=== PATIENT | female | born 1965 | race African-American/Black ===

== ENCOUNTER 2018-10-27 08:49 | Inpatient (IN) | payer OTHER ==
[2018-10-27 09:25] VITALS: BMI 32.5
--- NOTE | 2018-10-27 10:30 | HP ---
COWS - Scale Resting Pulse: 1= [place] 81-100 Sweatin= Chills/Flushing Restless Observation: 3= Extraneous Movement Pupil Size: 1= Pupils >than Normal Bone or Joint Aches: 2= Severe Diffuse Aches Runny Nose/ Eye Tearin= Runny Nose/Eyes GI Upset > 30mins: 2= Nausea/Diarrhea Tremor Observation: 2= Slight Tremor Visible Yawning Observation: 2= >3x During Session Anxiety or Irritability: 2=Irritable/Anxious Goose Flesh Skin: 0=Smooth Skin COWS Score: 18 CIWA Score Nausea/Vomitin Muscle Tremors: 2 Anxiety: 2 Agitation: 2 Paroxysmal Sweats: 1-Minimal Palms Moist Orientation: 0-Oriented Tacttile Disturbances: 1-Very Mild Itch/Numbness Auditory Disturbances: 1-Very Mild Visual Disturbances: 0-None Headache: 2-Mild CIWA-Ar Total Score: 13 - Admission Criteria OASAS Guidelines: Admission for Medically Managed Detox: Requires at least one of the followin. CIWA greater than 12 2. Seizures within the past 24 hours 3. Delirium tremens within the past 24 hours 4. Hallucinations within the past 24 hours 5. Acute intervention needed for co occurring medical disorder 6. Acute intervention needed for co occurring psychiatric disorder 7. Severe withdrawal that cannot be handled at a lower level of care (continued vomiting, continued diarrhea, abnormal vital signs) requiring intravenous medication and/or fluids 8. Admission ROS [facility] - [facility] Chief Complaint: i am here to stop using heroin,alcohol ,cocaine Allergies/Adverse Reactions: Allergies Allergy/AdvReac Type Severity Reaction Status Date / Time sulfamethoxazole AdvReac Severe Swelling Verified 10/27/18 09:03 [From Bactrim] trimethoprim [From Bactrim] AdvReac Severe Swelling Verified 10/27/18 09:03 History of Present Illness: this 53 years old female with heroin,alcohol and cocaine dependence,seeking detox,withdrawal symptom, last detox [facility] 09/28 multiple admissions in the past history of hypertension,type 2 dm, no smoking anxiety,depression,insomnia plan to go rehab longest period of sobriety for 20 yearsl Exam Limitations: No Limitations - Ebola screening Have you traveled outside of the country in the last 21 days: No Have you had contact with anyone from an Ebola affected area: No Do you have a fever: No - Review of Systems Constitutional: Chills, Loss of Appetite, Malaise, Night Sweats, Changes in sleep, Weakness EENT: reports: Tearing, Nose Congestion Respiratory: reports: Other (asthma coughing yellowish sputum for 1 week) Cardiac: reports: No Symptoms Reported GI: reports: Nausea, Vomiting, Abdominal cramping : reports: No Symptoms Reported Musculoskeletal: reports: Back Pain, Muscle Pain Integumentary: reports: Dryness Neuro: reports: Headache, Tremors Endocrine: reports: No Symptoms Reported Hematology: reports: No Symptoms Reported Psychiatric: reports: No Sypmtoms Reported, Judgement Intact, Mood/Affect Appropiate, Orientated x3, Anxious, Depressed, other (insomnia) Other Systems: Reviewed and Negative Patient History - Patient Medical History Hx Anemia: No Hx Asthma: Yes (on albuterol inhaler) Hx Chronic Obstructive Pulmonary Disease (COPD): No Hx Cancer: No Hx Cardiac Disorders: No Hx Congestive Heart Failure: No Hx Hypertension: Yes (no medication) Hx Hypercholesterolemia: No Hx Pacemaker: No HX Cerebrovascular Accident: No Hx Seizures: No Hx Dementia: No Hx Diabetes: Yes (type 2 dm on metformin) Hx Gastrointestinal Disorders: No Hx Liver Disease: No Hx Genitourinary Disorders: No Hx Sexually Transmitted Disorders: No Hx Renal Disease (ESRD): No Hx Thyroid Disease: No Hx Human Immunodeficiency Virus (HIV): No (last negative) Hx Hepatitis C: No Hx Depression: Yes (anxiety) Hx Suicide Attempt: Yes (overdose at age 16) Hx Bipolar Disorder: No Hx Schizophrenia: No Other Medical History: no sucidal,no homicidal - Patient Surgical History Past Surgical History: Yes Hx Cholecystectomy: Yes (lap cholecystectomy in 2002 at [place]) Hx Orthopedic Surgery: Yes (fx of left ankle in 2003) - PPD History Previous Implant?: Yes Documented Results: Negative w/o proof Implanted On Prior [facility] Admission?: No PPD to be Administered?: Yes - Reproductive History Patient is a Female of Child Bearing Age (11 -55 yrs old): Yes Last Menstrual Period: 10/27/17 Patient : Yes - Smoking Cessation Smoking history: Never smoked - Substance & Tx. History Hx Alcohol Use: Yes Hx Substance Use: Yes Substance Use Type: Alcohol, Cocaine, Heroin Hx Substance Use Treatment: Yes ([facility] 09/28) - Substances abused Alcohol Substance route: Oral Frequency: Daily Amount used: wine 2-3 large bottles, chris 1pint, Age of first use: 16 Date of last use: 10/26/18 Cocaine Substance route: Inhalation Frequency: 3-6 times per week Amount used: $200.00 Age of first use: 18 Date of last use: 10/25/18 Heroin Substance route: Inhalation Frequency: Daily Amount used: 200.00 Age of first use: 52 Date of last use: 10/27/18 Family Disease History - Family Disease History Family Disease History: Other: Father (alcohol,dsa ), Mother (alcohl, dsa ) Admission Physical Exam [facility] - Vital Signs Vital Signs: Vital Signs - 24 hr 10/27/18 09:16 Temperature 97.1 F L Pulse Rate 84 Respiratory 18 Rate Blood Pressure 141/81 - Physical General Appearance: Yes: Moderate Distress, Tremorous, Irritable, Sweating, Anxious HEENTM: Yes: Normal ENT Inspection, Pharynx Normal Respiratory: Yes: Wheezing Neck: Yes: Within Normal Limits, Supple, Trachea in good position Breast: Yes: Breast Exam Deferred Cardiology: Yes: Within Normal Limits, Regular Rhythm, Regular Rate, S1, S2 Abdominal: Yes: Within Normal Limits, Normal Bowel Sounds, Non Tender, Flat, Soft Genitourinary: Yes: Within Normal Limits Back: Yes: Normal Inspection, Muscle Spasm Musculoskeletal: Yes: full range of Motion, Back pain, Muscle Pain Extremities: Yes: Normal Range of Motion, Tremors 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 Current toxicology is negative. (3) Alcohol dependence with uncomplicated withdrawal Current Visit: Yes Status: Acute (4) Asthma Current Visit: Yes Status: Acute (5) Bronchitis Current Visit: Yes Status: Acute (6) Insomnia secondary to depression with anxiety Current Visit: Yes Status: Acute (7) History of laparoscopic cholecystectomy Current Visit: Yes Status: Acute (8) DM type 2 (diabetes mellitus, type 2) Current Visit: Yes Status: Acute Cleared for Admission [facility] - Detox or Rehab [facility] Level of Care: Medically Managed Detox Regimen/Protocol: Methadone/Librium Breathalyzer - Breathalyzer Breathalyzer: 0 POC Urine test - Test device test lot number: [id number] Expiration date: 03/12/20 - Control test control: Yes - Result Urine Test Results: Negative - NO line present Urine Drug Screen - Test Device Lot number: [id number] Expiration date: 06/11/20 - Control Is test valid?: Yes - Results Drug screen NEGATIVE: No Urine drug screen results: FEN-Fentanyl, MOP-Opiates, MTD-Methadone Inpatient Rehab Admission - Rehab Decision to Admit Inpatient rehab admission?: No
[2018-10-27] MEDS ORDERED: hydrOXYzine PAMOATE 25 MG CAPSULE (FP) PO PRN (10:51)
[2018-10-27] MEDS ORDERED: cloNIDine HCL 0.1 MG TABLET PO PRN (10:51)
[2018-10-27] MEDS ORDERED: BISMUTH SUBSALICYLATE 262 MG/15 ML BTL PO PRN (10:51)
[2018-10-27] MEDS ORDERED: IBUPROFEN 400 MG TABLET (FP) PO PRN (10:51)
[2018-10-27] MEDS ORDERED: MAGNESIUM HYDROX 2400MG/30ML ORAL SUSPENSION 30 ML CUP PO PRN (10:51)
[2018-10-27] MEDS ORDERED: METHOCARBAMOL 500 MG TABLET PO PRN (10:51)
[2018-10-27] MEDS ORDERED: ACETAMINOPHEN 325 MG TABLET (FP) PO PRN ×2 (10:51)
[2018-10-27] MEDS ORDERED: MAGNESIUM CITRATE 300 ML BOTTLE PO PRN (10:51)
[2018-10-27] MEDS ORDERED: MAG HYDROX/AL HYDROX/SIMETH 30 ML UNIT-DOSE CUP PO PRN (10:51)
[2018-10-27] MEDS ORDERED: MENTHOL/PHENOL 1 EACH UD MM PRN (10:51)
[2018-10-27] MEDS ORDERED: DOCUSATE SODIUM 100 MG CAPSULE (FP) PO PRN (10:56)
--- NOTE | 2018-10-27 11:00 | HP ---
COWS - Scale Resting Pulse: 1= [place] 81-100 Sweatin= Chills/Flushing Restless Observation: 3= Extraneous Movement Pupil Size: 1= Pupils >than Normal Bone or Joint Aches: 2= Severe Diffuse Aches Runny Nose/ Eye Tearin= Runny Nose/Eyes GI Upset > 30mins: 2= Nausea/Diarrhea Tremor Observation: 2= Slight Tremor Visible Yawning Observation: 2= >3x During Session Anxiety or Irritability: 2=Irritable/Anxious Goose Flesh Skin: 0=Smooth Skin COWS Score: 18 CIWA Score Nausea/Vomitin Muscle Tremors: 2 Anxiety: 2 Agitation: 2 Paroxysmal Sweats: 1-Minimal Palms Moist Orientation: 0-Oriented Tacttile Disturbances: 1-Very Mild Itch/Numbness Auditory Disturbances: 1-Very Mild Visual Disturbances: 0-None Headache: 2-Mild CIWA-Ar Total Score: 13 - Admission Criteria OASAS Guidelines: Admission for Medically Managed Detox: Requires at least one of the followin. CIWA greater than 12 2. Seizures within the past 24 hours 3. Delirium tremens within the past 24 hours 4. Hallucinations within the past 24 hours 5. Acute intervention needed for co occurring medical disorder 6. Acute intervention needed for co occurring psychiatric disorder 7. Severe withdrawal that cannot be handled at a lower level of care (continued vomiting, continued diarrhea, abnormal vital signs) requiring intravenous medication and/or fluids 8. Admission [facility] Allergies/Adverse Reactions: Allergies Allergy/AdvReac Type Severity Reaction Status Date / Time sulfamethoxazole AdvReac Severe Swelling Verified 10/27/18 09:03 [From Bactrim] trimethoprim [From Bactrim] AdvReac Severe Swelling Verified 10/27/18 09:03 - Ebola screening Have you traveled outside of the country in the last 21 days: No Have you had contact with anyone from an Ebola affected area: No Do you have a fever: No Patient History - Patient Medical History Hx Anemia: No Hx Asthma: Yes (on albuterol inhaler) Hx Chronic Obstructive Pulmonary Disease (COPD): No Hx Cancer: No Hx Cardiac Disorders: No Hx Congestive Heart Failure: No Hx Hypertension: Yes (no medication) Hx Hypercholesterolemia: No Hx Pacemaker: No HX Cerebrovascular Accident: No Hx Seizures: No Hx Dementia: No Hx Diabetes: Yes (type 2 dm on metformin) Hx Gastrointestinal Disorders: No Hx Liver Disease: No Hx Genitourinary Disorders: No Hx Sexually Transmitted Disorders: No Hx Renal Disease (ESRD): No Hx Thyroid Disease: No Hx Human Immunodeficiency Virus (HIV): No (last negative) Hx Hepatitis C: No Hx Depression: Yes (anxiety) Hx Suicide Attempt: Yes (overdose at age 16) Hx Bipolar Disorder: No Hx Schizophrenia: No Other Medical History: no sucidal,no homicidal - Patient Surgical History Past Surgical History: Yes Hx Cholecystectomy: Yes (lap cholecystectomy in 2002 at [place]) Hx Orthopedic Surgery: Yes (fx of left ankle in 2003) - PPD History Previous Implant?: Yes Documented Results: Negative w/o proof Implanted On Prior [facility] Admission?: No - Reproductive History Last Menstrual Period: 10/27/17 Patient : Yes - Smoking Cessation Smoking history: Never smoked - Substances abused Alcohol Substance route: Oral Frequency: Daily Amount used: wine 2-3 large bottles, chris 1pint, Age of first use: 16 Date of last use: 10/26/18 Cocaine Substance route: Inhalation Frequency: 3-6 times per week Amount used: $200.00 Age of first use: 18 Date of last use: 10/25/18 Heroin Substance route: Inhalation Frequency: Daily Amount used: 200.00 Age of first use: 52 Date of last use: 10/27/18 Family Disease History - Family Disease History Family Disease History: Other: Father (alcohol,dsa ), Mother (alcohl, dsa ) Admission Physical Exam [facility] - Vital Signs Vital Signs: Vital Signs - 24 hr 10/27/18 09:16 Temperature 97.1 F L Pulse Rate 84 Respiratory 18 Rate Blood Pressure 141/81 - Physical General Appearance: Yes: Moderate Distress, Tremorous, Irritable, Sweating, Anxious HEENTM: Yes: Normal ENT Inspection, JAYME, Pharynx Normal, Other (old deformity of nose) Respiratory: Yes: Wheezing Neck: Yes: Within Normal Limits, Supple, Trachea in good position Breast: Yes: Breast Exam Deferred Cardiology: Yes: Within Normal Limits, Regular Rhythm, Regular Rate, S1, S2 Abdominal: Yes: Within Normal Limits, Normal Bowel Sounds, Non Tender, Flat, Soft Genitourinary: Yes: Within Normal Limits Back: Yes: Muscle Spasm Musculoskeletal: Yes: Back pain, Joint Stiffness, Muscle Pain Extremities: Yes: Within Normal Limits, Normal Range of Motion, Tremors, Other ( old scar left ankle) 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 intact, Alert, Motor Strength 5/5, Normal Mood /Affect Integumentary: Yes: Dry Lymphatic: Yes: Within Normal Limits - Diagnostic (1) Opioid dependence with withdrawal Current Visit: Yes Status: Acute (2) Cocaine dependence Current Visit: Yes Status: Acute (3) Alcohol dependence with uncomplicated withdrawal Current Visit: Yes Status: Acute (4) Asthma Current Visit: Yes Status: Acute (5) Bronchitis Current Visit: Yes Status: Acute (6) Insomnia secondary to depression with anxiety Current Visit: Yes Status: Acute (7) History of laparoscopic cholecystectomy Current Visit: Yes Status: Acute (8) DM type 2 (diabetes mellitus, type 2) Current Visit: Yes Status: Acute Breathalyzer - Breathalyzer Breathalyzer: 0 POC Urine test - Test device test lot number: [id number] Expiration date: 03/12/20 - Control test control: Yes - Result Urine Test Results: Negative - NO line present Urine Drug Screen - Test Device Lot number: [id number] Expiration date: 06/11/20 - Control Is test valid?: Yes - Results Drug screen NEGATIVE: No Urine drug screen results: FEN-Fentanyl, MOP-Opiates, MTD-Methadone
--- NOTE | 2018-10-27 12:25 | EKG ---
Test Reason : Blood Pressure : / mmHG Vent. Rate : 077 BPM Atrial Rate : 077 BPM P-R Int : 146 ms QRS Dur : 072 ms QT Int : 400 ms P-R-T Axes : 059 056 011 degrees QTc Int : 452 ms NORMAL SINUS RHYTHM NORMAL ECG NO PREVIOUS ECGS AVAILABLE Confirmed by CONNIE PITTS, ISAIAH ([id number]) on 10/27/2018 12:25:09 PM Referred By: Confirmed By:ISAIAH ROSALES MD
[2018-10-27] MEDS: chlordiazePOXIDE HCL 25 MG CAPSULE PO PRN (12:35)
[2018-10-27] MEDS ORDERED: METHADONE HCL 10 MG TABLET (FOR DETOX USE ONLY) PO ONE ×2 (12:53→23:00)
[2018-10-27] MEDS ORDERED: ALBUTEROL SO4 2.5/IPRATROPIUM 0.5 INH SOL 3 ML VIAL.NEB. NEB PRN (12:54)
[2018-10-27] MEDS: FLUTICASONE PROP 0.05% 16 GM NASAL SPRAY NS SCH ×2 (12:58→22:22)
[2018-10-27 14:49] LABS: HEMATOCRIT 37.4 % (32.4-45.2); HEMOGLOBIN 11.6 GM/dL (10.7-15.3); MCH 25.9 pg (25.7-33.7); MEAN CELL VOLUME 83.4 fl (80-96); MEAN PLT VOLUME 9.9 fl (7.5-11.1); PLATELET COUNT 267 K/MM3 (134-434); RBC 4.49 M/mm3 (3.60-5.2); RDW 16.1 % (11.6-15.6); WHITE BLOOD COUNT 13.3 K/mm3 (4.0-10.0)
[2018-10-27 14:58] LABS: URINE APPEARANCE CLEAR; URINE BILIRUBIN NEGATIVE (NEGATIVE); URINE COLOR YELLOW; URINE GLUCOSE (UA) NEGATIVE (NEGATIVE); URINE KETONE TRACE (NEGATIVE); URINE LEUK ESTERASE NEGATIVE (NEGATIVE); URINE NITRITE NEGATIVE (NEGATIVE); URINE PROTEIN NEGATIVE (NEGATIVE); URINE UROBILINOGEN 0.2 mg/dL (0.2-1.0)
[2018-10-27 15:03] LABS: ALBUMIN 3.8 g/dl (3.4-5.0); ALK PHOS 117 U/L (45-117); ANION GAP 6 MMOL/L (8-16); BILIRUBIN,TOTAL 0.5 mg/dL (0.2-1); BLOOD UREA NITROGEN 17 mg/dL (7-18); CALCIUM 9.2 mg/dL (8.5-10.1); CHLORIDE 103 mmol/L (98-107); CO2 29 mmol/L (21-32); CREATININE 0.6 mg/dL (0.55-1.3); GLUCOSE,RANDOM 113 mg/dL (74-106); SGOT/AST 29 U/L (15-37); SGPT/ALT 40 U/L (13-61); SODIUM 137 mmol/L (136-145); TOT PROT 7.7 g/dl (6.4-8.2)
[2018-10-27 15:28] LABS: SICKLE CELL SCREEN NEGATIVE (NEGATIVE)
[2018-10-27] MEDS: guaiFENesin 600 MG TABLET.ER (FP) PO SCH ×2 (16:13→22:22)
[2018-10-27] MEDS: metFORMIN HCL 500 MG TABLET (FP) PO SCH (16:49)
[2018-10-27] MEDS: AMOX TR/POT CLAV 875MG/125MG TABLETS (FP) PO SCH (17:50)
[2018-10-27] MEDS: chlordiazePOXIDE HCL 25 MG CAPSULE PO SCH ×2 (17:50→22:23)
--- NOTE | 2018-10-27 17:52 | CONSULT ---
[facility] Psychiatric Consult - Data Date of interview: 10/27/18 Admission source: [facility] Identifying data: [facility] admision to [facility] for this 53 y/o AA female self- referred for detoxification (heroin, cocaine, alcohol). Examined at [address] [place] [address]. Patient is single, a mother of five, domiciled, now retired and supported on Social Security benefits. Substance Abuse History: Discussed in this interview. Details : Smoking history : Never smoked. Substances abused. Alcohol. Substance route: Oral. Frequency : Daily. Amount used: wine 2-3 large bottles, chris 1pint,. Age of first use: 16. Date of last use: 10/26/18. Cocaine. Substance route: Inhalation. Frequency: 3-6 times per week. Amount used: $200.00. Age of first use: 18. Date of last use: 10/25/18. Heroin. Substance route: Inhalation. Frequency: Daily. Amount used: 200.00. Age of first use: 52. Date of last use: 10/27/18 Medical History: Remarkable for GERD, bronchial asthma, hypertension, diabetes mellitus, antecedent of fracture of left ankle and history of cholecystectomy ( 2002). Psychiatric History: No reported history of psychiatric hospitalizations. Patient states that she has been diagnosed with MMD and Anxiety Disorder. [facility] a [facility], for medication [facility], [facility]. Prescribed sertraline + zolpidem (confirmed by pharmacy claims of 10/06/18 at [facility]). Ms Sweet reports a remote history of suicide attempt (age 16) via overdose with medications (names not recalled). Physical/Sexual Abuse/Trauma History: Patient denies. Additional Comment: Urine drug screen results: FEN-Fentanyl, MOP-Opiates, MTD- Methadone. Noted. Mental Status Exam - Mental Status Exam Alert and Oriented to: Time, Place, Person Cognitive Function: Good Patient Appearance: Well Groomed Mood: Apprehensive, Hopeful Affect: Appropriate, Normal Range Patient Behavior: Fatigued, Cooperative Speech Pattern: Clear, Appropriate Voice Loudness: Normal Thought Process: Intact, Goal Oriented Thought Disorder: Not Present Hallucinations: Denies Suicidal Ideation: Denies Homicidal Ideation: Denies Insight/Judgement: Poor Sleep: Well Appetite: Good Gait/Station: Normal Psychiatric Findings - Problem List ([place] 1, 2,3) (1) Alcohol dependence with uncomplicated withdrawal Current Visit: Yes Status: Acute (2) Opioid dependence with withdrawal Current Visit: Yes Status: Acute (3) Cocaine dependence Current Visit: Yes Status: Chronic Comment: Self-report. Current toxicology is negative. (4) Substance induced mood disorder Current Visit: Yes Status: Chronic (5) History of depression Current Visit: Yes Status: Chronic (6) Insomnia Current Visit: Yes Status: Chronic - Initial Treatment Plan Initial Treatment Plan: Psychoeducation. Sleep hygiene. Support. Detoxification. Relapse prevention (MAT) : discussed with the patient. Ms Sweet expresses interest in transitioning to rehabilitation once detoxification completed. Resume zoloft 50 mg po daily. Insomnia is addressed with melatonin at bedtime. Side effects/benefts reviewed. Patient is in agreement with this plan of care. Observation.
--- NOTE | 2018-10-27 21:16 | PN ---
Tony Progress Note Note: Patient complained of cough Vital Signs Temperature 97.4 F L 10/27/18 17:47 Pulse Rate 82 10/27/18 17:47 Respiratory Rate 18 10/27/18 17:47 Blood Pressure 116/72 10/27/18 17:47 O2 Sat by Pulse Oximetry (%) Action: Guaifenesin 10 ml Q6H ordered
[2018-10-27] MEDS: THIAMINE HCL 100 MG TABLET (FP) PO SCH (22:23)
[2018-10-27] MEDS: MELATONIN 5 MG TABLETS PO PRN (22:23)
[2018-10-27] MEDS: guaiFENesin/D-METHORPHAN HB 10 ML UNIT-DOSE CUPS PO PRN (22:24)
[2018-10-28] MEDS: guaiFENesin/D-METHORPHAN HB 10 ML UNIT-DOSE CUPS PO PRN (05:20)
[2018-10-28] MEDS: chlordiazePOXIDE HCL 25 MG CAPSULE PO SCH ×4 (05:20→22:23)
[2018-10-28] MEDS: metFORMIN HCL 500 MG TABLET (FP) PO SCH ×2 (06:18→16:51)
[2018-10-28] MEDS: AMOX TR/POT CLAV 875MG/125MG TABLETS (FP) PO SCH ×2 (07:46→16:51)
[2018-10-28] MEDS ORDERED: METHADONE HCL 10 MG TABLET (FOR DETOX USE ONLY) PO ONE (10:00)
[2018-10-28] MEDS: guaiFENesin 600 MG TABLET.ER (FP) PO SCH ×2 (10:29→22:23)
[2018-10-28] MEDS: SERTRALINE HCL 50 MG TABLET (FP) PO SCH (10:29)
[2018-10-28] MEDS: PRENATAL VITAMINS W/ FOLIC ACID TABLET (FP) PO SCH (10:29)
[2018-10-28] MEDS: FLUTICASONE PROP 0.05% 16 GM NASAL SPRAY NS SCH ×2 (10:29→22:26)
--- NOTE | 2018-10-28 13:17 | PN ---
[facility] CIWA - CIWA Score Nausea/Vomitin-Mild Nausea/No Vomiting Muscle Tremors: 4-Moderate,w/Arms Extend Anxiety: 3 Agitation: 4-Moderately Restless Paroxysmal Sweats: 1-Minimal Palms Moist Orientation: 0-Oriented Tacttile Disturbances: 0-None Auditory Disturbances: 0-None Visual Disturbances: 0-None Headache: 0-None Present CIWA-Ar Total Score: 13 S COWS - Scale Resting Pulse: 1= [place] 81-100 Sweatin= Chills/Flushing Restless Observation: 0= Sits Still Pupil Size: 0= Normal to Room Light Bone or Joint Aches: 2= Severe Diffuse Aches Runny Nose/ Eye Tearin= Nasal Congestion GI Upset > 30mins: 2= Nausea/Diarrhea Tremor Observation of Outstretched Hands: 2= Slight Tremor Visible Yawning Observation: 2= >3x During Session Anxiety or Irritability: 2=Irritable/Anxious Goose Flesh Skin: 0=Smooth Skin COWS Score: 13 [facility] Progress Note (SOAP) Subjective: body aches tremor willing to up and join with peers in day room Objective: 10/28/18 13:21 Vital Signs Temperature 97.4 F L 10/28/18 09:44 Pulse Rate 97 H 10/28/18 09:44 Respiratory Rate 18 10/28/18 09:44 Blood Pressure 127/81 10/28/18 09:44 O2 Sat by Pulse Oximetry (%) Laboratory Last Values WBC 13.3 K/mm3 (4.0-10.0) H 10/27/18 10:45 RBC 4.49 M/mm3 (3.60-5.2) 10/27/18 10:45 Hgb 11.6 GM/dL (10.7-15.3) 10/27/18 10:45 Hct 37.4 % (32.4-45.2) 10/27/18 10:45 MCV 83.4 fl (80-96) 10/27/18 10:45 MCH 25.9 pg (25.7-33.7) 10/27/18 10:45 MCHC 31.0 g/dl (32.0-36.0) L 10/27/18 10:45 RDW 16.1 % (11.6-15.6) H 10/27/18 10:45 Plt Count 267 K/MM3 (134-434) 10/27/18 10:45 MPV 9.9 fl (7.5-11.1) 10/27/18 10:45 Sickle Cell Screen Negative (NEGATIVE) 10/27/18 10:45 Sodium 137 mmol/L (136-145) 10/27/18 10:45 Potassium 4.0 mmol/L (3.5-5.1) 10/27/18 10:45 Chloride 103 mmol/L (98-107) 10/27/18 10:45 Carbon Dioxide 29 mmol/L (21-32) 10/27/18 10:45 Anion Gap 6 MMOL/L (8-16) L 10/27/18 10:45 BUN 17 mg/dL (7-18) 10/27/18 10:45 Creatinine 0.6 mg/dL (0.55-1.3) 10/27/18 10:45 Creat Clearance w eGFR 104.57 (>60) 10/27/18 10:45 POC Glucometer 128 UNITS (80-120) 10/28/18 05:21 Random Glucose 113 mg/dL (74-106) H 10/27/18 10:45 Calcium 9.2 mg/dL (8.5-10.1) 10/27/18 10:45 Total Bilirubin 0.5 mg/dL (0.2-1) 10/27/18 10:45 AST 29 U/L (15-37) 10/27/18 10:45 ALT 40 U/L (13-61) 10/27/18 10:45 Alkaline Phosphatase 117 U/L (45-117) 10/27/18 10:45 Total Protein 7.7 g/dl (6.4-8.2) 10/27/18 10:45 Albumin 3.8 g/dl (3.4-5.0) 10/27/18 10:45 Urine Color Yellow 10/27/18 12:30 Urine Appearance Clear 10/27/18 12:30 Urine pH 5.0 (5.0-8.0) 10/27/18 12:30 Ur Specific [place] 1.032 (1.010-1.035) 10/27/18 12:30 Urine Protein Negative (NEGATIVE) 10/27/18 12:30 Urine Glucose (UA) Negative (NEGATIVE) 10/27/18 12:30 Urine Ketones Trace (NEGATIVE) H 10/27/18 12:30 Urine Blood Negative (NEGATIVE) 10/27/18 12:30 Urine Nitrite Negative (NEGATIVE) 10/27/18 12:30 Urine Bilirubin Negative (NEGATIVE) 10/27/18 12:30 Urine Urobilinogen 0.2 mg/dL (0.2-1.0) 10/27/18 12:30 Ur Leukocyte Esterase Negative (NEGATIVE) 10/27/18 12:30 RPR Titer Nonreactive (NONREACTIVE) 10/27/18 10:45 HIV 1&2 Antibody Screen Negative 10/27/18 10:45 HIV P24 Antigen Negative 10/27/18 10:45 lab noted Assessment: 10/28/18 13:22 withdrawal sx Plan: continue detox
[2018-10-28] MEDS: chlordiazePOXIDE HCL 25 MG CAPSULE PO PRN (16:51)
[2018-10-28] MEDS: THIAMINE HCL 100 MG TABLET (FP) PO SCH (22:23)
[2018-10-29] MEDS: guaiFENesin/D-METHORPHAN HB 10 ML UNIT-DOSE CUPS PO PRN (04:25)
[2018-10-29] MEDS: chlordiazePOXIDE HCL 25 MG CAPSULE PO SCH ×2 (05:48→10:41)
[2018-10-29] MEDS: metFORMIN HCL 500 MG TABLET (FP) PO SCH ×2 (07:06→17:30)
[2018-10-29] MEDS: AMOX TR/POT CLAV 875MG/125MG TABLETS (FP) PO SCH ×2 (07:06→17:30)
[2018-10-29] MEDS ORDERED: METHADONE HCL 10 MG TABLET (FOR DETOX USE ONLY) PO ONE (10:00)
[2018-10-29] MEDS: guaiFENesin 600 MG TABLET.ER (FP) PO SCH ×2 (10:41→22:04)
[2018-10-29] MEDS: SERTRALINE HCL 50 MG TABLET (FP) PO SCH (10:41)
[2018-10-29] MEDS: FLUTICASONE PROP 0.05% 16 GM NASAL SPRAY NS SCH ×2 (10:41→22:04)
[2018-10-29] MEDS: PRENATAL VITAMINS W/ FOLIC ACID TABLET (FP) PO SCH (10:41)
--- NOTE | 2018-10-29 13:27 | PN ---
[facility] CIWA - CIWA Score Nausea/Vomitin-No Nausea/No Vomiting Muscle Tremors: 1-None Visible, but [place] Anxiety: 1-Mildly Anxious Agitation: 0-Normal Activity Paroxysmal Sweats: 1-Minimal Palms Moist Orientation: 0-Oriented Tacttile Disturbances: 0-None Auditory Disturbances: 0-None Visual Disturbances: 0-None Headache: 0-None Present CIWA-Ar Total Score: 3 S COWS - Scale Resting Pulse: 1= [place] 81-100 Sweatin= Chills/Flushing Restless Observation: 1= Difficult to Sit Still Pupil Size: 0= Normal to Room Light Bone or Joint Aches: 1= Mild Discomfort Runny Nose/ Eye Tearin= None GI Upset > 30mins: 0= None Tremor Observation of Outstretched Hands: 0= None Yawning Observation: 0= None Anxiety or Irritability: 1=Feels Anxious/Irritable Goose Flesh Skin: 0=Smooth Skin COWS Score: 5 [facility] Progress Note (SOAP) Subjective: pt states doing well with detox protocols, says she has a sore throat- getting antibiotics O: Vital Signs - 24 hr 10/28/18 10/28/18 10/28/18 13:45 17:45 21:36 Temperature 99.0 F 98.1 F 97.3 F L Pulse Rate 100 H 95 H 76 Respiratory 20 18 18 Rate Blood Pressure 130/68 142/77 101/64 10/29/18 10/29/18 10/29/18 00:30 03:30 06:11 Temperature 98.1 F Pulse Rate 82 Respiratory 18 18 18 Rate Blood Pressure 103/62 10/29/18 09:29 Temperature 98.1 F Pulse Rate 92 H Respiratory 18 Rate Blood Pressure 122/78 Laboratory Tests 10/27/18 10/27/18 10/27/18 10:45 10:45 10:45 WBC 13.3 H RBC 4.49 Hgb 11.6 Hct 37.4 MCV 83.4 MCH 25.9 MCHC 31.0 L RDW 16.1 H Plt Count 267 MPV 9.9 Sickle Cell Screen Negative Sodium 137 Potassium 4.0 Chloride 103 Carbon Dioxide 29 Anion Gap 6 L BUN 17 Creatinine 0.6 Creat Clearance w eGFR 104.57 POC Glucometer Random Glucose 113 H Calcium 9.2 Total Bilirubin 0.5 AST 29 ALT 40 Alkaline Phosphatase 117 Total Protein 7.7 Albumin 3.8 Urine Color Urine Appearance Urine pH Ur Specific [place] Urine Protein Urine Glucose (UA) Urine Ketones Urine Blood Urine Nitrite Urine Bilirubin Urine Urobilinogen Ur Leukocyte Esterase RPR Titer Nonreactive HIV 1&2 Antibody Screen HIV P24 Antigen 10/27/18 10/27/18 10/27/18 10:45 11:41 12:30 WBC RBC Hgb Hct MCV MCH MCHC RDW Plt Count MPV Sickle Cell Screen Sodium Potassium Chloride Carbon Dioxide Anion Gap BUN Creatinine Creat Clearance w eGFR POC Glucometer 115 Random Glucose Calcium Total Bilirubin AST ALT Alkaline Phosphatase Total Protein Albumin Urine Color Yellow Urine Appearance Clear Urine pH 5.0 Ur Specific [place] 1.032 Urine Protein Negative Urine Glucose (UA) Negative Urine Ketones Trace H Urine Blood Negative Urine Nitrite Negative Urine Bilirubin Negative Urine Urobilinogen 0.2 Ur Leukocyte Esterase Negative RPR Titer HIV 1&2 Antibody Screen Negative HIV P24 Antigen Negative 10/27/18 10/28/18 10/28/18 16:24 05:21 16:24 WBC RBC Hgb Hct MCV MCH MCHC RDW Plt Count MPV Sickle Cell Screen Sodium Potassium Chloride Carbon Dioxide Anion Gap BUN Creatinine Creat Clearance w eGFR POC Glucometer 100 128 96 Random Glucose Calcium Total Bilirubin AST ALT Alkaline Phosphatase Total Protein Albumin Urine Color Urine Appearance Urine pH Ur Specific [place] Urine Protein Urine Glucose (UA) Urine Ketones Urine Blood Urine Nitrite Urine Bilirubin Urine Urobilinogen Ur Leukocyte Esterase RPR Titer HIV 1&2 Antibody Screen HIV P24 Antigen 10/29/18 05:50 WBC RBC Hgb Hct MCV MCH MCHC RDW Plt Count MPV Sickle Cell Screen Sodium Potassium Chloride Carbon Dioxide Anion Gap BUN Creatinine Creat Clearance w eGFR POC Glucometer 101 Random Glucose Calcium Total Bilirubin AST ALT Alkaline Phosphatase Total Protein Albumin Urine Color Urine Appearance Urine pH Ur Specific [place] Urine Protein Urine Glucose (UA) Urine Ketones Urine Blood Urine Nitrite Urine Bilirubin Urine Urobilinogen Ur Leukocyte Esterase RPR Titer HIV 1&2 Antibody Screen HIV P24 Antigen labs and VS WNL a/p: pt doing well wiht detox protocols- continue, Abx for sore throat
[2018-10-29] MEDS ORDERED: chlordiazePOXIDE HCL 10 MG CAPSULE PO PRN (17:00)
[2018-10-29] MEDS: chlordiazePOXIDE HCL 10 MG CAPSULE PO SCH ×2 (17:30→22:04)
[2018-10-29] MEDS: THIAMINE HCL 100 MG TABLET (FP) PO SCH (22:04)
[2018-10-29] MEDS: MELATONIN 5 MG TABLETS PO PRN (22:05)
[2018-10-30] MEDS: chlordiazePOXIDE HCL 10 MG CAPSULE PO SCH ×3 (05:13→17:50)
[2018-10-30] MEDS: AMOX TR/POT CLAV 875MG/125MG TABLETS (FP) PO SCH ×2 (07:40→17:50)
[2018-10-30] MEDS: metFORMIN HCL 500 MG TABLET (FP) PO SCH ×2 (07:40→17:50)
[2018-10-30] MEDS: guaiFENesin/D-METHORPHAN HB 10 ML UNIT-DOSE CUPS PO PRN (07:41)
[2018-10-30] MEDS ORDERED: METHADONE HCL 10 MG TABLET (FOR DETOX USE ONLY) PO ONE (10:00)
[2018-10-30] MEDS: FLUTICASONE PROP 0.05% 16 GM NASAL SPRAY NS SCH ×2 (10:06→22:19)
[2018-10-30] MEDS: PRENATAL VITAMINS W/ FOLIC ACID TABLET (FP) PO SCH (10:07)
[2018-10-30] MEDS: guaiFENesin 600 MG TABLET.ER (FP) PO SCH ×2 (10:07→22:19)
[2018-10-30] MEDS: SERTRALINE HCL 50 MG TABLET (FP) PO SCH (10:07)
--- NOTE | 2018-10-30 15:51 | PN ---
S CIWA - CIWA Score Nausea/Vomitin Muscle Tremors: 3 Anxiety: 4-Mod. Anxious/Guarded Agitation: 0-Normal Activity Paroxysmal Sweats: 2 Orientation: 0-Oriented Tacttile Disturbances: 1-Very Mild Itch/Numbness Auditory Disturbances: 0-None Visual Disturbances: 1-Very Mild Sensitivity Headache: 2-Mild CIWA-Ar Total Score: 15 [facility] COWS - Scale Resting Pulse: 1= [place] 81-100 Sweatin= Chills/Flushing Restless Observation: 0= Sits Still Pupil Size: 0= Normal to Room Light Bone or Joint Aches: 0= None Runny Nose/ Eye Tearin= Runny Nose/Eyes GI Upset > 30mins: 2= Nausea/Diarrhea Tremor Observation of Outstretched Hands: 2= Slight Tremor Visible Yawning Observation: 1= 1-2x During Session Anxiety or Irritability: 2=Irritable/Anxious Goose Flesh Skin: 0=Smooth Skin COWS Score: 11 [facility] Progress Note (SOAP) Subjective: Sweating, Tremors, H/A, Interrupted Sleep, Constipation, Nausea, Stomach Cramping. Objective: PATIENT A & O X 3, OBSERVED AMBULATING ON UNIT UNASSISTED. IN NO ACUTE DISTRESS. 10/30/18 15:51 Vital Signs Temperature 97.1 F L 10/30/18 13:18 Pulse Rate 84 10/30/18 13:18 Respiratory Rate 20 10/30/18 13:18 Blood Pressure 112/74 10/30/18 13:18 O2 Sat by Pulse Oximetry (%) Laboratory Tests 10/27/18 10/27/18 10/27/18 10:45 10:45 10:45 WBC 13.3 H RBC 4.49 Hgb 11.6 Hct 37.4 MCV 83.4 MCH 25.9 MCHC 31.0 L RDW 16.1 H Plt Count 267 MPV 9.9 Sickle Cell Screen Negative Sodium 137 Potassium 4.0 Chloride 103 Carbon Dioxide 29 Anion Gap 6 L BUN 17 Creatinine 0.6 Creat Clearance w eGFR 104.57 POC Glucometer Random Glucose 113 H Calcium 9.2 Total Bilirubin 0.5 AST 29 ALT 40 Alkaline Phosphatase 117 Total Protein 7.7 Albumin 3.8 Urine Color Urine Appearance Urine pH Ur Specific [place] Urine Protein Urine Glucose (UA) Urine Ketones Urine Blood Urine Nitrite Urine Bilirubin Urine Urobilinogen Ur Leukocyte Esterase RPR Titer Nonreactive HIV 1&2 Antibody Screen HIV P24 Antigen 10/27/18 10/27/18 10/27/18 10:45 11:41 12:30 WBC RBC Hgb Hct MCV MCH MCHC RDW Plt Count MPV Sickle Cell Screen Sodium Potassium Chloride Carbon Dioxide Anion Gap BUN Creatinine Creat Clearance w eGFR POC Glucometer 115 Random Glucose Calcium Total Bilirubin AST ALT Alkaline Phosphatase Total Protein Albumin Urine Color Yellow Urine Appearance Clear Urine pH 5.0 Ur Specific [place] 1.032 Urine Protein Negative Urine Glucose (UA) Negative Urine Ketones Trace H Urine Blood Negative Urine Nitrite Negative Urine Bilirubin Negative Urine Urobilinogen 0.2 Ur Leukocyte Esterase Negative RPR Titer HIV 1&2 Antibody Screen Negative HIV P24 Antigen Negative 10/27/18 10/28/18 10/28/18 16:24 05:21 16:24 WBC RBC Hgb Hct MCV MCH MCHC RDW Plt Count MPV Sickle Cell Screen Sodium Potassium Chloride Carbon Dioxide Anion Gap BUN Creatinine Creat Clearance w eGFR POC Glucometer 100 128 96 Random Glucose Calcium Total Bilirubin AST ALT Alkaline Phosphatase Total Protein Albumin Urine Color Urine Appearance Urine pH Ur Specific [place] Urine Protein Urine Glucose (UA) Urine Ketones Urine Blood Urine Nitrite Urine Bilirubin Urine Urobilinogen Ur Leukocyte Esterase RPR Titer HIV 1&2 Antibody Screen HIV P24 Antigen 10/29/18 10/29/18 10/30/18 05:50 17:22 06:21 WBC RBC Hgb Hct MCV MCH MCHC RDW Plt Count MPV Sickle Cell Screen Sodium Potassium Chloride Carbon Dioxide Anion Gap BUN Creatinine Creat Clearance w eGFR POC Glucometer 101 139 107 Random Glucose Calcium Total Bilirubin AST ALT Alkaline Phosphatase Total Protein Albumin Urine Color Urine Appearance Urine pH Ur Specific [place] Urine Protein Urine Glucose (UA) Urine Ketones Urine Blood Urine Nitrite Urine Bilirubin Urine Urobilinogen Ur Leukocyte Esterase RPR Titer HIV 1&2 Antibody Screen HIV P24 Antigen LABS NOTED. Assessment: 10/30/18 15:54 WITHDRAWAL SYMPTOMS. LEUKOCYTOSIS - PATIENT IS CURRENTLY BEING TREATED WITH ANTIBIOTIC FOR BRONCHITIS. Plan: CONTINUE DETOX. INCREASE DAILY PO FLUID INTAKE. PATIENT REPORTS THAT COUGHING IS PERSISTING. DUONEB PRN, ROBITUSSIN PRN RECOMMENDED TO PATIENT. PRN MOM PO RECOMMENDED FOR CONSTIPATION. DISCHARGE PRESCRIPTION FOR AUGMENTIN (PRESCRIBED FOR PATIENT AT TIME OF ADMISSION TO DETOX) SENT TO PATIENT'S PHARMACY ([facility], [place], [place]), VIA TELEPHONE (UNABLE TO SEND ELECTRONICALLY), FOR FOLLOW-UP AFTERCARE. PATIENT ADVISED TO FOLLOW-UP WITH ELECTRICAL DEVELOPMENT ENGINEER DR. MITCHELL ([place], [place]) FOR GENERAL MEDICAL ASSESSMENT AND FOR HISTORY OF ASTHMA AND FOR BRONCHITIS DIAGNOSED WHILE ADMITTED FOR DETOX. PATIENT VERBALIZED UNDERSTANDING OF RECOMMENDATION. PATIENT POSSIBLY TO BE DISCHARGED TOMORROW AM PENDING MEDICAL ASSESSMENT BY COVERING MEDICAL PROVIDER AT THAT TIME.
[2018-10-30] MEDS: MELATONIN 5 MG TABLETS PO PRN (22:19)
[2018-10-30] MEDS: THIAMINE HCL 100 MG TABLET (FP) PO SCH (22:19)
[2018-10-31] MEDS: chlordiazePOXIDE HCL 10 MG CAPSULE PO SCH (05:27)
[2018-10-31] MEDS ORDERED: METHADONE HCL 5 MG TABLET (FOR DETOX USE ONLY) PO ONE (06:00)
[2018-10-31 06:25] VITALS: BP 99/68; PULSE 74; TEMP 97.2
[2018-10-31] MEDS: metFORMIN HCL 500 MG TABLET (FP) PO SCH (07:18)
[2018-10-31] MEDS: AMOX TR/POT CLAV 875MG/125MG TABLETS (FP) PO SCH (07:18)
--- NOTE | 2018-10-31 08:59 | DS ---
[facility] Detox Discharge Summary Admission Date: 10/27/18 Discharge Date: 10/31/18 - History Present History: Alcohol Dependence, Opioid Dependence Additional Comments: 53 years old female admitted on 10/27/18 for alcohol and opiate withdrawal stabilization completed detox regimen aftercare primary care provider next appointment Pertinent Past History: bring in medication list and lab report to aftercare appointment patient has medications at home and will contact with primary care provider for supply - Physical Exam Results Vital Signs: Vital Signs Temperature 97.2 F L 10/31/18 06:25 Pulse Rate 74 10/31/18 06:25 Respiratory Rate 18 10/31/18 06:25 Blood Pressure 99/68 10/31/18 06:25 O2 Sat by Pulse Oximetry (%) Pertinent Admission Physical Exam Findings: alcohol and opiate withdrawal sx Laboratory Last Values WBC 13.3 K/mm3 (4.0-10.0) H 10/27/18 10:45 RBC 4.49 M/mm3 (3.60-5.2) 10/27/18 10:45 Hgb 11.6 GM/dL (10.7-15.3) 10/27/18 10:45 Hct 37.4 % (32.4-45.2) 10/27/18 10:45 MCV 83.4 fl (80-96) 10/27/18 10:45 MCH 25.9 pg (25.7-33.7) 10/27/18 10:45 MCHC 31.0 g/dl (32.0-36.0) L 10/27/18 10:45 RDW 16.1 % (11.6-15.6) H 10/27/18 10:45 Plt Count 267 K/MM3 (134-434) 10/27/18 10:45 MPV 9.9 fl (7.5-11.1) 10/27/18 10:45 Sickle Cell Screen Negative (NEGATIVE) 10/27/18 10:45 Sodium 137 mmol/L (136-145) 10/27/18 10:45 Potassium 4.0 mmol/L (3.5-5.1) 10/27/18 10:45 Chloride 103 mmol/L (98-107) 10/27/18 10:45 Carbon Dioxide 29 mmol/L (21-32) 10/27/18 10:45 Anion Gap 6 MMOL/L (8-16) L 10/27/18 10:45 BUN 17 mg/dL (7-18) 10/27/18 10:45 Creatinine 0.6 mg/dL (0.55-1.3) 10/27/18 10:45 Creat Clearance w eGFR 104.57 (>60) 10/27/18 10:45 POC Glucometer 88 UNITS (80-120) 10/31/18 05:30 Random Glucose 113 mg/dL (74-106) H 10/27/18 10:45 Calcium 9.2 mg/dL (8.5-10.1) 10/27/18 10:45 Total Bilirubin 0.5 mg/dL (0.2-1) 10/27/18 10:45 AST 29 U/L (15-37) 10/27/18 10:45 ALT 40 U/L (13-61) 10/27/18 10:45 Alkaline Phosphatase 117 U/L (45-117) 10/27/18 10:45 Total Protein 7.7 g/dl (6.4-8.2) 10/27/18 10:45 Albumin 3.8 g/dl (3.4-5.0) 10/27/18 10:45 Urine Color Yellow 10/27/18 12:30 Urine Appearance Clear 10/27/18 12:30 Urine pH 5.0 (5.0-8.0) 10/27/18 12:30 Ur Specific [place] 1.032 (1.010-1.035) 10/27/18 12:30 Urine Protein Negative (NEGATIVE) 10/27/18 12:30 Urine Glucose (UA) Negative (NEGATIVE) 10/27/18 12:30 Urine Ketones Trace (NEGATIVE) H 10/27/18 12:30 Urine Blood Negative (NEGATIVE) 10/27/18 12:30 Urine Nitrite Negative (NEGATIVE) 10/27/18 12:30 Urine Bilirubin Negative (NEGATIVE) 10/27/18 12:30 Urine Urobilinogen 0.2 mg/dL (0.2-1.0) 10/27/18 12:30 Ur Leukocyte Esterase Negative (NEGATIVE) 10/27/18 12:30 RPR Titer Nonreactive (NONREACTIVE) 10/27/18 10:45 HIV 1&2 Antibody Screen Negative 10/27/18 10:45 HIV P24 Antigen Negative 10/27/18 10:45 lab noted patient is taking antibiotic for laryngitis - Treatment Hospital Course: Detox Protocol Followed, Detoxed Safely, Responded well, Discharged Condition Good, Rehab Referral Accepted Patient has Accepted a Rehab Referral to: primary care provider - Medication Discharge Medications: Ambulatory Orders Docusate Sodium 100 mg PO TID PRN 10/27/18 Metformin HCl [Glucophage] 500 mg PO AC 10/27/18 [id number]-[id number] Tablet 1 cap PO DAILY 10/27/18 Omeprazole 40 mg PO AC 10/27/18 traMADol HCL [Ultram -] 50 mg PO Q6H PRN 10/27/18 Amoxicillin/Potassium Clav [Augmentin 875-125 Tablet] 1 each PO BID 7 Days #14 tablet 10/30/18 Amox-Tr/K Cl [Augmentin 875-125mg Tablet -] 1 tab PO BID@0800,1730 #10 tablet - Diagnosis (1) Alcohol dependence with uncomplicated withdrawal Current Visit: Yes Status: Acute (2) Asthma Current Visit: Yes Status: Chronic Qualifiers: Asthma severity: mild Asthma persistence: intermittent Asthma complication type: with status asthmaticus Qualified Code(s): J45.22 - Mild intermittent asthma with status asthmaticus (3) DM type 2 (diabetes mellitus, type 2) Current Visit: Yes Status: Chronic Qualifiers: Diabetes mellitus fpc insulin use: without fpc use Diabetes mellitus complication status: without complication Qualified Code(s): E11.9 - Type 2 diabetes mellitus without complications (4) Opioid dependence with withdrawal Current Visit: Yes Status: Acute (5) Substance induced mood disorder Current Visit: Yes Status: Suspected - AMA Did Patient Leave Against Medical Advice: No
== END 2018-10-31 09:01 | disposition home or self-care (01) | DRG 773 ==
LOC: YASAS 08:49 → Y3N 10:57
PROVIDERS: ADMIT Surgery; ATTEND Surgery
PROC: HZ2ZZZZ Detoxification Services for Substance Abuse Treatment (ICD-10-PCS; principal; 2018-10-27)
DX: F11.23 Opioid dependence with withdrawal (principal); F10.230 Alcohol dependence with withdrawal, uncomplicated; F14.20 Cocaine dependence, uncomplicated; F19.24 Other psychoactive substance dependence with psychoactive substance-induced mood disorder; F51.05 Insomnia due to other mental disorder; I10 Essential (primary) hypertension; J45.22 Mild intermittent asthma with status asthmaticus; E11.9 Type 2 diabetes mellitus without complications; D72.829 Elevated white blood cell count, unspecified; K21.9 Gastro-esophageal reflux disease without esophagitis; J20.9 Acute bronchitis, unspecified; Z79.84 Long term (current) use of oral hypoglycemic drugs; Z88.1 Allergy status to other antibiotic agents; Z88.2 Allergy status to sulfonamides; Z91.5 Personal history of self-harm
CPT/HCPCS: 36415; 80053; 81003; 82962; 85027; 85660; 86593; 87389; 93005; 93010; 94640

== ENCOUNTER 2018-11-29 08:09 | Inpatient (IN) | payer OTHER | END 2018-12-04 10:18 | disposition home or self-care (01) | LOC: YASAS 08:09 → Y6N 10:07 ==

== ENCOUNTER 2019-01-06 08:39 | Inpatient (IN) | payer OTHER ==
[2019-01-06 09:47] VITALS: BMI 32.2
--- NOTE | 2019-01-06 10:24 | HP ---
"COWS - Scale Resting Pulse: 0= [place] 80 or Below Sweatin= Chills/Flushing Restless Observation: 0= Sits Still Pupil Size: 0= Normal to Room Light Bone or Joint Aches: 2= Severe Diffuse Aches Runny Nose/ Eye Tearin= Runny Nose/Eyes GI Upset > 30mins: 1= Stomach Cramp Tremor Observation: 0= None Yawning Observation: 0= None Anxiety or Irritability: 0= None Goose Flesh Skin: 0=Smooth Skin COWS Score: 6 CIWA Score Nausea/Vomitin-Mild Nausea/No Vomiting Muscle Tremors: None Anxiety: 0-No Anxiety, at Ease Agitation: 0-Normal Activity Paroxysmal Sweats: 2 Orientation: 0-Oriented Tacttile Disturbances: 2-Mild Itch/Numbness/Burn Auditory Disturbances: 2-Mild Harshness/Frighten Visual Disturbances: 2-Mild Sensitivity Headache: 3-Moderate CIWA-Ar Total Score: 12 - Admission Criteria [facility] Guidelines: Admission for Medically Managed Detox: Requires at least one of the followin. CIWA greater than 12 2. Seizures within the past 24 hours 3. Delirium tremens within the past 24 hours 4. Hallucinations within the past 24 hours 5. Acute intervention needed for co occurring medical disorder 6. Acute intervention needed for co occurring psychiatric disorder 7. Severe withdrawal that cannot be handled at a lower level of care (continued vomiting, continued diarrhea, abnormal vital signs) requiring intravenous medication and/or fluids 8. Admission ROS [facility] Allergies/Adverse Reactions: Allergies Allergy/AdvReac Type Severity Reaction Status Date / Time sulfamethoxazole AdvReac Severe Swelling Verified 01/06/19 09:33 [From Bactrim] trimethoprim [From Bactrim] AdvReac Severe Swelling Verified 01/06/19 09:33 History of Present Illness: This report was requested by: Aruna King | Reference #: [id number] Others' Prescriptions Patient Name: Leticia Sweet Date: 1965 Address: [address] [place] [address] Sex: Female Rx Written Rx Dispensed Drug Quantity Days Supply Prescriber Name 12/21/2018 01/04/2019 zolpidem tartrate 10 mg tablet 30 30 Temo Reynoso 10/08/2018 12/08/2018 tramadol hcl 50 mg tablet 120 30 Jalen Zhang MD 11/26/2018 12/08/2018 zolpidem tartrate 10 mg tablet 30 30 Dedousis, Temo 11/10/2018 11/10/2018 zolpidem tartrate 10 mg tablet 30 30 Dedousis, Temo 10/08/2018 11/09/2018 tramadol hcl 50 mg tablet 120 30 Jalen Zhang MD 10/08/2018 10/08/2018 tramadol hcl 50 mg tablet 120 30 Jalen Zhang MD 10/06/2018 10/06/2018 zolpidem tartrate 10 mg tablet 30 30 Dedousis, Temo 09/06/2018 09/07/2018 zolpidem tartrate 10 mg tablet 30 30 Dedousis, Temo 06/14/2018 09/06/2018 tramadol hcl 50 mg tablet 120 30 Jalen Zhang MD 08/13/2018 08/13/2018 zolpidem tartrate 10 mg tablet 7 7 Dedousis , Temo 06/14/2018 08/10/2018 tramadol hcl 50 mg tablet 120 30 Jalen Zhang MD 06/14/2018 07/10/2018 tramadol hcl 50 mg tablet 120 30 Jalen Zhang MD 03/29/2018 06/12/2018 tramadol hcl 50 mg tablet 120 30 Jalen Zhang MD 03/29/2018 05/13/2018 tramadol hcl 50 mg tablet 120 30 Jalen Zhang MD 03/29/2018 04/12/2018 tramadol hcl 50 mg tablet 120 30 Jalen Zhang MD 11/20/2017 03/18/2018 tramadol hcl 50 mg tablet 100 25 Jalen Zhang MD 12/21/2017 02/18/2018 tramadol hcl 50 mg tablet 120 30 Jalen Zhang MD 12/21/2017 01/22/2018 tramadol hcl 50 mg tablet 120 30 Jalen Zhang MD pt here requesting detox from heroin use , claims 4-5 bags/ day via inhalation relapsed 3 weeks after d/c from this facility 12/04/18 , latest use 6 am today , current symptoms as above . etoh use : 2 bottles/wine and 1/5 kiran /day daily , starts drinking upon awakening , reports sweating if not drinking , denies seizures, occasional tremors , latest use 11 pm yesterday , current symptoms as above tobacco : denies pmhx : dm 2, asthma , htn pshx : clint, left ankle orif , expl lap lmp now , irregular shx : lives w/ adult children Exam Limitations: No Limitations - Ebola screening Have you traveled outside of the country in the last 21 days: No Have you had contact with anyone from an Ebola affected area: No - Review of Systems Constitutional: Loss of Appetite EENT: reports: No Symptoms Reported Respiratory: reports: No Symptoms reported Cardiac: reports: No Symptoms Reported GI: reports: Diarrhea : reports: No Symptoms Reported Musculoskeletal: reports: See HPI Integumentary: reports: No Symptoms Reported Neuro: reports: See HPI, Headache Endocrine: reports: See HPI Psychiatric: reports: Orientated x3 Patient History - Patient Medical History Hx Anemia: No Hx Asthma: Yes (on albuterol inhaler) Hx Chronic Obstructive Pulmonary Disease (COPD): No Hx Cancer: No Hx Cardiac Disorders: No Hx Congestive Heart Failure: No Hx Hypertension: Yes (no medication) Hx Hypercholesterolemia: No Hx Pacemaker: No HX Cerebrovascular Accident: No Hx Seizures: No Hx Dementia: No Hx Diabetes: Yes (type 2 dm on metformin) Hx Gastrointestinal Disorders: No Hx Liver Disease: No Hx Genitourinary Disorders: No Hx Sexually Transmitted Disorders: No Hx Renal Disease (ESRD): No Hx Thyroid Disease: No Hx Human Immunodeficiency Virus (HIV): No (last 10/29 negative) Hx Hepatitis C: No Hx Depression: Yes (anxiety) Hx Suicide Attempt: Yes (overdose at age 16) Hx Bipolar Disorder: No Hx Schizophrenia: No - Patient Surgical History Past Surgical History: Yes Hx Neurologic Surgery: No Hx Cataract Extraction: No Hx Cardiac Surgery: No Hx Lung Surgery: No Hx Breast Surgery: No Hx Breast Biopsy: No Hx Abdominal Surgery: No Hx Appendectomy: No Hx Cholecystectomy: Yes (lap cholecystectomy in 2002 at [place]) Hx Genitourinary Surgery: No Hx Section: No Hx Orthopedic Surgery: Yes (fx of left ankle in 2003) Anesthesia Reaction: No - PPD History Date: 10/29/18 Results: 0 mm - Reproductive History Last Menstrual Period: 10/27/17 - Smoking Cessation Smoking history: Never smoked Have you smoked in the past 12 months: No Hx Chewing Tobacco Use: No - Substances abused Alcohol Substance route: Oral Frequency: Daily Amount used: wine 2-3 large bottles, chris 1pint, Age of first use: 16 Date of last use: 01/05/19 Cocaine Substance route: Inhalation Frequency: 3-6 times per week Amount used: $200.00 Age of first use: 18 Date of last use: 10/25/18 Heroin Substance route: Inhalation Frequency: Daily Amount used: 100$/day Age of first use: 52 Date of last use: 01/06/19 Family Disease History - Family Disease History Family Disease History: Other: Father (alcohol,dsa ), Mother (alcohl, dsa ) Admission Physical Exam S - Vital Signs Vital Signs: Vital Signs - 24 hr 01/06/19 09:28 Pulse Rate 64 Respiratory 20 Rate Blood Pressure 136/80 - Physical General Appearance: Yes: Mild Distress, Anxious HEENTM: Yes: EOMI, Hearing grossly Normal, Normocephalic, Normal Voice Respiratory: Yes: Lungs Clear, Normal Breath Sounds, No Respiratory Distress, No Accessory Muscle Use Neck: Yes: No masses,lesions,Nodules, Trachea in good position Cardiology: Yes: Regular Rhythm, Regular Rate, S1, S2 Abdominal: Yes: Non Tender, Soft Extremities: Yes: Normal Range of Motion, Non-Tender Neurological: Yes: Fully Oriented, Alert, Motor Strength 5/5 Integumentary: Yes: Warm - Diagnostic (1) Alcohol dependence with uncomplicated withdrawal Current Visit: Yes Status: Acute (2) Opioid dependence with withdrawal Current Visit: Yes Status: Acute Breathalyzer - Breathalyzer Breathalyzer: 0 POC Urine test - Test device test lot number: [id number] Expiration date: 03/12/20 - Control test control: Yes Urine Drug Screen - Test Device Lot number: [id number] Expiration date: 09/09/20 - Control Is test valid?: Yes - Results Drug screen NEGATIVE: No Urine drug screen results: MOP-Opiates, MTD-Methadone, BZO-Benzodiazepines Inpatient Rehab Admission - Rehab Decision to Admit Inpatient rehab admission?: No"
[2019-01-06] MEDS ORDERED: ALBUTEROL SO4 8 GM HFA INHALER IH PRN (10:35)
[2019-01-06] MEDS ORDERED: COLLOIDAL OATMEAL 1 BAR EACH TP PRN (10:36)
[2019-01-06] MEDS ORDERED: ACETAMINOPHEN 325 MG TABLET (FP) PO PRN ×2 (10:37)
[2019-01-06] MEDS ORDERED: MENTHOL/PHENOL 1 EACH UD MM PRN (10:37)
[2019-01-06] MEDS ORDERED: IBUPROFEN 400 MG TABLET (FP) PO PRN (10:37)
[2019-01-06] MEDS ORDERED: MAG HYDROX/AL HYDROX/SIMETH 30 ML UNIT-DOSE CUP PO PRN (10:37)
[2019-01-06] MEDS ORDERED: MAGNESIUM HYDROX 2400MG/30ML ORAL SUSPENSION 30 ML CUP PO PRN (10:37)
[2019-01-06] MEDS ORDERED: MAGNESIUM CITRATE 300 ML BOTTLE PO PRN (10:37)
[2019-01-06] MEDS ORDERED: MELATONIN 5 MG TABLETS PO PRN (10:37)
[2019-01-06] MEDS ORDERED: BISMUTH SUBSALICYLATE 524 MG/30 ML UD PO PRN (10:37)
[2019-01-06] MEDS ORDERED: AMMONIUM LACTATE 12% LOTION 225 GM BOTTLE TP PRN (10:40)
[2019-01-06] MEDS: diazePAM 5 MG TABLET PO SCH ×2 (14:09→22:17)
[2019-01-06] MEDS: cloNIDine HCL 0.1 MG TABLET PO PRN (16:10)
[2019-01-06] MEDS ORDERED: METHADONE HCL 10 MG TABLET (FOR DETOX USE ONLY) PO ONE ×2 (16:15→23:00)
[2019-01-06] MEDS: metFORMIN HCL 500 MG TABLET (FP) PO SCH (17:06)
[2019-01-06] MEDS: THIAMINE HCL 100 MG TABLET (FP) PO SCH (22:17)
[2019-01-06] MEDS: BUDESONIDE/FORMETEROL FUMARATE 160/4.5 mcg INHALER IH SCH (22:18)
[2019-01-07] MEDS: diazePAM 5 MG TABLET PO SCH ×3 (07:23→22:39)
[2019-01-07] MEDS: metFORMIN HCL 500 MG TABLET (FP) PO SCH ×2 (07:24→17:51)
[2019-01-07] MEDS: PRENATAL VITAMINS W/ FOLIC ACID TABLET (FP) PO SCH (09:07)
[2019-01-07] MEDS: PANTOPRAZOLE 40 MG TABLET (FP) PO SCH (09:07)
[2019-01-07] MEDS: hydrOXYzine PAMOATE 25 MG CAPSULE (FP) PO PRN ×2 (09:07→17:24)
[2019-01-07] MEDS: cloNIDine HCL 0.1 MG TABLET PO PRN (09:07)
[2019-01-07] MEDS: BUDESONIDE/FORMETEROL FUMARATE 160/4.5 mcg INHALER IH SCH ×2 (09:08→22:38)
[2019-01-07] MEDS ORDERED: METHADONE HCL 5 MG TABLET (FOR DETOX USE ONLY) PO ONE (10:00)
--- NOTE | 2019-01-07 10:09 | PN ---
S CIWA - CIWA Score Nausea/Vomitin Muscle Tremors: 2 Anxiety: 3 Agitation: 0-Normal Activity Paroxysmal Sweats: 1-Minimal Palms Moist Orientation: 0-Oriented Tacttile Disturbances: 0-None Auditory Disturbances: 0-None Visual Disturbances: 0-None Headache: 0-None Present CIWA-Ar Total Score: 9 BHS COWS - Scale Resting Pulse: 0= [place] 80 or Below Sweatin= Chills/Flushing Restless Observation: 1= Difficult to Sit Still Pupil Size: 0= Normal to Room Light Bone or Joint Aches: 1= Mild Discomfort Runny Nose/ Eye Tearin= Nasal Congestion GI Upset > 30mins: 2= Nausea/Diarrhea Tremor Observation of Outstretched Hands: 1= Tremor Hodges, Not Seen Yawning Observation: 0= None Anxiety or Irritability: 2=Irritable/Anxious Goose Flesh Skin: 0=Smooth Skin COWS Score: 9 S Progress Note (SOAP) Subjective: c/o of nausea, diarrhea, decrease appetite, dizziness Objective: 01/07/19 10:09 Vital Signs Temperature 96.6 F L 01/07/19 09:22 Pulse Rate 80 01/07/19 09:22 Respiratory Rate 16 01/07/19 09:22 Blood Pressure 125/78 01/07/19 09:22 O2 Sat by Pulse Oximetry (%) Laboratory Last Values POC Glucometer 103 UNITS (80-120) 01/07/19 05:50 POC Urine HCG, Qual Negative 01/06/19 10:02 Assessment: 01/07/19 12:38 Aox3, no distress, full ROM ambulating in the unit withdrawal sx Plan: gabapentin PRN for body aches meclazine PRN vertigo increase PO fluids continue detox continue to monitor
[2019-01-07 11:50] LABS: HEMATOCRIT 37.9 % (32.4-45.2); HEMOGLOBIN 11.9 GM/dL (10.7-15.3); MCH 26.6 pg (25.7-33.7); MCHC 31.3 g/dl (32.0-36.0); MEAN CELL VOLUME 84.9 fl (80-96); MEAN PLT VOLUME 11.3 fl (7.5-11.1); PLATELET COUNT 255 K/MM3 (134-434); RBC 4.47 M/mm3 (3.60-5.2); RDW 14.8 % (11.6-15.6); WHITE BLOOD COUNT 10.7 K/mm3 (4.0-10.0)
[2019-01-07 12:05] LABS: ALBUMIN 3.8 g/dl (3.4-5.0); BILIRUBIN,TOTAL 0.5 mg/dL (0.2-1); BLOOD UREA NITROGEN 14.4 mg/dL (7-18); CALCIUM 9.2 mg/dL (8.5-10.1); CREATININE 0.7 mg/dL (0.55-1.3); POTASSIUM 4.1 mmol/L (3.5-5.1); TOT PROT 7.6 g/dl (6.4-8.2)
[2019-01-07] MEDS ORDERED: ONDANSETRON *ODT* 4 MG TABLET SL PRN (12:36)
[2019-01-07] MEDS ORDERED: MECLIZINE HCL 12.5 MG TABLET PO PRN (12:36)
[2019-01-07] MEDS: GABAPENTIN 100 MG CAPSULE (FP) PO SCH ×2 (14:39→22:39)
[2019-01-07] MEDS ORDERED: diazePAM 5 MG TABLET PO PRN (17:59)
[2019-01-07] MEDS: THIAMINE HCL 100 MG TABLET (FP) PO SCH (22:39)
[2019-01-08] MEDS: GABAPENTIN 100 MG CAPSULE (FP) PO SCH ×2 (05:44→13:49)
[2019-01-08] MEDS ORDERED: diazePAM 5 MG TABLET PO ONE (06:00)
[2019-01-08] MEDS: metFORMIN HCL 500 MG TABLET (FP) PO SCH ×2 (08:54→17:57)
[2019-01-08] MEDS ORDERED: METHADONE HCL 10 MG TABLET (FOR DETOX USE ONLY) PO ONE (10:00)
[2019-01-08] MEDS: BUDESONIDE/FORMETEROL FUMARATE 160/4.5 mcg INHALER IH SCH (10:17)
[2019-01-08] MEDS: hydrOXYzine PAMOATE 25 MG CAPSULE (FP) PO PRN (10:18)
[2019-01-08] MEDS: PANTOPRAZOLE 40 MG TABLET (FP) PO SCH (10:18)
[2019-01-08] MEDS: PRENATAL VITAMINS W/ FOLIC ACID TABLET (FP) PO SCH (10:18)
[2019-01-08] MEDS: cloNIDine HCL 0.1 MG TABLET PO PRN ×2 (10:18→17:55)
--- NOTE | 2019-01-08 16:55 | PN ---
[facility] CIWA - CIWA Score Nausea/Vomitin-No Nausea/No Vomiting Muscle Tremors: None Anxiety: 5 Agitation: 3 Paroxysmal Sweats: 2 Orientation: 0-Oriented Tacttile Disturbances: 2-Mild Itch/Numbness/Burn Auditory Disturbances: 0-None Visual Disturbances: 0-None Headache: 0-None Present CIWA-Ar Total Score: 12 S COWS - Scale Resting Pulse: 0= [place] 80 or Below Sweatin= Chills/Flushing Restless Observation: 1= Difficult to Sit Still Pupil Size: 0= Normal to Room Light Bone or Joint Aches: 2= Severe Diffuse Aches Runny Nose/ Eye Tearin= Nasal Congestion GI Upset > 30mins: 0= None Tremor Observation of Outstretched Hands: 0= None Yawning Observation: 1= 1-2x During Session Anxiety or Irritability: 4=Extreme Anxiety Goose Flesh Skin: 0=Smooth Skin COWS Score: 10 S Progress Note (SOAP) Subjective: Anxious, Body Aches, Tremors, Nasal Congestion. Objective: PATIENT A & O X 3, OBSERVED AMBULATING ON UNIT UNASSISTED. IN NO ACUTE DISTRESS. 01/08/19 16:52 Vital Signs Temperature 98.2 F 01/08/19 13:24 Pulse Rate 71 01/08/19 13:24 Respiratory Rate 18 01/08/19 13:24 Blood Pressure 123/79 01/08/19 13:24 O2 Sat by Pulse Oximetry (%) Laboratory Tests 01/06/19 01/06/19 01/06/19 10:02 11:26 16:40 WBC RBC Hgb Hct MCV MCH MCHC RDW Plt Count MPV Sodium Potassium Chloride Carbon Dioxide Anion Gap BUN Creatinine Est GFR (CKD-EPI)AfAm Est GFR (CKD-EPI)NonAf POC Glucometer 133 118 Random Glucose Calcium Total Bilirubin AST ALT Alkaline Phosphatase Total Protein Albumin POC Urine HCG, Qual Negative RPR Titer 01/07/19 01/07/19 01/07/19 05:50 06:00 06:00 WBC 10.7 H RBC 4.47 Hgb 11.9 Hct 37.9 MCV 84.9 MCH 26.6 MCHC 31.3 L RDW 14.8 Plt Count 255 MPV 11.3 H D Sodium 140 Potassium 4.1 Chloride 106 Carbon Dioxide 29 Anion Gap 5 L BUN 14.4 Creatinine 0.7 Est GFR (CKD-EPI)AfAm 114.65 Est GFR (CKD-EPI)NonAf 98.92 POC Glucometer 103 Random Glucose 101 Calcium 9.2 Total Bilirubin 0.5 AST 27 ALT 75 H Alkaline Phosphatase 130 H Total Protein 7.6 Albumin 3.8 POC Urine HCG, Qual RPR Titer 01/07/19 01/07/19 06:00 16:37 WBC RBC Hgb Hct MCV MCH MCHC RDW Plt Count MPV Sodium Potassium Chloride Carbon Dioxide Anion Gap BUN Creatinine Est GFR (CKD-EPI)AfAm Est GFR (CKD-EPI)NonAf POC Glucometer 148 Random Glucose Calcium Total Bilirubin AST ALT Alkaline Phosphatase Total Protein Albumin POC Urine HCG, Qual RPR Titer Nonreactive LABS NOTED. Assessment: 01/08/19 16:53 WITHDRAWAL SYMPTOMS. Plan: CONTINUE DETOX. FLONASE IH FOR NASAL CONGESTION. PATIENT TENTATIVELY SCHEDULED FOR DISCHARGE FROM DETOX UNIT TOMORROW. HOWEVER, DUE TO CURRENT SEVERITY LEVEL OF WITHDRAWAL / DETOX SYMPTOMS, PATIENT TO BE DISCHARGED TOMORROW PENDFING AM MEDICAL EVALUATION BY COVERING MEDICAL PROVIDER AT THAT TIME.
[2019-01-08 18:33] VITALS: BP 112/71; PULSE 73; TEMP 97.4
--- NOTE | 2019-01-08 19:25 | DS ---
[facility] Detox Discharge Summary Admission Date: 01/06/19 Discharge Date: 01/08/19 - History Present History: Alcohol Dependence, Opioid Dependence Pertinent Past History: DM, HTN, Asthma, GERD - Physical Exam Results Vital Signs: Vital Signs Temperature 97.4 F L 01/08/19 18:33 Pulse Rate 73 01/08/19 18:33 Respiratory Rate 16 01/08/19 18:33 Blood Pressure 112/71 01/08/19 18:33 O2 Sat by Pulse Oximetry (%) - Medication Discharge Medications: Ambulatory Orders Docusate Sodium 100 mg PO TID PRN 10/27/18 Metformin HCl [Glucophage] 500 mg PO TID 10/27/18 Omeprazole 40 mg PO DAILY 10/27/18 Albuterol Sulfate Inhaler - [Ventolin Hfa Inhaler -] 2 inh PO Q6H PRN 11/29/18 Budesonide/Formeterol Fumarate [SYMBICORT 160/4.5mcg -] 1 inh PO BID 11/29/18 Multivitamin [Multiple Vitamins] 1 each PO DAILY 11/29/18 - Diagnosis (1) Alcohol dependence with uncomplicated withdrawal Current Visit: Yes Status: Acute (2) Opioid dependence with withdrawal Current Visit: Yes Status: Acute (3) Asthma Current Visit: No Status: Chronic Qualifiers: Asthma severity: mild Asthma persistence: intermittent Asthma complication type: with status asthmaticus Qualified Code(s): J45.22 - Mild intermittent asthma with status asthmaticus (4) DM type 2 (diabetes mellitus, type 2) Current Visit: No Status: Chronic Qualifiers: Diabetes mellitus custodial insulin use: without regional 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
[2019-01-08] MEDS ORDERED: FLUTICASONE PROP 0.05% 16 GM NASAL SPRAY NS SCH (22:00)
[2019-01-09] MEDS ORDERED: METHADONE HCL 5 MG TABLET (FOR DETOX USE ONLY) PO ONE (06:00)
== END 2019-01-08 18:48 | disposition home or self-care (01) | DRG 773 ==
LOC: YASAS 08:39 → Y6N 11:16 → Y3N 20:43
PROVIDERS: ADMIT Surgery; ATTEND Surgery
PROC: HZ2ZZZZ Detoxification Services for Substance Abuse Treatment (ICD-10-PCS; principal; 2019-01-06)
DX: F11.23 Opioid dependence with withdrawal (principal); F10.230 Alcohol dependence with withdrawal, uncomplicated; J45.22 Mild intermittent asthma with status asthmaticus; I10 Essential (primary) hypertension; E11.9 Type 2 diabetes mellitus without complications; Z79.84 Long term (current) use of oral hypoglycemic drugs; Z88.2 Allergy status to sulfonamides; Z91.5 Personal history of self-harm
CPT/HCPCS: 36415; 80053; 81025; 82962; 85027; 86593; J0735

== ENCOUNTER 2019-02-10 08:27 | Inpatient (IN) | payer OTHER ==
[2019-02-10 09:04] VITALS: BMI 34.0
--- NOTE | 2019-02-10 09:41 | HP ---
COWS - Scale Resting Pulse: 0= [place] 80 or Below Sweatin= Chills/Flushing Restless Observation: 1= Difficult to Sit Still Pupil Size: 1= Pupils >than Normal Bone or Joint Aches: 2= Severe Diffuse Aches Runny Nose/ Eye Tearin= Runny Nose/Eyes GI Upset > 30mins: 2= Nausea/Diarrhea Tremor Observation: 2= Slight Tremor Visible Yawning Observation: 2= >3x During Session Anxiety or Irritability: 2=Irritable/Anxious Goose Flesh Skin: 0=Smooth Skin COWS Score: 15 CIWA Score Nausea/Vomitin Muscle Tremors: 2 Anxiety: 3 Agitation: 2 Paroxysmal Sweats: 1-Minimal Palms Moist Orientation: 0-Oriented Tacttile Disturbances: 1-Very Mild Itch/Numbness Auditory Disturbances: 0-None Visual Disturbances: 1-Very Mild Sensitivity Headache: 2-Mild CIWA-Ar Total Score: 14 - Admission Criteria [facility] Guidelines: Admission for Medically Managed Detox: Requires at least one of the followin. CIWA greater than 12 2. Seizures within the past 24 hours 3. Delirium tremens within the past 24 hours 4. Hallucinations within the past 24 hours 5. Acute intervention needed for co occurring medical disorder 6. Acute intervention needed for co occurring psychiatric disorder 7. Severe withdrawal that cannot be handled at a lower level of care (continued vomiting, continued diarrhea, abnormal vital signs) requiring intravenous medication and/or fluids 8. [facility] Chief Complaint: i need help to stop using heroin,alcohol Allergies/Adverse Reactions: Allergies Allergy/AdvReac Type Severity Reaction Status Date / Time sulfamethoxazole AdvReac Severe Swelling Verified 02/10/19 08:56 [From Bactrim] trimethoprim [From Bactrim] AdvReac Severe Swelling Verified 02/10/19 08:56 History of Present Illness: this 53 years old female with heroin,alcohol dependence,seeking detox, withdrawal symptom, last detox 01/06/19 to 12/29/18 [facility] not completed multiple admissions in this facility,but keep relapsing history of hypertension,type s dm arthritis both knees no seizure syncope asthma anxiety,depression,insomnia longest sobriety 27 years plan for out patient program after detox had lap cholecystectomy in 2002 surgery of left ankle in 2003 also has gerd Exam Limitations: No Limitations - Ebola screening Have you traveled outside of the country in the last 21 days: No Have you had contact with anyone from an Ebola affected area: No Do you have a fever: No - Review of Systems Constitutional: Chills, Loss of Appetite, Malaise, Night Sweats, Changes in sleep, Weakness EENT: reports: Tearing, Nose Congestion Respiratory: reports: No Symptoms reported, Other (asthma) Cardiac: reports: No Symptoms Reported GI: reports: Nausea, Poor Appetite, Indigestion, Abdominal cramping : reports: No Symptoms Reported Musculoskeletal: reports: Back Pain, Joint Pain, Muscle Pain, Joint Stiffness Integumentary: reports: Dryness Neuro: reports: Headache, Tremors Endocrine: reports: No Symptoms Reported Hematology: reports: No Symptoms Reported Psychiatric: reports: No Sypmtoms Reported, Judgement Intact, Mood/Affect Appropiate, Orientated x3, Anxious, Depressed, other (insomnia) Other Systems: Reviewed and Negative Patient History - Patient Medical History Hx Anemia: No Hx Asthma: Yes (on albuterol inhaler) Hx Chronic Obstructive Pulmonary Disease (COPD): No Hx Cancer: No Hx Cardiac Disorders: No Hx Congestive Heart Failure: No Hx Hypertension: Yes (no medication) Hx Hypercholesterolemia: No Hx Pacemaker: No HX Cerebrovascular Accident: No Hx Seizures: No Hx Dementia: No Hx Diabetes: Yes (type 2 dm on metformin) Hx Gastrointestinal Disorders: No Hx Liver Disease: No Hx Genitourinary Disorders: No Hx Sexually Transmitted Disorders: No Hx Renal Disease (ESRD): No Hx Thyroid Disease: No Hx Human Immunodeficiency Virus (HIV): No (last 10/29 negative) Hx Hepatitis C: No Hx Depression: Yes (anxiety) Hx Suicide Attempt: Yes (overdose at age 16) Hx Bipolar Disorder: No Hx Schizophrenia: No Other Medical History: no suicidal,no homicidal - Patient Surgical History Past Surgical History: Yes Hx Neurologic Surgery: No Hx Cataract Extraction: No Hx Cardiac Surgery: No Hx Lung Surgery: No Hx Breast Surgery: No Hx Breast Biopsy: No Hx Abdominal Surgery: No Hx Appendectomy: No Hx Cholecystectomy: Yes (lap cholecystectomy in 2002 at [place]) Hx Genitourinary Surgery: No Hx Section: No Hx Orthopedic Surgery: Yes (fx of left ankle in 2003) Anesthesia Reaction: No - PPD History Previous Implant?: Yes Documented Results: Negative w/proof Implanted On Prior R Admission?: Yes Date: 10/29/18 Results: 0 mm PPD to be Administered?: No - Reproductive History Patient is a Female of Child Bearing Age (11 -55 yrs old): Yes Last Menstrual Period: 11/22/18 Patient : No - Smoking Cessation Smoking history: Never smoked Have you smoked in the past 12 months: No Hx Chewing Tobacco Use: No - Substance & Tx. History Hx Alcohol Use: Yes Hx Substance Use: Yes Substance Use Type: Alcohol, Heroin Hx Substance Use Treatment: Yes (01/06/19 to 01/08/19 not completed) - Substances abused Alcohol Substance route: Oral Frequency: Daily Amount used: wine 2-3 large bottles, chris 5th Age of first use: 16 Date of last use: 02/10/19 Cocaine Substance route: Inhalation Frequency: 3-6 times per week Amount used: $200.00 Age of first use: 18 Date of last use: 10/25/18 Heroin Substance route: Inhalation Frequency: Daily Amount used: 8-9 bags Age of first use: 52 Date of last use: 02/10/19 Family Disease History - Family Disease History Family Disease History: Other: Father (alcohol,dsa ), Mother (alcohl, dsa ) Admission Physical Exam S - Vital Signs Vital Signs: Vital Signs - 24 hr 02/10/19 02/10/19 08:58 09:19 Temperature 97.3 F L 97.3 F L Pulse Rate 77 77 Respiratory 18 18 Rate Blood Pressure 145/95 145/95 - Physical General Appearance: Yes: Moderate Distress, Tremorous, Irritable, Sweating, Anxious HEENTM: Yes: Normal ENT Inspection, JAYME, Pharynx Normal Respiratory: Yes: Within Normal Limits, Lungs Clear, Normal Breath Sounds Neck: Yes: Within Normal Limits, Supple, Trachea in good position Breast: Yes: Breast Exam Deferred Cardiology: Yes: Within Normal Limits Abdominal: Yes: Within Normal Limits, Normal Bowel Sounds, Non Tender, Flat, Soft, Surgical Scar Genitourinary: Yes: Within Normal Limits Musculoskeletal: Yes: full range of Motion, Back pain, Muscle Pain Extremities: Yes: Tremors Neurological: Yes: social insurance analyst II-XII NML intact, Fully Oriented, Alert, Motor Strength 5/5 Integumentary: Yes: Dry Lymphatic: Yes: Within Normal Limits - Diagnostic (1) Opioid dependence with withdrawal Current Visit: No Status: Acute (2) Alcohol dependence with uncomplicated withdrawal Current Visit: No Status: Acute (3) Arthritis Current Visit: No Status: Acute (4) History of laparoscopic cholecystectomy Current Visit: No Status: Acute (5) Insomnia secondary to depression with anxiety Current Visit: No Status: Acute (6) Asthma Current Visit: No Status: Chronic Qualifiers: Asthma severity: mild Asthma persistence: intermittent Asthma complication type: with status asthmaticus Qualified Code(s): J45.22 - Mild intermittent asthma with status asthmaticus (7) Cocaine dependence Current Visit: No Status: Chronic Comment: Self-report. Current toxicology is negative. (8) DM type 2 (diabetes mellitus, type 2) Current Visit: No Status: Chronic Qualifiers: Diabetes mellitus assistant terminal manager insulin use: without assistant terminal manager use Diabetes mellitus complication status: without complication Qualified Code(s): E11.9 - Type 2 diabetes mellitus without complications (9) Essential hypertension Current Visit: No Status: Chronic (10) Insomnia Current Visit: No Status: Chronic (11) GERD (gastroesophageal reflux disease) Current Visit: Yes Status: Acute Cleared for Admission S - Detox or Rehab [facility] Level of Care: Medically Managed Detox Regimen/Protocol: Methadone/Librium Breathalyzer - Breathalyzer Breathalyzer: 0 POC Urine test - Test device test lot number: [id number] Expiration date: 03/12/20 - Control test control: Yes Urine Drug Screen - Test Device Lot number: [id number] Expiration date: 11/09/20 - Control Is test valid?: Yes - Results Drug screen NEGATIVE: No Urine drug screen results: FEN-Fentanyl, MOP-Opiates, OXY-Oxycodone, MTD- Methadone, BZO-Benzodiazepines Inpatient Rehab Admission - Rehab Decision to Admit Inpatient rehab admission?: No
[2019-02-10] MEDS ORDERED: cloNIDine HCL 0.1 MG TABLET PO PRN (09:52)
[2019-02-10] MEDS ORDERED: MAG HYDROX/AL HYDROX/SIMETH 30 ML UNIT-DOSE CUP PO PRN (09:52)
[2019-02-10] MEDS ORDERED: MAGNESIUM CITRATE 300 ML BOTTLE PO PRN (09:52)
[2019-02-10] MEDS ORDERED: MAGNESIUM HYDROX 2400MG/30ML ORAL SUSPENSION 30 ML CUP PO PRN (09:52)
[2019-02-10] MEDS ORDERED: ACETAMINOPHEN 325 MG TABLET (FP) PO PRN ×2 (09:52)
[2019-02-10] MEDS ORDERED: IBUPROFEN 400 MG TABLET (FP) PO PRN (09:52)
[2019-02-10] MEDS ORDERED: MENTHOL/PHENOL 1 EACH UD MM PRN (09:52)
[2019-02-10] MEDS ORDERED: BISMUTH SUBSALICYLATE 262 MG/15 ML BTL PO PRN (09:52)
[2019-02-10] MEDS ORDERED: chlordiazePOXIDE HCL 25 MG CAPSULE PO PRN (09:55)
[2019-02-10] MEDS ORDERED: DOCUSATE SODIUM 100 MG CAPSULE (FP) PO PRN (09:57)
[2019-02-10] MEDS ORDERED: ALBUTEROL SO4 8 GM HFA INHALER IH PRN (09:57)
[2019-02-10] MEDS ORDERED: METHADONE HCL 10 MG TABLET (FOR DETOX USE ONLY) PO ONE (12:00)
[2019-02-10] MEDS: PANTOPRAZOLE 40 MG TABLET (FP) PO SCH (12:16)
[2019-02-10] MEDS: BUDESONIDE/FORMETEROL FUMARATE 160/4.5 mcg INHALER IH SCH ×2 (12:16→22:42)
[2019-02-10] MEDS: PRENATAL VITAMINS W/ FOLIC ACID TABLET (FP) PO SCH (12:16)
[2019-02-10] MEDS: chlordiazePOXIDE HCL 25 MG CAPSULE PO SCH ×3 (12:40→22:38)
[2019-02-10 14:19] LABS: HEMATOCRIT 36.6 % (32.4-45.2); HEMOGLOBIN 11.6 GM/dL (10.7-15.3); MCH 26.2 pg (25.7-33.7); MCHC 31.7 g/dl (32.0-36.0); MEAN CELL VOLUME 82.7 fl (80-96); MEAN PLT VOLUME 9.5 fl (7.5-11.1); PLATELET COUNT 231 K/MM3 (134-434); RBC 4.42 M/mm3 (3.60-5.2); WHITE BLOOD COUNT 8.5 K/mm3 (4.0-10.0)
[2019-02-10 14:42] LABS: ALBUMIN 3.5 g/dl (3.4-5.0); BILIRUBIN,TOTAL 0.3 mg/dL (0.2-1); BLOOD UREA NITROGEN 17.9 mg/dL (7-18); CALCIUM 8.7 mg/dL (8.5-10.1); CREATININE 0.6 mg/dL (0.55-1.3); POTASSIUM 4.4 mmol/L (3.5-5.1); TOT PROT 7.3 g/dl (6.4-8.2)
[2019-02-10] MEDS: diazePAM 5 MG TABLET PO PRN (15:54)
[2019-02-10] MEDS: METHOCARBAMOL 500 MG TABLET PO PRN (15:54)
[2019-02-10] MEDS: THIAMINE HCL 100 MG TABLET (FP) PO SCH (22:40)
[2019-02-10] MEDS: MELATONIN 5 MG TABLETS PO PRN (22:41)
[2019-02-11] MEDS: chlordiazePOXIDE HCL 25 MG CAPSULE PO SCH ×4 (05:41→22:23)
[2019-02-11] MEDS: metFORMIN HCL 500 MG TABLET (FP) PO SCH (07:03)
[2019-02-11] MEDS ORDERED: METHADONE HCL 10 MG TABLET (FOR DETOX USE ONLY) ONE (09:26)
[2019-02-11] MEDS ORDERED: METHADONE HCL 5 MG TABLET (FOR DETOX USE ONLY) ONE (09:26)
[2019-02-11] MEDS ORDERED: METHADONE (DETOX) 20 MG, METHADONE (DETOX) 5 MG PO ONE (10:00)
[2019-02-11] MEDS: PRENATAL VITAMINS W/ FOLIC ACID TABLET (FP) PO SCH (10:34)
[2019-02-11] MEDS: PANTOPRAZOLE 40 MG TABLET (FP) PO SCH (10:35)
[2019-02-11] MEDS: BUDESONIDE/FORMETEROL FUMARATE 160/4.5 mcg INHALER IH SCH ×2 (10:37→22:24)
--- NOTE | 2019-02-11 14:06 | PN ---
[facility] CIWA - CIWA Score Nausea/Vomitin-No Nausea/No Vomiting Muscle Tremors: 3 Anxiety: 3 Agitation: 4-Moderately Restless Paroxysmal Sweats: 3 Orientation: 0-Oriented Tacttile Disturbances: 0-None Auditory Disturbances: 0-None Visual Disturbances: 0-None Headache: 0-None Present CIWA-Ar Total Score: 13 BHS COWS - Scale Resting Pulse: 0= [place] 80 or Below Sweatin= Chills/Flushing Restless Observation: 1= Difficult to Sit Still Pupil Size: 0= Normal to Room Light Bone or Joint Aches: 2= Severe Diffuse Aches Runny Nose/ Eye Tearin= Nasal Congestion GI Upset > 30mins: 1= Stomach Cramp Tremor Observation of Outstretched Hands: 1= Tremor [place], Not Seen Yawning Observation: 2= >3x During Session Anxiety or Irritability: 2=Irritable/Anxious Goose Flesh Skin: 0=Smooth Skin COWS Score: 11 S Progress Note (SOAP) Subjective: leg cramping sweats shakes interrupted sleep body aches irritable Objective: 02/11/19 14:05 Vital Signs Temperature 98.3 F 02/11/19 13:53 Pulse Rate 75 02/11/19 13:53 Respiratory Rate 18 02/11/19 13:53 Blood Pressure 143/88 02/11/19 13:53 O2 Sat by Pulse Oximetry (%) Laboratory Tests 02/10/19 02/10/19 02/10/19 09:21 09:26 10:12 WBC 8.5 RBC 4.42 Hgb 11.6 Hct 36.6 MCV 82.7 MCH 26.2 MCHC 31.7 L RDW 14.0 Plt Count 231 MPV 9.5 D Sodium Potassium Chloride Carbon Dioxide Anion Gap BUN Creatinine Est GFR (CKD-EPI)AfAm Est GFR (CKD-EPI)NonAf POC Glucometer 97 Random Glucose Calcium Total Bilirubin AST ALT Alkaline Phosphatase Total Protein Albumin POC Urine HCG, Qual Negative RPR Titer 02/10/19 02/10/19 02/10/19 10:12 10:12 16:29 WBC RBC Hgb Hct MCV MCH MCHC RDW Plt Count MPV Sodium 140 Potassium 4.4 Chloride 104 Carbon Dioxide 29 Anion Gap 7 L BUN 17.9 Creatinine 0.6 Est GFR (CKD-EPI)AfAm 120.61 Est GFR (CKD-EPI)NonAf 104.06 POC Glucometer 89 Random Glucose 96 Calcium 8.7 Total Bilirubin 0.3 AST 26 ALT 56 Alkaline Phosphatase 127 H Total Protein 7.3 Albumin 3.5 POC Urine HCG, Qual RPR Titer Nonreactive 02/11/19 05:39 WBC RBC Hgb Hct MCV MCH MCHC RDW Plt Count MPV Sodium Potassium Chloride Carbon Dioxide Anion Gap BUN Creatinine Est GFR (CKD-EPI)AfAm Est GFR (CKD-EPI)NonAf POC Glucometer 93 Random Glucose Calcium Total Bilirubin AST ALT Alkaline Phosphatase Total Protein Albumin POC Urine HCG, Qual RPR Titer labs noted aaox3 ambulating no acute distress Assessment: 02/11/19 14:06 withdrawal sx Plan: continue detox increase fluids muscle relaxant prn motrin prn tylenol prn
[2019-02-11] MEDS: hydrOXYzine HCL 25 MG TABLET (FP) PO PRN (15:36)
[2019-02-11] MEDS: METHOCARBAMOL 500 MG TABLET PO PRN (15:38)
[2019-02-11] MEDS: THIAMINE HCL 100 MG TABLET (FP) PO SCH (22:23)
[2019-02-11] MEDS: MELATONIN 5 MG TABLETS PO PRN (22:23)
[2019-02-12] MEDS: diazePAM 5 MG TABLET PO PRN (02:21)
[2019-02-12] MEDS: chlordiazePOXIDE HCL 25 MG CAPSULE PO SCH ×4 (05:36→22:11)
[2019-02-12] MEDS: metFORMIN HCL 500 MG TABLET (FP) PO SCH (07:56)
[2019-02-12] MEDS ORDERED: METHADONE HCL 10 MG TABLET (FOR DETOX USE ONLY) PO ONE (10:00)
[2019-02-12] MEDS: PRENATAL VITAMINS W/ FOLIC ACID TABLET (FP) PO SCH (10:48)
[2019-02-12] MEDS: PANTOPRAZOLE 40 MG TABLET (FP) PO SCH (10:48)
[2019-02-12] MEDS: BUDESONIDE/FORMETEROL FUMARATE 160/4.5 mcg INHALER IH SCH ×2 (10:49→22:10)
--- NOTE | 2019-02-12 11:55 | PN ---
S CIWA - CIWA Score Nausea/Vomitin-No Nausea/No Vomiting Muscle Tremors: 2 Anxiety: 3 Agitation: 0-Normal Activity Paroxysmal Sweats: 3 Orientation: 0-Oriented Tacttile Disturbances: 0-None Auditory Disturbances: 0-None Visual Disturbances: 0-None Headache: 2-Mild CIWA-Ar Total Score: 10 BHS COWS - Scale Resting Pulse: 0= [place] 80 or Below Sweatin= Chills/Flushing Restless Observation: 1= Difficult to Sit Still Pupil Size: 0= Normal to Room Light Bone or Joint Aches: 2= Severe Diffuse Aches Runny Nose/ Eye Tearin= None GI Upset > 30mins: 0= None Tremor Observation of Outstretched Hands: 2= Slight Tremor Visible Yawning Observation: 1= 1-2x During Session Anxiety or Irritability: 2=Irritable/Anxious Goose Flesh Skin: 0=Smooth Skin COWS Score: 9 BHS Progress Note (SOAP) Subjective: c/o sweats, anxiety, irritability, and headache. Objective: 02/12/19 11:54 Vital Signs 02/12/19 02/12/19 07:09 09:54 Temperature 97.7 F 98.1 F Pulse Rate 75 79 Respiratory 18 18 Rate Blood Pressure 103/65 124/72 Lab Results WBC 8.5 K/mm3 (4.0-10.0) 02/10/19 10:12 RBC 4.42 M/mm3 (3.60-5.2) 02/10/19 10:12 Hgb 11.6 GM/dL (10.7-15.3) 02/10/19 10:12 Hct 36.6 % (32.4-45.2) 02/10/19 10:12 MCV 82.7 fl (80-96) 02/10/19 10:12 MCHC 31.7 g/dl (32.0-36.0) L 02/10/19 10:12 RDW 14.0 % (11.6-15.6) 02/10/19 10:12 Plt Count 231 K/MM3 (134-434) 02/10/19 10:12 Sodium 140 mmol/L (136-145) 02/10/19 10:12 Potassium 4.4 mmol/L (3.5-5.1) 02/10/19 10:12 Chloride 104 mmol/L (98-107) 02/10/19 10:12 Carbon Dioxide 29 mmol/L (21-32) 02/10/19 10:12 Anion Gap 7 MMOL/L (8-16) L 02/10/19 10:12 BUN 17.9 mg/dL (7-18) 02/10/19 10:12 Creatinine 0.6 mg/dL (0.55-1.3) 02/10/19 10:12 Random Glucose 96 mg/dL (74-106) 02/10/19 10:12 Calcium 8.7 mg/dL (8.5-10.1) 02/10/19 10:12 Labs noted. Assessment: 02/12/19 11:54 AOX3, in no acute distress. Full ROM, ambulating in the unit. Withdrawal symptoms. Plan: continue detox.
[2019-02-12] MEDS: THIAMINE HCL 100 MG TABLET (FP) PO SCH (22:10)
[2019-02-12] MEDS: MELATONIN 5 MG TABLETS PO PRN (22:11)
[2019-02-13] MEDS ORDERED: chlordiazePOXIDE HCL 10 MG CAPSULE PO PRN
[2019-02-13] MEDS: chlordiazePOXIDE HCL 10 MG CAPSULE PO SCH ×4 (05:16→23:03)
[2019-02-13] MEDS: metFORMIN HCL 500 MG TABLET (FP) PO SCH (06:25)
[2019-02-13] MEDS ORDERED: METHADONE HCL 10 MG TABLET (FOR DETOX USE ONLY) ONE (09:52)
[2019-02-13] MEDS ORDERED: METHADONE HCL 5 MG TABLET (FOR DETOX USE ONLY) ONE (09:52)
[2019-02-13] MEDS ORDERED: METHADONE (DETOX) 10 MG, METHADONE (DETOX) 5 MG PO ONE (10:00)
[2019-02-13] MEDS: PRENATAL VITAMINS W/ FOLIC ACID TABLET (FP) PO SCH (11:00)
[2019-02-13] MEDS: PANTOPRAZOLE 40 MG TABLET (FP) PO SCH (11:00)
[2019-02-13] MEDS: BUDESONIDE/FORMETEROL FUMARATE 160/4.5 mcg INHALER IH SCH ×2 (11:00→23:02)
[2019-02-13] MEDS ORDERED: COLLOIDAL OATMEAL 1 BAR EACH TP PRN (11:13)
[2019-02-13] MEDS: METHOCARBAMOL 500 MG TABLET PO PRN (16:55)
[2019-02-13] MEDS: LIDOCAINE 5% TOPICAL PATCH TP SCH (18:05)
[2019-02-13] MEDS: VITAMINS A AND D TOPICAL OINTMENT 60 GM TUBE TP SCH ×3 (18:05→23:02)
[2019-02-13] MEDS: METHYL SALICYLATE/MENTHOL OINT 30 GM TUBE TP SCH ×2 (18:05→23:02)
--- NOTE | 2019-02-13 18:25 | PN ---
S CIWA - CIWA Score Nausea/Vomitin-Mild Nausea/No Vomiting Muscle Tremors: 4-Moderate,w/Arms Extend Anxiety: 3 Agitation: 3 Paroxysmal Sweats: 3 Orientation: 0-Oriented Tacttile Disturbances: 0-None Auditory Disturbances: 0-None Visual Disturbances: 0-None Headache: 0-None Present CIWA-Ar Total Score: 14 BHS COWS - Scale Resting Pulse: 1= [place] 81-100 Sweatin= Chills/Flushing Restless Observation: 3= Extraneous Movement Pupil Size: 0= Normal to Room Light Bone or Joint Aches: 2= Severe Diffuse Aches Runny Nose/ Eye Tearin= Runny Nose/Eyes GI Upset > 30mins: 2= Nausea/Diarrhea Tremor Observation of Outstretched Hands: 2= Slight Tremor Visible Yawning Observation: 0= None Anxiety or Irritability: 2=Irritable/Anxious Goose Flesh Skin: 0=Smooth Skin COWS Score: 15 BHS Progress Note (SOAP) Subjective: Chronic arthritis in legs and knees, back pain, interrupted sleep, sweating. Patient requesting aveeno bar soap, lidocaine patch and analgesic balm Objective: 02/13/19 18:23 Last Vital Signs Temp Pulse Resp BP Pulse Ox 98.1 F 89 18 123/78 02/13/19 14:03 02/13/19 14:03 02/13/19 14:03 02/13/19 14:03 Laboratory Tests 02/10/19 02/10/19 02/10/19 09:21 09:26 10:12 WBC 8.5 RBC 4.42 Hgb 11.6 Hct 36.6 MCV 82.7 MCH 26.2 MCHC 31.7 L RDW 14.0 Plt Count 231 MPV 9.5 D Sodium Potassium Chloride Carbon Dioxide Anion Gap BUN Creatinine Est GFR (CKD-EPI)AfAm Est GFR (CKD-EPI)NonAf POC Glucometer 97 Random Glucose Calcium Total Bilirubin AST ALT Alkaline Phosphatase Total Protein Albumin POC Urine HCG, Qual Negative RPR Titer 02/10/19 02/10/19 02/10/19 10:12 10:12 16:29 WBC RBC Hgb Hct MCV MCH MCHC RDW Plt Count MPV Sodium 140 Potassium 4.4 Chloride 104 Carbon Dioxide 29 Anion Gap 7 L BUN 17.9 Creatinine 0.6 Est GFR (CKD-EPI)AfAm 120.61 Est GFR (CKD-EPI)NonAf 104.06 POC Glucometer 89 Random Glucose 96 Calcium 8.7 Total Bilirubin 0.3 AST 26 ALT 56 Alkaline Phosphatase 127 H Total Protein 7.3 Albumin 3.5 POC Urine HCG, Qual RPR Titer Nonreactive 02/11/19 02/11/19 02/12/19 05:39 16:24 05:34 WBC RBC Hgb Hct MCV MCH MCHC RDW Plt Count MPV Sodium Potassium Chloride Carbon Dioxide Anion Gap BUN Creatinine Est GFR (CKD-EPI)AfAm Est GFR (CKD-EPI)NonAf POC Glucometer 93 102 157 Random Glucose Calcium Total Bilirubin AST ALT Alkaline Phosphatase Total Protein Albumin POC Urine HCG, Qual RPR Titer 02/12/19 02/12/19 02/13/19 10:52 16:25 05:15 WBC RBC Hgb Hct MCV MCH MCHC RDW Plt Count MPV Sodium Potassium Chloride Carbon Dioxide Anion Gap BUN Creatinine Est GFR (CKD-EPI)AfAm Est GFR (CKD-EPI)NonAf POC Glucometer 175 149 148 Random Glucose Calcium Total Bilirubin AST ALT Alkaline Phosphatase Total Protein Albumin POC Urine HCG, Qual RPR Titer 02/13/19 16:54 WBC RBC Hgb Hct MCV MCH MCHC RDW Plt Count MPV Sodium Potassium Chloride Carbon Dioxide Anion Gap BUN Creatinine Est GFR (CKD-EPI)AfAm Est GFR (CKD-EPI)NonAf POC Glucometer 157 Random Glucose Calcium Total Bilirubin AST ALT Alkaline Phosphatase Total Protein Albumin POC Urine HCG, Qual RPR Titer Labs reviewed: hyperglycemia noted Assessment: 02/13/19 18:24 Withdrawal sxs Hyperglycemia noted Plan: Continue detox Encouraged PO water intake Lidocaine patch ordered for back pain Analgesic balm for pain in knees Aveeno soap as per patient's request stating she's allergic to hospital soap Hyperglycemia secondary to DM: continue diabetic regimen
[2019-02-13] MEDS: THIAMINE HCL 100 MG TABLET (FP) PO SCH (23:03)
[2019-02-13] MEDS: LIDOCAINE PATCH REMOVAL MC SCH (23:04)
[2019-02-14] MEDS ORDERED: chlordiazePOXIDE 5 MG CAPSULE ONE ×2 (04:28→17:26)
[2019-02-14] MEDS: chlordiazePOXIDE HCL 10 MG CAPSULE PO SCH ×2 (06:06→17:27)
[2019-02-14] MEDS: VITAMINS A AND D TOPICAL OINTMENT 60 GM TUBE TP SCH ×3 (07:57→17:59)
[2019-02-14] MEDS: metFORMIN HCL 500 MG TABLET (FP) PO SCH (07:57)
--- NOTE | 2019-02-14 09:21 | PN ---
[facility] CIWA - CIWA Score Nausea/Vomitin-No Nausea/No Vomiting Muscle Tremors: 3 Anxiety: 1-Mildly Anxious Agitation: 1-Slight > Activity Paroxysmal Sweats: No Perspiration Orientation: 0-Oriented Tacttile Disturbances: 0-None Auditory Disturbances: 0-None Visual Disturbances: 0-None Headache: 0-None Present CIWA-Ar Total Score: 5 BHS COWS - Scale Resting Pulse: 0= [place] 80 or Below Sweatin= Chills/Flushing Restless Observation: 0= Sits Still Pupil Size: 0= Normal to Room Light Bone or Joint Aches: 1= Mild Discomfort Runny Nose/ Eye Tearin= None GI Upset > 30mins: 0= None Tremor Observation of Outstretched Hands: 1= Tremor [place], Not Seen Yawning Observation: 1= 1-2x During Session Anxiety or Irritability: 1=Feels Anxious/Irritable Goose Flesh Skin: 0=Smooth Skin COWS Score: 5 [facility] Progress Note (SOAP) Subjective: sweats i want glucerna with my meals Objective: 02/14/19 09:20 Vital Signs Temperature 96.8 F L 02/14/19 08:11 Pulse Rate 76 02/14/19 08:11 Respiratory Rate 18 02/14/19 08:11 Blood Pressure 108/71 02/14/19 08:11 O2 Sat by Pulse Oximetry (%) aaox3 ambulating no acute distress Assessment: 02/14/19 09:20 mild withdrawal sx Plan: continue detox increase fluids glucerna with meals ordered d/c in am
[2019-02-14] MEDS ORDERED: METHADONE HCL 10 MG TABLET (FOR DETOX USE ONLY) PO ONE (10:00)
[2019-02-14] MEDS ORDERED: COLLOIDAL OATMEAL 1 BAR EACH TP ONE (10:00)
[2019-02-14] MEDS: LIDOCAINE 5% TOPICAL PATCH TP SCH (10:26)
[2019-02-14] MEDS: BUDESONIDE/FORMETEROL FUMARATE 160/4.5 mcg INHALER IH SCH ×2 (10:26→22:35)
[2019-02-14] MEDS: METHYL SALICYLATE/MENTHOL OINT 30 GM TUBE TP SCH ×2 (10:27→22:35)
[2019-02-14] MEDS: PANTOPRAZOLE 40 MG TABLET (FP) PO SCH (10:27)
[2019-02-14] MEDS: PRENATAL VITAMINS W/ FOLIC ACID TABLET (FP) PO SCH (10:27)
[2019-02-14] MEDS: METHOCARBAMOL 500 MG TABLET PO PRN ×2 (17:27→22:34)
[2019-02-14] MEDS: MELATONIN 5 MG TABLETS PO PRN (22:31)
[2019-02-14] MEDS: THIAMINE HCL 100 MG TABLET (FP) PO SCH (22:31)
[2019-02-14] MEDS: hydrOXYzine HCL 25 MG TABLET (FP) PO PRN (22:34)
[2019-02-14] MEDS: LIDOCAINE PATCH REMOVAL MC SCH (22:36)
[2019-02-15] MEDS ORDERED: chlordiazePOXIDE 5 MG CAPSULE ONE (04:14)
[2019-02-15] MEDS ORDERED: chlordiazePOXIDE HCL 10 MG CAPSULE PO ONE (05:00)
[2019-02-15] MEDS ORDERED: METHADONE HCL 5 MG TABLET (FOR DETOX USE ONLY) PO ONE (06:00)
[2019-02-15] MEDS: VITAMINS A AND D TOPICAL OINTMENT 60 GM TUBE TP SCH (06:25)
[2019-02-15 07:19] VITALS: BP 126/68; PULSE 76; TEMP 97.3
[2019-02-15] MEDS: metFORMIN HCL 500 MG TABLET (FP) PO SCH (07:31)
--- NOTE | 2019-02-15 09:32 | DS ---
[facility] Detox Discharge Summary Admission Date: 02/10/19 Discharge Date: 02/15/19 - History Present History: Alcohol Dependence, Cocaine Dependence, Opioid Dependence - Physical Exam Results Vital Signs: Vital Signs Temperature 97.3 F L 02/15/19 07:18 Pulse Rate 76 02/15/19 07:18 Respiratory Rate 20 02/15/19 07:18 Blood Pressure 126/68 02/15/19 07:18 O2 Sat by Pulse Oximetry (%) Pertinent Admission Physical Exam Findings: pt arrived in withdrawals Laboratory Tests 02/10/19 02/10/19 02/10/19 09:21 09:26 10:12 WBC 8.5 RBC 4.42 Hgb 11.6 Hct 36.6 MCV 82.7 MCH 26.2 MCHC 31.7 L RDW 14.0 Plt Count 231 MPV 9.5 D Sodium Potassium Chloride Carbon Dioxide Anion Gap BUN Creatinine Est GFR (CKD-EPI)AfAm Est GFR (CKD-EPI)NonAf POC Glucometer 97 Random Glucose Calcium Total Bilirubin AST ALT Alkaline Phosphatase Total Protein Albumin POC Urine HCG, Qual Negative RPR Titer 02/10/19 02/10/19 02/10/19 10:12 10:12 16:29 WBC RBC Hgb Hct MCV MCH MCHC RDW Plt Count MPV Sodium 140 Potassium 4.4 Chloride 104 Carbon Dioxide 29 Anion Gap 7 L BUN 17.9 Creatinine 0.6 Est GFR (CKD-EPI)AfAm 120.61 Est GFR (CKD-EPI)NonAf 104.06 POC Glucometer 89 Random Glucose 96 Calcium 8.7 Total Bilirubin 0.3 AST 26 ALT 56 Alkaline Phosphatase 127 H Total Protein 7.3 Albumin 3.5 POC Urine HCG, Qual RPR Titer Nonreactive 02/11/19 02/11/19 02/12/19 05:39 16:24 05:34 WBC RBC Hgb Hct MCV MCH MCHC RDW Plt Count MPV Sodium Potassium Chloride Carbon Dioxide Anion Gap BUN Creatinine Est GFR (CKD-EPI)AfAm Est GFR (CKD-EPI)NonAf POC Glucometer 93 102 157 Random Glucose Calcium Total Bilirubin AST ALT Alkaline Phosphatase Total Protein Albumin POC Urine HCG, Qual RPR Titer 02/12/19 02/12/19 02/13/19 10:52 16:25 05:15 WBC RBC Hgb Hct MCV MCH MCHC RDW Plt Count MPV Sodium Potassium Chloride Carbon Dioxide Anion Gap BUN Creatinine Est GFR (CKD-EPI)AfAm Est GFR (CKD-EPI)NonAf POC Glucometer 175 149 148 Random Glucose Calcium Total Bilirubin AST ALT Alkaline Phosphatase Total Protein Albumin POC Urine HCG, Qual RPR Titer 02/13/19 02/14/19 02/14/19 16:54 06:12 16:47 WBC RBC Hgb Hct MCV MCH MCHC RDW Plt Count MPV Sodium Potassium Chloride Carbon Dioxide Anion Gap BUN Creatinine Est GFR (CKD-EPI)AfAm Est GFR (CKD-EPI)NonAf POC Glucometer 157 140 150 Random Glucose Calcium Total Bilirubin AST ALT Alkaline Phosphatase Total Protein Albumin POC Urine HCG, Qual RPR Titer 02/15/19 05:49 WBC RBC Hgb Hct MCV MCH MCHC RDW Plt Count MPV Sodium Potassium Chloride Carbon Dioxide Anion Gap BUN Creatinine Est GFR (CKD-EPI)AfAm Est GFR (CKD-EPI)NonAf POC Glucometer 111 Random Glucose Calcium Total Bilirubin AST ALT Alkaline Phosphatase Total Protein Albumin POC Urine HCG, Qual RPR Titer today pt is aaox3 ambulating no acute distress no s/s of withdrawals - Treatment Hospital Course: Detox Protocol Followed, Detoxed Safely, Responded well, Discharged Condition Good, Rehab Referral Accepted Patient has Accepted a Rehab Referral to: pt declined rehab; referral provided - Medication Discharge Medications: Ambulatory Orders Docusate Sodium 100 mg PO TID PRN 10/27/18 Metformin HCl [Glucophage] 500 mg PO DAILY 10/27/18 Omeprazole 40 mg PO DAILY 10/27/18 Albuterol Sulfate Inhaler - [Ventolin Hfa Inhaler -] 2 inh PO Q6H PRN 11/29/18 Budesonide/Formeterol Fumarate [SYMBICORT 160/4.5mcg -] 1 inh PO BID 11/29/18 Multivitamin [Multiple Vitamins] 1 each PO DAILY 11/29/18 - Diagnosis (1) Alcohol dependence with uncomplicated withdrawal Status: Chronic (2) Arthritis Status: Chronic (3) GERD (gastroesophageal reflux disease) Status: Chronic Qualifiers: Esophagitis presence: without esophagitis Qualified Code(s): K21.9 - Gastro -esophageal reflux disease without esophagitis (4) History of laparoscopic cholecystectomy Status: Acute (5) Insomnia secondary to depression with anxiety Status: Acute (6) Opioid dependence with withdrawal Status: Acute (7) Anxiety disorder Status: Chronic (8) Asthma Status: Chronic Qualifiers: Asthma severity: mild Asthma persistence: intermittent Asthma complication type: with status asthmaticus Qualified Code(s): J45.22 - Mild intermittent asthma with status asthmaticus (9) Bronchitis Status: Chronic (10) Cocaine dependence Status: Chronic Qualifiers: Substance use status: uncomplicated Qualified Code(s): F14.20 - Cocaine dependence, uncomplicated (11) DM type 2 (diabetes mellitus, type 2) Status: Chronic Qualifiers: Diabetes mellitus truck terminal manager insulin use: without correction use Diabetes mellitus complication status: without complication Qualified Code(s): E11.9 - Type 2 diabetes mellitus without complications (12) Essential hypertension Status: Chronic (13) History of depression Status: Chronic (14) Insomnia Status: Chronic (15) Substance induced mood disorder Status: Chronic - AMA Did Patient Leave Against Medical Advice: No
== END 2019-02-15 08:58 | disposition home or self-care (01) | DRG 773 ==
LOC: YASAS 08:27 → Y6N 11:39
PROVIDERS: ADMIT Surgery; ATTEND Surgery
PROC: HZ2ZZZZ Detoxification Services for Substance Abuse Treatment (ICD-10-PCS; principal; 2019-02-10)
DX: F11.23 Opioid dependence with withdrawal (principal); F10.230 Alcohol dependence with withdrawal, uncomplicated; F14.20 Cocaine dependence, uncomplicated; F19.24 Other psychoactive substance dependence with psychoactive substance-induced mood disorder; F51.05 Insomnia due to other mental disorder; F41.9 Anxiety disorder, unspecified; I10 Essential (primary) hypertension; J40 Bronchitis, not specified as acute or chronic; J45.22 Mild intermittent asthma with status asthmaticus; K21.9 Gastro-esophageal reflux disease without esophagitis; E11.9 Type 2 diabetes mellitus without complications; Z79.84 Long term (current) use of oral hypoglycemic drugs; M12.9 Arthropathy, unspecified; Z90.49 Acquired absence of other specified parts of digestive tract
CPT/HCPCS: 36415; 80053; 81025; 82962; 85027; 86593

== ENCOUNTER 2019-03-09 08:18 | Inpatient (IN) | payer OTHER ==
[2019-03-09 09:21] VITALS: BMI 34.0
--- NOTE | 2019-03-09 09:45 | HP ---
COWS - Scale Resting Pulse: 0= NM 80 or Below Sweatin=Flushed/Facial Moisture Restless Observation: 1= Difficult to Sit Still Pupil Size: 1= Pupils >than Normal Bone or Joint Aches: 2= Severe Diffuse Aches Runny Nose/ Eye Tearin= Constantly Teary/Runny GI Upset > 30mins: 2= Nausea/Diarrhea Tremor Observation: 2= Slight Tremor Visible Yawning Observation: 1= 1-2x During Session Anxiety or Irritability: 2=Irritable/Anxious Goose Flesh Skin: 0=Smooth Skin COWS Score: 17 CIWA Score Nausea/Vomitin-Mild Nausea/No Vomiting Muscle Tremors: 3 Anxiety: 3 Agitation: 3 Paroxysmal Sweats: 2 Orientation: 0-Oriented Tacttile Disturbances: 0-None Auditory Disturbances: 0-None Visual Disturbances: 0-None Headache: 1-Very Mild CIWA-Ar Total Score: 13 - Admission Criteria OASAS Guidelines: Admission for Medically Managed Detox: Requires at least one of the followin. CIWA greater than 12 2. Seizures within the past 24 hours 3. Delirium tremens within the past 24 hours 4. Hallucinations within the past 24 hours 5. Acute intervention needed for co occurring medical disorder 6. Acute intervention needed for co occurring psychiatric disorder 7. Severe withdrawal that cannot be handled at a lower level of care (continued vomiting, continued diarrhea, abnormal vital signs) requiring intravenous medication and/or fluids 8. Admission [facility] Chief Complaint: " I here because I want to get off heroin and stop drinking." Allergies/Adverse Reactions: Allergies Allergy/AdvReac Type Severity Reaction Status Date / Time sulfamethoxazole AdvReac Severe Swelling Verified 03/09/19 09:01 [From Bactrim] trimethoprim [From Bactrim] AdvReac Severe Swelling Verified 03/09/19 09:01 History of Present Illness: Patient is 53 year old black female who has a history of opiate dependence and alcohol dependence. She was last here in the beginning of this month. She was only abstinent for a few weeks. :This time she will complete detox and then go to rehab. She has had blackouts in the past, last one 2 months ago. She has not had seizures on withdrawal from alcohol. She is drinking wine a lot and when it runs out she gets 1/5 of Sujey, but she continues until she passes out. She started drinking at the age of [age] years old. She started drinking heavily at the age of 29. She used to use cocaine but not now. She is using 8-9 bags of heroin per day, last used 3 AM this morning. She started using at 52 years of age. She was taking tramadol and became addicted to it and switched to heroin because her friend told her that it would help with her chronic pain. She still has chronic arthritic pain. She never smoked ciggarettes. She has no legal pending issues. She is domiciled. She has support systems in congregational and therapist. PMH: Arthritis, Asthma, DM, HTN Psych Hx: Depression on seroquel but didn't bring her meds with her. Psurg Hx: Left Broken leg with screws, Chlecystectomy 2002 - Ebola screening Have you traveled outside of the country in the last 21 days: No Have you had contact with anyone from an Ebola affected area: No Patient History - Patient Medical History Hx Anemia: No Hx Asthma: Yes (on albuterol inhaler) Hx Chronic Obstructive Pulmonary Disease (COPD): No Hx Cancer: No Hx Cardiac Disorders: No Hx Congestive Heart Failure: No Hx Hypertension: Yes (no medication) Hx Hypercholesterolemia: No Hx Pacemaker: No HX Cerebrovascular Accident: No Hx Seizures: No Hx Dementia: No Hx Diabetes: Yes (type 2 dm on metformin) Hx Gastrointestinal Disorders: No Hx Liver Disease: No Hx Genitourinary Disorders: No Hx Sexually Transmitted Disorders: No Hx Renal Disease (ESRD): No Hx Thyroid Disease: No Hx Human Immunodeficiency Virus (HIV): No (last 10/29 negative) Hx Hepatitis C: No Hx Depression: Yes (anxiety) Hx Suicide Attempt: Yes (overdose at age 16) Hx Bipolar Disorder: No Hx Schizophrenia: No - Patient Surgical History Past Surgical History: Yes Hx Neurologic Surgery: No Hx Cataract Extraction: No Hx Cardiac Surgery: No Hx Lung Surgery: No Hx Breast Surgery: No Hx Breast Biopsy: No Hx Abdominal Surgery: No Hx Appendectomy: No Hx Cholecystectomy: Yes (lap cholecystectomy in 2002 at [facility]) Hx Genitourinary Surgery: No Hx Section: No Hx Orthopedic Surgery: Yes (fx of left ankle in 2003) Anesthesia Reaction: No - PPD History Date: 10/29/18 Results: 0 mm - Reproductive History Last Menstrual Period: 11/22/18 - Smoking Cessation Smoking history: Never smoked Have you smoked in the past 12 months: No Hx Chewing Tobacco Use: No - Substances abused Alcohol Substance route: Oral Frequency: Daily Amount used: wine 2-3 large bottles, chris 5th Age of first use: 16 Date of last use: 03/08/19 Cocaine Substance route: Inhalation Frequency: 3-6 times per week Amount used: $200.00 Age of first use: 18 Date of last use: 10/25/18 Heroin Substance route: Inhalation Frequency: Daily Amount used: 8-9 bags Age of first use: 52 Date of last use: 03/09/19 Family Disease History - Family Disease History Family Disease History: Other: Father (alcohol,dsa ), Mother (alcohl, dsa ) Admission Physical Exam S - Vital Signs Vital Signs: Vital Signs - 24 hr 03/09/19 09:16 Temperature 97.9 F Pulse Rate 77 Respiratory 18 Rate Blood Pressure 148/96 - Physical General Appearance: Yes: Moderate Distress HEENTM: Yes: EOMI, Hearing grossly Normal, Normal ENT Inspection, Normocephalic , Pharynx Normal Respiratory: Yes: Rhonchi Neck: Yes: No masses,lesions,Nodules, Supple, Trachea in good position Breast: Yes: Breast Exam Deferred Cardiology: Yes: Regular Rhythm, Regular Rate, S1, S2 Abdominal: Yes: Increased Bowel Sounds, Protuberent, Surgical Scar (from cholecystectomy laparascopically) Genitourinary: Yes: Within Normal Limits Back: Yes: Normal Inspection Musculoskeletal: Yes: full range of Motion, Gait Steady, Pelvis Stable, Joint Stiffness (knees and ankles) Extremities: Yes: Normal Capillary Refill, Normal Inspection, Normal Range of Motion, Non-Tender Neurological: Yes: telegraph inspector II-XII NML intact, Fully Oriented, Alert, Motor Strength 5/5, Normal Mood/Affect Integumentary: Yes: Normal Color, Warm Lymphatic: Yes: Within Normal Limits - Diagnostic (1) History of laparoscopic cholecystectomy Current Visit: Yes Status: Acute (2) Opioid dependence with withdrawal Current Visit: Yes Status: Acute (3) Alcohol dependence with uncomplicated withdrawal Current Visit: Yes Status: Chronic (4) Arthritis Current Visit: Yes Status: Chronic (5) Asthma Current Visit: Yes Status: Chronic Qualifiers: Asthma severity: mild Asthma persistence: intermittent Asthma complication type: with status asthmaticus Qualified Code(s): J45.22 - Mild intermittent asthma with status asthmaticus (6) Bronchitis Current Visit: Yes Status: Chronic (7) Cocaine dependence Current Visit: Yes Status: Chronic Qualifiers: Substance use status: uncomplicated Qualified Code(s): F14.20 - Cocaine dependence, uncomplicated Comment: Self-report. Current toxicology is negative. (8) DM type 2 (diabetes mellitus, type 2) Current Visit: Yes Status: Chronic Qualifiers: Diabetes mellitus terminal manager insulin use: without terminal manager use Diabetes mellitus complication status: without complication Qualified Code(s): E11.9 - Type 2 diabetes mellitus without complications (9) Essential hypertension Current Visit: No Status: Chronic (10) GERD (gastroesophageal reflux disease) Current Visit: No Status: Chronic Qualifiers: Esophagitis presence: without esophagitis Qualified Code(s): K21.9 - Gastro -esophageal reflux disease without esophagitis (11) History of depression Current Visit: No Status: Chronic Cleared for Admission [facility] - Detox or Rehab S Level of Care: Medically Managed Detox Regimen/Protocol: Methadone/Librium Screened but not Admitted - Documentation of Visit Screened but not Admitted: No Breathalyzer - Breathalyzer Breathalyzer: 0 (more than 8 hours ago wine) Vital Signs - Vital Signs Vital signs refused: No Temperature: 97.9 F Temperature source: Oral Pulse Rate: 77 Respiratory Rate: 18 Blood Pressure: 148/96 BP Location: Left Arm Blood Pressure position: Sitting - Height Height: 5 ft 4 in - Weight Weight: 198 lb Weight measurement method: Standing scale - BMI Body Mass Index (BMI): 34.0 - Bowel Function Bowel Movement: No POC Urine test - Test device test lot number: [id number] Expiration date: 03/12/20 - Control test control: Yes Urine Drug Screen - Test Device Lot number: [id number] Expiration date: 11/09/20 - Control Is test valid?: Yes - Results Drug screen NEGATIVE: No Urine drug screen results: FEN-Fentanyl, MOP-Opiates, OXY-Oxycodone, MTD- Methadone, BZO-Benzodiazepines Inpatient Rehab Admission - Rehab Decision to Admit Inpatient rehab admission?: No
[2019-03-09] MEDS ORDERED: ACETAMINOPHEN 325 MG TABLET (FP) PO PRN ×2 (09:54)
[2019-03-09] MEDS ORDERED: MAG HYDROX/AL HYDROX/SIMETH 30 ML UNIT-DOSE CUP PO PRN (09:54)
[2019-03-09] MEDS ORDERED: METHOCARBAMOL 500 MG TABLET PO PRN (09:54)
[2019-03-09] MEDS ORDERED: BISMUTH SUBSALICYLATE 262 MG/15 ML BTL PO PRN (09:54)
[2019-03-09] MEDS ORDERED: hydrOXYzine PAMOATE 25 MG CAPSULE (FP) PO PRN (09:54)
[2019-03-09] MEDS ORDERED: MAGNESIUM CITRATE 300 ML BOTTLE PO PRN (09:54)
[2019-03-09] MEDS ORDERED: cloNIDine HCL 0.1 MG TABLET PO PRN (09:54)
[2019-03-09] MEDS ORDERED: IBUPROFEN 400 MG TABLET (FP) PO PRN (09:54)
[2019-03-09] MEDS ORDERED: MENTHOL/PHENOL 1 EACH UD MM PRN (09:54)
[2019-03-09] MEDS ORDERED: MAGNESIUM HYDROX 2400MG/30ML ORAL SUSPENSION 30 ML CUP PO PRN (09:54)
[2019-03-09] MEDS ORDERED: METHADONE HCL 10 MG TABLET (FOR DETOX USE ONLY) PO ONE (10:30)
--- NOTE | 2019-03-09 10:57 | EKG ---
Test Reason : Blood Pressure : / mmHG Vent. Rate : 071 BPM Atrial Rate : 071 BPM P-R Int : 140 ms QRS Dur : 080 ms QT Int : 406 ms P-R-T Axes : 057 027 001 degrees QTc Int : 441 ms NORMAL SINUS RHYTHM NORMAL ECG WHEN COMPARED WITH ECG OF 27-OCT-2018 10:16, NO SIGNIFICANT CHANGE WAS FOUND Confirmed by ISAIAH ROSALES MD ([id number]) on 03/09/2019 10:56:57 AM Referred By: Confirmed By:ISAIAH ROSALES MD
[2019-03-09] MEDS: PRENATAL VITAMINS W/ FOLIC ACID TABLET (FP) PO SCH (11:29)
[2019-03-09] MEDS: chlordiazePOXIDE HCL 25 MG CAPSULE PO PRN ×2 (11:30→18:56)
[2019-03-09] MEDS ORDERED: DOCUSATE SODIUM 100 MG CAPSULE (FP) PO PRN (11:43)
[2019-03-09] MEDS: PANTOPRAZOLE 40 MG TABLET (FP) PO SCH (12:29)
[2019-03-09] MEDS: metFORMIN HCL 500 MG TABLET (FP) PO SCH (12:29)
[2019-03-09 12:30] LABS: HEMATOCRIT 38.7 % (32.4-45.2); HEMOGLOBIN 12.1 GM/dL (10.7-15.3); MCH 25.7 pg (25.7-33.7); MCHC 31.3 g/dl (32.0-36.0); MEAN CELL VOLUME 82.3 fl (80-96); MEAN PLT VOLUME 9.2 fl (7.5-11.1); PLATELET COUNT 250 K/MM3 (134-434); RBC 4.71 M/mm3 (3.60-5.2); RDW 14.4 % (11.6-15.6); WHITE BLOOD COUNT 9.3 K/mm3 (4.0-10.0)
[2019-03-09] MEDS: BUDESONIDE/FORMETEROL FUMARATE 160/4.5 mcg INHALER IH SCH ×2 (12:30→21:54)
[2019-03-09 12:37] LABS: ALBUMIN 3.6 g/dl (3.4-5.0); BILIRUBIN,TOTAL 0.4 mg/dL (0.2-1); BLOOD UREA NITROGEN 12.8 mg/dL (7-18); CALCIUM 9.2 mg/dL (8.5-10.1); CREATININE 0.7 mg/dL (0.55-1.3); POTASSIUM 3.9 mmol/L (3.5-5.1); TOT PROT 7.3 g/dl (6.4-8.2)
--- NOTE | 2019-03-09 12:55 | CONSULT ---
[facility] Psychiatric Consult - Data Date of interview: 03/09/19 Admission source: [facility] Identifying data: This is another admission to [facility] for this 53 y/o AA female self-referred for detoxification (heroin, cocaine, alcohol). Interviewed at [address] [place] [address]. Patient is single, a mother of five, domiciled, unemployed and supported on Social Security benefits. Substance Abuse History: Confirmed by patient in this interview. Details in current [facility] report as follows : Smoking history: Never smoked. Have you smoked in the past 12 months: No. Hx Chewing Tobacco Use: No. Substances abused. Alcohol. Substance route: Oral. Frequency: Daily. Amount used: wine 2-3 large bottles, chris 5th. Age of first use: 16. Date of last use: . Cocaine. Substance route: Inhalation. Frequency: 3-6 times per week. Amount used: $200.00. Age of first use: 18. Date of last use: 10/25/18. Heroin. Substance route: Inhalation. Frequency: Daily. Amount used: 8-9 bags. Age of first use: 52. Date of last use: 03/09/19 Medical History: Medical profile is remarkable for scarlet fever (at the age of three months), antecedent of meningitis, GERD, bronchial asthma, hypertension, diabetes mellitus, antecedent of fracture of left ankle and history of cholecystectomy (2002). Psychiatric History: Patient admits to a distant history of one psychiatric hospitalization (was committed involuntarily at the [facility] in [facility], age 16, for suicide attempt via overdose with aspirin) . Diagnosed with MDD and Anxiety Disorder. Ms Sweet is still under the care of Dr Edouard, psychiatrist, at the [facility] in [facility]. She is managed with sertraline 50 mg/day + zolpidem 10 mg/hs. Remote history of suicide attempt (age 16) via overdose with medication (ASA). Physical/Sexual Abuse/Trauma History: No history. Additional Comment: Urine drug screen results: FEN-Fentanyl, MOP-Opiates, OXY- Oxycodone, MTD-Methadone, BZO-Benzodiazepines. Noted. Mental Status Exam - Mental Status Exam Alert and Oriented to: Time, Place, Person Cognitive Function: Good Patient Appearance: Well Groomed (overweight) Mood: Hopeful Affect: Appropriate, Normal Range Patient Behavior: Appropriate, Cooperative Speech Pattern: Clear, Appropriate Voice Loudness: Normal Thought Process: Intact, Goal Oriented Thought Disorder: Not Present Hallucinations: Denies Suicidal Ideation: Denies Homicidal Ideation: Denies Insight/Judgement: Fair Sleep: Well Appetite: Good Gait/Station: Normal Psychiatric Findings - Problem List ([place] 1, 2,3) (1) Opioid dependence with withdrawal Current Visit: Yes Status: Acute (2) Alcohol dependence with uncomplicated withdrawal Current Visit: Yes Status: Acute (3) Substance induced mood disorder Current Visit: Yes Status: Chronic (4) History of depression Current Visit: Yes Status: Chronic (5) Insomnia Current Visit: Yes Status: Chronic - Initial Treatment Plan Initial Treatment Plan: Psychoeducation. Sleep hygiene. Detoxification. Support. AA/NA meetings. Relapse prevention teachings. Motivational counseling. Zoloft 50 mg po daily. Side effecst/benefits discussed with the patient. Ms Sweet gave verbal consent to Observation.
[2019-03-09] MEDS ORDERED: COLLOIDAL OATMEAL 1 BAR EACH TP PRN (13:24)
[2019-03-09] MEDS: THIAMINE HCL 100 MG TABLET (FP) PO SCH (21:55)
[2019-03-09] MEDS: chlordiazePOXIDE HCL 25 MG CAPSULE PO SCH (22:18)
[2019-03-10] MEDS: chlordiazePOXIDE HCL 25 MG CAPSULE PO SCH ×4 (05:48→22:18)
[2019-03-10] MEDS: metFORMIN HCL 500 MG TABLET (FP) PO SCH (06:04)
[2019-03-10] MEDS: ALBUTEROL SO4 8 GM HFA INHALER IH PRN ×2 (07:30→22:18)
[2019-03-10] MEDS ORDERED: METHADONE HCL 10 MG TABLET (FOR DETOX USE ONLY) ONE (09:11)
[2019-03-10] MEDS ORDERED: METHADONE HCL 5 MG TABLET (FOR DETOX USE ONLY) ONE (09:11)
[2019-03-10] MEDS: SERTRALINE HCL 50 MG TABLET (FP) PO SCH (09:21)
[2019-03-10] MEDS: PRENATAL VITAMINS W/ FOLIC ACID TABLET (FP) PO SCH (09:21)
[2019-03-10] MEDS: BUDESONIDE/FORMETEROL FUMARATE 160/4.5 mcg INHALER IH SCH ×2 (09:21→22:19)
[2019-03-10] MEDS: PANTOPRAZOLE 40 MG TABLET (FP) PO SCH (09:21)
[2019-03-10] MEDS ORDERED: METHADONE (DETOX) 20 MG, METHADONE (DETOX) 5 MG PO ONE (10:00)
--- NOTE | 2019-03-10 13:37 | PN ---
S CIWA - CIWA Score Nausea/Vomitin Muscle Tremors: 2 Anxiety: 3 Agitation: 2 Paroxysmal Sweats: 1-Minimal Palms Moist Orientation: 0-Oriented Tacttile Disturbances: 1-Very Mild Itch/Numbness Auditory Disturbances: 0-None Visual Disturbances: 0-None Headache: 2-Mild CIWA-Ar Total Score: 13 BHS COWS - Scale Resting Pulse: 1= NE 81-100 Sweatin= Chills/Flushing Restless Observation: 1= Difficult to Sit Still Pupil Size: 1= Pupils >than Normal Bone or Joint Aches: 2= Severe Diffuse Aches Runny Nose/ Eye Tearin= Runny Nose/Eyes GI Upset > 30mins: 1= Stomach Cramp Tremor Observation of Outstretched Hands: 2= Slight Tremor Visible Yawning Observation: 1= 1-2x During Session Anxiety or Irritability: 2=Irritable/Anxious Goose Flesh Skin: 0=Smooth Skin COWS Score: 14 S Progress Note (SOAP) Subjective: alert,irritable,anxious,interrupted sleep,pain in the body,back,both knees Objective: 03/10/19 13:34 Vital Signs Temperature 97.9 F 03/10/19 13:13 Pulse Rate 90 03/10/19 13:13 Respiratory Rate 18 03/10/19 13:13 Blood Pressure 127/82 03/10/19 13:13 O2 Sat by Pulse Oximetry (%) Laboratory Last Values WBC 9.3 K/mm3 (4.0-10.0) 03/09/19 10:00 RBC 4.71 M/mm3 (3.60-5.2) 03/09/19 10:00 Hgb 12.1 GM/dL (10.7-15.3) 03/09/19 10:00 Hct 38.7 % (32.4-45.2) 03/09/19 10:00 MCV 82.3 fl (80-96) 03/09/19 10:00 MCH 25.7 pg (25.7-33.7) 03/09/19 10:00 MCHC 31.3 g/dl (32.0-36.0) L 03/09/19 10:00 RDW 14.4 % (11.6-15.6) 03/09/19 10:00 Plt Count 250 K/MM3 (134-434) 03/09/19 10:00 MPV 9.2 fl (7.5-11.1) 03/09/19 10:00 Sodium 140 mmol/L (136-145) 03/09/19 10:00 Potassium 3.9 mmol/L (3.5-5.1) 03/09/19 10:00 Chloride 104 mmol/L (98-107) 03/09/19 10:00 Carbon Dioxide 29 mmol/L (21-32) 03/09/19 10:00 Anion Gap 7 MMOL/L (8-16) L 03/09/19 10:00 BUN 12.8 mg/dL (7-18) 03/09/19 10:00 Creatinine 0.7 mg/dL (0.55-1.3) 03/09/19 10:00 Est GFR (CKD-EPI)AfAm 114.65 03/09/19 10:00 Est GFR (CKD-EPI)NonAf 98.92 03/09/19 10:00 POC Glucometer 104 UNITS (80-120) 03/10/19 05:47 Random Glucose 168 mg/dL (74-106) H 03/09/19 10:00 Calcium 9.2 mg/dL (8.5-10.1) 03/09/19 10:00 Total Bilirubin 0.4 mg/dL (0.2-1) 03/09/19 10:00 AST 57 U/L (15-37) H 03/09/19 10:00 ALT 140 U/L (13-61) H 03/09/19 10:00 Alkaline Phosphatase 146 U/L (45-117) H 03/09/19 10:00 Total Protein 7.3 g/dl (6.4-8.2) 03/09/19 10:00 Albumin 3.6 g/dl (3.4-5.0) 03/09/19 10:00 POC Urine HCG, Qual Negative 03/09/19 09:37 RPR Titer Nonreactive (NONREACTIVE) 03/09/19 10:00 HIV 1&2 Ag/Ab, 4th Gen Non reactive (Non Reactive) 03/08/19 06:00 HIV 1&2 Antibody Screen Cancelled 03/09/19 10:00 HIV P24 Antigen Cancelled 03/09/19 10:00 Assessment: 03/10/19 13:35 withdrawal symptom chest x ray report noted Plan: continue detox methadone and librium regimen,bgm monitoring
[2019-03-10] MEDS: MELATONIN 5 MG TABLETS PO PRN (22:19)
[2019-03-10] MEDS: THIAMINE HCL 100 MG TABLET (FP) PO SCH (22:19)
[2019-03-11] MEDS: chlordiazePOXIDE HCL 25 MG CAPSULE PO SCH ×4 (05:55→22:19)
[2019-03-11] MEDS: metFORMIN HCL 500 MG TABLET (FP) PO SCH (06:32)
[2019-03-11] MEDS: BUDESONIDE/FORMETEROL FUMARATE 160/4.5 mcg INHALER IH SCH ×2 (09:06→22:19)
[2019-03-11] MEDS: PANTOPRAZOLE 40 MG TABLET (FP) PO SCH (09:07)
[2019-03-11] MEDS: SERTRALINE HCL 50 MG TABLET (FP) PO SCH (09:07)
[2019-03-11] MEDS: PRENATAL VITAMINS W/ FOLIC ACID TABLET (FP) PO SCH (09:07)
[2019-03-11] MEDS ORDERED: METHADONE HCL 10 MG TABLET (FOR DETOX USE ONLY) PO ONE (10:00)
--- NOTE | 2019-03-11 11:45 | PN ---
S CIWA - CIWA Score Nausea/Vomitin-Mild Nausea/No Vomiting Muscle Tremors: 2 Anxiety: 2 Agitation: 2 Paroxysmal Sweats: No Perspiration Orientation: 0-Oriented Tacttile Disturbances: 0-None Auditory Disturbances: 0-None Visual Disturbances: 0-None Headache: 2-Mild CIWA-Ar Total Score: 9 BHS COWS - Scale Resting Pulse: 0= NE 80 or Below Sweatin= Chills/Flushing Restless Observation: 1= Difficult to Sit Still Pupil Size: 1= Pupils >than Normal Bone or Joint Aches: 2= Severe Diffuse Aches Runny Nose/ Eye Tearin= Nasal Congestion GI Upset > 30mins: 1= Stomach Cramp Tremor Observation of Outstretched Hands: 2= Slight Tremor Visible Yawning Observation: 1= 1-2x During Session Anxiety or Irritability: 2=Irritable/Anxious Goose Flesh Skin: 0=Smooth Skin COWS Score: 12 S Progress Note (SOAP) Subjective: alert,irritable,anxious,interrupted sleep,pain in the body and back,knees Objective: 03/11/19 11:53 Vital Signs Temperature 97.6 F 03/11/19 09:36 Pulse Rate 67 03/11/19 09:36 Respiratory Rate 19 03/11/19 09:36 Blood Pressure 100/58 L 03/11/19 09:36 O2 Sat by Pulse Oximetry (%) 03/11/19 11:53 Laboratory Last Values WBC 9.3 K/mm3 (4.0-10.0) 03/09/19 10:00 RBC 4.71 M/mm3 (3.60-5.2) 03/09/19 10:00 Hgb 12.1 GM/dL (10.7-15.3) 03/09/19 10:00 Hct 38.7 % (32.4-45.2) 03/09/19 10:00 MCV 82.3 fl (80-96) 03/09/19 10:00 MCH 25.7 pg (25.7-33.7) 03/09/19 10:00 MCHC 31.3 g/dl (32.0-36.0) L 03/09/19 10:00 RDW 14.4 % (11.6-15.6) 03/09/19 10:00 Plt Count 250 K/MM3 (134-434) 03/09/19 10:00 MPV 9.2 fl (7.5-11.1) 03/09/19 10:00 Sodium 140 mmol/L (136-145) 03/09/19 10:00 Potassium 3.9 mmol/L (3.5-5.1) 03/09/19 10:00 Chloride 104 mmol/L (98-107) 03/09/19 10:00 Carbon Dioxide 29 mmol/L (21-32) 03/09/19 10:00 Anion Gap 7 MMOL/L (8-16) L 03/09/19 10:00 BUN 12.8 mg/dL (7-18) 03/09/19 10:00 Creatinine 0.7 mg/dL (0.55-1.3) 03/09/19 10:00 Est GFR (CKD-EPI)AfAm 114.65 03/09/19 10:00 Est GFR (CKD-EPI)NonAf 98.92 03/09/19 10:00 POC Glucometer 129 UNITS (80-120) 03/11/19 05:54 Random Glucose 168 mg/dL (74-106) H 03/09/19 10:00 Calcium 9.2 mg/dL (8.5-10.1) 03/09/19 10:00 Total Bilirubin 0.4 mg/dL (0.2-1) 03/09/19 10:00 AST 57 U/L (15-37) H 03/09/19 10:00 ALT 140 U/L (13-61) H 03/09/19 10:00 Alkaline Phosphatase 146 U/L (45-117) H 03/09/19 10:00 Total Protein 7.3 g/dl (6.4-8.2) 03/09/19 10:00 Albumin 3.6 g/dl (3.4-5.0) 03/09/19 10:00 POC Urine HCG, Qual Negative 03/09/19 09:37 RPR Titer Nonreactive (NONREACTIVE) 03/09/19 10:00 HIV 1&2 Ag/Ab, 4th Gen Non reactive (Non Reactive) 03/08/19 06:00 HIV 1&2 Antibody Screen Cancelled 03/09/19 10:00 HIV P24 Antigen Cancelled 03/09/19 10:00 Assessment: 03/11/19 11:53 withdrawal symptom Plan: continue detox methadone and librium regimen
[2019-03-11] MEDS: MELATONIN 5 MG TABLETS PO PRN (22:19)
[2019-03-11] MEDS: THIAMINE HCL 100 MG TABLET (FP) PO SCH (22:19)
[2019-03-12] MEDS ORDERED: chlordiazePOXIDE HCL 10 MG CAPSULE PO PRN
[2019-03-12] MEDS: chlordiazePOXIDE HCL 10 MG CAPSULE PO SCH ×4 (05:49→22:25)
[2019-03-12] MEDS: metFORMIN HCL 500 MG TABLET (FP) PO SCH (07:36)
[2019-03-12] MEDS ORDERED: METHADONE HCL 5 MG TABLET (FOR DETOX USE ONLY) ONE (08:48)
[2019-03-12] MEDS ORDERED: METHADONE HCL 10 MG TABLET (FOR DETOX USE ONLY) ONE (08:48)
[2019-03-12] MEDS ORDERED: METHADONE (DETOX) 10 MG, METHADONE (DETOX) 5 MG PO ONE (10:00)
[2019-03-12] MEDS: PRENATAL VITAMINS W/ FOLIC ACID TABLET (FP) PO SCH (10:09)
[2019-03-12] MEDS: PANTOPRAZOLE 40 MG TABLET (FP) PO SCH (10:09)
[2019-03-12] MEDS: BUDESONIDE/FORMETEROL FUMARATE 160/4.5 mcg INHALER IH SCH ×2 (10:10→22:25)
[2019-03-12] MEDS: SERTRALINE HCL 50 MG TABLET (FP) PO SCH (10:10)
--- NOTE | 2019-03-12 13:40 | PN ---
[facility] CIWA - CIWA Score Nausea/Vomitin-No Nausea/No Vomiting Muscle Tremors: 4-Moderate,w/Arms Extend Anxiety: 4-Mod. Anxious/Guarded Agitation: 4-Moderately Restless Paroxysmal Sweats: 1-Minimal Palms Moist Orientation: 0-Oriented Tacttile Disturbances: 0-None Auditory Disturbances: 0-None Visual Disturbances: 0-None Headache: 0-None Present CIWA-Ar Total Score: 13 BHS COWS - Scale Resting Pulse: 0= [place] 80 or Below Sweatin= Chills/Flushing Restless Observation: 0= Sits Still Pupil Size: 0= Normal to Room Light Bone or Joint Aches: 4=Acute Joint/Muscle Pain Runny Nose/ Eye Tearin= Runny Nose/Eyes GI Upset > 30mins: 0= None Tremor Observation of Outstretched Hands: 1= Tremor [place], Not Seen Yawning Observation: 0= None Anxiety or Irritability: 2=Irritable/Anxious Goose Flesh Skin: 0=Smooth Skin COWS Score: 10 S Progress Note (SOAP) Subjective: C/o anxiety, chills, runny nose and chest congestion with dry cough, Body aches. Denies sob. Objective: 03/12/19 13:39 Vital Signs - 24 hr 03/11/19 03/11/19 03/11/19 13:50 17:45 21:43 Temperature 97.6 F 98.1 F 98.2 F Pulse Rate 78 77 72 Respiratory 16 18 16 Rate Blood Pressure 106/53 L 102/62 121/81 03/12/19 03/12/19 03/12/19 00:30 01:54 05:57 Temperature 97.7 F Pulse Rate 67 Respiratory 18 18 18 Rate Blood Pressure 98/61 03/12/19 03/12/19 09:23 13:36 Temperature 98.8 F 97.5 F L Pulse Rate 72 75 Respiratory 18 18 Rate Blood Pressure 129/84 138/90 CXR result:No acute pathology Alert o x 3 Cardiac:s1 s2 rrr Lungs:Few scattered Rhonchi especially in upper lung don. Slight occasional tightness on expiration Assessment: 03/12/19 13:43 withdrawal sx Plan: Increase po fluids robitussin cough syr prn Duoneb neb as directed continue std asthma care motrin prn for pain
[2019-03-12] MEDS: ALBUTEROL SO4 2.5/IPRATROPIUM 0.5 INH SOL 3 ML VIAL.NEB. NEB SCH ×2 (14:19→22:25)
[2019-03-12] MEDS: ALBUTEROL SO4 8 GM HFA INHALER IH PRN (16:52)
[2019-03-12] MEDS ORDERED: P-EPHED 60MG/TRIPROLIDI 2.5MG TABLET PO PRN (19:48)
[2019-03-12] MEDS: MELATONIN 5 MG TABLETS PO PRN (22:25)
[2019-03-12] MEDS: THIAMINE HCL 100 MG TABLET (FP) PO SCH (22:25)
[2019-03-13] MEDS: ALBUTEROL SO4 2.5/IPRATROPIUM 0.5 INH SOL 3 ML VIAL.NEB. NEB SCH ×4 (02:30→22:41)
[2019-03-13] MEDS: chlordiazePOXIDE HCL 10 MG CAPSULE PO SCH ×2 (05:55→17:17)
[2019-03-13] MEDS: metFORMIN HCL 500 MG TABLET (FP) PO SCH (06:20)
[2019-03-13] MEDS ORDERED: METHADONE HCL 10 MG TABLET (FOR DETOX USE ONLY) PO ONE (10:00)
[2019-03-13] MEDS: BUDESONIDE/FORMETEROL FUMARATE 160/4.5 mcg INHALER IH SCH ×2 (10:22→23:09)
[2019-03-13] MEDS: ALBUTEROL SO4 8 GM HFA INHALER IH PRN ×2 (10:23→17:18)
[2019-03-13] MEDS: PRENATAL VITAMINS W/ FOLIC ACID TABLET (FP) PO SCH (10:23)
[2019-03-13] MEDS: SERTRALINE HCL 50 MG TABLET (FP) PO SCH (10:23)
[2019-03-13] MEDS: PANTOPRAZOLE 40 MG TABLET (FP) PO SCH (10:23)
--- NOTE | 2019-03-13 13:55 | PN ---
S CIWA - CIWA Score Nausea/Vomitin-No Nausea/No Vomiting Muscle Tremors: 2 Anxiety: 3 Agitation: 2 Paroxysmal Sweats: 1-Minimal Palms Moist Orientation: 0-Oriented Tacttile Disturbances: 0-None Auditory Disturbances: 0-None Visual Disturbances: 0-None Headache: 1-Very Mild CIWA-Ar Total Score: 9 BHS COWS - Scale Resting Pulse: 0= [place] 80 or Below Sweatin= Chills/Flushing Restless Observation: 0= Sits Still Pupil Size: 0= Normal to Room Light Bone or Joint Aches: 1= Mild Discomfort Runny Nose/ Eye Tearin= Nasal Congestion GI Upset > 30mins: 1= Stomach Cramp Tremor Observation of Outstretched Hands: 1= Tremor [place], Not Seen Yawning Observation: 2= >3x During Session Anxiety or Irritability: 1=Feels Anxious/Irritable Goose Flesh Skin: 0=Smooth Skin COWS Score: 8 S Progress Note (SOAP) Subjective: 53 years old female fifth patient [facility] admission since 2019 was admitted on 03/09/19 for alcohol and opiate withdrawal sx management doing well with librium and methadone detox regimen seen by psychiatrist madelyn davenport discuss aftercare with staff encourage the patient seeking medication assisted treatment program Objective: 03/13/19 13:59 Vital Signs Temperature 98.8 F 03/13/19 13:46 Pulse Rate 72 03/13/19 13:46 Respiratory Rate 18 03/13/19 13:46 Blood Pressure 145/86 03/13/19 13:46 O2 Sat by Pulse Oximetry (%) 98 03/12/19 22:55 Laboratory Last Values WBC 9.3 K/mm3 (4.0-10.0) 03/09/19 10:00 RBC 4.71 M/mm3 (3.60-5.2) 03/09/19 10:00 Hgb 12.1 GM/dL (10.7-15.3) 03/09/19 10:00 Hct 38.7 % (32.4-45.2) 03/09/19 10:00 MCV 82.3 fl (80-96) 03/09/19 10:00 MCH 25.7 pg (25.7-33.7) 03/09/19 10:00 MCHC 31.3 g/dl (32.0-36.0) L 03/09/19 10:00 RDW 14.4 % (11.6-15.6) 03/09/19 10:00 Plt Count 250 K/MM3 (134-434) 03/09/19 10:00 MPV 9.2 fl (7.5-11.1) 03/09/19 10:00 Sodium 140 mmol/L (136-145) 03/09/19 10:00 Potassium 3.9 mmol/L (3.5-5.1) 03/09/19 10:00 Chloride 104 mmol/L (98-107) 03/09/19 10:00 Carbon Dioxide 29 mmol/L (21-32) 03/09/19 10:00 Anion Gap 7 MMOL/L (8-16) L 03/09/19 10:00 BUN 12.8 mg/dL (7-18) 03/09/19 10:00 Creatinine 0.7 mg/dL (0.55-1.3) 03/09/19 10:00 Est GFR (CKD-EPI)AfAm 114.65 03/09/19 10:00 Est GFR (CKD-EPI)NonAf 98.92 03/09/19 10:00 POC Glucometer 102 UNITS (80-120) 03/13/19 05:54 Random Glucose 168 mg/dL (74-106) H 03/09/19 10:00 Calcium 9.2 mg/dL (8.5-10.1) 03/09/19 10:00 Total Bilirubin 0.4 mg/dL (0.2-1) 03/09/19 10:00 AST 57 U/L (15-37) H 03/09/19 10:00 ALT 140 U/L (13-61) H 03/09/19 10:00 Alkaline Phosphatase 146 U/L (45-117) H 03/09/19 10:00 Total Protein 7.3 g/dl (6.4-8.2) 03/09/19 10:00 Albumin 3.6 g/dl (3.4-5.0) 03/09/19 10:00 POC Urine HCG, Qual Negative 03/09/19 09:37 RPR Titer Nonreactive (NONREACTIVE) 03/09/19 10:00 HIV 1&2 Ag/Ab, 4th Gen Non reactive (Non Reactive) 03/08/19 06:00 HIV 1&2 Antibody Screen Cancelled 03/09/19 10:00 HIV P24 Antigen Cancelled 03/09/19 10:00 lab noted Assessment: 03/13/19 14:01 alcohol and opiate withdrawal sx alert oriented x 3 ambulating steady gait no shortness of breath Plan: continue libirum and methadone detox regimen
[2019-03-13] MEDS: THIAMINE HCL 100 MG TABLET (FP) PO SCH (22:39)
[2019-03-13] MEDS: MELATONIN 5 MG TABLETS PO PRN (22:39)
[2019-03-14] MEDS ORDERED: chlordiazePOXIDE HCL 10 MG CAPSULE PO ONE (05:00)
[2019-03-14] MEDS ORDERED: METHADONE HCL 5 MG TABLET (FOR DETOX USE ONLY) PO ONE (06:00)
[2019-03-14 07:11] VITALS: BP 99/60; PULSE 74; TEMP 97.5
[2019-03-14] MEDS: metFORMIN HCL 500 MG TABLET (FP) PO SCH (07:50)
--- NOTE | 2019-03-14 12:51 | DS ---
[facility] Detox Discharge Summary Admission Date: 03/09/19 Discharge Date: 03/14/19 - History Present History: Alcohol Dependence, Opioid Dependence Additional Comments: 51 years old female admitted on 03/09/19 for alcohol and opiate withdrawal sx management doing well with libirum and methadone detox regimen no complication through out the detox stay patient agrees to seek medication assisted treatment program Pertinent Past History: hypertension asthma diabetes II gerd - Physical Exam Results Vital Signs: Vital Signs Temperature 97.5 F L 03/14/19 07:10 Pulse Rate 74 03/14/19 07:10 Respiratory Rate 18 03/14/19 07:10 Blood Pressure 99/60 03/14/19 07:10 O2 Sat by Pulse Oximetry (%) 99 03/13/19 13:36 Pertinent Admission Physical Exam Findings: alcohol and opiate withdrawal sx Laboratory Last Values WBC 9.3 K/mm3 (4.0-10.0) 03/09/19 10:00 RBC 4.71 M/mm3 (3.60-5.2) 03/09/19 10:00 Hgb 12.1 GM/dL (10.7-15.3) 03/09/19 10:00 Hct 38.7 % (32.4-45.2) 03/09/19 10:00 MCV 82.3 fl (80-96) 03/09/19 10:00 MCH 25.7 pg (25.7-33.7) 03/09/19 10:00 MCHC 31.3 g/dl (32.0-36.0) L 03/09/19 10:00 RDW 14.4 % (11.6-15.6) 03/09/19 10:00 Plt Count 250 K/MM3 (134-434) 03/09/19 10:00 MPV 9.2 fl (7.5-11.1) 03/09/19 10:00 Sodium 140 mmol/L (136-145) 03/09/19 10:00 Potassium 3.9 mmol/L (3.5-5.1) 03/09/19 10:00 Chloride 104 mmol/L (98-107) 03/09/19 10:00 Carbon Dioxide 29 mmol/L (21-32) 03/09/19 10:00 Anion Gap 7 MMOL/L (8-16) L 03/09/19 10:00 BUN 12.8 mg/dL (7-18) 03/09/19 10:00 Creatinine 0.7 mg/dL (0.55-1.3) 03/09/19 10:00 Est GFR (CKD-EPI)AfAm 114.65 03/09/19 10:00 Est GFR (CKD-EPI)NonAf 98.92 03/09/19 10:00 POC Glucometer 146 UNITS (80-120) 03/14/19 05:51 Random Glucose 168 mg/dL (74-106) H 03/09/19 10:00 Calcium 9.2 mg/dL (8.5-10.1) 03/09/19 10:00 Total Bilirubin 0.4 mg/dL (0.2-1) 03/09/19 10:00 AST 57 U/L (15-37) H 03/09/19 10:00 ALT 140 U/L (13-61) H 03/09/19 10:00 Alkaline Phosphatase 146 U/L (45-117) H 03/09/19 10:00 Total Protein 7.3 g/dl (6.4-8.2) 03/09/19 10:00 Albumin 3.6 g/dl (3.4-5.0) 03/09/19 10:00 POC Urine HCG, Qual Negative 03/09/19 09:37 RPR Titer Nonreactive (NONREACTIVE) 03/09/19 10:00 HIV 1&2 Ag/Ab, 4th Gen Non reactive (Non Reactive) 03/08/19 06:00 HIV 1&2 Antibody Screen Cancelled 03/09/19 10:00 HIV P24 Antigen Cancelled 03/09/19 10:00 lab noted alert oriented x 3 cardiac S1S2 regular rate rhythm respirtory clear lung bilaterally on auscultation Abdominal soft no rebound tenderness - Treatment Hospital Course: Detox Protocol Followed, Detoxed Safely, Responded well, Discharged Condition Good, Rehab Referral Accepted Patient has Accepted a Rehab Referral to: community support approach - Medication Discharge Medications: Ambulatory Orders Docusate Sodium 100 mg PO TID PRN 10/27/18 Metformin HCl [Glucophage] 500 mg PO DAILY 10/27/18 Omeprazole 40 mg PO DAILY 10/27/18 Albuterol Sulfate Inhaler - [Ventolin HFA Inhaler -] 2 inh PO Q6H PRN 11/29/18 Budesonide/Formeterol Fumarate [SYMBICORT 160/4.5mcg -] 1 inh PO BID 11/29/18 Multivitamin [Multiple Vitamins] 1 each PO DAILY 11/29/18 - Diagnosis (1) Alcohol dependence with uncomplicated withdrawal Status: Acute (2) Opioid dependence with withdrawal Status: Acute (3) Asthma Status: Chronic Qualifiers: Asthma severity: mild Asthma persistence: intermittent Asthma complication type: with status asthmaticus Qualified Code(s): J45.22 - Mild intermittent asthma with status asthmaticus (4) DM type 2 (diabetes mellitus, type 2) Status: Chronic Qualifiers: Diabetes mellitus salvage determiner insulin use: without fci use Diabetes mellitus complication status: without complication Qualified Code(s): E11.9 - Type 2 diabetes mellitus without complications (5) Essential hypertension Status: Chronic (6) GERD (gastroesophageal reflux disease) Status: Chronic Qualifiers: Esophagitis presence: without esophagitis Qualified Code(s): K21.9 - Gastro -esophageal reflux disease without esophagitis (7) Substance induced mood disorder Status: Chronic - AMA Did Patient Leave Against Medical Advice: No CIWA Score - CIWA Score Nausea/Vomitin-No Nausea/No Vomiting Muscle Tremors: 1-None Visible, but [place] Anxiety: 2 Agitation: 1-Slight > Activity Paroxysmal Sweats: No Perspiration Orientation: 0-Oriented Tacttile Disturbances: 0-None Auditory Disturbances: 0-None Visual Disturbances: 0-None Headache: 1-Very Mild CIWA-Ar Total Score: 5 COWS (PN) - Opiate Withdrawal Resting Pulse: 0= [place] 80 or Below Sweatin= Chills/Flushing Restless Observation: 0= Sits Still Pupil Size: 0= Normal to Room Light Bone or Joint Aches: 1= Mild Discomfort Runny Nose/ Eye Tearin= None GI Upset > 30mins: 0= None Tremor Observation of Outstretched Hands: 1= Tremor [place], Not Seen Yawning Observation: 0= None Anxiety or Irritability: 1=Feels Anxious/Irritable Goose Flesh Skin: 0=Smooth Skin COWS Score: 4
== END 2019-03-14 09:19 | disposition home or self-care (01) | DRG 773 ==
LOC: YASAS 08:18 → Y3N 10:25
PROVIDERS: ADMIT Surgery; ATTEND Surgery
PROC: HZ2ZZZZ Detoxification Services for Substance Abuse Treatment (ICD-10-PCS; principal; 2019-03-09)
DX: F11.23 Opioid dependence with withdrawal (principal); F10.230 Alcohol dependence with withdrawal, uncomplicated; F14.20 Cocaine dependence, uncomplicated; F19.24 Other psychoactive substance dependence with psychoactive substance-induced mood disorder; I10 Essential (primary) hypertension; E11.9 Type 2 diabetes mellitus without complications; J45.22 Mild intermittent asthma with status asthmaticus; K21.9 Gastro-esophageal reflux disease without esophagitis; G47.00 Insomnia, unspecified; M19.90 Unspecified osteoarthritis, unspecified site; Z79.84 Long term (current) use of oral hypoglycemic drugs; Z88.1 Allergy status to other antibiotic agents; Z88.2 Allergy status to sulfonamides; Z86.19 Personal history of other infectious and parasitic diseases; Z91.5 Personal history of self-harm
CPT/HCPCS: 36415; 71046-TC-FY; 80053; 81025; 82962; 85027; 86593; 87389; 93005; 93010; 94640; J0735

== ENCOUNTER 2019-04-20 09:14 | Inpatient (IN) | payer OTHER ==
[2019-04-20 10:01] VITALS: BMI 34.3
--- NOTE | 2019-04-20 10:54 | HP ---
COWS - Scale Resting Pulse: 0= [place] 80 or Below Sweatin= Chills/Flushing Restless Observation: 1= Difficult to Sit Still Pupil Size: 1= Pupils >than Normal Bone or Joint Aches: 1= Mild Discomfort Runny Nose/ Eye Tearin= Runny Nose/Eyes GI Upset > 30mins: 2= Nausea/Diarrhea (appropriate for admission for heroin detox) Tremor Observation: 1= Tremor [place], Not Seen Yawning Observation: 1= 1-2x During Session Anxiety or Irritability: 2=Irritable/Anxious Goose Flesh Skin: 0=Smooth Skin COWS Score: 12 CIWA Score - Admission Criteria [facility]ASAS Guidelines: Admission for Medically Managed Detox: Requires at least one of the followin. CIWA greater than 12 2. Seizures within the past 24 hours 3. Delirium tremens within the past 24 hours 4. Hallucinations within the past 24 hours 5. Acute intervention needed for co occurring medical disorder 6. Acute intervention needed for co occurring psychiatric disorder 7. Severe withdrawal that cannot be handled at a lower level of care (continued vomiting, continued diarrhea, abnormal vital signs) requiring intravenous medication and/or fluids 8. Admitting History and Physical - Admission Chief Complaint: "I want to get clean and stop using heroin." History of Present Illness: 53 year black female with opioid dependence with withdrawals. She is using in trnasally 8-10 bags of heroin daily, last used this morning. She denies OD in the past. She carries a narcan. She does not smoke ciggarettes, never smoked. She denies use of other substances. She is complaining of some vaginal discharge and has frequent vaginosis PMH: HTN was taking some med for it. Psurg: Left ankle surgery, cholecystectomy. Has poor support systems. History of Depression on Zoloft. - Past Medical History ...LMP: 11/22/18 - Smoking History Smoking history: Never smoked Have you smoked in the past 12 months: No Aproximately how many cigarettes per day: 0 - Alcohol/Substance Use Hx Alcohol Use: Yes Admission ROS S - HPI Chief Complaint: "I want to get clean and stop using heroin." Allergies/Adverse Reactions: Allergies Allergy/AdvReac Type Severity Reaction Status Date / Time sulfamethoxazole AdvReac Severe Swelling Verified 04/20/19 09:52 [From Bactrim] trimethoprim [From Bactrim] AdvReac Severe Swelling Verified 04/20/19 09:52 History of Present Illness: 53 year black female with opioid dependence with withdrawals. She is using in trnasally 8-10 bags of heroin daily, last used this morning. She denies OD in the past. She carries a narcan. She does not smoke ciggarettes, never smoked. She denies use of other substances. She is complaining of some vaginal discharge and has frequent vaginosis PMH: HTN was taking some med for it. Psurg: Left ankle surgery, cholecystectomy. Has poor support systems. Psych: History of Depression on Zoloft. - Ebola screening Have you traveled outside of the country in the last 21 days: No Have you had contact with anyone from an Ebola affected area: No Have you been sick,other than usual withdrawal symptoms: No Do you have a fever: No - Review of Systems Constitutional: Chills, Diaphoresis EENT: reports: No Symptoms Reported Respiratory: reports: No Symptoms reported Cardiac: reports: No Symptoms Reported GI: reports: No Symptoms Reported : reports: Discharge (vaginal discharge), Other Musculoskeletal: reports: No Symptoms Reported Integumentary: reports: No Symptoms Reported Neuro: reports: No Symptoms reported Endocrine: reports: No Symptoms Reported Hematology: reports: No Symptoms Reported Psychiatric: reports: No Sypmtoms Reported, Orientated x3, Anxious, Depressed Other Systems: Reviewed and Negative Patient History - Patient Medical History Hx Anemia: No Hx Asthma: Yes Hx Chronic Obstructive Pulmonary Disease (COPD): No Hx Cancer: No Hx Cardiac Disorders: No Hx Congestive Heart Failure: No Hx Hypertension: Yes Hx Hypercholesterolemia: No Hx Pacemaker: No HX Cerebrovascular Accident: No Hx Seizures: No Hx Dementia: No Hx Diabetes: Yes Hx Gastrointestinal Disorders: No Hx Liver Disease: No Hx Genitourinary Disorders: No Hx Sexually Transmitted Disorders: No Hx Renal Disease (ESRD): No Hx Thyroid Disease: No Hx Human Immunodeficiency Virus (HIV): No (last 10/29 negative) Hx Hepatitis C: No Hx Depression: Yes Hx Suicide Attempt: Yes (took pills at 16 years) Hx Bipolar Disorder: No Hx Schizophrenia: No - Patient Surgical History Past Surgical History: Yes Hx Neurologic Surgery: No Hx Cataract Extraction: No Hx Cardiac Surgery: No Hx Lung Surgery: No Hx Breast Surgery: No Hx Breast Biopsy: No Hx Abdominal Surgery: No Hx Appendectomy: No Hx Cholecystectomy: Yes (lap cholecystectomy in 2002 at [facility]) Hx Genitourinary Surgery: No Hx Section: No Hx Orthopedic Surgery: Yes (fx of left ankle in 2003) Anesthesia Reaction: No - PPD History Previous Implant?: Yes Documented Results: Negative w/proof Implanted On Prior [facility] Admission?: Yes Date: 10/29/18 Results: 0 mm PPD to be Administered?: No - Reproductive History Last Menstrual Period: 11/22/18 - Smoking Cessation Smoking history: Never smoked Have you smoked in the past 12 months: No Aproximately how many cigarettes per day: 0 Cigars Per Day: 0 Hx Chewing Tobacco Use: No Initiated information on smoking cessation: No - Substance & Tx. History Hx Alcohol Use: No Hx Substance Use: Yes Substance Use Type: Heroin, Opiates, Tranquilizers Hx Substance Use Treatment: Yes (last detox in 2018) - Substances abused Other Substance route: Oral Frequency: Daily Amount used: 3 wine bottles &5th chris Age of first use: 16 Date of last use: 04/19/19 Cocaine Substance route: Inhalation Frequency: 3-6 times per week Amount used: $200.00 Age of first use: 18 Date of last use: 10/25/18 Heroin Substance route: Inhalation Frequency: Daily Amount used: 8-10 bags Age of first use: 52 Date of last use: 04/20/19 Admission Physical Exam BHS - Vital Signs Vital Signs: Vital Signs - 24 hr 04/20/19 09:54 Temperature 97.2 F L Pulse Rate 73 Respiratory 18 Rate Blood Pressure 157/100 - Physical General Appearance: Yes: Nourished, Moderate Distress HEENTM: Yes: EOMI, Hearing grossly Normal, Normocephalic, Normal Voice, JAYME, Tm 's normal Respiratory: Yes: Chest Non-Tender, Lungs Clear, Normal Breath Sounds Neck: Yes: No masses,lesions,Nodules, Supple, Trachea in good position Breast: Yes: Breast Exam Deferred, Axillae without masses Cardiology: Yes: Regular Rhythm, Regular Rate, S1, S2 Abdominal: Yes: Normal Bowel Sounds, Non Tender, Soft, Protuberent Genitourinary: Yes: Within Normal Limits Back: Yes: Normal Inspection Musculoskeletal: Yes: full range of Motion, Gait Steady Extremities: Yes: Normal Capillary Refill, Normal Inspection, Non-Tender Neurological: Yes: stereo operator II-XII NML intact, Fully Oriented, Alert, Motor Strength 5/5, Normal Mood/Affect Integumentary: Yes: Normal Color, Warm Lymphatic: Yes: Within Normal Limits - Diagnostic (1) Alcohol dependence with uncomplicated withdrawal Current Visit: Yes Status: Acute (2) History of laparoscopic cholecystectomy Current Visit: Yes Status: Acute (3) Insomnia secondary to depression with anxiety Current Visit: Yes Status: Acute (4) Opioid dependence with withdrawal Current Visit: Yes Status: Acute (5) Asthma Current Visit: Yes Status: Chronic Qualifiers: Asthma severity: mild Asthma persistence: intermittent Asthma complication type: with status asthmaticus Qualified Code(s): J45.22 - Mild intermittent asthma with status asthmaticus Cleared for Admission S - Detox or Rehab [facility] Level of Care: Medically Managed Screened but not Admitted - Documentation of Visit Screened but not Admitted: No Breathalyzer - Breathalyzer Breathalyzer: 0 POC Urine test - Test device test lot number: [id number] Expiration date: 03/12/20 - Control test control: Yes Urine Drug Screen - Test Device Lot number: [id number] Expiration date: 11/09/20 - Control Is test valid?: Yes - Results Drug screen NEGATIVE: No Urine drug screen results: FEN-Fentanyl, MOP-Opiates, OXY-Oxycodone, MTD- Methadone, BZO-Benzodiazepines Inpatient Rehab Admission - Rehab Decision to Admit Inpatient rehab admission?: No
[2019-04-20] MEDS ORDERED: ACETAMINOPHEN 325 MG TABLET (FP) PO PRN ×2 (11:00)
[2019-04-20] MEDS ORDERED: METHADONE HCL 10 MG TABLET (FOR DETOX USE ONLY) PO ONE (11:00)
[2019-04-20] MEDS ORDERED: IBUPROFEN 400 MG TABLET (FP) PO PRN (11:00)
[2019-04-20] MEDS ORDERED: MENTHOL/PHENOL 1 EACH UD MM PRN (11:00)
[2019-04-20] MEDS ORDERED: BISMUTH SUBSALICYLATE 524 MG/30 ML UD PO PRN (11:00)
[2019-04-20] MEDS ORDERED: MAGNESIUM CITRATE 300 ML BOTTLE PO PRN (11:00)
[2019-04-20] MEDS ORDERED: MAGNESIUM HYDROX 2400MG/30ML ORAL SUSPENSION 30 ML CUP PO PRN (11:00)
[2019-04-20] MEDS ORDERED: cloNIDine HCL 0.1 MG TABLET PO PRN (11:00)
[2019-04-20] MEDS ORDERED: MAG HYDROX/AL HYDROX/SIMETH 30 ML UNIT-DOSE CUP PO PRN (11:00)
[2019-04-20] MEDS ORDERED: COLLOIDAL OATMEAL 1 BAR EACH TP PRN (11:02)
[2019-04-20 14:26] LABS: HEMATOCRIT 39.7 % (32.4-45.2); HEMOGLOBIN 12.5 GM/dL (10.7-15.3); MCH 26.3 pg (25.7-33.7); MCHC 31.4 g/dl (32.0-36.0); MEAN CELL VOLUME 83.7 fl (80-96); MEAN PLT VOLUME 9.3 fl (7.5-11.1); PLATELET COUNT 259 K/MM3 (134-434); RBC 4.74 M/mm3 (3.60-5.2); RDW 14.8 % (11.6-15.6); WHITE BLOOD COUNT 10.9 K/mm3 (4.0-10.0)
[2019-04-20 14:39] LABS: ALBUMIN 3.7 g/dl (3.4-5.0); BILIRUBIN,TOTAL 0.4 mg/dL (0.2-1); CALCIUM 9.1 mg/dL (8.5-10.1); CREATININE 0.7 mg/dL (0.55-1.3); TOT PROT 7.6 g/dl (6.4-8.2)
[2019-04-20] MEDS: METHOCARBAMOL 500 MG TABLET PO PRN (17:01)
[2019-04-20] MEDS: hydrOXYzine PAMOATE 25 MG CAPSULE (FP) PO PRN (17:01)
[2019-04-20] MEDS: ALBUTEROL SO4 8 GM HFA INHALER IH PRN (18:04)
[2019-04-20] MEDS: THIAMINE HCL 100 MG TABLET (FP) PO SCH (21:38)
[2019-04-20] MEDS: MELATONIN 5 MG TABLETS PO PRN (21:38)
[2019-04-20] MEDS: BUDESONIDE/FORMETEROL FUMARATE 160/4.5 mcg INHALER IH SCH (21:39)
[2019-04-21] MEDS: METHOCARBAMOL 500 MG TABLET PO PRN ×2 (06:39→22:29)
[2019-04-21] MEDS: hydrOXYzine PAMOATE 25 MG CAPSULE (FP) PO PRN (06:39)
[2019-04-21] MEDS: metFORMIN HCL 500 MG TABLET (FP) PO SCH (06:40)
[2019-04-21] MEDS ORDERED: chlordiazePOXIDE HCL 10 MG CAPSULE PO PRN (08:28)
--- NOTE | 2019-04-21 08:33 | PN ---
[facility] Progress Note Note: Patient complaining of vaginal discharge that is now foul smelling. She did complain of this on admission and has frequent vaginosis treated with flucanozole by her PMD. Therefore, will start flucanozole 150mg po daily for her duration in detox. Must follow up with her PMD upon discharge. But also advised her that she should continue to rehab. Dr. Barrientos
[2019-04-21] MEDS ORDERED: METHADONE HCL 5 MG TABLET (FOR DETOX USE ONLY) ONE (09:14)
[2019-04-21] MEDS ORDERED: METHADONE HCL 10 MG TABLET (FOR DETOX USE ONLY) ONE (09:14)
[2019-04-21] MEDS ORDERED: METHADONE (DETOX) 20 MG, METHADONE (DETOX) 5 MG PO ONE (10:00)
[2019-04-21] MEDS ORDERED: FLUCONAZOLE 150 MG TABLET PO ONE (10:00)
[2019-04-21] MEDS ORDERED: PANTOPRAZOLE 40 MG TABLET (FP) PO SCH (10:00)
[2019-04-21] MEDS: SERTRALINE HCL 50 MG TABLET (FP) PO SCH (10:28)
[2019-04-21] MEDS: BUDESONIDE/FORMETEROL FUMARATE 160/4.5 mcg INHALER IH SCH ×2 (10:28→22:34)
[2019-04-21] MEDS: MULTIVITAMINS (DAILY MVI) TABLET (FP) PO SCH (10:28)
[2019-04-21] MEDS ORDERED: DOCUSATE SODIUM 100 MG CAPSULE (FP) PO PRN (11:02)
[2019-04-21] MEDS: chlordiazePOXIDE HCL 25 MG CAPSULE PO SCH ×2 (12:26→22:29)
--- NOTE | 2019-04-21 13:44 | PN ---
[facility] CIWA - CIWA Score Nausea/Vomitin-No Nausea/No Vomiting Muscle Tremors: 3 Anxiety: 3 Agitation: 4-Moderately Restless Paroxysmal Sweats: 3 Orientation: 0-Oriented Tacttile Disturbances: 0-None Auditory Disturbances: 0-None Visual Disturbances: 0-None Headache: 0-None Present CIWA-Ar Total Score: 13 BHS COWS - Scale Resting Pulse: 1= [place] 81-100 Sweatin= Chills/Flushing Restless Observation: 1= Difficult to Sit Still Pupil Size: 0= Normal to Room Light Bone or Joint Aches: 2= Severe Diffuse Aches Runny Nose/ Eye Tearin= Runny Nose/Eyes GI Upset > 30mins: 0= None Tremor Observation of Outstretched Hands: 2= Slight Tremor Visible Yawning Observation: 2= >3x During Session Anxiety or Irritability: 2=Irritable/Anxious Goose Flesh Skin: 0=Smooth Skin COWS Score: 13 S Progress Note (SOAP) Subjective: sweats shakes interrupted sleep body aches irritable agitation Objective: 04/21/19 13:43 Vital Signs Temperature 98.1 F 04/21/19 10:00 Pulse Rate 85 04/21/19 10:00 Respiratory Rate 20 04/21/19 10:00 Blood Pressure 142/84 04/21/19 10:00 O2 Sat by Pulse Oximetry (%) Laboratory Tests 04/20/19 04/20/19 04/20/19 10:04 11:00 11:00 WBC 10.9 H RBC 4.74 Hgb 12.5 Hct 39.7 MCV 83.7 MCH 26.3 MCHC 31.4 L RDW 14.8 Plt Count 259 MPV 9.3 Sodium 139 Potassium 4.0 Chloride 104 Carbon Dioxide 32 Anion Gap 3 L BUN 18.0 Creatinine 0.7 Est GFR (CKD-EPI)AfAm 114.65 Est GFR (CKD-EPI)NonAf 98.92 POC Glucometer 159 Random Glucose 144 H Calcium 9.1 Total Bilirubin 0.4 AST 24 ALT 40 Alkaline Phosphatase 132 H Total Protein 7.6 Albumin 3.7 POC Urine HCG, Qual RPR Titer 04/20/19 04/20/19 04/21/19 11:00 11:24 05:40 WBC RBC Hgb Hct MCV MCH MCHC RDW Plt Count MPV Sodium Potassium Chloride Carbon Dioxide Anion Gap BUN Creatinine Est GFR (CKD-EPI)AfAm Est GFR (CKD-EPI)NonAf POC Glucometer 87 Random Glucose Calcium Total Bilirubin AST ALT Alkaline Phosphatase Total Protein Albumin POC Urine HCG, Qual Negative RPR Titer Nonreactive labs noted aaox3 ambulating no acute distress Assessment: 04/21/19 13:43 withdrawals Plan: continue detox increase fluids protonix 40mg time ordered for 7am as per pt request.
[2019-04-21] MEDS: MELATONIN 5 MG TABLETS PO PRN (22:29)
[2019-04-21] MEDS: THIAMINE HCL 100 MG TABLET (FP) PO SCH (22:29)
[2019-04-22] MEDS: metFORMIN HCL 500 MG TABLET (FP) PO SCH (06:21)
[2019-04-22] MEDS: chlordiazePOXIDE HCL 25 MG CAPSULE PO SCH ×3 (06:21→22:22)
[2019-04-22] MEDS: PANTOPRAZOLE 40 MG TABLET (FP) PO SCH (06:21)
[2019-04-22] MEDS ORDERED: METHADONE HCL 10 MG TABLET (FOR DETOX USE ONLY) PO ONE (10:00)
[2019-04-22] MEDS: BUDESONIDE/FORMETEROL FUMARATE 160/4.5 mcg INHALER IH SCH ×2 (10:48→22:24)
[2019-04-22] MEDS: SERTRALINE HCL 50 MG TABLET (FP) PO SCH (10:48)
[2019-04-22] MEDS: METHOCARBAMOL 500 MG TABLET PO PRN ×2 (11:33→22:22)
[2019-04-22] MEDS: hydrOXYzine PAMOATE 25 MG CAPSULE (FP) PO PRN (11:34)
[2019-04-22] MEDS: MULTIVITAMINS (DAILY MVI) TABLET (FP) PO SCH (12:13)
--- NOTE | 2019-04-22 13:55 | PN ---
[facility] CIWA - CIWA Score Nausea/Vomitin-No Nausea/No Vomiting Muscle Tremors: 3 Anxiety: 2 Agitation: 3 Paroxysmal Sweats: 3 Orientation: 0-Oriented Tacttile Disturbances: 0-None Auditory Disturbances: 0-None Visual Disturbances: 0-None Headache: 0-None Present CIWA-Ar Total Score: 11 BHS COWS - Scale Resting Pulse: 0= [place] 80 or Below Sweatin= Chills/Flushing Restless Observation: 1= Difficult to Sit Still Pupil Size: 0= Normal to Room Light Bone or Joint Aches: 1= Mild Discomfort Runny Nose/ Eye Tearin= Runny Nose/Eyes GI Upset > 30mins: 0= None Tremor Observation of Outstretched Hands: 1= Tremor [place], Not Seen Yawning Observation: 1= 1-2x During Session Anxiety or Irritability: 2=Irritable/Anxious Goose Flesh Skin: 0=Smooth Skin COWS Score: 9 S Progress Note (SOAP) Subjective: sweats shakes interrupted sleep nasal congestion anxiety Objective: 04/22/19 13:54 Vital Signs Temperature 98.4 F 04/22/19 13:29 Pulse Rate 70 04/22/19 13:29 Respiratory Rate 18 04/22/19 13:29 Blood Pressure 132/80 04/22/19 13:29 O2 Sat by Pulse Oximetry (%) Laboratory Tests 04/20/19 04/20/19 04/20/19 10:04 11:00 11:00 WBC 10.9 H RBC 4.74 Hgb 12.5 Hct 39.7 MCV 83.7 MCH 26.3 MCHC 31.4 L RDW 14.8 Plt Count 259 MPV 9.3 Sodium 139 Potassium 4.0 Chloride 104 Carbon Dioxide 32 Anion Gap 3 L BUN 18.0 Creatinine 0.7 Est GFR (CKD-EPI)AfAm 114.65 Est GFR (CKD-EPI)NonAf 98.92 POC Glucometer 159 Random Glucose 144 H Calcium 9.1 Total Bilirubin 0.4 AST 24 ALT 40 Alkaline Phosphatase 132 H Total Protein 7.6 Albumin 3.7 POC Urine HCG, Qual RPR Titer 04/20/19 04/20/19 04/21/19 11:00 11:24 05:40 WBC RBC Hgb Hct MCV MCH MCHC RDW Plt Count MPV Sodium Potassium Chloride Carbon Dioxide Anion Gap BUN Creatinine Est GFR (CKD-EPI)AfAm Est GFR (CKD-EPI)NonAf POC Glucometer 87 Random Glucose Calcium Total Bilirubin AST ALT Alkaline Phosphatase Total Protein Albumin POC Urine HCG, Qual Negative RPR Titer Nonreactive 04/21/19 16:43 WBC RBC Hgb Hct MCV MCH MCHC RDW Plt Count MPV Sodium Potassium Chloride Carbon Dioxide Anion Gap BUN Creatinine Est GFR (CKD-EPI)AfAm Est GFR (CKD-EPI)NonAf POC Glucometer 134 Random Glucose Calcium Total Bilirubin AST ALT Alkaline Phosphatase Total Protein Albumin POC Urine HCG, Qual RPR Titer labs noted aaox3 ambulating no acute distress Assessment: 04/22/19 13:55 withdrawal sx Plan: continue detox increase fluids
[2019-04-22] MEDS: THIAMINE HCL 100 MG TABLET (FP) PO SCH (22:22)
[2019-04-22] MEDS: MELATONIN 5 MG TABLETS PO PRN (22:23)
[2019-04-22] MEDS: ALBUTEROL SO4 8 GM HFA INHALER IH PRN (22:24)
[2019-04-23] MEDS: chlordiazePOXIDE 5 MG CAPSULE PO SCH ×3 (05:54→21:55)
[2019-04-23] MEDS: PANTOPRAZOLE 40 MG TABLET (FP) PO SCH (06:07)
[2019-04-23] MEDS: metFORMIN HCL 500 MG TABLET (FP) PO SCH (06:07)
[2019-04-23] MEDS ORDERED: METHADONE (DETOX) 10 MG, METHADONE (DETOX) 5 MG PO ONE (10:00)
[2019-04-23] MEDS ORDERED: METHADONE HCL 10 MG TABLET (FOR DETOX USE ONLY) ONE (10:42)
[2019-04-23] MEDS ORDERED: METHADONE HCL 5 MG TABLET (FOR DETOX USE ONLY) ONE (10:42)
[2019-04-23] MEDS: BUDESONIDE/FORMETEROL FUMARATE 160/4.5 mcg INHALER IH SCH ×2 (10:58→22:11)
[2019-04-23] MEDS: SERTRALINE HCL 50 MG TABLET (FP) PO SCH (10:59)
[2019-04-23] MEDS: MULTIVITAMINS (DAILY MVI) TABLET (FP) PO SCH (10:59)
[2019-04-23] MEDS: METHOCARBAMOL 500 MG TABLET PO PRN ×2 (11:02→17:47)
[2019-04-23] MEDS: hydrOXYzine PAMOATE 25 MG CAPSULE (FP) PO PRN ×2 (11:02→17:47)
--- NOTE | 2019-04-23 13:43 | PN ---
[facility] CIWA - CIWA Score Nausea/Vomitin-No Nausea/No Vomiting Muscle Tremors: 3 Anxiety: 1-Mildly Anxious Agitation: 2 Paroxysmal Sweats: 1-Minimal Palms Moist Orientation: 0-Oriented Tacttile Disturbances: 0-None Auditory Disturbances: 0-None Visual Disturbances: 0-None Headache: 0-None Present CIWA-Ar Total Score: 7 BHS COWS - Scale Resting Pulse: 0= [place] 80 or Below Sweatin= Chills/Flushing Restless Observation: 1= Difficult to Sit Still Pupil Size: 0= Normal to Room Light Bone or Joint Aches: 2= Severe Diffuse Aches Runny Nose/ Eye Tearin= Nasal Congestion GI Upset > 30mins: 0= None Tremor Observation of Outstretched Hands: 1= Tremor [place], Not Seen Yawning Observation: 1= 1-2x During Session Anxiety or Irritability: 1=Feels Anxious/Irritable Goose Flesh Skin: 0=Smooth Skin COWS Score: 8 [facility] Progress Note (SOAP) Subjective: insomnia restless agitation Objective: 04/23/19 13:43 Vital Signs Temperature 98.2 F 04/23/19 09:29 Pulse Rate 79 04/23/19 09:29 Respiratory Rate 16 04/23/19 09:29 Blood Pressure 131/82 04/23/19 09:29 O2 Sat by Pulse Oximetry (%) aaox3 ambulating no acute distress Assessment: 04/23/19 13:43 withdrawals Plan: continue detox increase fluids psych consultation ordered
[2019-04-23] MEDS: THIAMINE HCL 100 MG TABLET (FP) PO SCH (22:10)
[2019-04-23] MEDS: ALBUTEROL SO4 8 GM HFA INHALER IH PRN (22:11)
[2019-04-23] MEDS: MELATONIN 5 MG TABLETS PO PRN (22:11)
[2019-04-24] MEDS ORDERED: chlordiazePOXIDE HCL 10 MG CAPSULE PO PRN
[2019-04-24] MEDS: hydrOXYzine PAMOATE 25 MG CAPSULE (FP) PO PRN ×2 (00:14→10:42)
[2019-04-24] MEDS: chlordiazePOXIDE HCL 10 MG CAPSULE PO SCH ×3 (06:07→21:33)
[2019-04-24] MEDS: metFORMIN HCL 500 MG TABLET (FP) PO SCH (06:08)
[2019-04-24] MEDS: PANTOPRAZOLE 40 MG TABLET (FP) PO SCH (06:08)
[2019-04-24] MEDS ORDERED: METHADONE HCL 10 MG TABLET (FOR DETOX USE ONLY) PO ONE (10:00)
[2019-04-24] MEDS: SERTRALINE HCL 50 MG TABLET (FP) PO SCH (10:39)
[2019-04-24] MEDS: BUDESONIDE/FORMETEROL FUMARATE 160/4.5 mcg INHALER IH SCH ×2 (10:40→21:37)
[2019-04-24] MEDS: ALBUTEROL SO4 8 GM HFA INHALER IH PRN ×2 (10:40→21:37)
[2019-04-24] MEDS: MULTIVITAMINS (DAILY MVI) TABLET (FP) PO SCH (10:40)
[2019-04-24] MEDS: METHOCARBAMOL 500 MG TABLET PO PRN ×2 (10:42→22:52)
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
[2019-04-24] MEDS ORDERED: hydrOXYzine PAMOATE 25 MG CAPSULE (FP) PO PRN (11:02)
--- NOTE | 2019-04-24 17:14 | PN ---
[facility] CIWA - CIWA Score Nausea/Vomitin-No Nausea/No Vomiting Muscle Tremors: None Anxiety: 3 Agitation: 3 Paroxysmal Sweats: No Perspiration Orientation: 0-Oriented Tacttile Disturbances: 0-None Auditory Disturbances: 0-None Visual Disturbances: 0-None Headache: 0-None Present CIWA-Ar Total Score: 6 S COWS - Scale Resting Pulse: 0= [place] 80 or Below Sweatin= No chills or Flushing Restless Observation: 0= Sits Still Pupil Size: 0= Normal to Room Light Bone or Joint Aches: 1= Mild Discomfort Runny Nose/ Eye Tearin= None GI Upset > 30mins: 1= Stomach Cramp Tremor Observation of Outstretched Hands: 0= None Yawning Observation: 0= None Anxiety or Irritability: 2=Irritable/Anxious Goose Flesh Skin: 0=Smooth Skin COWS Score: 4 [facility] Progress Note (SOAP) Subjective: Interrupted sleep, sweating, tremor, constipated x 2 days Objective: 04/24/19 17:13 Last Vital Signs Temp Pulse Resp BP Pulse Ox 97.9 F 78 18 138/73 04/24/19 13:28 04/24/19 13:28 04/24/19 13:28 04/24/19 13:28 Laboratory Tests 04/20/19 04/20/19 04/20/19 10:04 11:00 11:00 WBC 10.9 H RBC 4.74 Hgb 12.5 Hct 39.7 MCV 83.7 MCH 26.3 MCHC 31.4 L RDW 14.8 Plt Count 259 MPV 9.3 Sodium 139 Potassium 4.0 Chloride 104 Carbon Dioxide 32 Anion Gap 3 L BUN 18.0 Creatinine 0.7 Est GFR (CKD-EPI)AfAm 114.65 Est GFR (CKD-EPI)NonAf 98.92 POC Glucometer 159 Random Glucose 144 H Calcium 9.1 Total Bilirubin 0.4 AST 24 ALT 40 Alkaline Phosphatase 132 H Total Protein 7.6 Albumin 3.7 POC Urine HCG, Qual RPR Titer 04/20/19 04/20/19 04/21/19 11:00 11:24 05:40 WBC RBC Hgb Hct MCV MCH MCHC RDW Plt Count MPV Sodium Potassium Chloride Carbon Dioxide Anion Gap BUN Creatinine Est GFR (CKD-EPI)AfAm Est GFR (CKD-EPI)NonAf POC Glucometer 87 Random Glucose Calcium Total Bilirubin AST ALT Alkaline Phosphatase Total Protein Albumin POC Urine HCG, Qual Negative RPR Titer Nonreactive 04/21/19 04/23/19 04/24/19 16:43 05:56 06:06 WBC RBC Hgb Hct MCV MCH MCHC RDW Plt Count MPV Sodium Potassium Chloride Carbon Dioxide Anion Gap BUN Creatinine Est GFR (CKD-EPI)AfAm Est GFR (CKD-EPI)NonAf POC Glucometer 134 98 105 Random Glucose Calcium Total Bilirubin AST ALT Alkaline Phosphatase Total Protein Albumin POC Urine HCG, Qual RPR Titer Labs reviewed Assessment: 04/24/19 17:13 Withdrawal sxs Plan: Continue detox Encouraged PO water intake Patient scheduled for discharge tomorrow
[2019-04-24] MEDS: THIAMINE HCL 100 MG TABLET (FP) PO SCH (21:34)
[2019-04-24] MEDS ORDERED: SUVOREXANT 10 MG TABLET PO PRN (22:00)
[2019-04-25] MEDS ORDERED: chlordiazePOXIDE HCL 10 MG CAPSULE PO ONE (05:00)
[2019-04-25] MEDS ORDERED: METHADONE HCL 5 MG TABLET (FOR DETOX USE ONLY) PO ONE (06:00)
[2019-04-25] MEDS: metFORMIN HCL 500 MG TABLET (FP) PO SCH (06:24)
[2019-04-25] MEDS: PANTOPRAZOLE 40 MG TABLET (FP) PO SCH (06:25)
[2019-04-25 09:42] VITALS: BP 139/96; PULSE 87; TEMP 98.2
[2019-04-25] MEDS: MULTIVITAMINS (DAILY MVI) TABLET (FP) PO SCH (09:57)
[2019-04-25] MEDS: SERTRALINE HCL 50 MG TABLET (FP) PO SCH (09:57)
== END 2019-04-25 10:12 | disposition home or self-care (01) | DRG 773 ==
LOC: YASAS 09:14 → Y6N 10:21
PROVIDERS: ADMIT Allergy & Immunology; ATTEND Allergy & Immunology
PROC: HZ2ZZZZ Detoxification Services for Substance Abuse Treatment (ICD-10-PCS; principal; 2019-04-20)
DX: F10.230 Alcohol dependence with withdrawal, uncomplicated (principal); F11.23 Opioid dependence with withdrawal; F13.20 Sedative, hypnotic or anxiolytic dependence, uncomplicated; F14.20 Cocaine dependence, uncomplicated; F32.9 Major depressive disorder, single episode, unspecified; F19.282 Other psychoactive substance dependence with psychoactive substance-induced sleep disorder; F51.05 Insomnia due to other mental disorder; I10 Essential (primary) hypertension; E11.9 Type 2 diabetes mellitus without complications; K21.9 Gastro-esophageal reflux disease without esophagitis; J45.22 Mild intermittent asthma with status asthmaticus; N89.8 Other specified noninflammatory disorders of vagina; Z98.84 Bariatric surgery status; Z88.2 Allergy status to sulfonamides; Z79.84 Long term (current) use of oral hypoglycemic drugs
CPT/HCPCS: 36415; 80053; 81025; 82962; 85027; 86593

== ENCOUNTER 2019-05-17 09:59 | Inpatient (IN) | payer OTHER ==
[2019-05-17 10:24] VITALS: BMI 36.0
--- NOTE | 2019-05-17 12:01 | HP ---
"COWS - Scale Resting Pulse: 0= [place] 80 or Below Sweatin= Chills/Flushing Restless Observation: 1= Difficult to Sit Still Pupil Size: 0= Normal to Room Light Bone or Joint Aches: 2= Severe Diffuse Aches Runny Nose/ Eye Tearin= Constantly Teary/Runny GI Upset > 30mins: 1= Stomach Cramp Tremor Observation: 0= None Yawning Observation: 0= None Anxiety or Irritability: 1=Feels Anxious/Irritable Goose Flesh Skin: 0=Smooth Skin COWS Score: 10 CIWA Score Nausea/Vomitin-No Nausea/No Vomiting Muscle Tremors: None Anxiety: 2 Agitation: 1-Slight > Activity Paroxysmal Sweats: 2 Orientation: 2-Disoriented Date<2 days Tacttile Disturbances: 1-Very Mild Itch/Numbness Auditory Disturbances: 0-None Visual Disturbances: 2-Mild Sensitivity Headache: 0-None Present CIWA-Ar Total Score: 10 - Admission Criteria OASAS Guidelines: Admission for Medically Managed Detox: Requires at least one of the followin. CIWA greater than 12 2. Seizures within the past 24 hours 3. Delirium tremens within the past 24 hours 4. Hallucinations within the past 24 hours 5. Acute intervention needed for co occurring medical disorder 6. Acute intervention needed for co occurring psychiatric disorder 7. Severe withdrawal that cannot be handled at a lower level of care (continued vomiting, continued diarrhea, abnormal vital signs) requiring intravenous medication and/or fluids 8. Admitting History and Physical - Past Medical History ...LMP: 11/22/18 - Smoking History Smoking history: Never smoked Have you smoked in the past 12 months: No Aproximately how many cigarettes per day: 0 - Alcohol/Substance Use Hx Alcohol Use: No Admission ROS [facility] [place] Allergies/Adverse Reactions: Allergies Allergy/AdvReac Type Severity Reaction Status Date / Time sulfamethoxazole AdvReac Severe Swelling Verified 05/17/19 10:20 [From Bactrim] trimethoprim [From Bactrim] AdvReac Severe Swelling Verified 05/17/19 10:20 History of Present Illness: pt here requesting detox from heroin use , reports relapse 1 week after d/c from this facility 04/25/19 , claims 8-10 bags heroin / day via inhalation , latest use 3 am today , current symptoms as above . etoh use : 3 bottles/wine and 1/5 kiran /day, starts drinking upon awakening , reports sweating if not drinking , denies seizures, occasional tremors , latest use 6 pm yesterday , current symptoms as above . tobacco : denies pmhx : dm 2, asthma , htn pshx : clint, left ankle orif , expl lap lmp november 2018 shx : lives w/ adult children This report was requested by: Aruna King | Reference #: [id number] Others' Prescriptions Patient Name: Leticia Sweet Date: 1965 Address: [address] [place] [address] Sex: Female Rx Written Rx Dispensed Drug Quantity Days Supply Prescriber Name 03/30/2019 03/31/2019 zolpidem tartrate 10 mg tablet 30 30 Dedousis, Temo 02/24/2019 02/28/2019 zolpidem tartrate 10 mg tablet 30 30 Dedousis, Temo 01/31/2019 02/01/2019 zolpidem tartrate 10 mg tablet 30 30 Dedousis, Temo 12/21/2018 01/04/2019 zolpidem tartrate 10 mg tablet 30 30 Dedousis, Temo 10/08/2018 12/08/2018 tramadol hcl 50 mg tablet 120 30 Jalen Zhang MD 11/26/2018 12/08/2018 zolpidem tartrate 10 mg tablet 30 30 Dedousis, Temo 11/10/2018 11/10/2018 zolpidem tartrate 10 mg tablet 30 30 Dedousis, Temo 10/08/2018 11/09/2018 tramadol hcl 50 mg tablet 120 30 Jalen Zhang MD 10/08/2018 10/08/2018 tramadol hcl 50 mg tablet 120 30 Jalen Zhang MD 10/06/2018 10/06/2018 zolpidem tartrate 10 mg tablet 30 30 Dedousis, Temo 09/06/2018 09/07/2018 zolpidem tartrate 10 mg tablet 30 30 Dedousis, Temo 06/14/2018 09/06/2018 tramadol hcl 50 mg tablet 120 30 Jalen Zhang MD 08/13/2018 08/13/2018 zolpidem tartrate 10 mg tablet 7 7 Dedousis , Temo 06/14/2018 08/10/2018 tramadol hcl 50 mg tablet 120 30 Jalen Zhang MD 06/14/2018 07/10/2018 tramadol hcl 50 mg tablet 120 30 Jalen Zhang MD 03/29/2018 06/12/2018 tramadol hcl 50 mg tablet 120 30 Jalen Zhang MD Exam Limitations: No Limitations - Ebola screening Have you traveled outside of the country in the last 21 days: No Have you had contact with anyone from an Ebola affected area: No Do you have a fever: No - Review of Systems Constitutional: Loss of Appetite EENT: reports: See HPI Respiratory: reports: SOB with Exertion Cardiac: reports: No Symptoms Reported GI: reports: See HPI, Abdominal cramping : reports: No Symptoms Reported Musculoskeletal: reports: See HPI, Back Pain, Muscle Pain Integumentary: reports: No Symptoms Reported Neuro: reports: See HPI Endocrine: reports: See HPI Psychiatric: reports: Orientated x3, Anxious Patient History - Patient Medical History Hx Anemia: No Hx Asthma: Yes Hx Chronic Obstructive Pulmonary Disease (COPD): No Hx Cancer: No Hx Cardiac Disorders: No Hx Congestive Heart Failure: No Hx Hypertension: Yes Hx Hypercholesterolemia: No Hx Pacemaker: No HX Cerebrovascular Accident: No Hx Seizures: No Hx Dementia: No Hx Diabetes: Yes Hx Gastrointestinal Disorders: No Hx Liver Disease: No Hx Genitourinary Disorders: No Hx Sexually Transmitted Disorders: No Hx Renal Disease (ESRD): No Hx Thyroid Disease: No Hx Human Immunodeficiency Virus (HIV): No (last 10/29 negative) Hx Hepatitis C: No Hx Depression: Yes Hx Suicide Attempt: Yes (took pills at 16 years) Hx Bipolar Disorder: No Hx Schizophrenia: No - Patient Surgical History Past Surgical History: Yes Hx Neurologic Surgery: No Hx Cataract Extraction: No Hx Cardiac Surgery: No Hx Lung Surgery: No Hx Breast Surgery: No Hx Breast Biopsy: No Hx Abdominal Surgery: No Hx Appendectomy: No Hx Cholecystectomy: Yes (lap cholecystectomy in 2002 at [place]) Hx Genitourinary Surgery: No Hx Section: No Hx Orthopedic Surgery: Yes (fx of left ankle in 2003) Anesthesia Reaction: No - PPD History Date: 10/29/18 Results: 0 mm - Reproductive History Last Menstrual Period: 11/22/18 - Smoking Cessation Smoking history: Never smoked Have you smoked in the past 12 months: No Aproximately how many cigarettes per day: 0 Cigars Per Day: 0 Hx Chewing Tobacco Use: No - Substances abused Alcohol Substance route: Oral Frequency: Daily Amount used: 3 wine bottles &5th chris Age of first use: 16 Date of last use: 05/16/19 Cocaine Substance route: Inhalation Frequency: 3-6 times per week Amount used: $200.00 Age of first use: 18 Date of last use: 10/25/18 Heroin Substance route: Inhalation Frequency: Daily Amount used: 8-10 bags Age of first use: 52 Date of last use: 05/17/19 Other Substance route: Oral Frequency: Daily Amount used: 3 wine bottles &5th chris Age of first use: 16 Date of last use: 04/19/19 Admission Physical Exam BHS - Vital Signs Vital Signs: Vital Signs - 24 hr 05/17/19 10:16 Temperature 98.2 F Pulse Rate 70 Respiratory 20 Rate Blood Pressure 139/77 - Physical General Appearance: Yes: Mild Distress, Anxious HEENTM: Yes: EOMI, Hearing grossly Normal, Normocephalic, Normal Voice Respiratory: Yes: Chest Non-Tender, Lungs Clear, Decreased Breath Sounds, No Respiratory Distress, Wheezing, Expiration Neck: Yes: No masses,lesions,Nodules, Trachea in good position Cardiology: Yes: Regular Rhythm, Regular Rate, S1, S2 Abdominal: Yes: Non Tender, Soft, Protuberent Back: Yes: Normal Inspection Musculoskeletal: Yes: Gait Steady Extremities: Yes: Normal Range of Motion, Non-Tender Neurological: Yes: Fully Oriented, Alert, Motor Strength 5/5, Normal Mood/Affect Integumentary: Yes: Warm - Diagnostic (1) Alcohol dependence with uncomplicated withdrawal Current Visit: Yes Status: Acute (2) Opioid dependence with withdrawal Current Visit: Yes Status: Acute Breathalyzer - Breathalyzer Breathalyzer: 0 POC Urine test - Test device test lot number: [id number] Expiration date: 03/12/20 - Control test control: Yes Urine Drug Screen - Test Device Lot number: [id number] Expiration date: 01/09/21 - Control Is test valid?: Yes - Results Drug screen NEGATIVE: No Urine drug screen results: FEN-Fentanyl, MOP-Opiates, OXY-Oxycodone, MTD- Methadone, BZO-Benzodiazepines, BUP-Suboxone Inpatient Rehab Admission - Rehab Decision to Admit Inpatient rehab admission?: No"
[2019-05-17] MEDS ORDERED: MONTELUKAST NA 10 MG TABLET PO PRN (12:02)
[2019-05-17] MEDS ORDERED: MAGNESIUM CITRATE 300 ML BOTTLE PO PRN (12:07)
[2019-05-17] MEDS ORDERED: MENTHOL/PHENOL 1 EACH UD MM PRN (12:07)
[2019-05-17] MEDS ORDERED: MAG HYDROX/AL HYDROX/SIMETH 30 ML UNIT-DOSE CUP PO PRN (12:07)
[2019-05-17] MEDS ORDERED: BISMUTH SUBSALICYLATE 262 MG/15 ML BTL PO PRN (12:07)
[2019-05-17] MEDS ORDERED: ACETAMINOPHEN 325 MG TABLET (FP) PO PRN ×2 (12:07)
[2019-05-17] MEDS ORDERED: hydrOXYzine PAMOATE 25 MG CAPSULE (FP) PO PRN (12:07)
[2019-05-17] MEDS ORDERED: MAGNESIUM HYDROX 2400MG/30ML ORAL SUSPENSION 30 ML CUP PO PRN (12:07)
[2019-05-17] MEDS ORDERED: MELATONIN 5 MG TABLETS PO PRN (12:07)
[2019-05-17] MEDS ORDERED: chlordiazePOXIDE HCL 10 MG CAPSULE PO PRN (12:08)
[2019-05-17] MEDS ORDERED: METHADONE HCL 10 MG TABLET (FOR DETOX USE ONLY) PO ONE (12:12)
[2019-05-17] MEDS ORDERED: METHADONE (DETOX) 20 MG, METHADONE (DETOX) 5 MG PO ONE (13:00)
[2019-05-17] MEDS ORDERED: METHADONE HCL 10 MG TABLET (FOR DETOX USE ONLY) ONE (13:44)
[2019-05-17] MEDS ORDERED: METHADONE HCL 5 MG TABLET (FOR DETOX USE ONLY) ONE (13:45)
[2019-05-17] MEDS: BUDESONIDE/FORMETEROL FUMARATE 160/4.5 mcg INHALER IH SCH ×2 (13:50→22:26)
[2019-05-17] MEDS: chlordiazePOXIDE HCL 25 MG CAPSULE PO SCH ×2 (13:51→22:27)
[2019-05-17] MEDS: CHOLECALCIFEROL (VIT D3) 1,000 UNIT (25 MCG) TABLET PO SCH (13:52)
[2019-05-17] MEDS: COLLOIDAL OATMEAL 1 BAR EACH TP PRN (13:54)
[2019-05-17] MEDS: ALBUTEROL SO4 8 GM HFA INHALER IH PRN ×2 (13:54→22:26)
[2019-05-17] MEDS: THIAMINE HCL 100 MG TABLET (FP) PO SCH (22:27)
[2019-05-17] MEDS: metFORMIN HCL 500 MG TABLET (FP) PO SCH (22:29)
[2019-05-18] MEDS: chlordiazePOXIDE HCL 25 MG CAPSULE PO SCH (05:51)
[2019-05-18] MEDS: chlordiazePOXIDE 5 MG CAPSULE PO SCH ×3 (05:59→22:28)
[2019-05-18] MEDS ORDERED: PANTOPRAZOLE 40 MG TABLET (FP) PO SCH (10:00)
[2019-05-18] MEDS ORDERED: METHADONE HCL 10 MG TABLET (FOR DETOX USE ONLY) PO ONE (10:00)
[2019-05-18] MEDS: ALBUTEROL SO4 8 GM HFA INHALER IH PRN ×2 (10:18→22:28)
[2019-05-18] MEDS: BUDESONIDE/FORMETEROL FUMARATE 160/4.5 mcg INHALER IH SCH ×2 (10:18→22:49)
[2019-05-18] MEDS: PRENATAL VITAMINS W/ FOLIC ACID TABLET (FP) PO SCH (10:19)
[2019-05-18] MEDS: metFORMIN HCL 500 MG TABLET (FP) PO SCH ×2 (10:20→17:00)
[2019-05-18] MEDS: CHOLECALCIFEROL (VIT D3) 1,000 UNIT (25 MCG) TABLET PO SCH (10:20)
[2019-05-18] MEDS: METHOCARBAMOL 500 MG TABLET PO PRN (10:21)
--- NOTE | 2019-05-18 12:59 | CONSULT ---
[facility] Psychiatric Consult - Data Date of interview: 05/18/19 Admission source: [facility] Identifying data: Readmission to [facility] for this 53 y/o AA female self- referred for detoxification (VIGNESH issues : heroin, cocaine, alcohol). Interviewed at [address] [place] [address]. Patient is single, a mother of five, domiciled, unemployed and supported on Social Security benefits. Substance Abuse History: Discussed in session. Details in current [facility] report as follows : Smoking history: Never smoked. Have you smoked in the past 12 months : No. Aproximately how many cigarettes per day: 0. Cigars Per Day: 0. Hx Chewing Tobacco Use: No. - Substances abused. Alcohol. Substance route: Oral. Frequency: Daily. Amount used: 3 wine bottles &5th chris. Age of first use: 16. Date of last use: 05/16/19. Cocaine. Substance route: Inhalation. Frequency: 3-6 times per week. Amount used: $200.00. Age of first use: 18. Date of last use: 10/25/18. Heroin. Substance route: Inhalation. Frequency: Daily. Amount used: 8-10 bags. Age of first use: 52. Date of last use: 05/17/19. Other. Substance route: Oral. Frequency: Daily. Amount used: 3 wine bottles &5th chris. Age of first use: 16. Date of last use: 04/19/19 Medical History: Medical profile is remarkable for scarlet fever (at the age of [age] months), antecedent of meningitis, GERD, bronchial asthma, hypertension, diabetes mellitus, antecedent of fracture of left ankle and history of cholecystectomy (2002). Psychiatric History: Remote history of one psychiatric hospitalization (was committed involuntarily at the [facility] in [facility], age 16, for suicide attempt via overdose with aspirin). Diagnosed with MDD and Anxiety Disorder. Ms Sweet continues to be followed, under the care of psychiatrist Dr Edouard, [facility]. Maintained on sertraline 50 mg/day + zolpidem 10 mg/hs. Distant history of suicide attempt ( age 16) via overdose with medication (ASA). Physical/Sexual Abuse/Trauma History: No history. Additional Comment: Urine drug screen results: FEN-Fentanyl, MOP-Opiates, OXY- Oxycodone, MTD-Methadone, BZO-Benzodiazepines, BUP-Suboxone. Noted. Mental Status Exam - Mental Status Exam Alert and Oriented to: Time, Place, Person Cognitive Function: Good Patient Appearance: Well Groomed Mood: Withdrawn, Hopeful Affect: Appropriate, Normal Range Patient Behavior: Fatigued, Appropriate, Cooperative Speech Pattern: Clear, Appropriate Voice Loudness: Normal Thought Process: Intact, Goal Oriented Thought Disorder: Not Present Hallucinations: Denies Suicidal Ideation: Denies Homicidal Ideation: Denies Insight/Judgement: Poor Sleep: Poorly, Difficulty falling asleep (wants seroquel) Appetite: Good Gait/Station: Normal Psychiatric Findings - Problem List ([place] 1, 2,3) (1) Alcohol dependence with uncomplicated withdrawal Current Visit: Yes Status: Acute (2) Opioid dependence with withdrawal Current Visit: Yes Status: Acute (3) Cocaine dependence Current Visit: Yes Status: Chronic Qualifiers: Substance use status: uncomplicated Qualified Code(s): F14.20 - Cocaine dependence, uncomplicated Comment: Self-report. Current toxicology is negative. (4) Substance induced mood disorder Current Visit: Yes Status: Chronic (5) Insomnia Current Visit: Yes Status: Chronic - Initial Treatment Plan Initial Treatment Plan: Psychoeducation. Sleep hygiene. Detoxification. medications : seroquel 50 mg po hs + zoloft 50 mg po daily. Side effects/ benefits discussed with patient. Ms Sweet is in agreement with this plan of care. Gave verbal consent to MD. Silverio.
[2019-05-18] MEDS: SERTRALINE HCL 50 MG TABLET (FP) PO SCH (13:44)
[2019-05-18] MEDS: IBUPROFEN 400 MG TABLET (FP) PO PRN (13:44)
--- NOTE | 2019-05-18 14:41 | PN ---
[facility] CIWA - CIWA Score Nausea/Vomitin-Mild Nausea/No Vomiting Muscle Tremors: 4-Moderate,w/Arms Extend Anxiety: 3 Agitation: 2 Paroxysmal Sweats: 1-Minimal Palms Moist Orientation: 0-Oriented Tacttile Disturbances: 1-Very Mild Itch/Numbness Auditory Disturbances: 0-None Visual Disturbances: 0-None Headache: 1-Very Mild CIWA-Ar Total Score: 13 BHS COWS - Scale Resting Pulse: 1= [place] 81-100 Sweatin= Chills/Flushing Restless Observation: 0= Sits Still Pupil Size: 0= Normal to Room Light Bone or Joint Aches: 1= Mild Discomfort Runny Nose/ Eye Tearin= Nasal Congestion GI Upset > 30mins: 2= Nausea/Diarrhea (no diarrhea) Tremor Observation of Outstretched Hands: 2= Slight Tremor Visible Yawning Observation: 0= None Anxiety or Irritability: 2=Irritable/Anxious Goose Flesh Skin: 3=Piloerection COWS Score: 13 S Progress Note (SOAP) Subjective: 53 years old female admitted on 05/17/19 for alcohol and opiate withdrawal sx management treated with librium and methadone detox regimen seen by psychiatrist for anxiety change metformin bid to bid ac patient requests to take protonix in am Objective: 05/18/19 14:41 Vital Signs Temperature 98.5 F 05/18/19 13:24 Pulse Rate 81 05/18/19 13:24 Respiratory Rate 18 05/18/19 13:24 Blood Pressure 145/87 05/18/19 13:24 O2 Sat by Pulse Oximetry (%) Laboratory Last Values POC Glucometer 93 UNITS (80-120) 05/18/19 05:49 POC Urine HCG, Qual Negative 05/17/19 11:19 05/18/19 14:42 lab see 04/20/2019 result Assessment: 05/18/19 14:43 alcohol and opiate withdrawal sx Plan: continue librium and methadone detox regimen
[2019-05-18] MEDS: QUEtiapine FUMARATE 50 MG TABLET PO SCH (22:28)
[2019-05-18] MEDS: THIAMINE HCL 100 MG TABLET (FP) PO SCH (22:29)
[2019-05-19] MEDS: chlordiazePOXIDE HCL 10 MG CAPSULE PO SCH ×3 (05:31→21:37)
[2019-05-19] MEDS: PANTOPRAZOLE 40 MG TABLET (FP) PO SCH (07:07)
[2019-05-19] MEDS: metFORMIN HCL 500 MG TABLET (FP) PO SCH ×2 (07:09→16:39)
[2019-05-19] MEDS ORDERED: METHADONE HCL 5 MG TABLET (FOR DETOX USE ONLY) PO ONE (10:00)
--- NOTE | 2019-05-19 10:10 | PN ---
[facility] CIWA - CIWA Score Nausea/Vomitin-Mild Nausea/No Vomiting Muscle Tremors: 3 Anxiety: 3 Agitation: 2 Paroxysmal Sweats: 2 Orientation: 1-Uncertain about Date Tacttile Disturbances: 0-None Auditory Disturbances: 0-None Visual Disturbances: 0-None Headache: 0-None Present CIWA-Ar Total Score: 12 BHS COWS - Scale Resting Pulse: 0= [place] 80 or Below Sweatin= Chills/Flushing Restless Observation: 0= Sits Still Pupil Size: 0= Normal to Room Light Bone or Joint Aches: 2= Severe Diffuse Aches Runny Nose/ Eye Tearin= Nasal Congestion GI Upset > 30mins: 2= Nausea/Diarrhea Tremor Observation of Outstretched Hands: 2= Slight Tremor Visible Yawning Observation: 2= >3x During Session Anxiety or Irritability: 2=Irritable/Anxious Goose Flesh Skin: 0=Smooth Skin COWS Score: 12 [facility] Progress Note (SOAP) Subjective: 53 years old female admitted on 05/17/19 for alcohol and opiate withdrawal sx management treated with librium and methadone detox regimen patient tolerated well c/o general body ache motrin 400mg po x 1 c/o muscle spasm robaxin 500 mg po x 1 Objective: 05/19/19 10:15 Vital Signs Temperature 98.3 F 05/19/19 09:19 Pulse Rate 77 05/19/19 09:19 Respiratory Rate 16 05/19/19 09:19 Blood Pressure 118/71 05/19/19 09:19 O2 Sat by Pulse Oximetry (%) Laboratory Last Values POC Glucometer 116 UNITS (80-120) 05/19/19 05:30 POC Urine HCG, Qual Negative 05/17/19 11:19 05/19/19 10:17 lab see 04/2019 result Assessment: 05/19/19 10:17 alcohol and opiate withdrawal sx Plan: continue librium and methadone detox regimen
[2019-05-19] MEDS ORDERED: IBUPROFEN 400 MG TABLET (FP) PO ONE (10:11)
[2019-05-19] MEDS ORDERED: METHOCARBAMOL 500 MG TABLET PO ONE (10:11)
[2019-05-19] MEDS: ALBUTEROL SO4 8 GM HFA INHALER IH PRN ×2 (10:42→21:38)
[2019-05-19] MEDS: BUDESONIDE/FORMETEROL FUMARATE 160/4.5 mcg INHALER IH SCH ×2 (10:42→22:04)
[2019-05-19] MEDS: PRENATAL VITAMINS W/ FOLIC ACID TABLET (FP) PO SCH (10:43)
[2019-05-19] MEDS: CHOLECALCIFEROL (VIT D3) 1,000 UNIT (25 MCG) TABLET PO SCH (10:43)
[2019-05-19] MEDS: SERTRALINE HCL 50 MG TABLET (FP) PO SCH (10:43)
[2019-05-19] MEDS: THIAMINE HCL 100 MG TABLET (FP) PO SCH (21:36)
[2019-05-19] MEDS: QUEtiapine FUMARATE 50 MG TABLET PO SCH (21:43)
[2019-05-20] MEDS ORDERED: chlordiazePOXIDE HCL 10 MG CAPSULE PO ONE (05:00)
[2019-05-20] MEDS: METHOCARBAMOL 500 MG TABLET PO PRN ×2 (05:43→17:44)
[2019-05-20] MEDS: metFORMIN HCL 500 MG TABLET (FP) PO SCH ×2 (06:21→17:43)
[2019-05-20] MEDS: PANTOPRAZOLE 40 MG TABLET (FP) PO SCH (06:21)
[2019-05-20] MEDS: BUDESONIDE/FORMETEROL FUMARATE 160/4.5 mcg INHALER IH SCH ×2 (09:25→22:23)
[2019-05-20] MEDS: COLLOIDAL OATMEAL 1 BAR EACH TP PRN (09:25)
[2019-05-20] MEDS: PRENATAL VITAMINS W/ FOLIC ACID TABLET (FP) PO SCH (09:26)
[2019-05-20] MEDS: CHOLECALCIFEROL (VIT D3) 1,000 UNIT (25 MCG) TABLET PO SCH (09:26)
[2019-05-20] MEDS: SERTRALINE HCL 50 MG TABLET (FP) PO SCH (09:26)
[2019-05-20] MEDS: IBUPROFEN 400 MG TABLET (FP) PO PRN (09:28)
[2019-05-20] MEDS ORDERED: METHADONE HCL 10 MG TABLET (FOR DETOX USE ONLY) PO ONE (10:00)
--- NOTE | 2019-05-20 16:02 | PN ---
[facility] CIWA - CIWA Score Nausea/Vomitin-Mild Nausea/No Vomiting Muscle Tremors: 2 Anxiety: 2 Agitation: 2 Paroxysmal Sweats: No Perspiration Orientation: 0-Oriented Tacttile Disturbances: 1-Very Mild Itch/Numbness Auditory Disturbances: 0-None Visual Disturbances: 0-None Headache: 1-Very Mild CIWA-Ar Total Score: 9 BHS COWS - Scale Resting Pulse: 1= [place] 81-100 Sweatin= No chills or Flushing Restless Observation: 1= Difficult to Sit Still Pupil Size: 1= Pupils >than Normal Bone or Joint Aches: 1= Mild Discomfort Runny Nose/ Eye Tearin= Nasal Congestion GI Upset > 30mins: 1= Stomach Cramp Tremor Observation of Outstretched Hands: 1= Tremor [place], Not Seen Yawning Observation: 1= 1-2x During Session Anxiety or Irritability: 1=Feels Anxious/Irritable Goose Flesh Skin: 0=Smooth Skin COWS Score: 9 [facility] Progress Note (SOAP) Subjective: alert,irritable,anxious,interrupted sleep,pain in the body Objective: 05/20/19 16:00 Vital Signs Temperature 97.9 F 05/20/19 13:30 Pulse Rate 90 05/20/19 13:30 Respiratory Rate 20 05/20/19 13:30 Blood Pressure 141/85 05/20/19 13:30 O2 Sat by Pulse Oximetry (%) Laboratory Last Values POC Glucometer 107 UNITS (80-120) 05/20/19 05:40 POC Urine HCG, Qual Negative 05/17/19 11:19 05/20/19 16:01 labs pending Assessment: 05/20/19 16:01 withdrawal symptom Plan: continued detox methadone and librium regimen
[2019-05-20] MEDS: THIAMINE HCL 100 MG TABLET (FP) PO SCH (22:23)
[2019-05-20] MEDS: QUEtiapine FUMARATE 50 MG TABLET PO SCH (22:24)
[2019-05-20] MEDS: ALBUTEROL SO4 8 GM HFA INHALER IH PRN (22:24)
[2019-05-21] MEDS: metFORMIN HCL 500 MG TABLET (FP) PO SCH (06:02)
[2019-05-21] MEDS: PANTOPRAZOLE 40 MG TABLET (FP) PO SCH (06:02)
[2019-05-21 06:22] VITALS: BP 122/81; PULSE 60; TEMP 97
[2019-05-21] MEDS ORDERED: METHADONE HCL 5 MG TABLET PO ONE (06:45)
[2019-05-21] MEDS ORDERED: METHADONE HCL 5 MG TABLET (FOR DETOX USE ONLY) PO ONE (10:00)
== END 2019-05-21 07:30 | disposition home or self-care (01) | DRG 773 ==
LOC: YASAS 09:59 → Y3N 12:21
PROVIDERS: ADMIT Allergy & Immunology; ATTEND Allergy & Immunology
PROC: HZ2ZZZZ Detoxification Services for Substance Abuse Treatment (ICD-10-PCS; principal; 2019-05-17)
DX: F10.230 Alcohol dependence with withdrawal, uncomplicated (principal); F11.23 Opioid dependence with withdrawal; F19.24 Other psychoactive substance dependence with psychoactive substance-induced mood disorder; F32.9 Major depressive disorder, single episode, unspecified; G47.00 Insomnia, unspecified; I10 Essential (primary) hypertension; E11.9 Type 2 diabetes mellitus without complications; Z79.84 Long term (current) use of oral hypoglycemic drugs; K21.9 Gastro-esophageal reflux disease without esophagitis; Z91.5 Personal history of self-harm; Z88.2 Allergy status to sulfonamides
CPT/HCPCS: 81025; 82962

== ENCOUNTER 2019-06-14 09:07 | Inpatient (IN) | payer OTHER ==
[2019-06-14 09:33] VITALS: BMI 35.5
--- NOTE | 2019-06-14 12:11 | HP ---
COWS - Scale Resting Pulse: 0= [place] 80 or Below Sweatin= Chills/Flushing Restless Observation: 0= Sits Still Pupil Size: 0= Normal to Room Light Bone or Joint Aches: 4=Acute Joint/Muscle Pain Runny Nose/ Eye Tearin= Constantly Teary/Runny GI Upset > 30mins: 2= Nausea/Diarrhea Tremor Observation: 1= Tremor [place], Not Seen Yawning Observation: 0= None Anxiety or Irritability: 2=Irritable/Anxious Goose Flesh Skin: 0=Smooth Skin COWS Score: 14 CIWA Score Nausea/Vomitin-Mild Nausea/No Vomiting Muscle Tremors: 1-None Visible, but [place] Anxiety: 3 Agitation: 3 Paroxysmal Sweats: No Perspiration Orientation: 0-Oriented Tacttile Disturbances: 0-None Auditory Disturbances: 0-None Visual Disturbances: 0-None Headache: 1-Very Mild CIWA-Ar Total Score: 9 - Admission Criteria [facility]ASAS Guidelines: Admission for Medically Managed Detox: Requires at least one of the followin. CIWA greater than 12 2. Seizures within the past 24 hours 3. Delirium tremens within the past 24 hours 4. Hallucinations within the past 24 hours 5. Acute intervention needed for co occurring medical disorder 6. Acute intervention needed for co occurring psychiatric disorder 7. Severe withdrawal that cannot be handled at a lower level of care (continued vomiting, continued diarrhea, abnormal vital signs) requiring intravenous medication and/or fluids 8. Admitting History and Physical - Past Medical History ...LMP: 11/22/18 - Smoking History Smoking history: Never smoked Have you smoked in the past 12 months: No Aproximately how many cigarettes per day: 0 - Alcohol/Substance Use Hx Alcohol Use: No Admission ROS [facility] Allergies/Adverse Reactions: Allergies Allergy/AdvReac Type Severity Reaction Status Date / Time sulfamethoxazole AdvReac Severe Swelling Verified 06/14/19 09:26 [From Bactrim] trimethoprim [From Bactrim] AdvReac Severe Swelling Verified 06/14/19 09:26 History of Present Illness: 53 F with history of heroin ( DOC), alcohol and remote history of crack cocaine ( have not use since her 20s) presenting to [facility] for detox from heroin use. Pt was placed on tramadol for her arthritis; as her prescription began to lag and the tramadol was no longer working, a friend suggested heroin and patient has been using it ever since. Pt was here in May 2019 for detox which she didnt complete because she still felt sick at the methadone dose she was getting.She reports relapsing 1-2 week later. She admits to sniffing 8-10 bags heroin daily, latest use 1 am today. She is currently experiencing withdrawal symptoms ( COWS 14). As for her alcohol use, she admits to drinking 3 bottles of wine, a fifth of chris. Last drink was yesterday around 5pm. Denies seizures but admits to blackouts and falls and head trauma once but didnt go to the ER. Denies cigarette use. PMH : DM, HTN, Asthma, osteoarthritis Psych Hs: bipolar, anxiety PSH : lap clint, left ankle orif social Hx : Lives in an apartment with her children, retired from [employer] housing and [employer] currently on SSD PE VS : 98.6F, 136/87 mmHg, 77bpm, 20 Utox : Fen, mop, mtd, bzo ANGELITO :0 CIWA :9 COWS : 14 General : Anxious HEENT: PERRLA, nasal congestion and runny eyes LUNG: VBS b/l HEART: RRR no MRG Abdomen : +BS, NTND extremities : 2+ pulses, no edema noted neuro : grossly intact Plan : OUD -methadone detox Psych consult for medication home meds for comorbidities - Ebola screening Have you traveled outside of the country in the last 21 days: No (N) Have you had contact with anyone from an Ebola affected area: No Do you have a fever: No Patient History - Patient Medical History Hx Anemia: No Hx Asthma: Yes Hx Chronic Obstructive Pulmonary Disease (COPD): No Hx Cancer: No Hx Cardiac Disorders: No Hx Congestive Heart Failure: No Hx Hypertension: Yes Hx Hypercholesterolemia: No Hx Pacemaker: No HX Cerebrovascular Accident: No Hx Seizures: No Hx Dementia: No Hx Diabetes: Yes Hx Gastrointestinal Disorders: No Hx Liver Disease: No Hx Genitourinary Disorders: No Hx Sexually Transmitted Disorders: No Hx Renal Disease (ESRD): No Hx Thyroid Disease: No Hx Human Immunodeficiency Virus (HIV): No (last 10/29 negative) Hx Hepatitis C: No Hx Depression: Yes Hx Suicide Attempt: Yes (took pills at 16 years) Hx Bipolar Disorder: No Hx Schizophrenia: No - Patient Surgical History Past Surgical History: Yes Hx Neurologic Surgery: No Hx Cataract Extraction: No Hx Cardiac Surgery: No Hx Lung Surgery: No Hx Breast Surgery: No Hx Breast Biopsy: No Hx Abdominal Surgery: No Hx Appendectomy: No Hx Cholecystectomy: Yes (lap cholecystectomy in 2002 at [facility]) Hx Genitourinary Surgery: No Hx Section: No Hx Orthopedic Surgery: Yes (fx of left ankle in 2003) Anesthesia Reaction: No - PPD History Date: 10/29/18 Results: 0 mm - Reproductive History Last Menstrual Period: 11/22/18 - Smoking Cessation Smoking history: Never smoked Have you smoked in the past 12 months: No Aproximately how many cigarettes per day: 0 Cigars Per Day: 0 Hx Chewing Tobacco Use: No - Substances abused Alcohol Substance route: Oral Frequency: Daily Amount used: 3 wine bottles &5th chris Age of first use: 16 Date of last use: 06/13/19 Cocaine Substance route: Inhalation Frequency: 3-6 times per week Amount used: $200.00 Age of first use: 18 Date of last use: 10/25/18 Heroin Substance route: Inhalation Frequency: Daily Amount used: 8-9 bags Age of first use: 52 Date of last use: 06/14/19 Other Substance route: Oral Frequency: Daily Amount used: 3 wine bottles &5th chris Age of first use: 16 Date of last use: 04/19/19 Admission Physical Exam [facility] - Vital Signs Vital Signs: Vital Signs - 24 hr 06/14/19 09:25 Temperature 98.6 F Pulse Rate 77 Respiratory 20 Rate Blood Pressure 136/87 Cleared for Admission [facility] - Detox or Rehab [facility] Level of Care: Medically Supervised Breathalyzer - Breathalyzer Breathalyzer: 0 POC Urine test - Test device test lot number: [id number] Expiration date: 03/12/20 - Control test control: Yes Urine Drug Screen - Test Device Lot number: [id number] Expiration date: 02/09/21 - Control Is test valid?: Yes - Results Drug screen NEGATIVE: No Urine drug screen results: FEN-Fentanyl, MOP-Opiates, MTD-Methadone, BZO- Benzodiazepines Inpatient Rehab Admission - Rehab Decision to Admit Inpatient rehab admission?: No
[2019-06-14] MEDS ORDERED: diazePAM 5 MG TABLET PO PRN (13:16)
[2019-06-14] MEDS ORDERED: METHADONE HCL 10 MG TABLET (FOR DETOX USE ONLY) PO ONE (13:16)
[2019-06-14] MEDS ORDERED: clonazePAM 0.5 MG TABLET PO PRN (13:16)
[2019-06-14] MEDS ORDERED: NALOXONE HCL 0.4 MG/ML VIAL IM PRN (13:16)
[2019-06-14] MEDS ORDERED: cloNIDine HCL 0.1 MG TABLET PO PRN (13:16)
[2019-06-14] MEDS ORDERED: PROCHLORPERAZINE MALEATE 5 MG TABLET PO PRN (13:17)
[2019-06-14] MEDS ORDERED: MAGNESIUM CITRATE 300 ML BOTTLE PO PRN (13:17)
[2019-06-14] MEDS ORDERED: IBUPROFEN 400 MG TABLET (FP) PO PRN (13:17)
[2019-06-14] MEDS ORDERED: MAGNESIUM HYDROX 2400MG/30ML ORAL SUSPENSION 30 ML CUP PO PRN (13:17)
[2019-06-14] MEDS ORDERED: ACETAMINOPHEN 325 MG TABLET (FP) PO PRN ×2 (13:17)
[2019-06-14] MEDS ORDERED: BISMUTH SUBSALICYLATE 524 MG/30 ML UD PO PRN (13:17)
[2019-06-14] MEDS ORDERED: MENTHOL/PHENOL 1 EACH UD MM PRN (13:17)
--- NOTE | 2019-06-14 13:19 | PN ---
"Teaching Attending Note Name of Resident: Lacey Zimmer ATTENDING PHYSICIAN STATEMENT I saw and evaluated the patient. I reviewed the resident's note and discussed the case with the resident. I agree with the resident's findings and plan as documented. SUBJECTIVE:pt here requesting detox from heroin use , reports relapse 3 weeks after d/c from this facility 05/21/19 , claims 8-10 bags heroin / day via inhalation , current symptoms as above . etoh use : 3 bottles/wine/ day, starts drinking around 5 pm x 1 week , reports sweating if not drinking , denies seizures, occasional tremors , latest use 5 pm yesterday , current symptoms as above . tobacco : denies pmhx : dm 2, asthma , htn pshx : clint, left ankle orif , expl lap shx : lives w/ adult children This report was requested by: Aruna King | Reference #: [id number] Others' Prescriptions Patient Name: Leticia Sweet Date: 1965 Address: [address] [place] [address] Sex: Female Rx Written Rx Dispensed Drug Quantity Days Supply Prescriber Name 03/30/2019 03/31/2019 zolpidem tartrate 10 mg tablet 30 30 Dedousis, Temo 02/24/2019 02/28/2019 zolpidem tartrate 10 mg tablet 30 30 Dedousis, Temo 01/31/2019 02/01/2019 zolpidem tartrate 10 mg tablet 30 30 Dedousis, Temo 12/21/2018 01/04/2019 zolpidem tartrate 10 mg tablet 30 30 Dedousis, Temo 10/08/2018 12/08/2018 tramadol hcl 50 mg tablet 120 30 Jalen Zhang MD 11/26/2018 12/08/2018 zolpidem tartrate 10 mg tablet 30 30 Dedousis, Temo 11/10/2018 11/10/2018 zolpidem tartrate 10 mg tablet 30 30 Dedousis, Temo 10/08/2018 11/09/2018 tramadol hcl 50 mg tablet 120 30 Jalen Zhang MD 10/08/2018 10/08/2018 tramadol hcl 50 mg tablet 120 30 Jalen Zhang MD 10/06/2018 10/06/2018 zolpidem tartrate 10 mg tablet 30 30 Dedousis, Temo 09/06/2018 09/07/2018 zolpidem tartrate 10 mg tablet 30 30 DedTemo ocampo 06/14/2018 09/06/2018 tramadol hcl 50 mg tablet 120 30 Jalen Zhang MD 08/13/2018 08/13/2018 zolpidem tartrate 10 mg tablet 7 7 Dedousken , Temo 06/14/2018 08/10/2018 tramadol hcl 50 mg tablet 120 30 Jalen Zhang MD 06/14/2018 07/10/2018 tramadol hcl 50 mg tablet 120 30 Jalen Zhang MD 03/29/2018 06/12/2018 tramadol hcl 50 mg tablet 120 30 Jalen Zhang MD OBJECTIVE: wnwd , irritable, anxious Vital Signs - 24 hr 06/14/19 09:25 Temperature 98.6 F Pulse Rate 77 Respiratory 20 Rate Blood Pressure 136/87 ASSESSMENT AND PLAN: OUD - Methadone detox , encourage participation in outpt program . AUD - Valium detox"
[2019-06-14] MEDS: diazePAM 5 MG TABLET PO SCH ×2 (14:14→21:29)
[2019-06-14] MEDS: BUDESONIDE/FORMETEROL FUMARATE 160/4.5 mcg INHALER IH SCH (21:28)
[2019-06-14] MEDS: metFORMIN HCL 500 MG TABLET (FP) PO SCH (21:29)
[2019-06-14] MEDS: THIAMINE HCL 100 MG TABLET (FP) PO SCH (21:29)
[2019-06-14] MEDS: ALBUTEROL SO4 8 GM HFA INHALER IH PRN (21:31)
[2019-06-15] MEDS: diazePAM 5 MG TABLET PO SCH ×3 (05:35→22:13)
[2019-06-15] MEDS: MAG HYDROX/AL HYDROX/SIMETH 30 ML UNIT-DOSE CUP PO PRN (05:38)
[2019-06-15] MEDS ORDERED: PANTOPRAZOLE 40 MG TABLET (FP) PO ONE (08:39)
[2019-06-15] MEDS ORDERED: METHADONE HCL 10 MG TABLET (FOR DETOX USE ONLY) ONE (09:04)
[2019-06-15] MEDS ORDERED: METHADONE HCL 5 MG TABLET (FOR DETOX USE ONLY) ONE (09:04)
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
[2019-06-15] MEDS ORDERED: AMMONIUM LACTATE 12% LOTION 225 GM BOTTLE TP PRN (09:54)
[2019-06-15] MEDS ORDERED: METHADONE (DETOX) 20 MG, METHADONE (DETOX) 5 MG PO ONE (10:00)
[2019-06-15 10:34] LABS: ALBUMIN 3.3 g/dl (3.4-5.0); BILIRUBIN,TOTAL 0.4 mg/dL (0.2-1); CREATININE 0.7 mg/dL (0.55-1.3); HEMATOCRIT 38.1 % (32.4-45.2); MCH 25.8 pg (25.7-33.7); MCHC 31.4 g/dl (32.0-36.0); MEAN CELL VOLUME 82.2 fl (80-96); MEAN PLT VOLUME 9.3 fl (7.5-11.1); PLATELET COUNT 263 K/MM3 (134-434); RBC 4.64 M/mm3 (3.60-5.2); RDW 14.4 % (11.6-15.6); TOT PROT 6.8 g/dl (6.4-8.2); WHITE BLOOD COUNT 9.7 K/mm3 (4.0-10.0)
[2019-06-15] MEDS: PRENATAL VITAMINS W/ FOLIC ACID TABLET (FP) PO SCH (10:45)
[2019-06-15] MEDS: metFORMIN HCL 500 MG TABLET (FP) PO SCH ×2 (10:45→22:12)
[2019-06-15] MEDS: BUDESONIDE/FORMETEROL FUMARATE 160/4.5 mcg INHALER IH SCH ×2 (10:49→22:15)
[2019-06-15] MEDS: ALBUTEROL SO4 8 GM HFA INHALER IH PRN (10:50)
[2019-06-15] MEDS ORDERED: P-EPHED 60MG/TRIPROLIDI 2.5MG TABLET PO PRN (10:53)
--- NOTE | 2019-06-15 10:53 | PN ---
[facility] CIWA - CIWA Score Nausea/Vomitin-No Nausea/No Vomiting Muscle Tremors: 3 Anxiety: 3 Agitation: 3 Paroxysmal Sweats: 3 Orientation: 0-Oriented Tacttile Disturbances: 0-None Auditory Disturbances: 0-None Visual Disturbances: 0-None Headache: 0-None Present CIWA-Ar Total Score: 12 BHS COWS - Scale Resting Pulse: 0= [place] 80 or Below Sweatin= Chills/Flushing Restless Observation: 1= Difficult to Sit Still Pupil Size: 0= Normal to Room Light Bone or Joint Aches: 2= Severe Diffuse Aches Runny Nose/ Eye Tearin= Runny Nose/Eyes GI Upset > 30mins: 1= Stomach Cramp Tremor Observation of Outstretched Hands: 2= Slight Tremor Visible Yawning Observation: 0= None Anxiety or Irritability: 2=Irritable/Anxious Goose Flesh Skin: 0=Smooth Skin COWS Score: 11 S Progress Note (SOAP) Subjective: sweats shakes interrupted sleep body aches stomach ache/acid reflux nasal congestions Objective: 06/15/19 10:51 Vital Signs Temperature 97.7 F 06/15/19 09:23 Pulse Rate 63 06/15/19 09:23 Respiratory Rate 18 06/15/19 09:23 Blood Pressure 109/59 L 06/15/19 09:23 O2 Sat by Pulse Oximetry (%) Laboratory Tests 06/14/19 06/15/19 06/15/19 12:02 06:15 08:00 WBC 9.7 RBC 4.64 Hgb 12.0 Hct 38.1 MCV 82.2 MCH 25.8 MCHC 31.4 L RDW 14.4 Plt Count 263 MPV 9.3 Sodium Potassium Chloride Carbon Dioxide Anion Gap BUN Creatinine Est GFR (CKD-EPI)AfAm Est GFR (CKD-EPI)NonAf POC Glucometer 123 125 Random Glucose Calcium Total Bilirubin AST ALT Alkaline Phosphatase Total Protein Albumin 06/15/19 08:00 WBC RBC Hgb Hct MCV MCH MCHC RDW Plt Count MPV Sodium 140 Potassium 4.0 Chloride 105 Carbon Dioxide 29 Anion Gap 6 L BUN 9.0 Creatinine 0.7 Est GFR (CKD-EPI)AfAm 114.65 Est GFR (CKD-EPI)NonAf 98.92 POC Glucometer Random Glucose 116 H Calcium 9.0 Total Bilirubin 0.4 AST 10 L ALT 20 Alkaline Phosphatase 86 Total Protein 6.8 Albumin 3.3 L labs noted aaox3 ambulating no acute distress Assessment: 06/15/19 10:52 withdrawals Plan: continue detox increase fluids actifed prn protonix 40mg for 7am ordered as per pt request
[2019-06-15] MEDS: THIAMINE HCL 100 MG TABLET (FP) PO SCH (22:12)
[2019-06-15] MEDS: MELATONIN 5 MG TABLETS PO PRN (22:14)
[2019-06-16] MEDS: PANTOPRAZOLE 40 MG TABLET (FP) PO SCH (05:59)
[2019-06-16] MEDS: diazePAM 5 MG TABLET PO SCH ×2 (06:00→17:01)
[2019-06-16] MEDS ORDERED: COLLOIDAL OATMEAL 1 BAR EACH TP ONE (10:00)
[2019-06-16] MEDS ORDERED: METHADONE HCL 10 MG TABLET (FOR DETOX USE ONLY) PO ONE (10:00)
[2019-06-16] MEDS: ALBUTEROL SO4 8 GM HFA INHALER IH PRN (10:15)
[2019-06-16] MEDS: metFORMIN HCL 500 MG TABLET (FP) PO SCH ×2 (10:15→22:16)
[2019-06-16] MEDS: PRENATAL VITAMINS W/ FOLIC ACID TABLET (FP) PO SCH (10:15)
[2019-06-16] MEDS: BUDESONIDE/FORMETEROL FUMARATE 160/4.5 mcg INHALER IH SCH ×2 (10:15→22:16)
--- NOTE | 2019-06-16 11:55 | PN ---
[facility] CIWA - CIWA Score Nausea/Vomitin-No Nausea/No Vomiting Muscle Tremors: 3 Anxiety: 3 Agitation: 3 Paroxysmal Sweats: 2 Orientation: 0-Oriented Tacttile Disturbances: 0-None Auditory Disturbances: 0-None Visual Disturbances: 0-None Headache: 0-None Present CIWA-Ar Total Score: 11 BHS COWS - Scale Resting Pulse: 1= [place] 81-100 Sweatin= Chills/Flushing Restless Observation: 1= Difficult to Sit Still Pupil Size: 0= Normal to Room Light Bone or Joint Aches: 1= Mild Discomfort Runny Nose/ Eye Tearin= Nasal Congestion GI Upset > 30mins: 0= None Tremor Observation of Outstretched Hands: 1= Tremor [place], Not Seen Yawning Observation: 1= 1-2x During Session Anxiety or Irritability: 1=Feels Anxious/Irritable Goose Flesh Skin: 0=Smooth Skin COWS Score: 8 S Progress Note (SOAP) Subjective: leg pain sweats dry skin irritable agitation interrupted sleep Objective: 06/16/19 11:54 Vital Signs Temperature 97.9 F 06/16/19 09:39 Pulse Rate 72 06/16/19 09:39 Respiratory Rate 18 06/16/19 09:39 Blood Pressure 121/69 06/16/19 09:39 O2 Sat by Pulse Oximetry (%) Laboratory Tests 06/14/19 06/15/19 06/15/19 12:02 06:15 08:00 WBC 9.7 RBC 4.64 Hgb 12.0 Hct 38.1 MCV 82.2 MCH 25.8 MCHC 31.4 L RDW 14.4 Plt Count 263 MPV 9.3 Sodium Potassium Chloride Carbon Dioxide Anion Gap BUN Creatinine Est GFR (CKD-EPI)AfAm Est GFR (CKD-EPI)NonAf POC Glucometer 123 125 Random Glucose Calcium Total Bilirubin AST ALT Alkaline Phosphatase Total Protein Albumin RPR Titer 06/15/19 06/15/19 06/15/19 08:00 08:00 16:50 WBC RBC Hgb Hct MCV MCH MCHC RDW Plt Count MPV Sodium 140 Potassium 4.0 Chloride 105 Carbon Dioxide 29 Anion Gap 6 L BUN 9.0 Creatinine 0.7 Est GFR (CKD-EPI)AfAm 114.65 Est GFR (CKD-EPI)NonAf 98.92 POC Glucometer 101 Random Glucose 116 H Calcium 9.0 Total Bilirubin 0.4 AST 10 L ALT 20 Alkaline Phosphatase 86 Total Protein 6.8 Albumin 3.3 L RPR Titer Nonreactive 06/16/19 07:16 WBC RBC Hgb Hct MCV MCH MCHC RDW Plt Count MPV Sodium Potassium Chloride Carbon Dioxide Anion Gap BUN Creatinine Est GFR (CKD-EPI)AfAm Est GFR (CKD-EPI)NonAf POC Glucometer 112 Random Glucose Calcium Total Bilirubin AST ALT Alkaline Phosphatase Total Protein Albumin RPR Titer labs noted aaox3 ambulating no acute distress Assessment: 06/16/19 11:54 withdrawals Plan: continue detox aveeno soap increase fluids motrin/tylenol/roboxin prn
[2019-06-16] MEDS: MAG HYDROX/AL HYDROX/SIMETH 30 ML UNIT-DOSE CUP PO PRN (19:04)
[2019-06-16] MEDS: THIAMINE HCL 100 MG TABLET (FP) PO SCH (22:16)
[2019-06-16] MEDS: METHOCARBAMOL 500 MG TABLET PO PRN (22:16)
[2019-06-16] MEDS: SUVOREXANT 10 MG TABLET PO PRN (22:18)
[2019-06-17] MEDS ORDERED: diazePAM 5 MG TABLET PO ONE (06:00)
[2019-06-17] MEDS: PANTOPRAZOLE 40 MG TABLET (FP) PO SCH (06:21)
[2019-06-17] MEDS ORDERED: POLYETHYLENE GLYCOL 3350 119 GM BTL PO ONE (08:55)
[2019-06-17] MEDS ORDERED: METHADONE HCL 5 MG TABLET (FOR DETOX USE ONLY) ONE (09:00)
[2019-06-17] MEDS ORDERED: METHADONE HCL 10 MG TABLET (FOR DETOX USE ONLY) ONE (09:00)
[2019-06-17] MEDS ORDERED: METHADONE (DETOX) 10 MG, METHADONE (DETOX) 5 MG PO ONE (10:00)
[2019-06-17] MEDS: BUDESONIDE/FORMETEROL FUMARATE 160/4.5 mcg INHALER IH SCH ×2 (10:19→22:25)
[2019-06-17] MEDS: metFORMIN HCL 500 MG TABLET (FP) PO SCH ×2 (10:19→22:23)
[2019-06-17] MEDS: PRENATAL VITAMINS W/ FOLIC ACID TABLET (FP) PO SCH (10:22)
[2019-06-17] MEDS: POLYETHYLENE GLYCOL 3350 119 GM BTL PO SCH ×2 (10:22→22:24)
--- NOTE | 2019-06-17 10:22 | PN ---
S CIWA - CIWA Score Nausea/Vomitin-No Nausea/No Vomiting Muscle Tremors: 2 Anxiety: 2 Agitation: 0-Normal Activity Paroxysmal Sweats: No Perspiration Orientation: 0-Oriented Tacttile Disturbances: 0-None Auditory Disturbances: 0-None Visual Disturbances: 0-None Headache: 0-None Present CIWA-Ar Total Score: 4 BHS COWS - Scale Resting Pulse: 0= [place] 80 or Below Sweatin= No chills or Flushing Restless Observation: 1= Difficult to Sit Still Pupil Size: 0= Normal to Room Light Bone or Joint Aches: 1= Mild Discomfort Runny Nose/ Eye Tearin= None GI Upset > 30mins: 1= Stomach Cramp Tremor Observation of Outstretched Hands: 1= Tremor [place], Not Seen Yawning Observation: 0= None Anxiety or Irritability: 1=Feels Anxious/Irritable Goose Flesh Skin: 0=Smooth Skin COWS Score: 5 S Progress Note (SOAP) Subjective: constipation irritable anxious Objective: 06/17/19 10:21 Vital Signs Temperature 97.7 F 06/17/19 10:00 Pulse Rate 80 06/17/19 10:00 Respiratory Rate 18 06/17/19 10:00 Blood Pressure 124/84 06/17/19 10:00 O2 Sat by Pulse Oximetry (%) Laboratory Tests 06/14/19 06/15/19 06/15/19 12:02 06:15 08:00 WBC 9.7 RBC 4.64 Hgb 12.0 Hct 38.1 MCV 82.2 MCH 25.8 MCHC 31.4 L RDW 14.4 Plt Count 263 MPV 9.3 Sodium Potassium Chloride Carbon Dioxide Anion Gap BUN Creatinine Est GFR (CKD-EPI)AfAm Est GFR (CKD-EPI)NonAf POC Glucometer 123 125 Random Glucose Calcium Total Bilirubin AST ALT Alkaline Phosphatase Total Protein Albumin RPR Titer 06/15/19 06/15/19 06/15/19 08:00 08:00 16:50 WBC RBC Hgb Hct MCV MCH MCHC RDW Plt Count MPV Sodium 140 Potassium 4.0 Chloride 105 Carbon Dioxide 29 Anion Gap 6 L BUN 9.0 Creatinine 0.7 Est GFR (CKD-EPI)AfAm 114.65 Est GFR (CKD-EPI)NonAf 98.92 POC Glucometer 101 Random Glucose 116 H Calcium 9.0 Total Bilirubin 0.4 AST 10 L ALT 20 Alkaline Phosphatase 86 Total Protein 6.8 Albumin 3.3 L RPR Titer Nonreactive 06/16/19 06/17/19 07:16 05:26 WBC RBC Hgb Hct MCV MCH MCHC RDW Plt Count MPV Sodium Potassium Chloride Carbon Dioxide Anion Gap BUN Creatinine Est GFR (CKD-EPI)AfAm Est GFR (CKD-EPI)NonAf POC Glucometer 112 111 Random Glucose Calcium Total Bilirubin AST ALT Alkaline Phosphatase Total Protein Albumin RPR Titer aaox3 ambulating no acute distress Assessment: 06/17/19 10:21 withdrawals Plan: continue detox increase fluids prune juice with meals ordered colace 100mg tid miralax bid
[2019-06-17] MEDS: DOCUSATE SODIUM 100 MG CAPSULE (FP) PO SCH ×2 (13:25→22:23)
[2019-06-17] MEDS: THIAMINE HCL 100 MG TABLET (FP) PO SCH (22:22)
[2019-06-17] MEDS: SUVOREXANT 10 MG TABLET PO PRN (22:23)
[2019-06-17] MEDS: METHOCARBAMOL 500 MG TABLET PO PRN (22:23)
[2019-06-18] MEDS: PANTOPRAZOLE 40 MG TABLET (FP) PO SCH ×2 (05:54→07:16)
[2019-06-18] MEDS: DOCUSATE SODIUM 100 MG CAPSULE (FP) PO SCH ×3 (05:55→22:13)
[2019-06-18] MEDS ORDERED: METHADONE HCL 10 MG TABLET (FOR DETOX USE ONLY) PO ONE (10:00)
[2019-06-18] MEDS: metFORMIN HCL 500 MG TABLET (FP) PO SCH ×2 (10:32→22:13)
[2019-06-18] MEDS: BUDESONIDE/FORMETEROL FUMARATE 160/4.5 mcg INHALER IH SCH ×2 (10:32→22:13)
[2019-06-18] MEDS: PRENATAL VITAMINS W/ FOLIC ACID TABLET (FP) PO SCH (10:32)
[2019-06-18] MEDS: POLYETHYLENE GLYCOL 3350 119 GM BTL PO SCH ×2 (10:33→22:13)
--- NOTE | 2019-06-18 17:17 | PN ---
S CIWA - CIWA Score Nausea/Vomitin-No Nausea/No Vomiting Muscle Tremors: None Anxiety: 3 Agitation: 2 Paroxysmal Sweats: No Perspiration Orientation: 0-Oriented Tacttile Disturbances: 1-Very Mild Itch/Numbness Auditory Disturbances: 0-None Visual Disturbances: 0-None Headache: 0-None Present CIWA-Ar Total Score: 6 S COWS - Scale Resting Pulse: 0= [place] 80 or Below Sweatin= No chills or Flushing Restless Observation: 1= Difficult to Sit Still Pupil Size: 0= Normal to Room Light Bone or Joint Aches: 0= None Runny Nose/ Eye Tearin= None GI Upset > 30mins: 0= None Tremor Observation of Outstretched Hands: 0= None Yawning Observation: 1= 1-2x During Session Anxiety or Irritability: 2=Irritable/Anxious Goose Flesh Skin: 0=Smooth Skin COWS Score: 4 S Progress Note (SOAP) Subjective: Anxious, Restless. Objective: PATIENT A & O X 3, OBSERVED AMBULATING ON DETOX UNIT UNASSISTED. IN NO ACUTE DISTRESS. 06/18/19 17:15 Vital Signs Temperature 98.3 F 06/18/19 14:05 Pulse Rate 76 06/18/19 14:05 Respiratory Rate 18 06/18/19 14:05 Blood Pressure 147/91 06/18/19 14:05 O2 Sat by Pulse Oximetry (%) Laboratory Tests 06/14/19 06/15/19 06/15/19 12:02 06:15 08:00 WBC 9.7 RBC 4.64 Hgb 12.0 Hct 38.1 MCV 82.2 MCH 25.8 MCHC 31.4 L RDW 14.4 Plt Count 263 MPV 9.3 Sodium Potassium Chloride Carbon Dioxide Anion Gap BUN Creatinine Est GFR (CKD-EPI)AfAm Est GFR (CKD-EPI)NonAf POC Glucometer 123 125 Random Glucose Calcium Total Bilirubin AST ALT Alkaline Phosphatase Total Protein Albumin RPR Titer 06/15/19 06/15/19 06/15/19 08:00 08:00 16:50 WBC RBC Hgb Hct MCV MCH MCHC RDW Plt Count MPV Sodium 140 Potassium 4.0 Chloride 105 Carbon Dioxide 29 Anion Gap 6 L BUN 9.0 Creatinine 0.7 Est GFR (CKD-EPI)AfAm 114.65 Est GFR (CKD-EPI)NonAf 98.92 POC Glucometer 101 Random Glucose 116 H Calcium 9.0 Total Bilirubin 0.4 AST 10 L ALT 20 Alkaline Phosphatase 86 Total Protein 6.8 Albumin 3.3 L RPR Titer Nonreactive 06/16/19 06/17/19 07:16 05:26 WBC RBC Hgb Hct MCV MCH MCHC RDW Plt Count MPV Sodium Potassium Chloride Carbon Dioxide Anion Gap BUN Creatinine Est GFR (CKD-EPI)AfAm Est GFR (CKD-EPI)NonAf POC Glucometer 112 111 Random Glucose Calcium Total Bilirubin AST ALT Alkaline Phosphatase Total Protein Albumin RPR Titer LABS NOTED. Assessment: 06/18/19 17:16 WITHDRAWAL SYMPTOMS. Plan: CONTINUE DETOX. PATIENT SCHEDULED FOR D/C FROM DETOX UNIT TOMORROW.
[2019-06-18] MEDS: THIAMINE HCL 100 MG TABLET (FP) PO SCH (22:13)
[2019-06-18] MEDS: MELATONIN 5 MG TABLETS PO PRN (22:14)
[2019-06-18] MEDS: METHOCARBAMOL 500 MG TABLET PO PRN (23:57)
[2019-06-19] MEDS ORDERED: METHADONE HCL 5 MG TABLET (FOR DETOX USE ONLY) PO ONE (06:00)
[2019-06-19] MEDS: DOCUSATE SODIUM 100 MG CAPSULE (FP) PO SCH (06:01)
[2019-06-19] MEDS: PANTOPRAZOLE 40 MG TABLET (FP) PO SCH (06:01)
[2019-06-19 07:27] VITALS: BP 110/67; PULSE 65; TEMP 97.5
--- NOTE | 2019-06-19 18:13 | DS ---
[facility] Detox Discharge Summary Admission Date: 06/14/19 Discharge Date: 06/19/19 - History Present History: Alcohol Dependence, Opioid Dependence Additional Comments: Patient completed detox and discharged safely. Instructed to follow up with PCP within one week. Patient discharged in stable condition. Pertinent Past History: DM Asthma HTN OA - Physical Exam Results Vital Signs: Vital Signs Temperature 97.5 F L 06/19/19 07:27 Pulse Rate 65 06/19/19 07:27 Respiratory Rate 18 06/19/19 07:27 Blood Pressure 110/67 06/19/19 07:27 O2 Sat by Pulse Oximetry (%) Pertinent Admission Physical Exam Findings: Withdrawal sxs Laboratory Tests 06/14/19 06/15/19 06/15/19 12:02 06:15 08:00 WBC 9.7 RBC 4.64 Hgb 12.0 Hct 38.1 MCV 82.2 MCH 25.8 MCHC 31.4 L RDW 14.4 Plt Count 263 MPV 9.3 Sodium Potassium Chloride Carbon Dioxide Anion Gap BUN Creatinine Est GFR (CKD-EPI)AfAm Est GFR (CKD-EPI)NonAf POC Glucometer 123 125 Random Glucose Calcium Total Bilirubin AST ALT Alkaline Phosphatase Total Protein Albumin RPR Titer 06/15/19 06/15/19 06/15/19 08:00 08:00 16:50 WBC RBC Hgb Hct MCV MCH MCHC RDW Plt Count MPV Sodium 140 Potassium 4.0 Chloride 105 Carbon Dioxide 29 Anion Gap 6 L BUN 9.0 Creatinine 0.7 Est GFR (CKD-EPI)AfAm 114.65 Est GFR (CKD-EPI)NonAf 98.92 POC Glucometer 101 Random Glucose 116 H Calcium 9.0 Total Bilirubin 0.4 AST 10 L ALT 20 Alkaline Phosphatase 86 Total Protein 6.8 Albumin 3.3 L RPR Titer Nonreactive 06/16/19 06/17/19 06/19/19 07:16 05:26 06:00 WBC RBC Hgb Hct MCV MCH MCHC RDW Plt Count MPV Sodium Potassium Chloride Carbon Dioxide Anion Gap BUN Creatinine Est GFR (CKD-EPI)AfAm Est GFR (CKD-EPI)NonAf POC Glucometer 112 111 94 Random Glucose Calcium Total Bilirubin AST ALT Alkaline Phosphatase Total Protein Albumin RPR Titer Labs reviewed - Treatment Hospital Course: Detox Protocol Followed, Detoxed Safely, Responded well, Discharged Condition Good - Medication Discharge Medications: Ambulatory Orders Docusate Sodium 100 mg PO TID PRN 10/27/18 Metformin HCl [Glucophage] 500 mg PO BID 10/27/18 Omeprazole 40 mg PO DAILY 10/27/18 Albuterol Sulfate Inhaler - [Ventolin HFA Inhaler -] 2 inh PO Q6H PRN 11/29/18 Budesonide/Formeterol Fumarate [SYMBICORT 160/4.5mcg -] 1 inh PO BID 11/29/18 Multivitamin [Multiple Vitamins] 1 each PO DAILY 11/29/18 Sertraline HCl [Zoloft -] 50 mg PO DAILY 04/20/19 Cholecalciferol (Vitamin D3) [Vitamin D3 -] 2,000 unit PO DAILY 05/17/19 Montelukast Na [Singulair -] 10 mg PO HS PRN 05/17/19 - Diagnosis (1) Alcohol dependence with uncomplicated withdrawal Status: Acute (2) Opioid dependence with withdrawal Status: Acute (3) Arthritis Status: Chronic (4) Asthma Status: Chronic Qualifiers: Asthma severity: mild Asthma persistence: intermittent Asthma complication type: with status asthmaticus Qualified Code(s): J45.22 - Mild intermittent asthma with status asthmaticus (5) DM type 2 (diabetes mellitus, type 2) Status: Chronic Qualifiers: 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
== END 2019-06-19 09:26 | disposition home or self-care (01) | DRG 773 ==
LOC: YASAS 09:07 → Y6N 13:06
PROVIDERS: ADMIT Allergy & Immunology; ATTEND Allergy & Immunology
PROC: HZ2ZZZZ Detoxification Services for Substance Abuse Treatment (ICD-10-PCS; principal; 2019-06-14)
DX: F11.23 Opioid dependence with withdrawal (principal); F10.230 Alcohol dependence with withdrawal, uncomplicated; F19.282 Other psychoactive substance dependence with psychoactive substance-induced sleep disorder; F32.9 Major depressive disorder, single episode, unspecified; I10 Essential (primary) hypertension; J45.22 Mild intermittent asthma with status asthmaticus; E11.9 Type 2 diabetes mellitus without complications; Z79.84 Long term (current) use of oral hypoglycemic drugs; K21.9 Gastro-esophageal reflux disease without esophagitis; M17.0 Bilateral primary osteoarthritis of knee; M19.072 Primary osteoarthritis, left ankle and foot; M19.071 Primary osteoarthritis, right ankle and foot; Z91.5 Personal history of self-harm; Z88.2 Allergy status to sulfonamides; Z90.49 Acquired absence of other specified parts of digestive tract; Z87.81 Personal history of (healed) traumatic fracture
CPT/HCPCS: 36415; 80053; 82962; 85027; 86593; J0735

== ENCOUNTER 2019-07-10 08:10 | Inpatient (IN) | payer OTHER ==
[2019-07-10 08:47] VITALS: BMI 35.6
--- NOTE | 2019-07-10 09:50 | HP ---
COWS - Scale Resting Pulse: 1= [place] 81-100 Sweatin= Chills/Flushing Restless Observation: 1= Difficult to Sit Still Pupil Size: 0= Normal to Room Light Bone or Joint Aches: 1= Mild Discomfort Runny Nose/ Eye Tearin= Nasal Congestion GI Upset > 30mins: 1= Stomach Cramp Tremor Observation: 1= Tremor [place], Not Seen Yawning Observation: 1= 1-2x During Session Anxiety or Irritability: 1=Feels Anxious/Irritable Goose Flesh Skin: 0=Smooth Skin COWS Score: 9 CIWA Score Nausea/Vomitin-No Nausea/No Vomiting Muscle Tremors: 1-None Visible, but [place] Anxiety: 1-Mildly Anxious Agitation: 1-Slight > Activity Paroxysmal Sweats: No Perspiration Orientation: 0-Oriented Tacttile Disturbances: 0-None Auditory Disturbances: 0-None Visual Disturbances: 0-None Headache: 1-Very Mild CIWA-Ar Total Score: 4 - Admission Criteria OASAS Guidelines: Admission for Medically Managed Detox: Requires at least one of the followin. CIWA greater than 12 2. Seizures within the past 24 hours 3. Delirium tremens within the past 24 hours 4. Hallucinations within the past 24 hours 5. Acute intervention needed for co occurring medical disorder 6. Acute intervention needed for co occurring psychiatric disorder 7. Severe withdrawal that cannot be handled at a lower level of care (continued vomiting, continued diarrhea, abnormal vital signs) requiring intravenous medication and/or fluids 8. Admitting History and Physical - Past Medical History ...LMP: 11/22/18 - Smoking History Smoking history: Never smoked Have you smoked in the past 12 months: No Aproximately how many cigarettes per day: 0 - Alcohol/Substance Use Hx Alcohol Use: No Admission ROS S - HPI Chief Complaint: heroin detox Allergies/Adverse Reactions: Allergies Allergy/AdvReac Type Severity Reaction Status Date / Time sulfamethoxazole AdvReac Severe Swelling Verified 07/10/19 08:35 [From Bactrim] trimethoprim [From Bactrim] AdvReac Severe Swelling Verified 07/10/19 08:35 History of Present Illness: 53 yo asthma, arthritis, DM, HTN here for heroin detox. Pt was discharged about 3 weeks ago- 06/19. States she relapsed about 1 week ago, says did not use heroin for about 2 weeks. Has an apartment in [place]. d/w pt at length about MAT- methadone/suboxone- pt will consider Suboxone- will talk to counselor. Pt has been coming here every month for the last several months for detox. Pt has h/o of being "rude" and not following directions-- per verbal reports from staff- during her hospitalizations for detox. I had a discussion with the pt re following rules and appropriate behavior while in detox- pt understood and will be seen by counselor on the floor to sign a behavioral contract PCP- Dr. Collins at [facility], last appt a month ago, nect 09/09/19 Meds: metformin, stool softener, stomach pills, Vit D, ambien, zoloft by Dr. Lange- psychiatrist Says she is using 8-9 bags/day of heroin, IH, not IV. no h/o OD. Has narcan kit. Utox- MPO, BZO (recently admitted) Alcohol- 3 bottle wine/day- last alcohol drink more than 24 hours ago, ANGELITO- neg DUR- Ambien - Ebola screening Have you traveled outside of the country in the last 21 days: No (N) Have you had contact with anyone from an Ebola affected area: No Do you have a fever: No - Review of Systems Constitutional: No Symptoms Reported EENT: reports: No Symptoms Reported Respiratory: reports: No Symptoms reported Cardiac: reports: No Symptoms Reported GI: reports: No Symptoms Reported : reports: No Symptoms Reported Musculoskeletal: reports: No Symptoms Reported Integumentary: reports: No Symptoms Reported Neuro: reports: No Symptoms reported Endocrine: reports: No Symptoms Reported Hematology: reports: No Symptoms Reported Psychiatric: reports: No Sypmtoms Reported Other Systems: Reviewed and Negative Patient History - Patient Medical History Hx Anemia: No Hx Asthma: Yes Hx Chronic Obstructive Pulmonary Disease (COPD): No Hx Cancer: No Hx Cardiac Disorders: No Hx Congestive Heart Failure: No Hx Hypertension: Yes Hx Hypercholesterolemia: No Hx Pacemaker: No HX Cerebrovascular Accident: No Hx Seizures: No Hx Dementia: No Hx Diabetes: Yes Hx Gastrointestinal Disorders: No Hx Liver Disease: No Hx Genitourinary Disorders: No Hx Sexually Transmitted Disorders: No Hx Renal Disease (ESRD): No Hx Thyroid Disease: No Hx Human Immunodeficiency Virus (HIV): No (last 10/29 negative) Hx Hepatitis C: No Hx Depression: Yes Hx Suicide Attempt: Yes (took pills at 16 years) Hx Bipolar Disorder: No Hx Schizophrenia: No - Patient Surgical History Past Surgical History: Yes Hx Neurologic Surgery: No Hx Cataract Extraction: No Hx Cardiac Surgery: No Hx Lung Surgery: No Hx Breast Surgery: No Hx Breast Biopsy: No Hx Abdominal Surgery: No Hx Appendectomy: No Hx Cholecystectomy: Yes (lap cholecystectomy in 2002 at [facility]) Hx Genitourinary Surgery: No Hx Section: No Hx Orthopedic Surgery: Yes (fx of both ankles ) Anesthesia Reaction: No - PPD History Date: 10/29/18 Results: 0 mm - Reproductive History Last Menstrual Period: 11/22/18 - Smoking Cessation Smoking history: Never smoked Have you smoked in the past 12 months: No Aproximately how many cigarettes per day: 0 Cigars Per Day: 0 Hx Chewing Tobacco Use: No - Substances abused Alcohol Substance route: Oral Frequency: Daily Amount used: 3 wine bottles &5th chris Age of first use: 16 Date of last use: 07/09/19 Cocaine Substance route: Inhalation Frequency: 3-6 times per week Amount used: $200.00 Age of first use: 18 Date of last use: 10/25/18 Heroin Substance route: Inhalation Frequency: Daily Amount used: 8-9 bags Age of first use: 52 Date of last use: 07/10/19 Other Substance route: Oral Frequency: Daily Amount used: 3 wine bottles &5th chris Age of first use: 16 Date of last use: 04/19/19 Admission Physical Exam BHS - Vital Signs Vital Signs: Vital Signs - 24 hr 07/10/19 08:40 Temperature 98.0 F Pulse Rate 81 Respiratory 18 Rate Blood Pressure 151/84 - Physical General Appearance: Yes: Within Normal Limits, Other HEENTM: Yes: Within Normal Limits, EOMI, Hearing grossly Normal, Normocephalic Respiratory: Yes: Within Normal Limits, Chest Non-Tender, Lungs Clear Neck: Yes: Within Normal Limits Cardiology: Yes: Within Normal Limits Abdominal: Yes: Within Normal Limits Genitourinary: Yes: Within Normal Limits Back: Yes: Within Normal Limits Musculoskeletal: Yes: Within Normal Limits Extremities: Yes: Within Normal Limits, Other Neurological: Yes: Within Normal Limits, children's attendant II-XII NML intact Integumentary: Yes: Within Normal Limits, Normal Color, Dry Lymphatic: Yes: Within Normal Limits - Diagnostic (1) Opioid dependence with withdrawal Current Visit: No Status: Acute (2) Anxiety disorder Current Visit: No Status: Chronic (3) Arthritis Current Visit: No Status: Chronic (4) Asthma Current Visit: No Status: Chronic Qualifiers: Asthma severity: mild Asthma persistence: intermittent Asthma complication type: with status asthmaticus Qualified Code(s): J45.22 - Mild intermittent asthma with status asthmaticus (5) DM type 2 (diabetes mellitus, type 2) Current Visit: No Status: Chronic Qualifiers: 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 use Diabetes mellitus complication status: without complication Qualified Code(s): E11.9 - Type 2 diabetes mellitus without complications (6) Essential hypertension Current Visit: No Status: Chronic (7) GERD (gastroesophageal reflux disease) Current Visit: No Status: Chronic Qualifiers: Esophagitis presence: without esophagitis Qualified Code(s): K21.9 - Gastro -esophageal reflux disease without esophagitis (8) History of depression Current Visit: No Status: Chronic Breathalyzer - Breathalyzer Breathalyzer: 0 POC Urine test - Test device test lot number: [id number] Expiration date: 03/12/20 - Control test control: Yes Urine Drug Screen - Test Device Lot number: [id number] Expiration date: 02/09/21 - Control Is test valid?: Yes - Results Drug screen NEGATIVE: No Urine drug screen results: MOP-Opiates, BZO-Benzodiazepines Inpatient Rehab Admission - Rehab Decision to Admit Inpatient rehab admission?: No
[2019-07-10] MEDS ORDERED: NALOXONE HCL 0.4 MG/ML VIAL IM PRN (10:51)
[2019-07-10] MEDS ORDERED: METHADONE HCL 10 MG TABLET (FOR DETOX USE ONLY) PO ONE (10:51)
[2019-07-10] MEDS ORDERED: MAGNESIUM HYDROX 2400MG/30ML ORAL SUSPENSION 30 ML CUP PO PRN (10:51)
[2019-07-10] MEDS ORDERED: cloNIDine HCL 0.1 MG TABLET PO PRN (10:51)
[2019-07-10] MEDS ORDERED: MAG HYDROX/AL HYDROX/SIMETH 30 ML UNIT-DOSE CUP PO PRN (10:51)
[2019-07-10] MEDS ORDERED: hydrOXYzine PAMOATE 25 MG CAPSULE (FP) PO PRN (10:51)
[2019-07-10] MEDS ORDERED: ONDANSETRON *ODT* 4 MG TABLET SL PRN (10:51)
[2019-07-10] MEDS ORDERED: clonazePAM 0.5 MG TABLET PO PRN (10:51)
[2019-07-10] MEDS ORDERED: MAGNESIUM CITRATE 300 ML BOTTLE PO PRN (10:51)
[2019-07-10] MEDS ORDERED: ACETAMINOPHEN 325 MG TABLET (FP) PO PRN ×2 (10:51)
[2019-07-10] MEDS ORDERED: BISMUTH SUBSALICYLATE 524 MG/30 ML UD PO PRN (10:51)
[2019-07-10] MEDS ORDERED: MENTHOL/PHENOL 1 EACH UD MM PRN (10:51)
[2019-07-10] MEDS ORDERED: DOCUSATE SODIUM 100 MG CAPSULE (FP) PO PRN (10:53)
[2019-07-10] MEDS ORDERED: PANTOPRAZOLE 20 MG TABLET (FP) PO ONE (10:54)
[2019-07-10] MEDS: METHOCARBAMOL 500 MG TABLET PO PRN ×2 (13:00→20:25)
[2019-07-10] MEDS: metFORMIN HCL 500 MG TABLET (FP) PO SCH (17:31)
[2019-07-10] MEDS: ALBUTEROL SO4 8 GM HFA INHALER IH PRN (19:33)
[2019-07-10] MEDS: MELATONIN 5 MG TABLETS PO PRN (22:12)
[2019-07-10] MEDS: THIAMINE HCL 100 MG TABLET (FP) PO SCH (22:12)
[2019-07-10] MEDS: BUDESONIDE/FORMETEROL FUMARATE 160/4.5 mcg INHALER IH SCH (23:19)
[2019-07-11] MEDS: metFORMIN HCL 500 MG TABLET (FP) PO SCH ×2 (06:15→16:51)
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
[2019-07-11] MEDS ORDERED: METHADONE HCL 5 MG TABLET (FOR DETOX USE ONLY) ONE (09:13)
[2019-07-11] MEDS ORDERED: METHADONE HCL 10 MG TABLET (FOR DETOX USE ONLY) ONE (09:14)
[2019-07-11 09:47] LABS: HEMATOCRIT 41.1 % (32.4-45.2); HEMOGLOBIN 12.9 GM/dL (10.7-15.3); MCH 25.8 pg (25.7-33.7); MCHC 31.4 g/dl (32.0-36.0); MEAN CELL VOLUME 82.1 fl (80-96); MEAN PLT VOLUME 9.2 fl (7.5-11.1); PLATELET COUNT 291 K/MM3 (134-434); RDW 14.9 % (11.6-15.6); WHITE BLOOD COUNT 10.6 K/mm3 (4.0-10.0)
[2019-07-11] MEDS ORDERED: PANTOPRAZOLE 40 MG TABLET (FP) PO SCH (10:00)
[2019-07-11] MEDS ORDERED: METHADONE (DETOX) 20 MG, METHADONE (DETOX) 5 MG PO ONE (10:00)
[2019-07-11] MEDS ORDERED: guaiFENesin 200 MG/10 ML 10 ML UNIT-DOSE CUPS PO PRN (10:01)
[2019-07-11] MEDS: BUDESONIDE/FORMETEROL FUMARATE 160/4.5 mcg INHALER IH SCH ×2 (10:17→21:28)
[2019-07-11] MEDS: PRENATAL VITAMINS W/ FOLIC ACID TABLET (FP) PO SCH (10:17)
[2019-07-11] MEDS: SERTRALINE HCL 50 MG TABLET (FP) PO SCH (10:17)
[2019-07-11] MEDS: IBUPROFEN 400 MG TABLET (FP) PO PRN (10:20)
[2019-07-11] MEDS ORDERED: chlordiazePOXIDE HCL 10 MG CAPSULE PO PRN (10:20)
[2019-07-11] MEDS: METHOCARBAMOL 500 MG TABLET PO PRN ×2 (10:20→21:25)
--- NOTE | 2019-07-11 10:32 | PN ---
[facility] CIWA - CIWA Score Nausea/Vomitin-No Nausea/No Vomiting Muscle Tremors: 3 Anxiety: 3 Agitation: 3 Paroxysmal Sweats: 3 Orientation: 0-Oriented Tacttile Disturbances: 0-None Auditory Disturbances: 0-None Visual Disturbances: 0-None Headache: 0-None Present CIWA-Ar Total Score: 12 BHS COWS - Scale Resting Pulse: 1= ND 81-100 Sweatin= Chills/Flushing Restless Observation: 1= Difficult to Sit Still Pupil Size: 0= Normal to Room Light Bone or Joint Aches: 2= Severe Diffuse Aches Runny Nose/ Eye Tearin= Runny Nose/Eyes GI Upset > 30mins: 0= None Tremor Observation of Outstretched Hands: 2= Slight Tremor Visible Yawning Observation: 2= >3x During Session Anxiety or Irritability: 2=Irritable/Anxious Goose Flesh Skin: 0=Smooth Skin COWS Score: 13 S Progress Note (SOAP) Subjective: sweats shakes interrupted sleep body aches irritable I need something for my alcohol withdrawals Objective: 07/11/19 10:31 Vital Signs Temperature 98.2 F 07/11/19 09:19 Pulse Rate 85 07/11/19 09:19 Respiratory Rate 18 07/11/19 09:19 Blood Pressure 143/78 07/11/19 09:19 O2 Sat by Pulse Oximetry (%) Laboratory Tests 07/10/19 07/10/19 07/10/19 08:57 09:39 16:49 WBC RBC Hgb Hct MCV MCH MCHC RDW Plt Count MPV POC Glucometer 162 163 POC Urine HCG, Qual Negative 07/11/19 07/11/19 06:14 07:00 WBC 10.6 H RBC 5.00 Hgb 12.9 Hct 41.1 MCV 82.1 MCH 25.8 MCHC 31.4 L RDW 14.9 Plt Count 291 MPV 9.2 POC Glucometer 114 POC Urine HCG, Qual aaox3 ambulating no acute distress Assessment: 07/11/19 10:32 withdrawals noted Plan: continue detox librium moderate detox regimen ordered protonix 40mg q7am as per pt request aveeno soap x one
[2019-07-11 10:46] LABS: ALBUMIN 3.6 g/dl (3.4-5.0); BILIRUBIN,TOTAL 0.5 mg/dL (0.2-1); BLOOD UREA NITROGEN 9.5 mg/dL (7-18); CREATININE 0.8 mg/dL (0.55-1.3); POTASSIUM 3.8 mmol/L (3.5-5.1); TOT PROT 7.8 g/dl (6.4-8.2)
[2019-07-11] MEDS ORDERED: COLLOIDAL OATMEAL 1 BAR EACH TP ONE (11:00)
[2019-07-11] MEDS: chlordiazePOXIDE HCL 25 MG CAPSULE PO SCH ×2 (14:10→21:26)
[2019-07-11] MEDS: SUVOREXANT 15 MG TABLET PO PRN (21:24)
[2019-07-11] MEDS: THIAMINE HCL 100 MG TABLET (FP) PO SCH (21:26)
[2019-07-11] MEDS: ALBUTEROL SO4 8 GM HFA INHALER IH PRN (21:28)
[2019-07-12] MEDS: chlordiazePOXIDE HCL 25 MG CAPSULE PO SCH ×2 (06:14→12:47)
[2019-07-12] MEDS: metFORMIN HCL 500 MG TABLET (FP) PO SCH ×2 (06:14→17:54)
[2019-07-12] MEDS: PANTOPRAZOLE 40 MG TABLET (FP) PO SCH (06:15)
[2019-07-12] MEDS: METHOCARBAMOL 500 MG TABLET PO PRN ×3 (06:16→22:14)
[2019-07-12] MEDS ORDERED: METHADONE HCL 10 MG TABLET (FOR DETOX USE ONLY) PO ONE (10:00)
[2019-07-12] MEDS: SERTRALINE HCL 50 MG TABLET (FP) PO SCH (10:15)
[2019-07-12] MEDS: BUDESONIDE/FORMETEROL FUMARATE 160/4.5 mcg INHALER IH SCH ×2 (10:15→22:15)
[2019-07-12] MEDS: PRENATAL VITAMINS W/ FOLIC ACID TABLET (FP) PO SCH (10:15)
[2019-07-12] MEDS ORDERED: guaiFENesin 600 MG TABLET.ER (FP) PO ONE (10:50)
--- NOTE | 2019-07-12 10:53 | PN ---
[facility] CIWA - CIWA Score Nausea/Vomitin-No Nausea/No Vomiting Muscle Tremors: 3 Anxiety: 2 Agitation: 3 Paroxysmal Sweats: 2 Orientation: 0-Oriented Tacttile Disturbances: 0-None Auditory Disturbances: 0-None Visual Disturbances: 0-None Headache: 0-None Present CIWA-Ar Total Score: 10 BHS COWS - Scale Resting Pulse: 1= [place] 81-100 Sweatin= Chills/Flushing Restless Observation: 1= Difficult to Sit Still Pupil Size: 0= Normal to Room Light Bone or Joint Aches: 1= Mild Discomfort Runny Nose/ Eye Tearin= Nasal Congestion GI Upset > 30mins: 0= None Tremor Observation of Outstretched Hands: 1= Tremor [place], Not Seen Yawning Observation: 1= 1-2x During Session Anxiety or Irritability: 2=Irritable/Anxious Goose Flesh Skin: 0=Smooth Skin COWS Score: 9 BHS Progress Note (SOAP) Subjective: chest congestions sweats shakes irritable chills Objective: 07/12/19 10:52 Vital Signs Temperature 98.2 F 07/12/19 09:24 Pulse Rate 98 H 07/12/19 09:24 Respiratory Rate 18 07/12/19 09:24 Blood Pressure 155/99 07/12/19 09:24 O2 Sat by Pulse Oximetry (%) Laboratory Tests 07/10/19 07/10/19 07/10/19 08:57 09:39 16:49 WBC RBC Hgb Hct MCV MCH MCHC RDW Plt Count MPV Sodium Potassium Chloride Carbon Dioxide Anion Gap BUN Creatinine Est GFR (CKD-EPI)AfAm Est GFR (CKD-EPI)NonAf POC Glucometer 162 163 Random Glucose Calcium Total Bilirubin AST ALT Alkaline Phosphatase Total Protein Albumin POC Urine HCG, Qual Negative 07/11/19 07/11/19 07/11/19 06:14 07:00 07:00 WBC 10.6 H RBC 5.00 Hgb 12.9 Hct 41.1 MCV 82.1 MCH 25.8 MCHC 31.4 L RDW 14.9 Plt Count 291 MPV 9.2 Sodium 139 Potassium 3.8 Chloride 104 Carbon Dioxide 26 Anion Gap 9 BUN 9.5 Creatinine 0.8 Est GFR (CKD-EPI)AfAm 97.55 Est GFR (CKD-EPI)NonAf 84.17 POC Glucometer 114 Random Glucose 127 H Calcium 9.0 Total Bilirubin 0.5 AST 22 ALT 23 Alkaline Phosphatase 103 Total Protein 7.8 Albumin 3.6 POC Urine HCG, Qual 07/12/19 06:13 WBC RBC Hgb Hct MCV MCH MCHC RDW Plt Count MPV Sodium Potassium Chloride Carbon Dioxide Anion Gap BUN Creatinine Est GFR (CKD-EPI)AfAm Est GFR (CKD-EPI)NonAf POC Glucometer 150 Random Glucose Calcium Total Bilirubin AST ALT Alkaline Phosphatase Total Protein Albumin POC Urine HCG, Qual aaox3 ambulating no acute distress Assessment: 07/12/19 10:52 withdrawals lungs/chest assessed; rhonchi noted Plan: continue detox mucinex ordered increase fluids
[2019-07-12] MEDS: IBUPROFEN 400 MG TABLET (FP) PO PRN (15:53)
[2019-07-12] MEDS: guaiFENesin 600 MG TABLET.ER (FP) PO SCH (22:14)
[2019-07-12] MEDS: SUVOREXANT 15 MG TABLET PO PRN (22:14)
[2019-07-12] MEDS: THIAMINE HCL 100 MG TABLET (FP) PO SCH (22:14)
[2019-07-13] MEDS: chlordiazePOXIDE 5 MG CAPSULE PO SCH ×3 (05:29→21:51)
[2019-07-13] MEDS: metFORMIN HCL 500 MG TABLET (FP) PO SCH ×2 (07:05→17:53)
[2019-07-13] MEDS: PANTOPRAZOLE 40 MG TABLET (FP) PO SCH (07:06)
--- NOTE | 2019-07-13 09:09 | PN ---
[facility] CIWA - CIWA Score Nausea/Vomitin-Mild Nausea/No Vomiting Muscle Tremors: 1-None Visible, but [place] Anxiety: 3 Agitation: 0-Normal Activity Paroxysmal Sweats: 1-Minimal Palms Moist Orientation: 0-Oriented Tacttile Disturbances: 1-Very Mild Itch/Numbness Auditory Disturbances: 0-None Visual Disturbances: 0-None Headache: 1-Very Mild CIWA-Ar Total Score: 8 BHS COWS - Scale Resting Pulse: 0= RI 80 or Below Sweatin= Chills/Flushing Restless Observation: 1= Difficult to Sit Still Pupil Size: 0= Normal to Room Light Bone or Joint Aches: 2= Severe Diffuse Aches Runny Nose/ Eye Tearin= Nasal Congestion GI Upset > 30mins: 2= Nausea/Diarrhea Tremor Observation of Outstretched Hands: 1= Tremor [place], Not Seen Yawning Observation: 1= 1-2x During Session Anxiety or Irritability: 2=Irritable/Anxious Goose Flesh Skin: 0=Smooth Skin COWS Score: 11 [facility] Progress Note (SOAP) Subjective: Patient reports hx asthma c/o of cough x 2 days, difficulty sleeping, nasal congestion, body aches, back pain and chills Objective: 07/13/19 09:07 Vital Signs Temperature 97.7 F 07/13/19 07:39 Pulse Rate 78 07/13/19 07:39 Respiratory Rate 18 07/13/19 07:39 Blood Pressure 116/62 07/13/19 07:39 O2 Sat by Pulse Oximetry (%) Laboratory Last Values WBC 10.6 K/mm3 (4.0-10.0) H 07/11/19 07:00 RBC 5.00 M/mm3 (3.60-5.2) 07/11/19 07:00 Hgb 12.9 GM/dL (10.7-15.3) 07/11/19 07:00 Hct 41.1 % (32.4-45.2) 07/11/19 07:00 MCV 82.1 fl (80-96) 07/11/19 07:00 MCH 25.8 pg (25.7-33.7) 07/11/19 07:00 MCHC 31.4 g/dl (32.0-36.0) L 07/11/19 07:00 RDW 14.9 % (11.6-15.6) 07/11/19 07:00 Plt Count 291 K/MM3 (134-434) 07/11/19 07:00 MPV 9.2 fl (7.5-11.1) 07/11/19 07:00 Sodium 139 mmol/L (136-145) 07/11/19 07:00 Potassium 3.8 mmol/L (3.5-5.1) 07/11/19 07:00 Chloride 104 mmol/L (98-107) 07/11/19 07:00 Carbon Dioxide 26 mmol/L (21-32) 07/11/19 07:00 Anion Gap 9 MMOL/L (8-16) 07/11/19 07:00 BUN 9.5 mg/dL (7-18) 07/11/19 07:00 Creatinine 0.8 mg/dL (0.55-1.3) 07/11/19 07:00 Est GFR (CKD-EPI)AfAm 97.55 07/11/19 07:00 Est GFR (CKD-EPI)NonAf 84.17 07/11/19 07:00 POC Glucometer 88 UNITS (80-120) 07/13/19 05:28 Random Glucose 127 mg/dL (74-106) H 07/11/19 07:00 Calcium 9.0 mg/dL (8.5-10.1) 07/11/19 07:00 Total Bilirubin 0.5 mg/dL (0.2-1) 07/11/19 07:00 AST 22 U/L (15-37) 07/11/19 07:00 ALT 23 U/L (13-61) 07/11/19 07:00 Alkaline Phosphatase 103 U/L (45-117) 07/11/19 07:00 Total Protein 7.8 g/dl (6.4-8.2) 07/11/19 07:00 Albumin 3.6 g/dl (3.4-5.0) 07/11/19 07:00 POC Urine HCG, Qual Negative 07/10/19 09:39 labs reviewed Assessment: 07/13/19 09:08 Patient Aox3, no acute distress EENT WNL + cough + nasal congestion + mild LL wheezing full ROM no gait disturbance withdrawal sx URI Plan: increase PO fluids actifed prn and guafinessin prn for cough and nasal congestion albuterol NEB tx prn z-pack d/t URI and hx of asthma d/c vistaril increase PO fluids continue to monitor
[2019-07-13] MEDS ORDERED: METHADONE HCL 5 MG TABLET (FOR DETOX USE ONLY) ONE (09:11)
[2019-07-13] MEDS ORDERED: MONTELUKAST NA 10 MG TABLET PO PRN (09:11)
[2019-07-13] MEDS ORDERED: METHADONE HCL 10 MG TABLET (FOR DETOX USE ONLY) ONE (09:12)
[2019-07-13] MEDS ORDERED: METHADONE (DETOX) 10 MG, METHADONE (DETOX) 5 MG PO ONE (10:00)
[2019-07-13] MEDS: guaiFENesin 600 MG TABLET.ER (FP) PO SCH ×2 (10:27→21:52)
[2019-07-13] MEDS: PRENATAL VITAMINS W/ FOLIC ACID TABLET (FP) PO SCH (10:27)
[2019-07-13] MEDS: METHOCARBAMOL 500 MG TABLET PO PRN ×2 (10:28→21:51)
[2019-07-13] MEDS: BUDESONIDE/FORMETEROL FUMARATE 160/4.5 mcg INHALER IH SCH ×2 (10:28→21:51)
[2019-07-13] MEDS: AZITHROMYCIN 250 MG TABLET PO SCH ×2 (10:28→21:52)
[2019-07-13] MEDS: SERTRALINE HCL 50 MG TABLET (FP) PO SCH (10:28)
[2019-07-13] MEDS: THIAMINE HCL 100 MG TABLET (FP) PO SCH (21:51)
[2019-07-13] MEDS: SUVOREXANT 15 MG TABLET PO PRN (21:56)
[2019-07-13] MEDS: MELATONIN 5 MG TABLETS PO PRN (23:53)
[2019-07-14] MEDS: metFORMIN HCL 500 MG TABLET (FP) PO SCH ×2 (06:02→17:45)
[2019-07-14] MEDS: chlordiazePOXIDE HCL 10 MG CAPSULE PO SCH ×2 (06:03→12:48)
[2019-07-14] MEDS: PANTOPRAZOLE 40 MG TABLET (FP) PO SCH (06:03)
[2019-07-14] MEDS: ALBUTEROL SO4 8 GM HFA INHALER IH PRN (07:25)
[2019-07-14] MEDS ORDERED: AZITHROMYCIN 250 MG TABLET PO SCH (10:00)
[2019-07-14] MEDS ORDERED: METHADONE HCL 10 MG TABLET (FOR DETOX USE ONLY) PO ONE (10:00)
[2019-07-14] MEDS: SERTRALINE HCL 50 MG TABLET (FP) PO SCH (10:23)
[2019-07-14] MEDS: PRENATAL VITAMINS W/ FOLIC ACID TABLET (FP) PO SCH (10:23)
[2019-07-14] MEDS: guaiFENesin 600 MG TABLET.ER (FP) PO SCH ×2 (10:23→21:35)
[2019-07-14] MEDS: BUDESONIDE/FORMETEROL FUMARATE 160/4.5 mcg INHALER IH SCH ×2 (10:23→21:35)
--- NOTE | 2019-07-14 13:46 | PN ---
[facility] CIWA - CIWA Score Nausea/Vomitin-No Nausea/No Vomiting Muscle Tremors: None Anxiety: 2 Agitation: 0-Normal Activity Paroxysmal Sweats: 2 Orientation: 0-Oriented Tacttile Disturbances: 0-None Auditory Disturbances: 0-None Visual Disturbances: 0-None Headache: 0-None Present CIWA-Ar Total Score: 4 S COWS - Scale Resting Pulse: 0= [place] 80 or Below Sweatin= No chills or Flushing Restless Observation: 0= Sits Still Pupil Size: 0= Normal to Room Light Bone or Joint Aches: 1= Mild Discomfort Runny Nose/ Eye Tearin= None GI Upset > 30mins: 0= None Tremor Observation of Outstretched Hands: 0= None Yawning Observation: 0= None Anxiety or Irritability: 2=Irritable/Anxious Goose Flesh Skin: 0=Smooth Skin COWS Score: 3 [facility] Progress Note (SOAP) Subjective: c/o mild withdrawal symptoms. Objective: 07/14/19 13:42 Vital Signs 07/14/19 07/14/19 07/14/19 07:39 09:43 13:04 Temperature 97.5 F L 98.1 F 97.3 F L Pulse Rate 76 89 73 Respiratory 18 18 18 Rate Blood Pressure 104/44 L 143/90 127/88 Laboratory Last Values WBC 10.6 K/mm3 (4.0-10.0) H 07/11/19 07:00 RBC 5.00 M/mm3 (3.60-5.2) 07/11/19 07:00 Hgb 12.9 GM/dL (10.7-15.3) 07/11/19 07:00 Hct 41.1 % (32.4-45.2) 07/11/19 07:00 MCV 82.1 fl (80-96) 07/11/19 07:00 MCH 25.8 pg (25.7-33.7) 07/11/19 07:00 MCHC 31.4 g/dl (32.0-36.0) L 07/11/19 07:00 RDW 14.9 % (11.6-15.6) 07/11/19 07:00 Plt Count 291 K/MM3 (134-434) 07/11/19 07:00 MPV 9.2 fl (7.5-11.1) 07/11/19 07:00 Sodium 139 mmol/L (136-145) 07/11/19 07:00 Potassium 3.8 mmol/L (3.5-5.1) 07/11/19 07:00 Chloride 104 mmol/L (98-107) 07/11/19 07:00 Carbon Dioxide 26 mmol/L (21-32) 07/11/19 07:00 Anion Gap 9 MMOL/L (8-16) 07/11/19 07:00 BUN 9.5 mg/dL (7-18) 07/11/19 07:00 Creatinine 0.8 mg/dL (0.55-1.3) 07/11/19 07:00 Est GFR (CKD-EPI)AfAm 97.55 07/11/19 07:00 Est GFR (CKD-EPI)NonAf 84.17 07/11/19 07:00 POC Glucometer 150 UNITS (80-120) 07/14/19 06:01 Random Glucose 127 mg/dL (74-106) H 07/11/19 07:00 Calcium 9.0 mg/dL (8.5-10.1) 07/11/19 07:00 Total Bilirubin 0.5 mg/dL (0.2-1) 07/11/19 07:00 AST 22 U/L (15-37) 07/11/19 07:00 ALT 23 U/L (13-61) 07/11/19 07:00 Alkaline Phosphatase 103 U/L (45-117) 07/11/19 07:00 Total Protein 7.8 g/dl (6.4-8.2) 07/11/19 07:00 Albumin 3.6 g/dl (3.4-5.0) 07/11/19 07:00 POC Urine HCG, Qual Negative 07/10/19 09:39 labs noted. Assessment: 07/14/19 13:43 AOX3, in no acute respiratory distress. Full ROM, ambulating in the unit. Mild Withdrawal symptoms. For d/c tomorrow. Zithromax 250mg po daily x4 doses, pt has received 2doses already. Prescription sent to [facility] pharmacy for 2 doses to complete tx regimen. Plan: continue detox. D/C in AM.
[2019-07-14] MEDS: IBUPROFEN 400 MG TABLET (FP) PO PRN (14:32)
[2019-07-14] MEDS: SUVOREXANT 15 MG TABLET PO PRN (21:32)
[2019-07-14] MEDS: THIAMINE HCL 100 MG TABLET (FP) PO SCH (21:35)
[2019-07-15] MEDS ORDERED: chlordiazePOXIDE HCL 10 MG CAPSULE PO ONE (05:00)
[2019-07-15] MEDS ORDERED: METHADONE HCL 5 MG TABLET (FOR DETOX USE ONLY) PO ONE (06:00)
[2019-07-15] MEDS: metFORMIN HCL 500 MG TABLET (FP) PO SCH (06:09)
[2019-07-15] MEDS: PANTOPRAZOLE 40 MG TABLET (FP) PO SCH (06:10)
[2019-07-15 06:37] VITALS: BP 140/69; PULSE 71; TEMP 97
--- NOTE | 2019-07-15 08:27 | DS ---
[facility] Detox Discharge Summary Admission Date: 07/10/19 - History Present History: Alcohol Dependence, Cocaine Dependence - Physical Exam Results Vital Signs: Vital Signs Temperature 97.0 F L 07/15/19 06:00 Pulse Rate 71 07/15/19 06:00 Respiratory Rate 18 07/15/19 06:00 Blood Pressure 140/69 07/15/19 06:00 O2 Sat by Pulse Oximetry (%) - Treatment Hospital Course: Detox Protocol Followed, Detoxed Safely, Responded well, Discharged Condition Good - Medication Discharge Medications: Ambulatory Orders Docusate Sodium 100 mg PO TID PRN 10/27/18 Metformin HCl [Glucophage] 500 mg PO BID 10/27/18 Omeprazole 40 mg PO DAILY 10/27/18 Albuterol Sulfate Inhaler - [Ventolin HFA Inhaler -] 2 inh PO Q6H PRN 11/29/18 Budesonide/Formeterol Fumarate [SYMBICORT 160/4.5mcg -] 1 inh PO BID 11/29/18 Multivitamin [Multiple Vitamins] 1 each PO DAILY 11/29/18 Sertraline HCl [Zoloft -] 50 mg PO DAILY 04/20/19 Cholecalciferol (Vitamin D3) [Vitamin D3 -] 2,000 unit PO DAILY 05/17/19 Montelukast Na [Singulair -] 10 mg PO HS PRN 05/17/19 Azithromycin 250 mg PO DAILY 2 Days #2 tablet 07/14/19 - Diagnosis (1) Essential hypertension Current Visit: No Status: Chronic (2) Alcohol dependence with uncomplicated withdrawal Current Visit: Yes Status: Chronic (3) Cocaine dependence Current Visit: Yes Status: Chronic Qualifiers: Substance use status: uncomplicated Qualified Code(s): F14.20 - Cocaine dependence, uncomplicated (4) Anxiety disorder Current Visit: Yes Status: Chronic (5) Arthritis Current Visit: Yes Status: Chronic (6) Asthma Current Visit: No Status: Chronic Qualifiers: Asthma severity: mild Asthma persistence: intermittent Asthma complication type: with status asthmaticus Qualified Code(s): J45.22 - Mild intermittent asthma with status asthmaticus (7) Bronchitis Current Visit: No Status: Chronic (8) DM type 2 (diabetes mellitus, type 2) Current Visit: Yes Status: Chronic Qualifiers: Diabetes mellitus exterminator helper insulin use: without intermediate use Diabetes mellitus complication status: without complication Qualified Code(s): E11.9 - Type 2 diabetes mellitus without complications (9) GERD (gastroesophageal reflux disease) Current Visit: No Status: Chronic Qualifiers: Esophagitis presence: without esophagitis Qualified Code(s): K21.9 - Gastro -esophageal reflux disease without esophagitis (10) History of depression Current Visit: Yes Status: Chronic - AMA Did Patient Leave Against Medical Advice: No
== END 2019-07-15 09:20 | disposition home or self-care (01) | DRG 773 ==
LOC: YASAS 08:10 → Y6N 10:18
PROVIDERS: ADMIT Allergy & Immunology; ATTEND Allergy & Immunology
PROC: HZ2ZZZZ Detoxification Services for Substance Abuse Treatment (ICD-10-PCS; principal; 2019-07-10)
DX: F11.23 Opioid dependence with withdrawal (principal); F10.230 Alcohol dependence with withdrawal, uncomplicated; F14.20 Cocaine dependence, uncomplicated; F41.9 Anxiety disorder, unspecified; F32.9 Major depressive disorder, single episode, unspecified; F19.24 Other psychoactive substance dependence with psychoactive substance-induced mood disorder; F19.282 Other psychoactive substance dependence with psychoactive substance-induced sleep disorder; I10 Essential (primary) hypertension; M17.0 Bilateral primary osteoarthritis of knee; M19.071 Primary osteoarthritis, right ankle and foot; M19.072 Primary osteoarthritis, left ankle and foot; J45.22 Mild intermittent asthma with status asthmaticus; J42 Unspecified chronic bronchitis; K21.9 Gastro-esophageal reflux disease without esophagitis; E11.9 Type 2 diabetes mellitus without complications; J06.9 Acute upper respiratory infection, unspecified; Z88.1 Allergy status to other antibiotic agents; Z88.2 Allergy status to sulfonamides; Z79.84 Long term (current) use of oral hypoglycemic drugs; Z86.19 Personal history of other infectious and parasitic diseases; Z91.5 Personal history of self-harm
CPT/HCPCS: 36415; 80053; 81025; 82962; 85027

== ENCOUNTER 2019-08-21 10:56 | Inpatient (IN) | payer OTHER ==
[2019-08-21 11:22] VITALS: BMI 36.2
--- NOTE | 2019-08-21 12:33 | HP ---
COWS - Scale Resting Pulse: 0= [place] 80 or Below Sweatin= Chills/Flushing Restless Observation: 1= Difficult to Sit Still Pupil Size: 1= Pupils >than Normal Bone or Joint Aches: 2= Severe Diffuse Aches Runny Nose/ Eye Tearin= Runny Nose/Eyes GI Upset > 30mins: 2= Nausea/Diarrhea Tremor Observation: 2= Slight Tremor Visible Yawning Observation: 1= 1-2x During Session Anxiety or Irritability: 1=Feels Anxious/Irritable Goose Flesh Skin: 3=Piloerection COWS Score: 16 CIWA Score Nausea/Vomitin Muscle Tremors: 2 Anxiety: 1-Mildly Anxious Agitation: 1-Slight > Activity Paroxysmal Sweats: 2 Orientation: 0-Oriented Tacttile Disturbances: 2-Mild Itch/Numbness/Burn Auditory Disturbances: 1-Very Mild Visual Disturbances: 2-Mild Sensitivity Headache: 2-Mild CIWA-Ar Total Score: 15 - Admission Criteria [facility] Guidelines: Admission for Medically Managed Detox: Requires at least one of the followin. CIWA greater than 12 2. Seizures within the past 24 hours 3. Delirium tremens within the past 24 hours 4. Hallucinations within the past 24 hours 5. Acute intervention needed for co occurring medical disorder 6. Acute intervention needed for co occurring psychiatric disorder 7. Severe withdrawal that cannot be handled at a lower level of care (continued vomiting, continued diarrhea, abnormal vital signs) requiring intravenous medication and/or fluids 8. Patient presents the following: CIWA greater than 12 Admission Criteria Met: Admission criteria met Admitting History and Physical - Past Medical History ...LMP: 11/22/18 - Smoking History Smoking history: Never smoked Have you smoked in the past 12 months: No Aproximately how many cigarettes per day: 0 - Alcohol/Substance Use Hx Alcohol Use: No Admission ROS BHS - HPI Chief Complaint: I am here to detox Allergies/Adverse Reactions: Allergies Allergy/AdvReac Type Severity Reaction Status Date / Time sulfamethoxazole AdvReac Severe Swelling Verified 08/21/19 11:11 [From Bactrim] trimethoprim [From Bactrim] AdvReac Severe Swelling Verified 08/21/19 11:11 History of Present Illness: 53 year old woman with heroin and alcohol use presents for detox. She is wll known to [facility], her last admission was in June,. Patient started on methadone (moderate) regimen but she became livid that she wasn't placed on ( severe) regimen, 1st dose changed to 30mg which patient verbalized agreement with. Exam Limitations: No Limitations - Ebola screening Have you traveled outside of the country in the last 21 days: No Have you had contact with anyone from an Ebola affected area: No Have you been sick,other than usual withdrawal symptoms: No Do you have a fever: No - Review of Systems Constitutional: Chills, Loss of Appetite, Changes in sleep EENT: reports: Blurred Vision, Tearing, Nose Congestion Respiratory: reports: Cough, SOB with Exertion, Wheezing Cardiac: reports: Chest Tightness (r/t asthma) GI: reports: Constipated, Nausea, Poor Appetite, Abdominal cramping Musculoskeletal: reports: No Symptoms Reported Integumentary: reports: Flushing, Sweating Neuro: reports: Headache, Numbness, Tremors Endocrine: reports: No Symptoms Reported Hematology: reports: No Symptoms Reported Psychiatric: reports: Anxious, Depressed Other Systems: Reviewed and Negative Patient History - Patient Medical History Hx Anemia: No Hx Asthma: Yes Hx Chronic Obstructive Pulmonary Disease (COPD): No Hx Cancer: No Hx Cardiac Disorders: No Hx Congestive Heart Failure: No Hx Hypertension: Yes Hx Hypercholesterolemia: No Hx Pacemaker: No HX Cerebrovascular Accident: No Hx Seizures: No Hx Dementia: No Hx Diabetes: Yes Hx Gastrointestinal Disorders: No Hx Liver Disease: No Hx Genitourinary Disorders: No Hx Sexually Transmitted Disorders: No Hx Renal Disease (ESRD): No Hx Thyroid Disease: No Hx Human Immunodeficiency Virus (HIV): No Hx Hepatitis C: No Hx Depression: Yes Hx Suicide Attempt: Yes (as a child) Hx Bipolar Disorder: No Hx Schizophrenia: No - Patient Surgical History Past Surgical History: Yes Hx Neurologic Surgery: No Hx Cataract Extraction: No Hx Cardiac Surgery: No Hx Lung Surgery: No Hx Breast Surgery: No Hx Breast Biopsy: No Hx Abdominal Surgery: No Hx Appendectomy: No Hx Cholecystectomy: Yes (lap cholecystectomy in 2002 ) Hx Genitourinary Surgery: No Hx Section: No Hx Orthopedic Surgery: Yes (fx of both ankles ) Anesthesia Reaction: No - PPD History Previous Implant?: Yes Documented Results: Negative w/proof Implanted On Prior R Admission?: Yes Date: 10/29/18 Results: 0 mm PPD to be Administered?: No - Reproductive History Patient is a Female of Child Bearing Age (11 -55 yrs old): Yes Last Menstrual Period: 05/28/19 Patient : No - Smoking Cessation Smoking history: Never smoked Have you smoked in the past 12 months: No Aproximately how many cigarettes per day: 0 Cigars Per Day: 0 Hx Chewing Tobacco Use: No - Substances abused Alcohol Substance route: Oral Amount used: 1/5th of liquor/3 bottles of wine Age of first use: 16 Date of last use: 08/20/19 Heroin Substance route: Inhalation Frequency: Daily Amount used: 10bags/day Age of first use: 52 Date of last use: 08/21/19 Admission Physical Exam S - Vital Signs Vital Signs: Vital Signs - 24 hr 08/21/19 11:18 Temperature 97.5 F L Pulse Rate 74 Respiratory 18 Rate Blood Pressure 141/88 - Physical General Appearance: Yes: No Apparent Distress HEENTM: Yes: Hearing grossly Normal, Normocephalic, Normal Voice, Pharynx Normal Respiratory: Yes: Chest Non-Tender, No Accessory Muscle Use, Wheezing Neck: Yes: No masses,lesions,Nodules, Supple Breast: Yes: Breast Exam Deferred Cardiology: Yes: Regular Rhythm, Regular Rate, S1, S2 Abdominal: Yes: Normal Bowel Sounds, Soft Genitourinary: Yes: Within Normal Limits Back: Yes: Normal Inspection Musculoskeletal: Yes: Back pain, Muscle Pain, Muscle weakness Extremities: Yes: Tremors, Coldness Neurological: Yes: legal compliance officer II-XII NML intact, Fully Oriented, Alert, Normal Mood/ Affect, Normal Response Integumentary: Yes: Clammy Lymphatic: Yes: Within Normal Limits - Diagnostic (1) Insomnia secondary to depression with anxiety Current Visit: Yes Status: Chronic (2) Opioid dependence with withdrawal Current Visit: Yes Status: Acute (3) Alcohol dependence with uncomplicated withdrawal Current Visit: Yes Status: Acute (4) Asthma Current Visit: Yes Status: Chronic Qualifiers: Asthma severity: mild Asthma persistence: intermittent Asthma complication type: with status asthmaticus Qualified Code(s): J45.22 - Mild intermittent asthma with status asthmaticus (5) Cocaine dependence Current Visit: Yes Status: Acute Qualifiers: Substance use status: uncomplicated Qualified Code(s): F14.20 - Cocaine dependence, uncomplicated Comment: Self-report. Current toxicology is negative. (6) DM type 2 (diabetes mellitus, type 2) Current Visit: Yes Status: Chronic Qualifiers: Diabetes mellitus longterm insulin use: without ad terminal makeup operator use Diabetes mellitus complication status: without complication Qualified Code(s): E11.9 - Type 2 diabetes mellitus without complications (7) Essential hypertension Current Visit: Yes Status: Chronic (8) GERD (gastroesophageal reflux disease) Current Visit: Yes Status: Chronic Qualifiers: Esophagitis presence: without esophagitis Qualified Code(s): K21.9 - Gastro -esophageal reflux disease without esophagitis Cleared for Admission [facility] - Detox or Rehab [facility] Level of Care: Medically Managed Detox Regimen/Protocol: Methadone/Librium Claeared for Rehab Admission: No Breathalyzer - Breathalyzer Breathalyzer: 0 POC Urine test - Test device test lot number: [id number] Expiration date: 03/12/20 - Control test control: Yes Urine Drug Screen - Test Device Lot number: [id number] Expiration date: 06/06/21 - Control Is test valid?: Yes - Results Drug screen NEGATIVE: No Urine drug screen results: FEN-Fentanyl, MOP-Opiates, MTD-Methadone, BZO- Benzodiazepines Inpatient Rehab Admission - Rehab Decision to Admit Inpatient rehab admission?: No
[2019-08-21] MEDS ORDERED: BISMUTH SUBSALICYLATE 524 MG/30 ML UD PO PRN (12:37)
[2019-08-21] MEDS ORDERED: METHADONE HCL 10 MG TABLET (FOR DETOX USE ONLY) PO ONE ×2 (12:37)
[2019-08-21] MEDS ORDERED: MENTHOL/PHENOL 1 EACH UD MM PRN (12:37)
[2019-08-21] MEDS ORDERED: cloNIDine HCL 0.1 MG TABLET PO PRN (12:37)
[2019-08-21] MEDS ORDERED: NALOXONE HCL 0.4 MG/ML VIAL IM PRN (12:37)
[2019-08-21] MEDS ORDERED: MAG HYDROX/AL HYDROX/SIMETH 30 ML UNIT-DOSE CUP PO PRN (12:37)
[2019-08-21] MEDS ORDERED: ACETAMINOPHEN 325 MG TABLET (FP) PO PRN ×2 (12:37)
[2019-08-21] MEDS ORDERED: MAGNESIUM CITRATE 300 ML BOTTLE PO PRN (12:37)
[2019-08-21] MEDS ORDERED: MAGNESIUM HYDROX 2400MG/30ML ORAL SUSPENSION 30 ML CUP PO PRN (12:37)
[2019-08-21] MEDS ORDERED: IBUPROFEN 400 MG TABLET (FP) PO PRN (12:37)
[2019-08-21] MEDS ORDERED: chlordiazePOXIDE HCL 10 MG CAPSULE PO PRN (12:37)
[2019-08-21] MEDS ORDERED: MONTELUKAST NA 10 MG TABLET PO PRN (12:40)
[2019-08-21] MEDS ORDERED: ALBUTEROL SO4 HFA INHALER IH PRN (12:40)
[2019-08-21] MEDS: chlordiazePOXIDE HCL 25 MG CAPSULE PO SCH ×2 (13:55→21:59)
[2019-08-21] MEDS: METHOCARBAMOL 500 MG TABLET PO PRN (16:50)
[2019-08-21] MEDS: THIAMINE HCL 100 MG TABLET (FP) PO SCH (21:59)
[2019-08-21] MEDS: BUDESONIDE/FORMETEROL FUMARATE 160/4.5 mcg INHALER IH SCH (22:01)
[2019-08-21] MEDS: MELATONIN 5 MG TABLETS PO PRN (22:01)
[2019-08-22] MEDS: chlordiazePOXIDE HCL 25 MG CAPSULE PO SCH ×3 (05:45→22:11)
[2019-08-22] MEDS: METHOCARBAMOL 500 MG TABLET PO PRN ×2 (05:52→11:47)
[2019-08-22] MEDS: hydrOXYzine PAMOATE 25 MG CAPSULE (FP) PO PRN ×2 (05:53→11:47)
[2019-08-22] MEDS: metFORMIN HCL 500 MG TABLET (FP) PO SCH (06:47)
[2019-08-22] MEDS ORDERED: METHADONE HCL 5 MG TABLET (FOR DETOX USE ONLY) PO ONE (10:00)
[2019-08-22 10:11] LABS: ALBUMIN 3.5 g/dl (3.4-5.0); BILIRUBIN,TOTAL 0.4 mg/dL (0.2-1); BLOOD UREA NITROGEN 9.3 mg/dL (7-18); CREATININE 0.8 mg/dL (0.55-1.3); TOT PROT 7.6 g/dl (6.4-8.2)
[2019-08-22 10:16] LABS: HEMATOCRIT 38.8 % (32.4-45.2); HEMOGLOBIN 12.1 GM/dL (10.7-15.3); MCH 25.9 pg (25.7-33.7); MCHC 31.2 g/dl (32.0-36.0); MEAN CELL VOLUME 83.1 fl (80-96); MEAN PLT VOLUME 9.1 fl (7.5-11.1); PLATELET COUNT 273 K/MM3 (134-434); RBC 4.67 M/mm3 (3.60-5.2); RDW 15.1 % (11.6-15.6); WHITE BLOOD COUNT 10.8 K/mm3 (4.0-10.0)
[2019-08-22] MEDS: BUDESONIDE/FORMETEROL FUMARATE 160/4.5 mcg INHALER IH SCH ×2 (10:54→22:10)
[2019-08-22] MEDS: SERTRALINE HCL 50 MG TABLET (FP) PO SCH (10:54)
[2019-08-22] MEDS: PANTOPRAZOLE 40 MG TABLET PO SCH (10:54)
[2019-08-22] MEDS: PRENATAL VITAMINS W/ FOLIC ACID TABLET (FP) PO SCH (10:54)
[2019-08-22] MEDS ORDERED: ALBUTEROL SO4 2.5/IPRATROPIUM 0.5 INH SOL 3 ML VIAL.NEB. NEB PRN (11:05)
[2019-08-22] MEDS ORDERED: SODIUM CHLORIDE NASAL SPRAY 44 ML BOTTLE NS PRN (11:08)
[2019-08-22] MEDS ORDERED: METHADONE HCL 10 MG TABLET (FOR DETOX USE ONLY) PO ONE (12:00)
--- NOTE | 2019-08-22 12:01 | PN ---
[facility] CIWA - CIWA Score Nausea/Vomitin-No Nausea/No Vomiting Muscle Tremors: 3 Anxiety: 3 Agitation: 3 Paroxysmal Sweats: 3 Orientation: 0-Oriented Tacttile Disturbances: 0-None Auditory Disturbances: 0-None Visual Disturbances: 0-None Headache: 0-None Present CIWA-Ar Total Score: 12 [facility] COWS - Scale Resting Pulse: 0= [place] 80 or Below Sweatin= Chills/Flushing Restless Observation: 1= Difficult to Sit Still Pupil Size: 0= Normal to Room Light Bone or Joint Aches: 2= Severe Diffuse Aches Runny Nose/ Eye Tearin= Nasal Congestion GI Upset > 30mins: 0= None Tremor Observation of Outstretched Hands: 1= Tremor [place], Not Seen Yawning Observation: 1= 1-2x During Session Anxiety or Irritability: 2=Irritable/Anxious Goose Flesh Skin: 0=Smooth Skin COWS Score: 9 S Progress Note (SOAP) Subjective: sweats irritable I have a UTI my urine campos when I go to the bathroom agitation interrupted sleep nasal congestion Objective: 08/22/19 12:00 Vital Signs Temperature 98.2 F 08/22/19 09:04 Pulse Rate 78 08/22/19 09:04 Respiratory Rate 18 08/22/19 09:04 Blood Pressure 113/75 08/22/19 09:04 O2 Sat by Pulse Oximetry (%) Laboratory Tests 08/21/19 08/22/19 08/22/19 13:14 05:49 08:00 WBC 10.8 H RBC 4.67 Hgb 12.1 Hct 38.8 MCV 83.1 MCH 25.9 MCHC 31.2 L RDW 15.1 Plt Count 273 MPV 9.1 Sodium Potassium Chloride Carbon Dioxide Anion Gap BUN Creatinine Est GFR (CKD-EPI)AfAm Est GFR (CKD-EPI)NonAf POC Glucometer 149 131 Random Glucose Calcium Total Bilirubin AST ALT Alkaline Phosphatase Total Protein Albumin RPR Titer 08/22/19 08/22/19 08:00 08:00 WBC RBC Hgb Hct MCV MCH MCHC RDW Plt Count MPV Sodium 138 Potassium 4.0 Chloride 101 Carbon Dioxide 29 Anion Gap 7 L BUN 9.3 Creatinine 0.8 Est GFR (CKD-EPI)AfAm 97.55 Est GFR (CKD-EPI)NonAf 84.17 POC Glucometer Random Glucose 133 H Calcium 9.0 Total Bilirubin 0.4 AST 24 ALT 63 H Alkaline Phosphatase 147 H Total Protein 7.6 Albumin 3.5 RPR Titer Nonreactive aaox3 ambulating no acute distress Assessment: 08/22/19 12:00 withdrawals Plan: continue detox macrobid ordered increase fluids ocean spray n/s
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
[2019-08-22] MEDS ORDERED: COLLOIDAL OATMEAL 1 BAR EACH TP ONE (17:00)
[2019-08-22] MEDS: NITROFURANTOIN MACROCRYSTAL 50 MG CAPSULE (FP) PO SCH (17:53)
[2019-08-22] MEDS: MELATONIN 5 MG TABLETS PO PRN (22:11)
[2019-08-22] MEDS: THIAMINE HCL 100 MG TABLET (FP) PO SCH (22:12)
[2019-08-23] MEDS: SUVOREXANT 15 MG TABLET PO PRN ×2 (01:01→22:20)
[2019-08-23] MEDS: chlordiazePOXIDE 5 MG CAPSULE PO SCH ×3 (05:39→22:17)
[2019-08-23] MEDS: hydrOXYzine PAMOATE 25 MG CAPSULE (FP) PO PRN ×2 (05:40→14:17)
[2019-08-23] MEDS: METHOCARBAMOL 500 MG TABLET PO PRN ×3 (05:40→22:21)
[2019-08-23] MEDS: metFORMIN HCL 500 MG TABLET (FP) PO SCH (08:03)
[2019-08-23] MEDS: NITROFURANTOIN MACROCRYSTAL 50 MG CAPSULE (FP) PO SCH ×4 (08:03→17:08)
[2019-08-23] MEDS ORDERED: METHADONE HCL 5 MG TABLET (FOR DETOX USE ONLY) PO ONE (10:00)
[2019-08-23] MEDS ORDERED: METHADONE HCL 10 MG TABLET (FOR DETOX USE ONLY) PO ONE (10:00)
[2019-08-23] MEDS: PANTOPRAZOLE 40 MG TABLET PO SCH (10:55)
[2019-08-23] MEDS: SERTRALINE HCL 50 MG TABLET (FP) PO SCH (10:55)
[2019-08-23] MEDS: BUDESONIDE/FORMETEROL FUMARATE 160/4.5 mcg INHALER IH SCH ×2 (10:56→22:17)
[2019-08-23] MEDS: PRENATAL VITAMINS W/ FOLIC ACID TABLET (FP) PO SCH (11:00)
--- NOTE | 2019-08-23 12:29 | PN ---
S CIWA - CIWA Score Nausea/Vomitin-No Nausea/No Vomiting Muscle Tremors: 2 Anxiety: 2 Agitation: 1-Slight > Activity Paroxysmal Sweats: 1-Minimal Palms Moist Orientation: 0-Oriented Tacttile Disturbances: 0-None Auditory Disturbances: 0-None Visual Disturbances: 0-None Headache: 0-None Present CIWA-Ar Total Score: 6 [facility] COWS - Scale Resting Pulse: 1= [place] 81-100 Sweatin= Chills/Flushing Restless Observation: 1= Difficult to Sit Still Pupil Size: 0= Normal to Room Light Bone or Joint Aches: 1= Mild Discomfort Runny Nose/ Eye Tearin= None GI Upset > 30mins: 0= None Tremor Observation of Outstretched Hands: 1= Tremor [place], Not Seen Yawning Observation: 1= 1-2x During Session Anxiety or Irritability: 2=Irritable/Anxious Goose Flesh Skin: 0=Smooth Skin COWS Score: 8 [facility] Progress Note (SOAP) Subjective: sweats shakes chills irritable agitation Objective: 08/23/19 12:25 Vital Signs Temperature 99.1 F 08/23/19 08:48 Pulse Rate 96 H 08/23/19 08:48 Respiratory Rate 18 08/23/19 08:48 Blood Pressure 153/88 08/23/19 08:48 O2 Sat by Pulse Oximetry (%) 99 08/22/19 19:51 Laboratory Tests 08/21/19 08/22/19 08/22/19 13:14 05:49 08:00 WBC 10.8 H RBC 4.67 Hgb 12.1 Hct 38.8 MCV 83.1 MCH 25.9 MCHC 31.2 L RDW 15.1 Plt Count 273 MPV 9.1 Sodium Potassium Chloride Carbon Dioxide Anion Gap BUN Creatinine Est GFR (CKD-EPI)AfAm Est GFR (CKD-EPI)NonAf POC Glucometer 149 131 Random Glucose Calcium Total Bilirubin AST ALT Alkaline Phosphatase Total Protein Albumin RPR Titer 08/22/19 08/22/19 08/23/19 08:00 08:00 05:38 WBC RBC Hgb Hct MCV MCH MCHC RDW Plt Count MPV Sodium 138 Potassium 4.0 Chloride 101 Carbon Dioxide 29 Anion Gap 7 L BUN 9.3 Creatinine 0.8 Est GFR (CKD-EPI)AfAm 97.55 Est GFR (CKD-EPI)NonAf 84.17 POC Glucometer 156 Random Glucose 133 H Calcium 9.0 Total Bilirubin 0.4 AST 24 ALT 63 H Alkaline Phosphatase 147 H Total Protein 7.6 Albumin 3.5 RPR Titer Nonreactive aaox3 ambulating no acute distress Assessment: 08/23/19 12:29 withdrawals Plan: continue detox repeat WBC
[2019-08-23] MEDS: THIAMINE HCL 100 MG TABLET (FP) PO SCH (22:17)
[2019-08-24] MEDS ORDERED: chlordiazePOXIDE HCL 10 MG CAPSULE PO PRN
[2019-08-24] MEDS: NITROFURANTOIN MACROCRYSTAL 50 MG CAPSULE (FP) PO SCH ×5 (00:47→23:17)
[2019-08-24] MEDS: MELATONIN 5 MG TABLETS PO PRN (00:58)
[2019-08-24] MEDS ORDERED: METHADONE HCL 5 MG TABLET (FOR DETOX USE ONLY) PO ONE (06:00)
[2019-08-24] MEDS: chlordiazePOXIDE HCL 10 MG CAPSULE PO SCH ×3 (06:10→22:00)
[2019-08-24] MEDS: metFORMIN HCL 500 MG TABLET (FP) PO SCH (06:10)
[2019-08-24] MEDS: METHOCARBAMOL 500 MG TABLET PO PRN ×3 (06:12→22:00)
[2019-08-24] MEDS: hydrOXYzine PAMOATE 25 MG CAPSULE (FP) PO PRN ×3 (06:12→22:02)
[2019-08-24] MEDS ORDERED: METHADONE HCL 10 MG TABLET (FOR DETOX USE ONLY) PO ONE (10:00)
[2019-08-24] MEDS: SERTRALINE HCL 50 MG TABLET (FP) PO SCH (10:53)
[2019-08-24] MEDS: BUDESONIDE/FORMETEROL FUMARATE 160/4.5 mcg INHALER IH SCH ×2 (10:53→22:01)
[2019-08-24] MEDS: PANTOPRAZOLE 40 MG TABLET PO SCH (10:53)
[2019-08-24] MEDS: PRENATAL VITAMINS W/ FOLIC ACID TABLET (FP) PO SCH (10:53)
[2019-08-24 11:57] LABS: BASO % 0.6 % (0-2.0); EOS % 10.2 % (0-4.5); LYMPH % 29.8 % (8-40); MCHC 31.6 g/dl (32.0-36.0); MEAN CELL VOLUME 82.3 fl (80-96); MEAN PLT VOLUME 9.1 fl (7.5-11.1); MONO % 4.2 % (3.8-10.2); NEUT % 55.2 % (42.8-82.8); PLATELET COUNT 261 K/MM3 (134-434); RBC 4.62 M/mm3 (3.60-5.2); RDW 15.2 % (11.6-15.6); WHITE BLOOD COUNT 10.5 K/mm3 (4.0-10.0)
--- NOTE | 2019-08-24 11:59 | PN ---
[facility] CIWA - CIWA Score Nausea/Vomitin-No Nausea/No Vomiting Muscle Tremors: None Anxiety: 1-Mildly Anxious Agitation: 1-Slight > Activity Paroxysmal Sweats: No Perspiration Orientation: 0-Oriented Tacttile Disturbances: 0-None Auditory Disturbances: 0-None Visual Disturbances: 0-None Headache: 0-None Present CIWA-Ar Total Score: 2 S COWS - Scale Resting Pulse: 0= [place] 80 or Below Sweatin= No chills or Flushing Restless Observation: 0= Sits Still Pupil Size: 0= Normal to Room Light Bone or Joint Aches: 1= Mild Discomfort Runny Nose/ Eye Tearin= Nasal Congestion GI Upset > 30mins: 0= None Tremor Observation of Outstretched Hands: 0= None Yawning Observation: 0= None Anxiety or Irritability: 1=Feels Anxious/Irritable Goose Flesh Skin: 0=Smooth Skin COWS Score: 3 S Progress Note (SOAP) Subjective: feeling better constipation Objective: 08/24/19 11:58 Vital Signs Temperature 97.5 F L 08/24/19 08:44 Pulse Rate 79 08/24/19 08:44 Respiratory Rate 19 08/24/19 08:44 Blood Pressure 139/85 08/24/19 08:44 O2 Sat by Pulse Oximetry (%) 99 08/22/19 19:51 Laboratory Tests 08/21/19 08/22/19 08/22/19 13:14 05:49 08:00 WBC 10.8 H RBC 4.67 Hgb 12.1 Hct 38.8 MCV 83.1 MCH 25.9 MCHC 31.2 L RDW 15.1 Plt Count 273 MPV 9.1 Sodium Potassium Chloride Carbon Dioxide Anion Gap BUN Creatinine Est GFR (CKD-EPI)AfAm Est GFR (CKD-EPI)NonAf POC Glucometer 149 131 Random Glucose Calcium Total Bilirubin AST ALT Alkaline Phosphatase Total Protein Albumin RPR Titer 08/22/19 08/22/19 08/23/19 08:00 08:00 05:38 WBC RBC Hgb Hct MCV MCH MCHC RDW Plt Count MPV Sodium 138 Potassium 4.0 Chloride 101 Carbon Dioxide 29 Anion Gap 7 L BUN 9.3 Creatinine 0.8 Est GFR (CKD-EPI)AfAm 97.55 Est GFR (CKD-EPI)NonAf 84.17 POC Glucometer 156 Random Glucose 133 H Calcium 9.0 Total Bilirubin 0.4 AST 24 ALT 63 H Alkaline Phosphatase 147 H Total Protein 7.6 Albumin 3.5 RPR Titer Nonreactive 08/24/19 06:08 WBC RBC Hgb Hct MCV MCH MCHC RDW Plt Count MPV Sodium Potassium Chloride Carbon Dioxide Anion Gap BUN Creatinine Est GFR (CKD-EPI)AfAm Est GFR (CKD-EPI)NonAf POC Glucometer 132 Random Glucose Calcium Total Bilirubin AST ALT Alkaline Phosphatase Total Protein Albumin RPR Titer pending cbc aaox3 ambulating no acute distress Assessment: 08/24/19 11:59 mild withdrawals Plan: continue detox d/c in am
[2019-08-24] MEDS: SUVOREXANT 15 MG TABLET PO PRN (22:00)
[2019-08-24] MEDS: THIAMINE HCL 100 MG TABLET (FP) PO SCH (22:02)
[2019-08-25] MEDS ORDERED: chlordiazePOXIDE HCL 10 MG CAPSULE PO ONE (05:00)
[2019-08-25] MEDS ORDERED: METHADONE HCL 5 MG TABLET (FOR DETOX USE ONLY) PO ONE (06:00)
[2019-08-25] MEDS: metFORMIN HCL 500 MG TABLET (FP) PO SCH (06:51)
[2019-08-25] MEDS: NITROFURANTOIN MACROCRYSTAL 50 MG CAPSULE (FP) PO SCH (06:51)
[2019-08-25 08:43] VITALS: BP 114/63; PULSE 79; TEMP 97.3
--- NOTE | 2019-08-25 11:15 | PN ---
[facility] CIWA - CIWA Score Nausea/Vomitin-No Nausea/No Vomiting Muscle Tremors: 1-None Visible, but [place] Anxiety: 0-No Anxiety, at Ease Agitation: 0-Normal Activity Paroxysmal Sweats: No Perspiration Orientation: 0-Oriented Tacttile Disturbances: 1-Very Mild Itch/Numbness Auditory Disturbances: 0-None Visual Disturbances: 0-None Headache: 1-Very Mild CIWA-Ar Total Score: 3 S COWS - Scale Resting Pulse: 0= [place] 80 or Below Sweatin= No chills or Flushing Restless Observation: 0= Sits Still Pupil Size: 0= Normal to Room Light Bone or Joint Aches: 1= Mild Discomfort Runny Nose/ Eye Tearin= None GI Upset > 30mins: 0= None Tremor Observation of Outstretched Hands: 0= None Yawning Observation: 0= None Anxiety or Irritability: 1=Feels Anxious/Irritable Goose Flesh Skin: 0=Smooth Skin COWS Score: 2 [facility] Progress Note (SOAP) Subjective: alert,no complaint Objective: 08/25/19 11:12 Vital Signs Temperature 97.3 F L 08/25/19 06:20 Pulse Rate 79 08/25/19 06:20 Respiratory Rate 18 08/25/19 06:20 Blood Pressure 114/63 08/25/19 06:20 O2 Sat by Pulse Oximetry (%) 99 08/22/19 19:51 Assessment: 08/25/19 11:12 detox completed,no withdrawal symptom Plan: discharge today,follow up with after care program as arrangement
--- NOTE | 2019-08-25 11:19 | DS ---
[facility] Detox Discharge Summary Admission Date: 08/21/19 Discharge Date: 08/25/19 - History Present History: Alcohol Dependence, Opioid Dependence Additional Comments: alert,oriented x 3 ambulation without difficulty lung no wheezing no abdominal pain stable for discharge time spending for discharge 30 mins follow up with after care program as arrangement and medical provider for medical problem Pertinent Past History: asthma - Physical Exam Results Vital Signs: Vital Signs Temperature 97.3 F L 08/25/19 06:20 Pulse Rate 79 08/25/19 06:20 Respiratory Rate 18 08/25/19 06:20 Blood Pressure 114/63 08/25/19 06:20 O2 Sat by Pulse Oximetry (%) 99 08/22/19 19:51 Pertinent Admission Physical Exam Findings: withdrawal signs and symptom Laboratory Last Values WBC 10.5 K/mm3 (4.0-10.0) H 08/24/19 08:10 RBC 4.62 M/mm3 (3.60-5.2) 08/24/19 08:10 Hgb 12.0 GM/dL (10.7-15.3) 08/24/19 08:10 Hct 38.0 % (32.4-45.2) 08/24/19 08:10 MCV 82.3 fl (80-96) 08/24/19 08:10 MCH 26.0 pg (25.7-33.7) 08/24/19 08:10 MCHC 31.6 g/dl (32.0-36.0) L 08/24/19 08:10 RDW 15.2 % (11.6-15.6) 08/24/19 08:10 Plt Count 261 K/MM3 (134-434) 08/24/19 08:10 MPV 9.1 fl (7.5-11.1) 08/24/19 08:10 Absolute Neuts (auto) 5.8 K/mm3 (1.5-8.0) 08/24/19 08:10 Neutrophils % 55.2 % (42.8-82.8) 08/24/19 08:10 Lymphocytes % 29.8 % (8-40) 08/24/19 08:10 Monocytes % 4.2 % (3.8-10.2) 08/24/19 08:10 Eosinophils % 10.2 % (0-4.5) H 08/24/19 08:10 Basophils % 0.6 % (0-2.0) 08/24/19 08:10 Nucleated RBC % 0 % (0-0) 08/24/19 08:10 Sodium 138 mmol/L (136-145) 08/22/19 08:00 Potassium 4.0 mmol/L (3.5-5.1) 08/22/19 08:00 Chloride 101 mmol/L (98-107) 08/22/19 08:00 Carbon Dioxide 29 mmol/L (21-32) 08/22/19 08:00 Anion Gap 7 MMOL/L (8-16) L 08/22/19 08:00 BUN 9.3 mg/dL (7-18) 08/22/19 08:00 Creatinine 0.8 mg/dL (0.55-1.3) 08/22/19 08:00 Est GFR (CKD-EPI)AfAm 97.55 08/22/19 08:00 Est GFR (CKD-EPI)NonAf 84.17 08/22/19 08:00 POC Glucometer 235 UNITS (80-120) 08/25/19 06:49 Random Glucose 133 mg/dL (74-106) H 08/22/19 08:00 Calcium 9.0 mg/dL (8.5-10.1) 08/22/19 08:00 Total Bilirubin 0.4 mg/dL (0.2-1) 08/22/19 08:00 AST 24 U/L (15-37) 08/22/19 08:00 ALT 63 U/L (13-61) H 08/22/19 08:00 Alkaline Phosphatase 147 U/L (45-117) H 08/22/19 08:00 Total Protein 7.6 g/dl (6.4-8.2) 08/22/19 08:00 Albumin 3.5 g/dl (3.4-5.0) 08/22/19 08:00 RPR Titer Nonreactive (NONREACTIVE) 08/22/19 08:00 - Treatment Hospital Course: Detox Protocol Followed, Detoxed Safely, Responded well, Discharged Condition Good Patient has Accepted a Rehab Referral to: declined - Medication Discharge Medications: Ambulatory Orders Docusate Sodium 100 mg PO TID PRN 10/27/18 Omeprazole 40 mg PO DAILY 10/27/18 Multivitamin [Multiple Vitamins] 1 each PO DAILY 11/29/18 Sertraline HCl [Zoloft -] 50 mg PO DAILY 04/20/19 Cholecalciferol (Vitamin D3) [Vitamin D3 -] 2,000 unit PO DAILY 05/17/19 Albuterol Sulfate Inhaler - [Ventolin HFA Inhaler -] 2 inh PO Q6H PRN #1 inhaler 07/15/19 Budesonide/Formeterol Fumarate [SYMBICORT 160/4.5mcg -] 1 inh PO BID #1 inhaler 07/15/19 Montelukast Na [Singulair -] 10 mg PO HS PRN #30 tablet 07/15/19 Metformin HCl [Glucophage] 500 mg PO AM 08/21/19 - Diagnosis (1) Alcohol dependence with uncomplicated withdrawal Current Visit: Yes Status: Acute (2) Opioid dependence with withdrawal Current Visit: Yes Status: Acute (3) Asthma Current Visit: Yes Status: Chronic Qualifiers: Asthma severity: mild Asthma persistence: intermittent Asthma complication type: with status asthmaticus Qualified Code(s): J45.22 - Mild intermittent asthma with status asthmaticus (4) DM type 2 (diabetes mellitus, type 2) Current Visit: Yes Status: Chronic Qualifiers: Diabetes mellitus chcf insulin use: without chcf use Diabetes mellitus complication status: without complication Qualified Code(s): E11.9 - Type 2 diabetes mellitus without complications (5) Essential hypertension Current Visit: Yes Status: Chronic - AMA Did Patient Leave Against Medical Advice: No
== END 2019-08-25 08:57 | disposition home or self-care (01) | DRG 773 ==
LOC: YASAS 10:56 → Y6N 13:00
PROVIDERS: ADMIT Allergy & Immunology; ATTEND Allergy & Immunology
PROC: HZ2ZZZZ Detoxification Services for Substance Abuse Treatment (ICD-10-PCS; principal; 2019-08-21)
DX: F10.230 Alcohol dependence with withdrawal, uncomplicated (principal); F11.23 Opioid dependence with withdrawal; F19.282 Other psychoactive substance dependence with psychoactive substance-induced sleep disorder; F19.24 Other psychoactive substance dependence with psychoactive substance-induced mood disorder; F51.05 Insomnia due to other mental disorder; F32.9 Major depressive disorder, single episode, unspecified; I10 Essential (primary) hypertension; J45.22 Mild intermittent asthma with status asthmaticus; K21.9 Gastro-esophageal reflux disease without esophagitis; E11.9 Type 2 diabetes mellitus without complications; Z79.84 Long term (current) use of oral hypoglycemic drugs; M17.0 Bilateral primary osteoarthritis of knee; M19.072 Primary osteoarthritis, left ankle and foot; M19.071 Primary osteoarthritis, right ankle and foot; R30.0 Dysuria; Z88.2 Allergy status to sulfonamides; Z90.49 Acquired absence of other specified parts of digestive tract
CPT/HCPCS: 36415; 80053; 82962; 85025; 85027; 86593; 94640; J0735

== ENCOUNTER 2020-02-02 08:11 | Inpatient (IN) | payer OTHER ==
--- NOTE | 2020-02-02 08:25 | BHS.RME ---
Substance Use & Tx History - Substance Use History Alcohol Substance amount: 1/5 Whiskey, 3 liters of wine Frequency of use: Daily Substance route: Oral Date of Last Use: 02/01/20 (First use age 16 y. Seizure many decades ago. Many blackouts, last was 2 days ago. 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 No Od. Has Narcan at home) - Last Treatment Date of last treatment: 12/04 to 12/10/19 Treatment type: Substance Use Disorder (VIGNESH) Where was last treatment: Detox Physical/Psych/Mental Status - Behavior General Behavior: Increased activity (restlessness, agitation) Eye Contact: Normal - Cooperativeness Cooperativeness: Cooperative - Thinking Thought Processes: Tight Thought content: Future oriented - Physical Health Problems Is patient presently having any pain?: No Does patient presently have any injuries (include location): No Does patient currently have a fever: No CIWA Nausea/Vomitin-Mild Nausea/No Vomiting Muscle Tremors: 3 Anxiety: 3 Agitation: 0-Normal Activity Paroxysmal Sweats: 3 Orientation: 0-Oriented Tacttile Disturbances: 0-None Auditory Disturbances: 1-Very Mild Visual Disturbances: 1-Very Mild Sensitivity Headache: 4-Moderately Severe CIWA-Ar Total Score: 16
--- NOTE | 2020-02-02 08:42 | HP ---
COWS - Scale Resting Pulse: 0= [place] 80 or Below Sweatin=Flushed/Facial Moisture Restless Observation: 1= Difficult to Sit Still Pupil Size: 0= Normal to Room Light Bone or Joint Aches: 1= Mild Discomfort Runny Nose/ Eye Tearin= Nasal Congestion GI Upset > 30mins: 1= Stomach Cramp Tremor Observation: 2= Slight Tremor Visible Yawning Observation: 0= None Anxiety or Irritability: 1=Feels Anxious/Irritable Goose Flesh Skin: 0=Smooth Skin COWS Score: 9 CIWA Score Nausea/Vomitin-Mild Nausea/No Vomiting Muscle Tremors: 3 Anxiety: 3 Agitation: 0-Normal Activity Paroxysmal Sweats: 3 Orientation: 0-Oriented Tacttile Disturbances: 0-None Auditory Disturbances: 1-Very Mild Visual Disturbances: 1-Very Mild Sensitivity Headache: 4-Moderately Severe CIWA-Ar Total Score: 16 - Admission Criteria OASAS Guidelines: Admission for Medically Managed Detox: Requires at least one of the followin. CIWA greater than 12 2. Seizures within the past 24 hours 3. Delirium tremens within the past 24 hours 4. Hallucinations within the past 24 hours 5. Acute intervention needed for co occurring medical disorder 6. Acute intervention needed for co occurring psychiatric disorder 7. Severe withdrawal that cannot be handled at a lower level of care (continued vomiting, continued diarrhea, abnormal vital signs) requiring intravenous medication and/or fluids 8. Admitting History and Physical - Admission Chief Complaint: Ms. Sweet presents to [facility] requesting detox admission for alcohol and heroin use. History of Present Illness: Ms. Sweet presents to [facility] requesting detox admission for alcohol and heroin use. She would like to go to Rehab after this admission. She relapsed 9-14 days ago. She has been referred to a Suboxone program after a prior visit here, however, she states that there has been an insurance problem that has prevented her from getting on Suboxone. PMH:DM, asthma, chronic arthritis PSH: Cholecystectomy SOC: lives in her own place Legal: none Psych: depression Substance Use History Alcohol Substance amount: 1/5 Whiskey, 3 liters of wine Frequency of use: Daily Substance route: Oral Date of Last Use: 02/01/20 (First use age 16 y. Seizure many decades ago. Many blackouts, last was 2 days ago. 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 No Od. Has Narcan at home) - Last Treatment Date of last treatment: 12/04 to 12/10/19 Treatment type: Substance Use Disorder (VIGNESH) Where was last treatment: Detox History Source: Patient Limitations to Obtaining History: No Limitations - Past Medical History Cardiovascular: Yes: HTN Pulmonary: Yes: Asthma Gastrointestinal: Yes: GERD ...LMP: 10/06/19 Psych: Yes: Anxiety, Depression Endocrine: Yes: Diabetes Mellitus - Past Surgical History Past Surgical History: Yes: Cholecystectomy - Smoking History Smoking history: Never smoked Have you smoked in the past 12 months: No Aproximately how many cigarettes per day: 0 - Alcohol/Substance Use Hx Alcohol Use: Yes History of Substance Use: reports: Heroin - Social History ADL: Independent Occupation: retired History of Recent Travel: No Admission ROS S - HPI Allergies/Adverse Reactions: Allergies Allergy/AdvReac Type Severity Reaction Status Date / Time sulfamethoxazole AdvReac Severe Swelling Verified 12/05/19 09:07 [From Bactrim] trimethoprim [From Bactrim] AdvReac Severe Swelling Verified 12/05/19 09:07 Exam Limitations: No Limitations - Ebola screening Have you traveled outside of the country in the last 21 days: No Have you been sick,other than usual withdrawal symptoms: No Do you have a fever: No - Review of Systems Constitutional: Changes in sleep (chronic insomnia) EENT: reports: No Symptoms Reported, Other (light sensitive) Respiratory: reports: No Symptoms reported Cardiac: reports: No Symptoms Reported GI: reports: Nausea : reports: No Symptoms Reported Musculoskeletal: reports: Back Pain Integumentary: reports: No Symptoms Reported Neuro: reports: No Symptoms reported Endocrine: reports: No Symptoms Reported Hematology: reports: No Symptoms Reported Psychiatric: reports: Anxious Patient History - Patient Medical History Hx Anemia: No Hx Asthma: Yes (on pumps) Hx Chronic Obstructive Pulmonary Disease (COPD): No Hx Cancer: No Hx Cardiac Disorders: No Hx Congestive Heart Failure: No Hx Hypertension: Yes (no meds) Hx Hypercholesterolemia: No Hx Pacemaker: No HX Cerebrovascular Accident: No Hx Seizures: No Hx Dementia: No Hx Diabetes: Yes (on metformin) Hx Gastrointestinal Disorders: Yes (GERD) Hx Liver Disease: No Hx Genitourinary Disorders: No Hx Sexually Transmitted Disorders: No Hx Renal Disease (ESRD): No Hx Thyroid Disease: No Hx Human Immunodeficiency Virus (HIV): No (last 06/2019) Hx Hepatitis C: No Hx Depression: Yes Hx Suicide Attempt: Yes (as a child at age of 16 overdose) Hx Bipolar Disorder: No Hx Schizophrenia: No - Patient Surgical History Past Surgical History: Yes Hx Neurologic Surgery: No Hx Cataract Extraction: No Hx Cardiac Surgery: No Hx Lung Surgery: No Hx Breast Surgery: No Hx Breast Biopsy: No Hx Abdominal Surgery: No Hx Appendectomy: No Hx Cholecystectomy: Yes (lap cholecystectomy in 2002 ) Hx Genitourinary Surgery: No Hx Section: No Hx Orthopedic Surgery: Yes (fx of both ankles) Anesthesia Reaction: No - PPD History Date: 12/07/19 Results: 0 mm - Reproductive History Last Menstrual Period: 10/06/19 - Smoking Cessation Smoking history: Never smoked Have you smoked in the past 12 months: No Aproximately how many cigarettes per day: 0 Cigars Per Day: 0 Hx Chewing Tobacco Use: No Initiated information on smoking cessation: No - Substances abused Alcohol Substance route: Oral Frequency: Daily Amount used: 3bottle of wine and 5th of vodka Age of first use: 16 Date of last use: 02/01/20 Heroin Substance route: Inhalation Frequency: Daily Amount used: $110 Age of first use: 52 Date of last use: 02/02/20 Admission Physical Exam S - Physical General Appearance: Yes: No Apparent Distress, Nourished, Mild Distress, Anxious HEENTM: Yes: EOMI, Hearing grossly Normal, Normocephalic, Normal Voice Respiratory: Yes: No Accessory Muscle Use, Wheezing Neck: Yes: Within Normal Limits, Supple Breast: Yes: Breast Exam Deferred Cardiology: Yes: Regular Rhythm, Regular Rate, S1, S2 Abdominal: Yes: Normal Bowel Sounds, Soft, Protuberent, Tenderness (mild diffuse) Genitourinary: Yes: Other (deferred) Back: Yes: Normal Inspection Musculoskeletal: Yes: Gait Steady Extremities: Yes: Normal Inspection, Non-Tender Neurological: Yes: Alert, Normal Mood/Affect, Normal Response Integumentary: Yes: Normal Color, Dry, Warm - Diagnostic (1) Alcohol dependence with uncomplicated withdrawal Current Visit: Yes Status: Acute (2) Opioid dependence with withdrawal Current Visit: Yes Status: Acute (3) Arthritis Current Visit: No Status: Chronic (4) Asthma Current Visit: Yes Status: Chronic Qualifiers: Asthma severity: mild Asthma persistence: intermittent (5) DM type 2 (diabetes mellitus, type 2) Current Visit: Yes Status: Chronic Qualifiers: Diabetes mellitus 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 Diabetes mellitus complication status: with other specified complication Qualified Code(s): E11.69 - Type 2 diabetes mellitus with other specified complication (6) Depression Current Visit: Yes Status: Chronic Cleared for Admission S - Detox or Rehab [facility] Level of Care: Medically Managed Detox Regimen/Protocol: Methadone/Librium Breathalyzer - Breathalyzer Breathalyzer: 0 POC Urine test - Test device test lot number: [id number] Expiration date: 03/12/20 - Control test control: Yes Urine Drug Screen - Test Device Lot number: [id number] Expiration date: 03/12/25 - Control Is test valid?: Yes - Results Drug screen NEGATIVE: No Urine drug screen results: FEN-Fentanyl, MOP-Opiates, BZO-Benzodiazepines Inpatient Rehab Admission - Rehab Decision to Admit Inpatient rehab admission?: No
[2020-02-02 08:49] VITALS: BMI 39.8
[2020-02-02] MEDS ORDERED: MAGNESIUM HYDROX 2400MG/30ML ORAL SUSPENSION 30 ML CUP PO PRN (09:04)
[2020-02-02] MEDS ORDERED: BISMUTH SUBSALICYLATE 524 MG/30 ML UD PO PRN (09:04)
[2020-02-02] MEDS ORDERED: chlordiazePOXIDE HCL 25 MG CAPSULE PO PRN (09:04)
[2020-02-02] MEDS ORDERED: MAG HYDROX/AL HYDROX/SIMETH 30 ML UNIT-DOSE CUP PO PRN (09:04)
[2020-02-02] MEDS ORDERED: METHADONE HCL 10 MG TABLET (FOR DETOX USE ONLY) PO ONE (09:04)
[2020-02-02] MEDS ORDERED: ONDANSETRON *ODT* 4 MG TABLET SL PRN (09:04)
[2020-02-02] MEDS ORDERED: MENTHOL/PHENOL 1 EACH UD MM PRN (09:04)
[2020-02-02] MEDS ORDERED: IBUPROFEN 400 MG TABLET (FP) PO PRN (09:04)
[2020-02-02] MEDS ORDERED: cloNIDine HCL 0.1 MG TABLET PO PRN (09:04)
[2020-02-02] MEDS ORDERED: MAGNESIUM CITRATE 300 ML BOTTLE PO PRN (09:04)
[2020-02-02] MEDS ORDERED: ACETAMINOPHEN 325 MG TABLET (FP) PO PRN ×2 (09:04)
[2020-02-02] MEDS ORDERED: ALBUTEROL SO4 HFA INHALER IH PRN (09:19)
[2020-02-02] MEDS ORDERED: DOCUSATE SODIUM 100 MG CAPSULE (FP) PO PRN (09:19)
[2020-02-02] MEDS ORDERED: COLLOIDAL OATMEAL 1 BAR EACH TP PRN (09:21)
[2020-02-02] MEDS ORDERED: BUMETANIDE 0.5 MG TABLET PO PRN (09:33)
[2020-02-02] MEDS ORDERED: LORATADINE 10 MG TABLET PO PRN (09:33)
[2020-02-02] MEDS: metFORMIN HCL 500 MG TABLET (FP) PO SCH ×2 (11:10→17:51)
[2020-02-02] MEDS: BUDESONIDE/FORMETEROL FUMARATE 160/4.5 mcg INHALER IH SCH ×2 (11:11→22:35)
[2020-02-02] MEDS: PANTOPRAZOLE 40 MG TABLET PO SCH (11:11)
[2020-02-02] MEDS: chlordiazePOXIDE HCL 25 MG CAPSULE PO SCH ×3 (11:11→22:36)
[2020-02-02] MEDS: PRENATAL VITAMINS W/ FOLIC ACID TABLET (FP) PO SCH (11:11)
[2020-02-02] MEDS: hydrOXYzine PAMOATE 25 MG CAPSULE (FP) PO SCH ×4 (11:12→22:36)
[2020-02-02] MEDS: SPIRONOLACTONE 25 MG TABLET PO SCH ×2 (11:13→22:36)
[2020-02-02] MEDS ORDERED: ALBUTEROL SO4 HFA INHALER IH ONE (11:18)
--- NOTE | 2020-02-02 12:14 | EKG ---
Test Reason : Blood Pressure : / mmHG Vent. Rate : 076 BPM Atrial Rate : 076 BPM P-R Int : 140 ms QRS Dur : 078 ms QT Int : 382 ms P-R-T Axes : 076 056 019 degrees QTc Int : 429 ms NORMAL SINUS RHYTHM NORMAL ECG WHEN COMPARED WITH ECG OF 05-DEC-2019 09:10, NO SIGNIFICANT CHANGE WAS FOUND Confirmed by ABIGAIL HOLT MD ([id number]) on 02/02/2020 12:13:47 PM Referred By: Confirmed By:ABIGAIL HOLT MD
[2020-02-02] MEDS ORDERED: COLLOIDAL OATMEAL 1 BAR EACH TP ONE (12:30)
[2020-02-02] MEDS: ALOGLIPTIN BENZOATE 25 MG PO SCH (13:06)
[2020-02-02 14:17] LABS: HEMATOCRIT 37.8 % (32.4-45.2); HEMOGLOBIN 11.6 GM/dL (10.7-15.3); MCH 25.3 pg (25.7-33.7); MCHC 30.8 g/dl (32.0-36.0); MEAN CELL VOLUME 82.2 fl (80-96); MEAN PLT VOLUME 9.3 fl (7.5-11.1); PLATELET COUNT 294 K/MM3 (134-434); RDW 15.5 % (11.6-15.6); WHITE BLOOD COUNT 12.4 K/mm3 (4.0-10.0)
[2020-02-02 14:39] LABS: BLOOD UREA NITROGEN 12.9 mg/dL (7-18); CALCIUM 8.9 mg/dL (8.5-10.1)
[2020-02-02 14:45] LABS: ALBUMIN 3.5 g/dl (3.4-5.0); BILIRUBIN,TOTAL 0.4 mg/dL (0.2-1); CREATININE 0.8 mg/dL (0.55-1.3); TOT PROT 7.7 g/dl (6.4-8.2)
[2020-02-02] MEDS: METHOCARBAMOL 500 MG TABLET PO PRN (18:55)
[2020-02-02] MEDS: THIAMINE HCL 100 MG TABLET (FP) PO SCH (22:36)
[2020-02-02] MEDS: MELATONIN 5 MG TABLETS PO SCH (22:36)
[2020-02-02] MEDS: ALBUTEROL SO4 HFA INHALER IH PRN (22:37)
[2020-02-02] MEDS: MONTELUKAST NA 10 MG TABLET PO SCH (22:37)
[2020-02-03] MEDS: chlordiazePOXIDE HCL 25 MG CAPSULE PO SCH ×4 (05:49→22:16)
[2020-02-03] MEDS: hydrOXYzine PAMOATE 25 MG CAPSULE (FP) PO SCH ×5 (05:49→22:15)
[2020-02-03] MEDS: metFORMIN HCL 500 MG TABLET (FP) PO SCH ×2 (06:29→17:34)
[2020-02-03] MEDS ORDERED: MASKS NR ONE (07:40)
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
[2020-02-03] MEDS ORDERED: METHADONE HCL 5 MG TABLET (FOR DETOX USE ONLY) ONE (09:47)
[2020-02-03] MEDS ORDERED: METHADONE HCL 10 MG TABLET (FOR DETOX USE ONLY) ONE (09:47)
[2020-02-03] MEDS ORDERED: METHADONE (DETOX) 20 MG, METHADONE (DETOX) 5 MG PO ONE (10:00)
[2020-02-03] MEDS: SPIRONOLACTONE 25 MG TABLET PO SCH ×2 (11:20→22:16)
[2020-02-03] MEDS: PRENATAL VITAMINS W/ FOLIC ACID TABLET (FP) PO SCH (11:20)
[2020-02-03] MEDS: SERTRALINE HCL 50 MG TABLET (FP) PO SCH (11:20)
[2020-02-03] MEDS: PANTOPRAZOLE 40 MG TABLET PO SCH (11:20)
[2020-02-03] MEDS: ALOGLIPTIN BENZOATE 25 MG PO SCH (11:24)
[2020-02-03] MEDS: BUDESONIDE/FORMETEROL FUMARATE 160/4.5 mcg INHALER IH SCH ×2 (11:26→22:16)
--- NOTE | 2020-02-03 12:05 | PN ---
[facility] CIWA - CIWA Score Nausea/Vomitin-No Nausea/No Vomiting Muscle Tremors: 3 Anxiety: 3 Agitation: 3 Paroxysmal Sweats: 2 Orientation: 0-Oriented Tacttile Disturbances: 0-None Auditory Disturbances: 0-None Visual Disturbances: 0-None Headache: 0-None Present CIWA-Ar Total Score: 11 BHS COWS - Scale Resting Pulse: 1= [place] 81-100 Sweatin= Chills/Flushing Restless Observation: 1= Difficult to Sit Still Pupil Size: 0= Normal to Room Light Bone or Joint Aches: 1= Mild Discomfort Runny Nose/ Eye Tearin= Nasal Congestion GI Upset > 30mins: 0= None Tremor Observation of Outstretched Hands: 1= Tremor [place], Not Seen Yawning Observation: 1= 1-2x During Session Anxiety or Irritability: 2=Irritable/Anxious Goose Flesh Skin: 0=Smooth Skin COWS Score: 9 S Progress Note (SOAP) Subjective: sweats shakes achy feet agitation body aches Objective: 02/03/20 12:04 Vital Signs Temperature 97.1 F L 02/03/20 08:51 Pulse Rate 87 02/03/20 08:51 Respiratory Rate 20 02/03/20 08:51 Blood Pressure 127/80 02/03/20 08:51 O2 Sat by Pulse Oximetry (%) 96 02/03/20 08:51 Laboratory Tests 02/02/20 02/02/20 02/02/20 09:15 09:15 09:15 WBC 12.4 H RBC 4.60 Hgb 11.6 Hct 37.8 MCV 82.2 MCH 25.3 L MCHC 30.8 L RDW 15.5 Plt Count 294 MPV 9.3 Sodium 137 Potassium 4.0 Chloride 102 Carbon Dioxide 29 Anion Gap 7 L BUN 12.9 Creatinine 0.8 Est GFR (CKD-EPI)AfAm 96.87 Est GFR (CKD-EPI)NonAf 83.58 POC Glucometer Random Glucose 170 H Calcium 8.9 Total Bilirubin 0.4 AST 14 L ALT 27 Alkaline Phosphatase 112 Total Protein 7.7 Albumin 3.5 Syphilis Serology HIV Ag/Ab Combo Qual Negative 02/02/20 02/02/20 02/02/20 09:15 09:19 16:59 WBC RBC Hgb Hct MCV MCH MCHC RDW Plt Count MPV Sodium Potassium Chloride Carbon Dioxide Anion Gap BUN Creatinine Est GFR (CKD-EPI)AfAm Est GFR (CKD-EPI)NonAf POC Glucometer 181 187 Random Glucose Calcium Total Bilirubin AST ALT Alkaline Phosphatase Total Protein Albumin Syphilis Serology Non-reactive HIV Ag/Ab Combo Qual 02/03/20 05:48 WBC RBC Hgb Hct MCV MCH MCHC RDW Plt Count MPV Sodium Potassium Chloride Carbon Dioxide Anion Gap BUN Creatinine Est GFR (CKD-EPI)AfAm Est GFR (CKD-EPI)NonAf POC Glucometer 139 Random Glucose Calcium Total Bilirubin AST ALT Alkaline Phosphatase Total Protein Albumin Syphilis Serology HIV Ag/Ab Combo Qual labs noted elevated WBC will repeat lab aaox3 ambulating no acute distress Assessment: 02/03/20 12:04 withdrawals Plan: continue detox repeat labs
[2020-02-03] MEDS ORDERED: COLLOIDAL OATMEAL 1 BAR EACH TP ONE (14:30)
[2020-02-03] MEDS: METHOCARBAMOL 500 MG TABLET PO PRN (15:48)
[2020-02-03] MEDS ORDERED: SUVOREXANT 15 MG TABLET PO PRN (22:00)
[2020-02-03] MEDS: THIAMINE HCL 100 MG TABLET (FP) PO SCH (22:15)
[2020-02-03] MEDS: MONTELUKAST NA 10 MG TABLET PO SCH (22:15)
[2020-02-03] MEDS: ALBUTEROL SO4 HFA INHALER IH PRN (22:16)
[2020-02-03] MEDS: MELATONIN 5 MG TABLETS PO SCH (22:16)
[2020-02-04] MEDS: chlordiazePOXIDE HCL 25 MG CAPSULE PO SCH ×4 (05:36→22:06)
[2020-02-04] MEDS: hydrOXYzine PAMOATE 25 MG CAPSULE (FP) PO SCH ×5 (05:36→22:06)
[2020-02-04] MEDS: metFORMIN HCL 500 MG TABLET (FP) PO SCH ×2 (06:20→17:20)
[2020-02-04] MEDS ORDERED: METHADONE HCL 10 MG TABLET (FOR DETOX USE ONLY) PO ONE (10:00)
[2020-02-04] MEDS: ALOGLIPTIN BENZOATE 25 MG PO SCH (10:24)
[2020-02-04] MEDS: SPIRONOLACTONE 25 MG TABLET PO SCH ×2 (10:24→22:05)
[2020-02-04] MEDS: PANTOPRAZOLE 40 MG TABLET PO SCH (10:25)
[2020-02-04] MEDS: SERTRALINE HCL 50 MG TABLET (FP) PO SCH (10:25)
[2020-02-04] MEDS: PRENATAL VITAMINS W/ FOLIC ACID TABLET (FP) PO SCH (10:25)
[2020-02-04] MEDS: BUDESONIDE/FORMETEROL FUMARATE 160/4.5 mcg INHALER IH SCH ×2 (10:26→22:06)
--- NOTE | 2020-02-04 13:53 | PN ---
[facility] CIWA - CIWA Score Nausea/Vomitin-No Nausea/No Vomiting Muscle Tremors: 2 Anxiety: 2 Agitation: 1-Slight > Activity Paroxysmal Sweats: 2 Orientation: 0-Oriented Tacttile Disturbances: 0-None Auditory Disturbances: 2-Mild Harshness/Frighten Visual Disturbances: 0-None Headache: 0-None Present CIWA-Ar Total Score: 9 [facility] COWS - Scale Resting Pulse: 1= [place] 81-100 Sweatin= No chills or Flushing Restless Observation: 0= Sits Still Pupil Size: 0= Normal to Room Light Bone or Joint Aches: 2= Severe Diffuse Aches Runny Nose/ Eye Tearin= None GI Upset > 30mins: 0= None Tremor Observation of Outstretched Hands: 2= Slight Tremor Visible Yawning Observation: 0= None Anxiety or Irritability: 2=Irritable/Anxious Goose Flesh Skin: 0=Smooth Skin COWS Score: 7 [facility] Progress Note (SOAP) Subjective: Complaints of weakness, back pain, anxiety,agitation, sweats, body aches and shakes. Objective: 02/04/20 13:51 Vital Signs 02/04/20 08:43 Temperature 97.1 F L Pulse Rate 81 Respiratory 18 Rate Blood Pressure 141/81 O2 Sat by Pulse 98 Oximetry (%) Laboratory Last Values WBC 12.4 K/mm3 (4.0-10.0) H 02/02/20 09:15 RBC 4.60 M/mm3 (3.60-5.2) 02/02/20 09:15 Hgb 11.6 GM/dL (10.7-15.3) 02/02/20 09:15 Hct 37.8 % (32.4-45.2) 02/02/20 09:15 MCV 82.2 fl (80-96) 02/02/20 09:15 MCH 25.3 pg (25.7-33.7) L 02/02/20 09:15 MCHC 30.8 g/dl (32.0-36.0) L 02/02/20 09:15 RDW 15.5 % (11.6-15.6) 02/02/20 09:15 Plt Count 294 K/MM3 (134-434) 02/02/20 09:15 MPV 9.3 fl (7.5-11.1) 02/02/20 09:15 Sodium 137 mmol/L (136-145) 02/02/20 09:15 Potassium 4.0 mmol/L (3.5-5.1) 02/02/20 09:15 Chloride 102 mmol/L (98-107) 02/02/20 09:15 Carbon Dioxide 29 mmol/L (21-32) 02/02/20 09:15 Anion Gap 7 MMOL/L (8-16) L 02/02/20 09:15 BUN 12.9 mg/dL (7-18) 02/02/20 09:15 Creatinine 0.8 mg/dL (0.55-1.3) 02/02/20 09:15 Est GFR (CKD-EPI)AfAm 96.87 02/02/20 09:15 Est GFR (CKD-EPI)NonAf 83.58 02/02/20 09:15 POC Glucometer 162 UNITS (80-120) 02/04/20 05:35 Random Glucose 170 mg/dL (74-106) H 02/02/20 09:15 Calcium 8.9 mg/dL (8.5-10.1) 02/02/20 09:15 Total Bilirubin 0.4 mg/dL (0.2-1) 02/02/20 09:15 AST 14 U/L (15-37) L 02/02/20 09:15 ALT 27 U/L (13-61) 02/02/20 09:15 Alkaline Phosphatase 112 U/L (45-117) 02/02/20 09:15 Total Protein 7.7 g/dl (6.4-8.2) 02/02/20 09:15 Albumin 3.5 g/dl (3.4-5.0) 02/02/20 09:15 Syphilis Serology Non-reactive (NONREACTIVE) 02/02/20 09:15 COVID-19 ([facility]) Not detected (Not Detected) 02/02/20 10:30 HIV Ag/Ab Combo Qual Negative (NEGATIVE) 02/02/20 09:15 Labs reviewed. Assessment: 02/04/20 13:52 Alert and oriented x3, in no acute respiratory distress. Full ROM, ambulatory without assistance. Skin warm to touch , flushed. Withdrawal symptoms. Plan: Continue detox protocol.
[2020-02-04] MEDS: THIAMINE HCL 100 MG TABLET (FP) PO SCH (22:05)
[2020-02-04] MEDS: MONTELUKAST NA 10 MG TABLET PO SCH (22:05)
[2020-02-04] MEDS: MELATONIN 5 MG TABLETS PO SCH (22:06)
[2020-02-04] MEDS: ALBUTEROL SO4 HFA INHALER IH PRN (22:06)
[2020-02-05] MEDS ORDERED: chlordiazePOXIDE HCL 10 MG CAPSULE PO PRN
[2020-02-05] MEDS: hydrOXYzine PAMOATE 25 MG CAPSULE (FP) PO SCH ×5 (05:47→22:15)
[2020-02-05] MEDS: chlordiazePOXIDE HCL 10 MG CAPSULE PO SCH ×4 (05:48→22:14)
[2020-02-05] MEDS: metFORMIN HCL 500 MG TABLET (FP) PO SCH ×2 (06:07→16:43)
[2020-02-05] MEDS ORDERED: METHADONE HCL 10 MG TABLET (FOR DETOX USE ONLY) ONE (08:53)
[2020-02-05] MEDS ORDERED: METHADONE HCL 5 MG TABLET (FOR DETOX USE ONLY) ONE (08:53)
[2020-02-05] MEDS ORDERED: METHADONE (DETOX) 10 MG, METHADONE (DETOX) 5 MG PO ONE (10:00)
[2020-02-05] MEDS: ALOGLIPTIN BENZOATE 25 MG PO SCH (10:13)
[2020-02-05] MEDS: SPIRONOLACTONE 25 MG TABLET PO SCH ×2 (10:13→21:47)
[2020-02-05] MEDS: PRENATAL VITAMINS W/ FOLIC ACID TABLET (FP) PO SCH (10:14)
[2020-02-05] MEDS: PANTOPRAZOLE 40 MG TABLET PO SCH (10:14)
[2020-02-05] MEDS: BUDESONIDE/FORMETEROL FUMARATE 160/4.5 mcg INHALER IH SCH ×2 (10:14→21:49)
[2020-02-05] MEDS: SERTRALINE HCL 50 MG TABLET (FP) PO SCH (10:14)
[2020-02-05 10:22] LABS: BASO % 0.7 % (0-2.0); EOS % 8.9 % (0-4.5); HEMATOCRIT 35.6 % (32.4-45.2); HEMOGLOBIN 10.9 GM/dL (10.7-15.3); LYMPH % 28.5 % (8-40); MCHC 30.6 g/dl (32.0-36.0); MEAN CELL VOLUME 81.8 fl (80-96); MEAN PLT VOLUME 9.5 fl (7.5-11.1); MONO % 3.6 % (3.8-10.2); NEUT % 58.3 % (42.8-82.8); PLATELET COUNT 303 K/MM3 (134-434); RBC 4.36 M/mm3 (3.60-5.2); RDW 15.4 % (11.6-15.6); WHITE BLOOD COUNT 12.6 K/mm3 (4.0-10.0)
[2020-02-05] MEDS: METHOCARBAMOL 500 MG TABLET PO PRN (11:10)
[2020-02-05] MEDS ORDERED: COLLOIDAL OATMEAL 1 BAR EACH TP PRN (11:41)
[2020-02-05] MEDS ORDERED: COLLOIDAL OATMEAL 1 BAR EACH TP ONE (11:41)
[2020-02-05] MEDS: NAPROXEN 500 MG TABLET PO PRN (13:59)
--- NOTE | 2020-02-05 14:44 | PN ---
[facility] CIWA - CIWA Score Nausea/Vomitin-No Nausea/No Vomiting Muscle Tremors: 2 Anxiety: 2 Agitation: 2 Paroxysmal Sweats: No Perspiration Orientation: 0-Oriented Tacttile Disturbances: 0-None Auditory Disturbances: 0-None Visual Disturbances: 0-None Headache: 0-None Present CIWA-Ar Total Score: 6 [facility] COWS - Scale Resting Pulse: 1= [place] 81-100 Sweatin= No chills or Flushing Restless Observation: 0= Sits Still Pupil Size: 0= Normal to Room Light Bone or Joint Aches: 1= Mild Discomfort Runny Nose/ Eye Tearin= None GI Upset > 30mins: 1= Stomach Cramp Tremor Observation of Outstretched Hands: 2= Slight Tremor Visible Yawning Observation: 0= None Anxiety or Irritability: 1=Feels Anxious/Irritable Goose Flesh Skin: 0=Smooth Skin COWS Score: 6 [facility] Progress Note (SOAP) Subjective: Sweating, stomachache, diarrhea started yesterday but getting better, feels weak/tired because not eating the food as it is too much starch and should be getting diabetic diet. Request motrin 800mg prn chronic pain, agree to have motrin changed to naproxen bid prn as she is diabetic and NSAIDs can damage kidneys. Said she had blood draw this morning and not sure of the reason but that she has h/o leukocytosis, took antibiotic last week for lung infection (infection after sniffing stuff), gets lots of yeast infection. 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 Objective: 02/05/20 14:44 Last Vital Signs Temp Pulse Resp BP Pulse Ox 97.6 F 84 19 156/89 100 02/05/20 12:59 02/05/20 12:59 02/05/20 12:59 02/05/20 12:59 02/05/20 12:59 Elevated b/p, has htn, on med Laboratory Tests 02/02/20 02/02/20 02/02/20 09:15 09:15 09:15 WBC 12.4 H RBC 4.60 Hgb 11.6 Hct 37.8 MCV 82.2 MCH 25.3 L MCHC 30.8 L RDW 15.5 Plt Count 294 MPV 9.3 Absolute Neuts (auto) Neutrophils % Lymphocytes % Monocytes % Eosinophils % Basophils % Nucleated RBC % Sodium 137 Potassium 4.0 Chloride 102 Carbon Dioxide 29 Anion Gap 7 L BUN 12.9 Creatinine 0.8 Est GFR (CKD-EPI)AfAm 96.87 Est GFR (CKD-EPI)NonAf 83.58 POC Glucometer Random Glucose 170 H Calcium 8.9 Total Bilirubin 0.4 AST 14 L ALT 27 Alkaline Phosphatase 112 Total Protein 7.7 Albumin 3.5 Syphilis Serology COVID-19 ([facility]) HIV Ag/Ab Combo Qual Negative 02/02/20 02/02/20 02/02/20 09:15 09:19 10:30 WBC RBC Hgb Hct MCV MCH MCHC RDW Plt Count MPV Absolute Neuts (auto) Neutrophils % Lymphocytes % Monocytes % Eosinophils % Basophils % Nucleated RBC % Sodium Potassium Chloride Carbon Dioxide Anion Gap BUN Creatinine Est GFR (CKD-EPI)AfAm Est GFR (CKD-EPI)NonAf POC Glucometer 181 Random Glucose Calcium Total Bilirubin AST ALT Alkaline Phosphatase Total Protein Albumin Syphilis Serology Non-reactive COVID-19 ([facility]) Not detected HIV Ag/Ab Combo Qual 02/02/20 02/03/20 02/03/20 16:59 05:48 17:02 WBC RBC Hgb Hct MCV MCH MCHC RDW Plt Count MPV Absolute Neuts (auto) Neutrophils % Lymphocytes % Monocytes % Eosinophils % Basophils % Nucleated RBC % Sodium Potassium Chloride Carbon Dioxide Anion Gap BUN Creatinine Est GFR (CKD-EPI)AfAm Est GFR (CKD-EPI)NonAf POC Glucometer 187 139 128 Random Glucose Calcium Total Bilirubin AST ALT Alkaline Phosphatase Total Protein Albumin Syphilis Serology COVID-19 ([facility]) HIV Ag/Ab Combo Qual 02/04/20 02/04/20 02/05/20 05:35 16:45 05:50 WBC RBC Hgb Hct MCV MCH MCHC RDW Plt Count MPV Absolute Neuts (auto) Neutrophils % Lymphocytes % Monocytes % Eosinophils % Basophils % Nucleated RBC % Sodium Potassium Chloride Carbon Dioxide Anion Gap BUN Creatinine Est GFR (CKD-EPI)AfAm Est GFR (CKD-EPI)NonAf POC Glucometer 162 174 223 Random Glucose Calcium Total Bilirubin AST ALT Alkaline Phosphatase Total Protein Albumin Syphilis Serology COVID-19 ([facility]) HIV Ag/Ab Combo Qual 02/05/20 06:45 WBC 12.6 H RBC 4.36 Hgb 10.9 Hct 35.6 MCV 81.8 MCH 25.0 L MCHC 30.6 L RDW 15.4 Plt Count 303 MPV 9.5 Absolute Neuts (auto) 7.3 Neutrophils % 58.3 Lymphocytes % 28.5 Monocytes % 3.6 L Eosinophils % 8.9 H Basophils % 0.7 Nucleated RBC % 0 Sodium Potassium Chloride Carbon Dioxide Anion Gap BUN Creatinine Est GFR (CKD-EPI)AfAm Est GFR (CKD-EPI)NonAf POC Glucometer Random Glucose Calcium Total Bilirubin AST ALT Alkaline Phosphatase Total Protein Albumin Syphilis Serology COVID-19 ([facility]) HIV Ag/Ab Combo Qual Labs reviewed: elevated wbc, elevated glucose noted Assessment: 02/05/20 14:46 Withdrawal sxs Noted with leukocytosis and hyperglycemia Plan: Continue detox Encourage PO water intake Leukocytosis: chronic as per patient, denies any s/sx of infection, send UA/C&S stat, send urine HCG stat and B-HCG serum in AM; obtain chest xray in AM (after result of test, if negative) Patient instructed to follow up with PCP within 1 week post discharge for management of all medical conditions Hyperglycemia due to DMT2: continue diabetic regimen, diet changed to diabetic
[2020-02-05 17:58] LABS: PH,URINE 5.5 (5.0-8.0); URINE APPEARANCE CLEAR; URINE BILIRUBIN NEGATIVE (NEGATIVE); URINE COLOR YELLOW; URINE GLUCOSE (UA) NEGATIVE (NEGATIVE); URINE KETONE NEGATIVE (NEGATIVE); URINE LEUK ESTERASE NEGATIVE (NEGATIVE); URINE NITRITE NEGATIVE (NEGATIVE); URINE PROTEIN NEGATIVE (NEGATIVE)
[2020-02-05] MEDS: THIAMINE HCL 100 MG TABLET (FP) PO SCH (21:47)
[2020-02-05] MEDS: MONTELUKAST NA 10 MG TABLET PO SCH (21:47)
[2020-02-05] MEDS: MELATONIN 5 MG TABLETS PO SCH (21:47)
[2020-02-06] MEDS: chlordiazePOXIDE HCL 10 MG CAPSULE PO SCH ×2 (05:47→17:29)
[2020-02-06] MEDS: hydrOXYzine PAMOATE 25 MG CAPSULE (FP) PO SCH ×2 (05:47→11:35)
[2020-02-06] MEDS: metFORMIN HCL 500 MG TABLET (FP) PO SCH ×2 (06:08→17:29)
[2020-02-06] MEDS: METHOCARBAMOL 500 MG TABLET PO PRN (07:12)
[2020-02-06] MEDS: NAPROXEN 500 MG TABLET PO PRN (07:12)
[2020-02-06] MEDS ORDERED: METHADONE HCL 10 MG TABLET (FOR DETOX USE ONLY) PO ONE (10:00)
[2020-02-06] MEDS: SERTRALINE HCL 50 MG TABLET (FP) PO SCH (10:37)
[2020-02-06] MEDS: SPIRONOLACTONE 25 MG TABLET PO SCH ×2 (10:37→21:50)
[2020-02-06] MEDS: ALOGLIPTIN BENZOATE 25 MG PO SCH (10:38)
[2020-02-06] MEDS: PRENATAL VITAMINS W/ FOLIC ACID TABLET (FP) PO SCH (10:38)
[2020-02-06] MEDS: PANTOPRAZOLE 40 MG TABLET PO SCH (10:38)
[2020-02-06] MEDS: BUDESONIDE/FORMETEROL FUMARATE 160/4.5 mcg INHALER IH SCH ×2 (10:38→21:50)
[2020-02-06] MEDS ORDERED: hydrOXYzine PAMOATE 25 MG CAPSULE (FP) PO PRN (11:39)
--- NOTE | 2020-02-06 11:50 | PN ---
[facility] CIWA - CIWA Score Nausea/Vomitin-No Nausea/No Vomiting Muscle Tremors: 2 Anxiety: 1-Mildly Anxious Agitation: 2 Paroxysmal Sweats: No Perspiration Orientation: 0-Oriented Tacttile Disturbances: 0-None Auditory Disturbances: 0-None Visual Disturbances: 0-None Headache: 0-None Present CIWA-Ar Total Score: 5 [facility] COWS - Scale Resting Pulse: 0= [place] 80 or Below Sweatin= No chills or Flushing Restless Observation: 0= Sits Still Pupil Size: 0= Normal to Room Light Bone or Joint Aches: 2= Severe Diffuse Aches Runny Nose/ Eye Tearin= None GI Upset > 30mins: 0= None Tremor Observation of Outstretched Hands: 0= None Yawning Observation: 0= None Anxiety or Irritability: 1=Feels Anxious/Irritable Goose Flesh Skin: 0=Smooth Skin COWS Score: 3 S Progress Note (SOAP) Subjective: right leg pain. I need my motrin that my own PCP has prescribed to me. why was my motrin discontinued? the other medication that was ordered doses not help my pain only motrin. irritable Objective: 02/06/20 11:46 Vital Signs Temperature 97.1 F L 02/06/20 08:45 Pulse Rate 75 02/06/20 08:45 Respiratory Rate 18 02/06/20 08:45 Blood Pressure 130/79 02/06/20 08:45 O2 Sat by Pulse Oximetry (%) 95 02/06/20 05:36 Laboratory Tests 02/02/20 02/02/20 02/02/20 09:15 09:15 09:15 WBC 12.4 H RBC 4.60 Hgb 11.6 Hct 37.8 MCV 82.2 MCH 25.3 L MCHC 30.8 L RDW 15.5 Plt Count 294 MPV 9.3 Absolute Neuts (auto) Neutrophils % Lymphocytes % Monocytes % Eosinophils % Basophils % Nucleated RBC % Sodium 137 Potassium 4.0 Chloride 102 Carbon Dioxide 29 Anion Gap 7 L BUN 12.9 Creatinine 0.8 Est GFR (CKD-EPI)AfAm 96.87 Est GFR (CKD-EPI)NonAf 83.58 POC Glucometer Random Glucose 170 H Calcium 8.9 Total Bilirubin 0.4 AST 14 L ALT 27 Alkaline Phosphatase 112 Total Protein 7.7 Albumin 3.5 Urine Color Urine Appearance Urine pH Ur Specific [place] Urine Protein Urine Glucose (UA) Urine Ketones Urine Blood Urine Nitrite Urine Bilirubin Urine Urobilinogen Ur Leukocyte Esterase Syphilis Serology COVID-19 ([facility]) HIV Ag/Ab Combo Qual Negative 02/02/20 02/02/20 02/02/20 09:15 09:19 10:30 WBC RBC Hgb Hct MCV MCH MCHC RDW Plt Count MPV Absolute Neuts (auto) Neutrophils % Lymphocytes % Monocytes % Eosinophils % Basophils % Nucleated RBC % Sodium Potassium Chloride Carbon Dioxide Anion Gap BUN Creatinine Est GFR (CKD-EPI)AfAm Est GFR (CKD-EPI)NonAf POC Glucometer 181 Random Glucose Calcium Total Bilirubin AST ALT Alkaline Phosphatase Total Protein Albumin Urine Color Urine Appearance Urine pH Ur Specific [place] Urine Protein Urine Glucose (UA) Urine Ketones Urine Blood Urine Nitrite Urine Bilirubin Urine Urobilinogen Ur Leukocyte Esterase Syphilis Serology Non-reactive COVID-19 ([facility]) Not detected HIV Ag/Ab Combo Qual 02/02/20 02/03/20 02/03/20 16:59 05:48 17:02 WBC RBC Hgb Hct MCV MCH MCHC RDW Plt Count MPV Absolute Neuts (auto) Neutrophils % Lymphocytes % Monocytes % Eosinophils % Basophils % Nucleated RBC % Sodium Potassium Chloride Carbon Dioxide Anion Gap BUN Creatinine Est GFR (CKD-EPI)AfAm Est GFR (CKD-EPI)NonAf POC Glucometer 187 139 128 Random Glucose Calcium Total Bilirubin AST ALT Alkaline Phosphatase Total Protein Albumin Urine Color Urine Appearance Urine pH Ur Specific [place] Urine Protein Urine Glucose (UA) Urine Ketones Urine Blood Urine Nitrite Urine Bilirubin Urine Urobilinogen Ur Leukocyte Esterase Syphilis Serology COVID-19 ([facility]) HIV Ag/Ab Combo Qual 02/04/20 02/04/20 02/05/20 05:35 16:45 05:50 WBC RBC Hgb Hct MCV MCH MCHC RDW Plt Count MPV Absolute Neuts (auto) Neutrophils % Lymphocytes % Monocytes % Eosinophils % Basophils % Nucleated RBC % Sodium Potassium Chloride Carbon Dioxide Anion Gap BUN Creatinine Est GFR (CKD-EPI)AfAm Est GFR (CKD-EPI)NonAf POC Glucometer 162 174 223 Random Glucose Calcium Total Bilirubin AST ALT Alkaline Phosphatase Total Protein Albumin Urine Color Urine Appearance Urine pH Ur Specific [place] Urine Protein Urine Glucose (UA) Urine Ketones Urine Blood Urine Nitrite Urine Bilirubin Urine Urobilinogen Ur Leukocyte Esterase Syphilis Serology COVID-19 ([facility]) HIV Ag/Ab Combo Qual 02/05/20 02/05/20 02/06/20 06:45 15:20 05:45 WBC 12.6 H RBC 4.36 Hgb 10.9 Hct 35.6 MCV 81.8 MCH 25.0 L MCHC 30.6 L RDW 15.4 Plt Count 303 MPV 9.5 Absolute Neuts (auto) 7.3 Neutrophils % 58.3 Lymphocytes % 28.5 Monocytes % 3.6 L Eosinophils % 8.9 H Basophils % 0.7 Nucleated RBC % 0 Sodium Potassium Chloride Carbon Dioxide Anion Gap BUN Creatinine Est GFR (CKD-EPI)AfAm Est GFR (CKD-EPI)NonAf POC Glucometer 98 Random Glucose Calcium Total Bilirubin AST ALT Alkaline Phosphatase Total Protein Albumin Urine Color Yellow Urine Appearance Clear Urine pH 5.5 Ur Specific [place] 1.021 Urine Protein Negative Urine Glucose (UA) Negative Urine Ketones Negative Urine Blood Negative Urine Nitrite Negative Urine Bilirubin Negative Urine Urobilinogen 1.0 Ur Leukocyte Esterase Negative Syphilis Serology COVID-19 ([facility]) HIV Ag/Ab Combo Qual aaox3 ambulating no acute distress explained to pt that the [employer] C[employer] FILLER switched the medication and d/c motrin to prevent kidney issues/possible kidney damage. However, pt was adamant to have her motrin because it helps with her leg pain and she never had her own PCP say anything about kidney damage. I re iterated the importance of conserving her vital organs and control the NSAIDS intake while in detox and at home. Pt was in agreement but implored to have her motrin ordered because her leg pain is alleviated with motrin. motrin 800mg tid ordered as per pt request. Assessment: 02/06/20 11:55 withdrawals Plan: motrin 800mg tid prn as per pt request continue with detox and complete d/c in am
[2020-02-06] MEDS: IBUPROFEN 400 MG TABLET (FP) PO PRN ×2 (12:18→21:51)
[2020-02-06] MEDS: MONTELUKAST NA 10 MG TABLET PO SCH (21:50)
[2020-02-06] MEDS: THIAMINE HCL 100 MG TABLET (FP) PO SCH (21:50)
[2020-02-06] MEDS: MELATONIN 5 MG TABLETS PO SCH (23:12)
[2020-02-07] MEDS: METHOCARBAMOL 500 MG TABLET PO PRN (02:13)
[2020-02-07] MEDS ORDERED: chlordiazePOXIDE HCL 10 MG CAPSULE PO ONE (05:00)
[2020-02-07] MEDS ORDERED: METHADONE HCL 5 MG TABLET (FOR DETOX USE ONLY) PO ONE (06:00)
[2020-02-07] MEDS: metFORMIN HCL 500 MG TABLET (FP) PO SCH (06:05)
[2020-02-07 06:42] VITALS: BP 106/64; PULSE 85; TEMP 97.3
[2020-02-07] MEDS: PRENATAL VITAMINS W/ FOLIC ACID TABLET (FP) PO SCH (09:00)
[2020-02-07] MEDS: SPIRONOLACTONE 25 MG TABLET PO SCH (09:00)
[2020-02-07] MEDS: SERTRALINE HCL 50 MG TABLET (FP) PO SCH (09:00)
[2020-02-07] MEDS: ALOGLIPTIN BENZOATE 25 MG PO SCH (09:00)
[2020-02-07] MEDS: PANTOPRAZOLE 40 MG TABLET PO SCH (09:00)
[2020-02-07] MEDS: BUDESONIDE/FORMETEROL FUMARATE 160/4.5 mcg INHALER IH SCH (09:01)
--- NOTE | 2020-02-07 10:02 | DS ---
[facility] Detox Discharge Summary Admission Date: 02/02/20 Discharge Date: 02/07/20 - History Present History: Alcohol Dependence, Cocaine Dependence, Opioid Dependence - Physical Exam Results Vital Signs: Vital Signs Temperature 97.3 F L 02/07/20 05:39 Pulse Rate 85 02/07/20 05:39 Respiratory Rate 18 02/07/20 05:39 Blood Pressure 106/64 02/07/20 05:39 O2 Sat by Pulse Oximetry (%) 94 L 02/07/20 05:39 Pertinent Admission Physical Exam Findings: Vital Signs Temperature 97.3 F L 02/07/20 05:39 Pulse Rate 85 02/07/20 05:39 Respiratory Rate 18 02/07/20 05:39 Blood Pressure 106/64 02/07/20 05:39 O2 Sat by Pulse Oximetry (%) 94 L 02/07/20 05:39 Laboratory Tests 02/02/20 02/02/20 02/02/20 09:15 09:15 09:15 WBC 12.4 H RBC 4.60 Hgb 11.6 Hct 37.8 MCV 82.2 MCH 25.3 L MCHC 30.8 L RDW 15.5 Plt Count 294 MPV 9.3 Absolute Neuts (auto) Neutrophils % Lymphocytes % Monocytes % Eosinophils % Basophils % Nucleated RBC % Sodium 137 Potassium 4.0 Chloride 102 Carbon Dioxide 29 Anion Gap 7 L BUN 12.9 Creatinine 0.8 Est GFR (CKD-EPI)AfAm 96.87 Est GFR (CKD-EPI)NonAf 83.58 POC Glucometer Random Glucose 170 H Calcium 8.9 Total Bilirubin 0.4 AST 14 L ALT 27 Alkaline Phosphatase 112 Total Protein 7.7 Albumin 3.5 Urine Color Urine Appearance Urine pH Ur Specific [place] Urine Protein Urine Glucose (UA) Urine Ketones Urine Blood Urine Nitrite Urine Bilirubin Urine Urobilinogen Ur Leukocyte Esterase Syphilis Serology COVID-19 ([facility]) HIV Ag/Ab Combo Qual Negative 02/02/20 02/02/20 02/02/20 09:15 09:19 10:30 WBC RBC Hgb Hct MCV MCH MCHC RDW Plt Count MPV Absolute Neuts (auto) Neutrophils % Lymphocytes % Monocytes % Eosinophils % Basophils % Nucleated RBC % Sodium Potassium Chloride Carbon Dioxide Anion Gap BUN Creatinine Est GFR (CKD-EPI)AfAm Est GFR (CKD-EPI)NonAf POC Glucometer 181 Random Glucose Calcium Total Bilirubin AST ALT Alkaline Phosphatase Total Protein Albumin Urine Color Urine Appearance Urine pH Ur Specific [place] Urine Protein Urine Glucose (UA) Urine Ketones Urine Blood Urine Nitrite Urine Bilirubin Urine Urobilinogen Ur Leukocyte Esterase Syphilis Serology Non-reactive COVID-19 ([facility]) Not detected HIV Ag/Ab Combo Qual 02/02/20 02/03/20 02/03/20 16:59 05:48 17:02 WBC RBC Hgb Hct MCV MCH MCHC RDW Plt Count MPV Absolute Neuts (auto) Neutrophils % Lymphocytes % Monocytes % Eosinophils % Basophils % Nucleated RBC % Sodium Potassium Chloride Carbon Dioxide Anion Gap BUN Creatinine Est GFR (CKD-EPI)AfAm Est GFR (CKD-EPI)NonAf POC Glucometer 187 139 128 Random Glucose Calcium Total Bilirubin AST ALT Alkaline Phosphatase Total Protein Albumin Urine Color Urine Appearance Urine pH Ur Specific [place] Urine Protein Urine Glucose (UA) Urine Ketones Urine Blood Urine Nitrite Urine Bilirubin Urine Urobilinogen Ur Leukocyte Esterase Syphilis Serology COVID-19 ([facility]) HIV Ag/Ab Combo Qual 02/04/20 02/04/20 02/05/20 05:35 16:45 05:50 WBC RBC Hgb Hct MCV MCH MCHC RDW Plt Count MPV Absolute Neuts (auto) Neutrophils % Lymphocytes % Monocytes % Eosinophils % Basophils % Nucleated RBC % Sodium Potassium Chloride Carbon Dioxide Anion Gap BUN Creatinine Est GFR (CKD-EPI)AfAm Est GFR (CKD-EPI)NonAf POC Glucometer 162 174 223 Random Glucose Calcium Total Bilirubin AST ALT Alkaline Phosphatase Total Protein Albumin Urine Color Urine Appearance Urine pH Ur Specific [place] Urine Protein Urine Glucose (UA) Urine Ketones Urine Blood Urine Nitrite Urine Bilirubin Urine Urobilinogen Ur Leukocyte Esterase Syphilis Serology COVID-19 ([facility]) HIV Ag/Ab Combo Qual 02/05/20 02/05/20 02/06/20 06:45 15:20 05:45 WBC 12.6 H RBC 4.36 Hgb 10.9 Hct 35.6 MCV 81.8 MCH 25.0 L MCHC 30.6 L RDW 15.4 Plt Count 303 MPV 9.5 Absolute Neuts (auto) 7.3 Neutrophils % 58.3 Lymphocytes % 28.5 Monocytes % 3.6 L Eosinophils % 8.9 H Basophils % 0.7 Nucleated RBC % 0 Sodium Potassium Chloride Carbon Dioxide Anion Gap BUN Creatinine Est GFR (CKD-EPI)AfAm Est GFR (CKD-EPI)NonAf POC Glucometer 98 Random Glucose Calcium Total Bilirubin AST ALT Alkaline Phosphatase Total Protein Albumin Urine Color Yellow Urine Appearance Clear Urine pH 5.5 Ur Specific [place] 1.021 Urine Protein Negative Urine Glucose (UA) Negative Urine Ketones Negative Urine Blood Negative Urine Nitrite Negative Urine Bilirubin Negative Urine Urobilinogen 1.0 Ur Leukocyte Esterase Negative Syphilis Serology COVID-19 ([facility]) HIV Ag/Ab Combo Qual 02/06/20 02/07/20 16:52 06:04 WBC RBC Hgb Hct MCV MCH MCHC RDW Plt Count MPV Absolute Neuts (auto) Neutrophils % Lymphocytes % Monocytes % Eosinophils % Basophils % Nucleated RBC % Sodium Potassium Chloride Carbon Dioxide Anion Gap BUN Creatinine Est GFR (CKD-EPI)AfAm Est GFR (CKD-EPI)NonAf POC Glucometer 122 128 Random Glucose Calcium Total Bilirubin AST ALT Alkaline Phosphatase Total Protein Albumin Urine Color Urine Appearance Urine pH Ur Specific [place] Urine Protein Urine Glucose (UA) Urine Ketones Urine Blood Urine Nitrite Urine Bilirubin Urine Urobilinogen Ur Leukocyte Esterase Syphilis Serology COVID-19 ([facility]) HIV Ag/Ab Combo Qual aaox3 ambulating no acute distress lungs CTA - Treatment Hospital Course: Detox Protocol Followed, Detoxed Safely, Responded well, Discharged Condition Good, Rehab Referral Accepted - Medication Discharge Medications: Ambulatory Orders Docusate Sodium 100 mg PO TID PRN 10/27/18 Omeprazole 20 mg PO DAILY 10/27/18 Multivitamin [Multiple Vitamins] 1 each PO DAILY 11/29/18 Sertraline HCl [Zoloft -] 50 mg PO DAILY 04/20/19 Cholecalciferol (Vitamin D3) [Vitamin D -] 2,000 unit PO DAILY 05/17/19 Albuterol Sulfate Inhaler - [Ventolin HFA Inhaler -] 2 inh PO Q6H PRN #1 inhaler 07/15/19 Metformin HCl [Glucophage] 1,000 mg PO BID 08/21/19 Ibuprofen 800 mg PO BID 12/05/19 Alogliptin Benzoate [Alogliptin] 25 mg PO DAILY 02/02/20 Budesonide/Formeterol Fumarate [SYMBICORT 160/4.5mcg -] 2 inh PO BID 02/02/20 Bumetanide [Bumex -] 0.5 mg PO DAILY PRN 02/02/20 Loratadine 10 mg PO DAILY PRN 02/02/20 Montelukast Na [Singulair -] 10 mg PO HS 02/02/20 Spironolactone [Aldactone] 25 mg PO BID 02/02/20 - Diagnosis (1) Alcohol dependence with uncomplicated withdrawal Status: Chronic (2) Cocaine dependence in remission Status: Chronic (3) Elevated alkaline phosphatase level Status: Chronic (4) Elevated aspartate aminotransferase level Status: Chronic (5) Leukocytosis Status: Acute (6) Opioid dependence with withdrawal Status: Chronic (7) Substance induced mood disorder Status: Acute (8) Substance-induced sleep disorder Status: Acute (9) Anxiety disorder Status: Chronic (10) Arthritis Status: Chronic (11) Asthma Status: Chronic Qualifiers: Asthma severity: mild Asthma persistence: intermittent (12) Cocaine dependence Status: Chronic Qualifiers: Substance use status: uncomplicated Qualified Code(s): F14.20 - Cocaine dependence, uncomplicated (13) DM type 2 (diabetes mellitus, type 2) Status: Chronic Qualifiers: 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 insulin use: unspecified fpc insulin use status Diabetes mellitus complication status: with other specified complication Qualified Code(s): E11.69 - Type 2 diabetes mellitus with other specified complication (14) Depression Status: Chronic (15) Depressive disorder Status: Chronic (16) Essential hypertension Status: Chronic (17) GERD (gastroesophageal reflux disease) Status: Chronic Qualifiers: Esophagitis presence: without esophagitis Qualified Code(s): K21.9 - Gastro-esophageal reflux disease without esophagitis (18) History of depression Status: Chronic (19) Insomnia Status: Chronic Qualifiers: Insomnia type: primary Qualified Code(s): F51.01 - Primary insomnia (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
== END 2020-02-07 09:08 | disposition home or self-care (01) | DRG 773 ==
LOC: YASAS 08:11 → Y6N 09:41
PROVIDERS: ADMIT Allergy & Immunology; ATTEND Allergy & Immunology
PROC: HZ2ZZZZ Detoxification Services for Substance Abuse Treatment (ICD-10-PCS; principal; 2020-02-02)
DX: F10.230 Alcohol dependence with withdrawal, uncomplicated (principal); F11.23 Opioid dependence with withdrawal; F19.282 Other psychoactive substance dependence with psychoactive substance-induced sleep disorder; F19.24 Other psychoactive substance dependence with psychoactive substance-induced mood disorder; F51.01 Primary insomnia; F51.05 Insomnia due to other mental disorder; F32.9 Major depressive disorder, single episode, unspecified; F41.9 Anxiety disorder, unspecified; D72.829 Elevated white blood cell count, unspecified; I10 Essential (primary) hypertension; K21.9 Gastro-esophageal reflux disease without esophagitis; E11.65 Type 2 diabetes mellitus with hyperglycemia; Z79.84 Long term (current) use of oral hypoglycemic drugs; J45.20 Mild intermittent asthma, uncomplicated; R74.0 Nonspecific elevation of levels of transaminase and lactic acid dehydrogenase [LDH]; R74.8 Abnormal levels of other serum enzymes; M17.0 Bilateral primary osteoarthritis of knee; M19.072 Primary osteoarthritis, left ankle and foot; M19.071 Primary osteoarthritis, right ankle and foot; Z62.810 Personal history of physical and sexual abuse in childhood; Z91.410 Personal history of adult physical and sexual abuse; M79.661 Pain in right lower leg; Z88.2 Allergy status to sulfonamides; Z90.49 Acquired absence of other specified parts of digestive tract
CPT/HCPCS: 36415; 71046-TC-FY; 80053; 81003; 82962; 85025; 85027; 86780; 87389; 93005; 93010; U0003

== ENCOUNTER 2020-05-26 11:14 | Inpatient (IN) | payer OTHER ==
[2020-05-26 11:49] VITALS: BMI 40.5
[2020-05-26] MEDS ORDERED: ACETAMINOPHEN 325 MG TABLET (FP) PO PRN ×2 (12:15)
[2020-05-26] MEDS ORDERED: chlordiazePOXIDE HCL 25 MG CAPSULE PO ONE (12:15)
[2020-05-26] MEDS ORDERED: BISMUTH SUBSALICYLATE 524 MG/30 ML UD PO PRN (12:15)
[2020-05-26] MEDS ORDERED: ONDANSETRON *ODT* 4 MG TABLET SL PRN (12:15)
[2020-05-26] MEDS ORDERED: MAG HYDROX/AL HYDROX/SIMETH 30 ML UNIT-DOSE CUP PO PRN (12:15)
[2020-05-26] MEDS ORDERED: chlordiazePOXIDE HCL 25 MG CAPSULE PO PRN (12:15)
[2020-05-26] MEDS ORDERED: MAGNESIUM HYDROX 2400MG/30ML ORAL SUSPENSION 30 ML CUP PO PRN (12:15)
[2020-05-26] MEDS ORDERED: MENTHOL/PHENOL 1 EACH UD MM PRN (12:15)
[2020-05-26] MEDS ORDERED: cloNIDine HCL 0.1 MG TABLET PO PRN (12:15)
[2020-05-26] MEDS ORDERED: MAGNESIUM CITRATE 300 ML BOTTLE PO PRN (12:15)
[2020-05-26] MEDS ORDERED: METHADONE HCL 10 MG TABLET (FOR DETOX USE ONLY) PO ONE (12:15)
[2020-05-26] MEDS ORDERED: BUMETANIDE 0.5 MG TABLET PO PRN (12:18)
[2020-05-26] MEDS ORDERED: DOCUSATE SODIUM 100 MG CAPSULE (FP) PO PRN (12:18)
[2020-05-26] MEDS ORDERED: ALBUTEROL SO4 2.5/IPRATROPIUM 0.5 INH SOL 3 ML VIAL.NEB. NEB PRN (12:39)
[2020-05-26] MEDS ORDERED: REPAGLINIDE 0.5 MG TABLET (FP) PO SCH (12:45)
[2020-05-26] MEDS: PANTOPRAZOLE 20 MG TABLET PO SCH (13:35)
[2020-05-26] MEDS: SERTRALINE HCL 50 MG TABLET (FP) PO SCH (13:36)
[2020-05-26] MEDS: INSULIN SLIDING SCALE (NOVOLOG) 1 VIAL SQ SCH (17:47)
[2020-05-26] MEDS: IBUPROFEN 400 MG TABLET (FP) PO PRN (17:51)
[2020-05-26] MEDS: METHOCARBAMOL 500 MG TABLET PO PRN (17:51)
[2020-05-26] MEDS: chlordiazePOXIDE HCL 25 MG CAPSULE PO SCH ×2 (17:51→22:36)
[2020-05-26] MEDS: ALBUTEROL SO4 HFA INHALER IH PRN (17:53)
[2020-05-26] MEDS: REPAGLINIDE 0.5 MG TABLET (FP) PO SCH (17:58)
[2020-05-26] MEDS: BUDESONIDE/FORMETEROL FUMARATE 160/4.5 mcg INHALER IH SCH (22:36)
[2020-05-26] MEDS: SPIRONOLACTONE 25 MG TABLET PO SCH (22:36)
[2020-05-26] MEDS: MONTELUKAST NA 10 MG TABLET PO SCH (22:36)
[2020-05-26] MEDS: THIAMINE HCL 100 MG TABLET (FP) PO SCH (22:36)
[2020-05-26] MEDS: metFORMIN HCL 500 MG TABLET (FP) PO SCH (22:36)
[2020-05-26] MEDS: MELATONIN 5 MG TABLETS PO SCH (22:37)
[2020-05-27] MEDS: chlordiazePOXIDE HCL 25 MG CAPSULE PO SCH ×4 (05:39→22:36)
[2020-05-27] MEDS: INSULIN SLIDING SCALE (NOVOLOG) 1 VIAL SQ SCH ×2 (06:27→18:20)
[2020-05-27] MEDS: REPAGLINIDE 0.5 MG TABLET (FP) PO SCH ×3 (07:35→17:33)
[2020-05-27] MEDS ORDERED: METHADONE HCL 10 MG TABLET (FOR DETOX USE ONLY) ONE (09:47)
[2020-05-27] MEDS ORDERED: METHADONE HCL 5 MG TABLET (FOR DETOX USE ONLY) ONE (09:47)
[2020-05-27] MEDS ORDERED: METHADONE (DETOX) 20 MG, METHADONE (DETOX) 5 MG PO ONE (10:00)
[2020-05-27] MEDS: PRENATAL VITAMINS W/ FOLIC ACID TABLET (FP) PO SCH (10:23)
[2020-05-27] MEDS: SPIRONOLACTONE 25 MG TABLET PO SCH ×2 (10:24→22:37)
[2020-05-27] MEDS: PANTOPRAZOLE 20 MG TABLET PO SCH (10:24)
[2020-05-27] MEDS: SERTRALINE HCL 50 MG TABLET (FP) PO SCH (10:24)
[2020-05-27] MEDS: metFORMIN HCL 500 MG TABLET (FP) PO SCH ×2 (10:24→22:57)
[2020-05-27] MEDS: BUDESONIDE/FORMETEROL FUMARATE 160/4.5 mcg INHALER IH SCH ×2 (10:25→22:37)
[2020-05-27] MEDS: ALOGLIPTIN BENZOATE 25 MG PO SCH (10:42)
[2020-05-27] MEDS: CHOLECALCIFEROL (VIT D3) 400 UNIT (10 MCG) TABLET PO SCH (12:14)
[2020-05-27 12:25] LABS: POTASSIUM 3.8 mmol/L (3.5-5.1)
[2020-05-27 12:28] LABS: ALBUMIN 2.9 g/dl (3.4-5.0); BLOOD UREA NITROGEN 13.5 mg/dL (7-18)
[2020-05-27 12:29] LABS: CALCIUM 8.9 mg/dL (8.5-10.1); HEMATOCRIT 33.9 % (32.4-45.2); HEMOGLOBIN 10.7 GM/dL (10.7-15.3); MCHC 31.6 g/dl (32.0-36.0); MEAN CELL VOLUME 82.2 fl (80-96); MEAN PLT VOLUME 9.7 fl (7.5-11.1); PLATELET COUNT 251 K/MM3 (134-434); RBC 4.12 M/mm3 (3.60-5.2); RDW 15.6 % (11.6-15.6); WHITE BLOOD COUNT 10.3 K/mm3 (4.0-10.0)
[2020-05-27 12:31] LABS: CREATININE 0.7 mg/dL (0.55-1.3)
[2020-05-27 12:33] LABS: BILIRUBIN,TOTAL 0.6 mg/dL (0.2-1); TOT PROT 6.1 g/dl (6.4-8.2)
[2020-05-27] MEDS: METHOCARBAMOL 500 MG TABLET PO PRN ×2 (17:33→22:36)
[2020-05-27] MEDS ORDERED: SUVOREXANT 10 MG TABLET PO PRN (22:00)
[2020-05-27] MEDS: MONTELUKAST NA 10 MG TABLET PO SCH (22:37)
[2020-05-27] MEDS: THIAMINE HCL 100 MG TABLET (FP) PO SCH (22:37)
[2020-05-27] MEDS ORDERED: SUVOREXANT 15 MG TABLET PO PRN (22:52)
[2020-05-27] MEDS: MELATONIN 5 MG TABLETS PO SCH (22:57)
[2020-05-28] MEDS: chlordiazePOXIDE HCL 25 MG CAPSULE PO SCH ×4 (05:58→22:23)
[2020-05-28] MEDS: hydrOXYzine PAMOATE 25 MG CAPSULE (FP) PO PRN ×2 (05:58→14:37)
[2020-05-28] MEDS: INSULIN SLIDING SCALE (NOVOLOG) 1 VIAL SQ SCH ×2 (07:34→17:42)
[2020-05-28] MEDS: PRENATAL VITAMINS W/ FOLIC ACID TABLET (FP) PO SCH (09:36)
[2020-05-28] MEDS: BUDESONIDE/FORMETEROL FUMARATE 160/4.5 mcg INHALER IH SCH ×2 (09:36→22:29)
[2020-05-28] MEDS: SERTRALINE HCL 50 MG TABLET (FP) PO SCH (09:37)
[2020-05-28] MEDS: PANTOPRAZOLE 20 MG TABLET PO SCH (09:37)
[2020-05-28] MEDS: SPIRONOLACTONE 25 MG TABLET PO SCH ×2 (09:37→22:23)
[2020-05-28] MEDS: ALOGLIPTIN BENZOATE 25 MG PO SCH (09:37)
[2020-05-28] MEDS: metFORMIN HCL 500 MG TABLET (FP) PO SCH (09:37)
[2020-05-28] MEDS: CHOLECALCIFEROL (VIT D3) 400 UNIT (10 MCG) TABLET PO SCH (09:38)
[2020-05-28] MEDS ORDERED: METHADONE HCL 10 MG TABLET (FOR DETOX USE ONLY) PO ONE (10:00)
[2020-05-28] MEDS: REPAGLINIDE 0.5 MG TABLET (FP) PO SCH ×3 (11:31→17:40)
[2020-05-28] MEDS: LIDOCAINE 5% TOPICAL PATCH TP SCH (13:45)
[2020-05-28] MEDS: IBUPROFEN 400 MG TABLET (FP) PO PRN ×2 (14:36→22:25)
[2020-05-28] MEDS: METHOCARBAMOL 500 MG TABLET PO PRN (17:41)
[2020-05-28] MEDS ORDERED: SUVOREXANT 10 MG TABLET PO PRN (22:00)
[2020-05-28] MEDS: MONTELUKAST NA 10 MG TABLET PO SCH (22:23)
[2020-05-28] MEDS: THIAMINE HCL 100 MG TABLET (FP) PO SCH (22:23)
[2020-05-28] MEDS: LIDOCAINE PATCH REMOVAL MC SCH (22:29)
[2020-05-28] MEDS: METHYL SALICYLATE/MENTHOL OINT 30 GM TUBE TP SCH (22:29)
[2020-05-29] MEDS ORDERED: chlordiazePOXIDE HCL 10 MG CAPSULE PO PRN
[2020-05-29] MEDS: metFORMIN HCL 500 MG TABLET (FP) PO SCH ×3 (00:02→22:22)
[2020-05-29] MEDS: MELATONIN 5 MG TABLETS PO SCH ×2 (00:03→22:22)
[2020-05-29] MEDS: chlordiazePOXIDE HCL 10 MG CAPSULE PO SCH ×4 (05:55→22:22)
[2020-05-29] MEDS: REPAGLINIDE 0.5 MG TABLET (FP) PO SCH ×3 (08:10→17:19)
[2020-05-29] MEDS: INSULIN SLIDING SCALE (NOVOLOG) 1 VIAL SQ SCH ×2 (08:10→17:20)
[2020-05-29] MEDS ORDERED: METHADONE (DETOX) 10 MG, METHADONE (DETOX) 5 MG PO ONE (10:00)
[2020-05-29] MEDS ORDERED: METHADONE HCL 5 MG TABLET (FOR DETOX USE ONLY) ONE (10:15)
[2020-05-29] MEDS ORDERED: METHADONE HCL 10 MG TABLET (FOR DETOX USE ONLY) ONE (10:15)
[2020-05-29] MEDS: ALOGLIPTIN BENZOATE 25 MG PO SCH (10:48)
[2020-05-29] MEDS: SPIRONOLACTONE 25 MG TABLET PO SCH ×2 (10:48→22:22)
[2020-05-29] MEDS: METHYL SALICYLATE/MENTHOL OINT 30 GM TUBE TP SCH ×2 (10:48→21:29)
[2020-05-29] MEDS: LIDOCAINE 5% TOPICAL PATCH TP SCH ×2 (10:50→11:44)
[2020-05-29] MEDS: PRENATAL VITAMINS W/ FOLIC ACID TABLET (FP) PO SCH (10:50)
[2020-05-29] MEDS: SERTRALINE HCL 50 MG TABLET (FP) PO SCH (10:51)
[2020-05-29] MEDS: CHOLECALCIFEROL (VIT D3) 1,000 UNIT (25 MCG) TABLET PO SCH (10:51)
[2020-05-29] MEDS: PANTOPRAZOLE 20 MG TABLET PO SCH (10:51)
[2020-05-29] MEDS ORDERED: COLLOIDAL OATMEAL 1 BAR EACH TP ONE (11:28)
[2020-05-29] MEDS: BUDESONIDE/FORMETEROL FUMARATE 160/4.5 mcg INHALER IH SCH ×2 (11:42→22:21)
[2020-05-29] MEDS: LIDOCAINE PATCH REMOVAL MC SCH (21:30)
[2020-05-29] MEDS: THIAMINE HCL 100 MG TABLET (FP) PO SCH (22:22)
[2020-05-29] MEDS: MONTELUKAST NA 10 MG TABLET PO SCH (22:22)
[2020-05-29] MEDS: ALBUTEROL SO4 HFA INHALER IH PRN (22:24)
[2020-05-30] MEDS: chlordiazePOXIDE HCL 10 MG CAPSULE PO SCH ×2 (06:25→17:54)
[2020-05-30] MEDS: INSULIN SLIDING SCALE (NOVOLOG) 1 VIAL SQ SCH ×2 (07:08→17:53)
[2020-05-30] MEDS: REPAGLINIDE 0.5 MG TABLET (FP) PO SCH ×3 (07:08→17:54)
[2020-05-30] MEDS ORDERED: METHADONE HCL 10 MG TABLET (FOR DETOX USE ONLY) PO ONE (10:00)
[2020-05-30] MEDS: SPIRONOLACTONE 25 MG TABLET PO SCH ×2 (10:10→22:08)
[2020-05-30] MEDS: PRENATAL VITAMINS W/ FOLIC ACID TABLET (FP) PO SCH (10:10)
[2020-05-30] MEDS: ALOGLIPTIN BENZOATE 25 MG PO SCH (10:10)
[2020-05-30] MEDS: METHYL SALICYLATE/MENTHOL OINT 30 GM TUBE TP SCH ×2 (10:10→22:09)
[2020-05-30] MEDS: metFORMIN HCL 500 MG TABLET (FP) PO SCH ×2 (10:10→22:08)
[2020-05-30] MEDS: PANTOPRAZOLE 20 MG TABLET PO SCH (10:10)
[2020-05-30] MEDS: LIDOCAINE 5% TOPICAL PATCH TP SCH (10:10)
[2020-05-30] MEDS: BUDESONIDE/FORMETEROL FUMARATE 160/4.5 mcg INHALER IH SCH ×2 (10:11→22:09)
[2020-05-30] MEDS: SERTRALINE HCL 50 MG TABLET (FP) PO SCH (10:11)
[2020-05-30] MEDS: CHOLECALCIFEROL (VIT D3) 1,000 UNIT (25 MCG) TABLET PO SCH (10:11)
[2020-05-30] MEDS: IBUPROFEN 400 MG TABLET (FP) PO PRN (14:19)
[2020-05-30] MEDS: METHOCARBAMOL 500 MG TABLET PO PRN (14:20)
[2020-05-30] MEDS ORDERED: IBUPROFEN 400 MG TABLET (FP) PO PRN (14:24)
[2020-05-30] MEDS: LIDOCAINE PATCH REMOVAL MC SCH (22:08)
[2020-05-30] MEDS: MELATONIN 5 MG TABLETS PO SCH (22:08)
[2020-05-30] MEDS: MONTELUKAST NA 10 MG TABLET PO SCH (22:08)
[2020-05-30] MEDS: THIAMINE HCL 100 MG TABLET (FP) PO SCH (22:08)
[2020-05-31] MEDS ORDERED: chlordiazePOXIDE HCL 10 MG CAPSULE PO ONE (05:00)
[2020-05-31] MEDS ORDERED: METHADONE HCL 5 MG TABLET (FOR DETOX USE ONLY) PO ONE (06:00)
[2020-05-31] MEDS: INSULIN SLIDING SCALE (NOVOLOG) 1 VIAL SQ SCH (06:42)
[2020-05-31 08:05] VITALS: BP 123/88; PULSE 77; TEMP 96.9
== END 2020-05-31 09:11 | disposition home or self-care (01) | DRG 773 ==
LOC: YASAS 11:14 → Y6N 12:50
PROVIDERS: ADMIT Allergy & Immunology; ATTEND Allergy & Immunology
PROC: HZ2ZZZZ Detoxification Services for Substance Abuse Treatment (ICD-10-PCS; principal; 2020-05-26)
DX: F10.230 Alcohol dependence with withdrawal, uncomplicated (principal); F11.23 Opioid dependence with withdrawal; F14.20 Cocaine dependence, uncomplicated; F19.282 Other psychoactive substance dependence with psychoactive substance-induced sleep disorder; F19.24 Other psychoactive substance dependence with psychoactive substance-induced mood disorder; F41.9 Anxiety disorder, unspecified; F51.05 Insomnia due to other mental disorder; I10 Essential (primary) hypertension; J45.20 Mild intermittent asthma, uncomplicated; K21.9 Gastro-esophageal reflux disease without esophagitis; E88.09 Other disorders of plasma-protein metabolism, not elsewhere classified; E11.69 Type 2 diabetes mellitus with other specified complication; Z79.4 Long term (current) use of insulin; R60.0 Localized edema; M17.10 Unilateral primary osteoarthritis, unspecified knee; M19.071 Primary osteoarthritis, right ankle and foot; M19.072 Primary osteoarthritis, left ankle and foot; R74.8 Abnormal levels of other serum enzymes; E66.01 Morbid (severe) obesity due to excess calories; Z68.41 Body mass index [BMI] 40.0-44.9, adult; Z91.410 Personal history of adult physical and sexual abuse; Z91.5 Personal history of self-harm; Z88.2 Allergy status to sulfonamides; Z90.49 Acquired absence of other specified parts of digestive tract
CPT/HCPCS: 36415; 80053; 82962; 85027; 86780; C9803; U0003

== ENCOUNTER 2020-06-23 08:41 | Inpatient (IN) | payer OTHER ==
[2020-06-23] MEDS ORDERED: MENTHOL/PHENOL 1 EACH UD MM PRN (11:42)
[2020-06-23] MEDS ORDERED: MAG HYDROX/AL HYDROX/SIMETH 30 ML UNIT-DOSE CUP PO PRN (11:42)
[2020-06-23] MEDS ORDERED: MELATONIN 5 MG TABLETS PO PRN (11:42)
[2020-06-23] MEDS ORDERED: MAGNESIUM HYDROX 2400MG/30ML ORAL SUSPENSION 30 ML CUP PO PRN (11:42)
[2020-06-23] MEDS ORDERED: ACETAMINOPHEN 325 MG TABLET (FP) PO PRN (11:42)
[2020-06-23] MEDS ORDERED: hydrOXYzine PAMOATE 25 MG CAPSULE (FP) PO PRN (11:42)
[2020-06-23] MEDS ORDERED: MAGNESIUM CITRATE 300 ML BOTTLE PO PRN (11:42)
[2020-06-23] MEDS ORDERED: ONDANSETRON *ODT* 4 MG TABLET SL PRN (11:42)
[2020-06-23] MEDS ORDERED: METHADONE HCL 10 MG TABLET (FOR DETOX USE ONLY) PO ONE (11:44)
[2020-06-23] MEDS ORDERED: cloNIDine HCL 0.1 MG TABLET PO PRN (11:44)
[2020-06-23] MEDS ORDERED: chlordiazePOXIDE HCL 25 MG CAPSULE PO PRN (11:47)
[2020-06-23 12:28] VITALS: BMI 39.8
[2020-06-23] MEDS ORDERED: DOCUSATE SODIUM 100 MG CAPSULE (FP) PO PRN (12:35)
[2020-06-23] MEDS: BUDESONIDE/FORMETEROL FUMARATE 160/4.5 mcg INHALER IH SCH ×2 (13:25→22:33)
[2020-06-23] MEDS: METHOCARBAMOL 500 MG TABLET PO PRN ×2 (13:25→22:31)
[2020-06-23] MEDS: LORATADINE 10 MG TABLET PO PRN ×2 (13:25→22:31)
[2020-06-23] MEDS: chlordiazePOXIDE HCL 25 MG CAPSULE PO SCH ×2 (17:52→22:32)
[2020-06-23] MEDS: metFORMIN HCL 500 MG TABLET (FP) PO SCH (22:30)
[2020-06-23] MEDS: SUVOREXANT 10 MG TABLET PO PRN (22:30)
[2020-06-23] MEDS: THIAMINE HCL 100 MG TABLET (FP) PO SCH (22:31)
[2020-06-23] MEDS: SPIRONOLACTONE 25 MG TABLET PO SCH (22:31)
[2020-06-23] MEDS: MONTELUKAST NA 10 MG TABLET PO SCH (22:31)
[2020-06-23] MEDS: ALBUTEROL SO4 HFA INHALER IH PRN (22:38)
[2020-06-24] MEDS: chlordiazePOXIDE HCL 25 MG CAPSULE PO SCH ×4 (05:41→22:00)
[2020-06-24] MEDS: IBUPROFEN 400 MG TABLET (FP) PO PRN (06:14)
[2020-06-24] MEDS ORDERED: METHADONE HCL 5 MG TABLET (FOR DETOX USE ONLY) ONE (08:49)
[2020-06-24] MEDS ORDERED: METHADONE HCL 10 MG TABLET (FOR DETOX USE ONLY) ONE (08:49)
[2020-06-24] MEDS ORDERED: FLU VACCINE (FLULAVAL) PF 60 MCG/0.5 ML SYRINGE 2020-2021 IM ONE (09:57)
[2020-06-24] MEDS ORDERED: METHADONE (DETOX) 20 MG, METHADONE (DETOX) 5 MG PO ONE (10:00)
[2020-06-24] MEDS: PRENATAL VITAMINS W/ FOLIC ACID TABLET (FP) PO SCH (10:17)
[2020-06-24] MEDS: SPIRONOLACTONE 25 MG TABLET PO SCH ×2 (10:17→22:01)
[2020-06-24] MEDS: metFORMIN HCL 500 MG TABLET (FP) PO SCH ×2 (10:17→22:01)
[2020-06-24] MEDS: SERTRALINE HCL 50 MG TABLET (FP) PO SCH (10:17)
[2020-06-24] MEDS: BUDESONIDE/FORMETEROL FUMARATE 160/4.5 mcg INHALER IH SCH ×2 (10:20→22:02)
[2020-06-24] MEDS: PANTOPRAZOLE 20 MG TABLET PO SCH (11:38)
[2020-06-24] MEDS: METHOCARBAMOL 500 MG TABLET PO PRN (17:21)
[2020-06-24] MEDS: LORATADINE 10 MG TABLET PO PRN (17:22)
[2020-06-24] MEDS: SODIUM CHLORIDE NASAL SPRAY 44 ML BOTTLE NS SCH ×2 (22:00→22:36)
[2020-06-24] MEDS: THIAMINE HCL 100 MG TABLET (FP) PO SCH (22:01)
[2020-06-24] MEDS: MONTELUKAST NA 10 MG TABLET PO SCH (22:01)
[2020-06-24] MEDS: ALBUTEROL SO4 HFA INHALER IH PRN (22:04)
[2020-06-25] MEDS: SODIUM CHLORIDE NASAL SPRAY 44 ML BOTTLE NS SCH ×3 (05:53→22:55)
[2020-06-25] MEDS: chlordiazePOXIDE HCL 25 MG CAPSULE PO SCH ×4 (05:53→22:31)
[2020-06-25] MEDS: METHOCARBAMOL 500 MG TABLET PO PRN ×3 (05:55→22:31)
[2020-06-25] MEDS: IBUPROFEN 400 MG TABLET (FP) PO PRN ×3 (05:55→22:32)
[2020-06-25] MEDS: BISMUTH SUBSALICYLATE 524 MG/30 ML UD PO PRN ×2 (06:31→10:16)
[2020-06-25] MEDS ORDERED: METHADONE HCL 10 MG TABLET (FOR DETOX USE ONLY) PO ONE (10:00)
[2020-06-25] MEDS: metFORMIN HCL 500 MG TABLET (FP) PO SCH ×2 (10:13→17:23)
[2020-06-25] MEDS: SPIRONOLACTONE 25 MG TABLET PO SCH ×2 (10:14→22:58)
[2020-06-25] MEDS: PANTOPRAZOLE 20 MG TABLET PO SCH (10:14)
[2020-06-25] MEDS: SERTRALINE HCL 50 MG TABLET (FP) PO SCH (10:14)
[2020-06-25] MEDS: PRENATAL VITAMINS W/ FOLIC ACID TABLET (FP) PO SCH (10:14)
[2020-06-25] MEDS: BUDESONIDE/FORMETEROL FUMARATE 160/4.5 mcg INHALER IH SCH ×2 (10:14→22:29)
[2020-06-25] MEDS: ALBUTEROL SO4 HFA INHALER IH PRN ×2 (10:15→22:30)
[2020-06-25 10:43] LABS: POTASSIUM 3.7 mmol/L (3.5-5.1)
[2020-06-25 10:47] LABS: CALCIUM 9.7 mg/dL (8.5-10.1)
[2020-06-25 10:48] LABS: ALBUMIN 3.8 g/dl (3.4-5.0); BLOOD UREA NITROGEN 10.6 mg/dL (7-18)
[2020-06-25 10:49] LABS: HEMATOCRIT 40.2 % (32.4-45.2); HEMOGLOBIN 12.3 GM/dL (10.7-15.3); MCH 25.2 pg (25.7-33.7); MCHC 30.7 g/dl (32.0-36.0); MEAN CELL VOLUME 82.3 fl (80-96); MEAN PLT VOLUME 9.7 fl (7.5-11.1); PLATELET COUNT 301 K/MM3 (134-434); RBC 4.89 M/mm3 (3.60-5.2); RDW 15.9 % (11.6-15.6); WHITE BLOOD COUNT 11.9 K/mm3 (4.0-10.0)
[2020-06-25 10:51] LABS: CREATININE 0.9 mg/dL (0.55-1.3)
[2020-06-25 10:52] LABS: BILIRUBIN,TOTAL 1.8 mg/dL (0.2-1); TOT PROT 7.6 g/dl (6.4-8.2)
[2020-06-25] MEDS ORDERED: LOPERAMIDE HCL 2 MG CAPSULE PO ONE (12:42)
[2020-06-25] MEDS: ACETAMINOPHEN 325 MG TABLET (FP) PO PRN (17:26)
[2020-06-25] MEDS: MONTELUKAST NA 10 MG TABLET PO SCH (22:31)
[2020-06-25] MEDS: THIAMINE HCL 100 MG TABLET (FP) PO SCH (22:32)
[2020-06-25] MEDS: SUVOREXANT 10 MG TABLET PO PRN (22:34)
[2020-06-26] MEDS ORDERED: chlordiazePOXIDE HCL 10 MG CAPSULE PO PRN
[2020-06-26] MEDS: chlordiazePOXIDE HCL 10 MG CAPSULE PO SCH ×4 (05:46→22:17)
[2020-06-26] MEDS: METHOCARBAMOL 500 MG TABLET PO PRN ×3 (05:50→17:24)
[2020-06-26] MEDS: metFORMIN HCL 500 MG TABLET (FP) PO SCH ×2 (06:27→17:22)
[2020-06-26] MEDS: SODIUM CHLORIDE NASAL SPRAY 44 ML BOTTLE NS SCH ×3 (07:27→22:19)
[2020-06-26] MEDS ORDERED: METHADONE HCL 10 MG TABLET (FOR DETOX USE ONLY) ONE (08:21)
[2020-06-26] MEDS ORDERED: METHADONE HCL 5 MG TABLET (FOR DETOX USE ONLY) ONE (08:21)
[2020-06-26] MEDS ORDERED: METHADONE (DETOX) 10 MG, METHADONE (DETOX) 5 MG PO ONE (10:00)
[2020-06-26] MEDS: SERTRALINE HCL 50 MG TABLET (FP) PO SCH (10:05)
[2020-06-26] MEDS: IBUPROFEN 400 MG TABLET (FP) PO PRN ×2 (10:05→17:24)
[2020-06-26] MEDS: PRENATAL VITAMINS W/ FOLIC ACID TABLET (FP) PO SCH (10:05)
[2020-06-26] MEDS: SPIRONOLACTONE 25 MG TABLET PO SCH ×2 (10:06→22:17)
[2020-06-26] MEDS: ALBUTEROL SO4 HFA INHALER IH PRN (10:06)
[2020-06-26] MEDS: PANTOPRAZOLE 20 MG TABLET PO SCH (10:06)
[2020-06-26] MEDS: BUDESONIDE/FORMETEROL FUMARATE 160/4.5 mcg INHALER IH SCH (10:06)
[2020-06-26] MEDS: SUVOREXANT 10 MG TABLET PO PRN (21:45)
[2020-06-26] MEDS: THIAMINE HCL 100 MG TABLET (FP) PO SCH (22:17)
[2020-06-26] MEDS: MONTELUKAST NA 10 MG TABLET PO SCH (22:19)
[2020-06-27] MEDS: SODIUM CHLORIDE NASAL SPRAY 44 ML BOTTLE NS SCH ×3 (05:28→23:33)
[2020-06-27] MEDS: chlordiazePOXIDE HCL 10 MG CAPSULE PO SCH ×2 (05:28→17:49)
[2020-06-27] MEDS: metFORMIN HCL 500 MG TABLET (FP) PO SCH ×2 (06:00→17:49)
[2020-06-27] MEDS: METHOCARBAMOL 500 MG TABLET PO PRN ×2 (07:38→17:52)
[2020-06-27] MEDS: IBUPROFEN 400 MG TABLET (FP) PO PRN ×2 (07:38→17:52)
[2020-06-27] MEDS: PRENATAL VITAMINS W/ FOLIC ACID TABLET (FP) PO SCH (09:43)
[2020-06-27] MEDS: SPIRONOLACTONE 25 MG TABLET PO SCH ×2 (09:44→22:09)
[2020-06-27] MEDS: SERTRALINE HCL 50 MG TABLET (FP) PO SCH (09:44)
[2020-06-27] MEDS: PANTOPRAZOLE 20 MG TABLET PO SCH (09:44)
[2020-06-27] MEDS: ACETAMINOPHEN 325 MG TABLET (FP) PO PRN (09:45)
[2020-06-27] MEDS ORDERED: METHADONE HCL 10 MG TABLET (FOR DETOX USE ONLY) PO ONE (10:00)
[2020-06-27] MEDS ORDERED: DIPHENOXYLATE 2.5/ATROPINE.025 1 COMBO TABLET PO ONE (10:52)
[2020-06-27] MEDS: MONTELUKAST NA 10 MG TABLET PO SCH (22:09)
[2020-06-27] MEDS: THIAMINE HCL 100 MG TABLET (FP) PO SCH (22:09)
[2020-06-27] MEDS: LORATADINE 10 MG TABLET PO PRN (22:10)
[2020-06-28] MEDS ORDERED: chlordiazePOXIDE HCL 10 MG CAPSULE PO ONE (05:00)
[2020-06-28] MEDS ORDERED: METHADONE HCL 5 MG TABLET (FOR DETOX USE ONLY) PO ONE (06:00)
[2020-06-28] MEDS: SODIUM CHLORIDE NASAL SPRAY 44 ML BOTTLE NS SCH (06:08)
[2020-06-28] MEDS: metFORMIN HCL 500 MG TABLET (FP) PO SCH (06:08)
[2020-06-28] MEDS: BISMUTH SUBSALICYLATE 524 MG/30 ML UD PO PRN (08:27)
[2020-06-28] MEDS: SPIRONOLACTONE 25 MG TABLET PO SCH (09:21)
[2020-06-28] MEDS: PRENATAL VITAMINS W/ FOLIC ACID TABLET (FP) PO SCH (09:21)
[2020-06-28] MEDS: SERTRALINE HCL 50 MG TABLET (FP) PO SCH (09:21)
[2020-06-28] MEDS: PANTOPRAZOLE 20 MG TABLET PO SCH (09:21)
[2020-06-28 09:26] VITALS: BP 135/84; PULSE 91; TEMP 97.3
== END 2020-06-28 09:21 | disposition home or self-care (01) | DRG 773 ==
LOC: YASAS 08:41 → Y3N 12:23
PROVIDERS: ADMIT Allergy & Immunology; ATTEND Allergy & Immunology
PROC: HZ2ZZZZ Detoxification Services for Substance Abuse Treatment (ICD-10-PCS; principal; 2020-06-23)
DX: F11.23 Opioid dependence with withdrawal (principal); F10.230 Alcohol dependence with withdrawal, uncomplicated; F14.20 Cocaine dependence, uncomplicated; F19.282 Other psychoactive substance dependence with psychoactive substance-induced sleep disorder; I10 Essential (primary) hypertension; K21.9 Gastro-esophageal reflux disease without esophagitis; E11.9 Type 2 diabetes mellitus without complications; R09.81 Nasal congestion; M17.0 Bilateral primary osteoarthritis of knee; E66.9 Obesity, unspecified; Z68.39 Body mass index [BMI] 39.0-39.9, adult; Z86.19 Personal history of other infectious and parasitic diseases; Z79.84 Long term (current) use of oral hypoglycemic drugs; Z88.1 Allergy status to other antibiotic agents; Z88.3 Allergy status to other anti-infective agents
CPT/HCPCS: 36415; 80053; 81025; 82962; 85027; 86780; C9803; U0003

== ENCOUNTER 2020-08-09 08:17 | Inpatient (IN) | payer OTHER ==
[2020-08-09 08:43] VITALS: BMI 39.3
[2020-08-09] MEDS ORDERED: ACETAMINOPHEN 325 MG TABLET (FP) PO PRN (09:38)
[2020-08-09] MEDS ORDERED: BISMUTH SUBSALICYLATE 262 MG/15 ML BTL PO PRN (09:38)
[2020-08-09] MEDS ORDERED: MAGNESIUM HYDROX 2400MG/30ML ORAL SUSPENSION 30 ML CUP PO PRN (09:38)
[2020-08-09] MEDS ORDERED: MAGNESIUM CITRATE 300 ML BOTTLE PO PRN (09:38)
[2020-08-09] MEDS ORDERED: ONDANSETRON *ODT* 4 MG TABLET SL PRN (09:38)
[2020-08-09] MEDS ORDERED: MAG HYDROX/AL HYDROX/SIMETH 30 ML UNIT-DOSE CUP PO PRN (09:38)
[2020-08-09] MEDS ORDERED: METHADONE HCL 10 MG TABLET (FOR DETOX USE ONLY) PO ONE (09:38)
[2020-08-09] MEDS ORDERED: cloNIDine HCL 0.1 MG TABLET PO PRN (09:38)
[2020-08-09] MEDS ORDERED: MENTHOL/PHENOL 1 EACH UD MM PRN (09:38)
[2020-08-09] MEDS: ALBUTEROL SO4 HFA INHALER IH PRN (10:58)
[2020-08-09] MEDS: metFORMIN HCL 500 MG TABLET (FP) PO SCH ×2 (10:59→17:08)
[2020-08-09] MEDS: PANTOPRAZOLE 20 MG TABLET PO SCH (11:00)
[2020-08-09] MEDS: hydrOXYzine PAMOATE 25 MG CAPSULE (FP) PO SCH ×4 (11:00→22:11)
[2020-08-09] MEDS: SPIRONOLACTONE 25 MG TABLET PO SCH ×2 (11:00→22:08)
[2020-08-09] MEDS: PRENATAL VITAMINS W/ FOLIC ACID TABLET (FP) PO SCH (11:02)
[2020-08-09] MEDS: BUDESONIDE/FORMETEROL FUMARATE 160/4.5 mcg INHALER IH SCH ×2 (11:02→22:03)
[2020-08-09] MEDS: REPAGLINIDE 0.5 MG TABLET (FP) PO SCH ×2 (13:49→17:08)
[2020-08-09] MEDS: METHOCARBAMOL 500 MG TABLET PO PRN (13:49)
[2020-08-09] MEDS: IBUPROFEN 400 MG TABLET (FP) PO PRN (13:49)
[2020-08-09 14:50] LABS: HEMOGLOBIN 11.4 GM/dL (10.7-15.3); MCH 25.6 pg (25.7-33.7); MCHC 30.8 g/dl (32.0-36.0); MEAN CELL VOLUME 83.2 fl (80-96); MEAN PLT VOLUME 9.8 fl (7.5-11.1); PLATELET COUNT 280 K/MM3 (134-434); RBC 4.44 M/mm3 (3.60-5.2); WHITE BLOOD COUNT 11.1 K/mm3 (4.0-10.0)
[2020-08-09 14:52] LABS: POTASSIUM 4.3 mmol/L (3.5-5.1)
[2020-08-09 14:54] LABS: ALBUMIN 3.8 g/dl (3.4-5.0); BLOOD UREA NITROGEN 16.4 mg/dL (7-18); CALCIUM 8.6 mg/dL (8.5-10.1)
[2020-08-09 14:57] LABS: CREATININE 0.8 mg/dL (0.55-1.3)
[2020-08-09 14:59] LABS: BILIRUBIN,TOTAL 0.6 mg/dL (0.2-1); TOT PROT 7.6 g/dl (6.4-8.2)
[2020-08-09] MEDS: SERTRALINE HCL 50 MG TABLET (FP) PO SCH (15:38)
[2020-08-09] MEDS: ACETAMINOPHEN 325 MG TABLET (FP) PO PRN (18:22)
[2020-08-09] MEDS ORDERED: MELATONIN 5 MG TABLETS PO SCH (22:00)
[2020-08-09] MEDS: THIAMINE HCL 100 MG TABLET (FP) PO SCH (22:03)
[2020-08-09] MEDS: MONTELUKAST NA 10 MG TABLET PO SCH (22:06)
[2020-08-09] MEDS: MICONAZOLE NITRATE 100 MG SUPP SUPP.VAG PV SCH (22:07)
[2020-08-09] MEDS: SUVOREXANT 20 MG TABLET PO PRN (22:09)
[2020-08-10] MEDS: REPAGLINIDE 0.5 MG TABLET (FP) PO SCH ×3 (06:33→18:11)
[2020-08-10] MEDS: METHOCARBAMOL 500 MG TABLET PO PRN ×2 (06:33→15:07)
[2020-08-10] MEDS: hydrOXYzine PAMOATE 25 MG CAPSULE (FP) PO SCH ×2 (06:33→10:41)
[2020-08-10] MEDS: metFORMIN HCL 500 MG TABLET (FP) PO SCH ×2 (06:33→18:11)
[2020-08-10] MEDS ORDERED: METHADONE HCL 5 MG TABLET (FOR DETOX USE ONLY) ONE (09:38)
[2020-08-10] MEDS ORDERED: METHADONE HCL 10 MG TABLET (FOR DETOX USE ONLY) ONE (09:38)
[2020-08-10] MEDS ORDERED: METHADONE (DETOX) 20 MG, METHADONE (DETOX) 5 MG PO ONE (10:00)
[2020-08-10] MEDS: SERTRALINE HCL 50 MG TABLET (FP) PO SCH (10:40)
[2020-08-10] MEDS: SPIRONOLACTONE 25 MG TABLET PO SCH ×2 (10:41→22:22)
[2020-08-10] MEDS: PRENATAL VITAMINS W/ FOLIC ACID TABLET (FP) PO SCH (10:41)
[2020-08-10] MEDS: PANTOPRAZOLE 20 MG TABLET PO SCH (10:41)
[2020-08-10] MEDS: ALBUTEROL SO4 HFA INHALER IH PRN ×2 (10:42→22:24)
[2020-08-10] MEDS: BUDESONIDE/FORMETEROL FUMARATE 160/4.5 mcg INHALER IH SCH ×2 (10:43→22:23)
[2020-08-10] MEDS ORDERED: FLU VACCINE (FLULAVAL) PF 60 MCG/0.5 ML SYRINGE 2020-2021 IM ONE (12:00)
[2020-08-10] MEDS: IBUPROFEN 400 MG TABLET (FP) PO PRN (15:07)
[2020-08-10] MEDS: MONTELUKAST NA 10 MG TABLET PO SCH (22:22)
[2020-08-10] MEDS: THIAMINE HCL 100 MG TABLET (FP) PO SCH (22:23)
[2020-08-10] MEDS: MICONAZOLE NITRATE 100 MG SUPP SUPP.VAG PV SCH (22:23)
[2020-08-11] MEDS: REPAGLINIDE 0.5 MG TABLET (FP) PO SCH ×3 (07:00→19:59)
[2020-08-11] MEDS: metFORMIN HCL 500 MG TABLET (FP) PO SCH ×2 (07:00→18:21)
[2020-08-11] MEDS ORDERED: METHADONE HCL 10 MG TABLET (FOR DETOX USE ONLY) PO ONE (10:00)
[2020-08-11] MEDS: PRENATAL VITAMINS W/ FOLIC ACID TABLET (FP) PO SCH (10:21)
[2020-08-11] MEDS: PANTOPRAZOLE 20 MG TABLET PO SCH (10:21)
[2020-08-11] MEDS: SPIRONOLACTONE 25 MG TABLET PO SCH ×2 (10:21→22:37)
[2020-08-11] MEDS: SERTRALINE HCL 50 MG TABLET (FP) PO SCH (10:21)
[2020-08-11] MEDS: BUDESONIDE/FORMETEROL FUMARATE 160/4.5 mcg INHALER IH SCH ×2 (10:24→22:39)
[2020-08-11] MEDS: ALBUTEROL SO4 HFA INHALER IH PRN (10:24)
[2020-08-11] MEDS: METHOCARBAMOL 500 MG TABLET PO PRN (16:22)
[2020-08-11] MEDS: IBUPROFEN 400 MG TABLET (FP) PO PRN (16:22)
[2020-08-11] MEDS: ACETAMINOPHEN 325 MG TABLET (FP) PO PRN (18:23)
[2020-08-11] MEDS: hydrOXYzine PAMOATE 50 MG CAPSULE (FP) PO PRN (18:23)
[2020-08-11] MEDS: SUVOREXANT 20 MG TABLET PO PRN (22:37)
[2020-08-11] MEDS: MONTELUKAST NA 10 MG TABLET PO SCH (22:37)
[2020-08-11] MEDS: METHYL SALICYLATE/MENTHOL OINT 30 GM TUBE TP SCH (22:37)
[2020-08-11] MEDS: MICONAZOLE NITRATE 100 MG SUPP SUPP.VAG PV SCH (22:38)
[2020-08-11] MEDS: THIAMINE HCL 100 MG TABLET (FP) PO SCH (22:40)
[2020-08-12] MEDS: PANTOPRAZOLE 20 MG TABLET PO SCH (07:13)
[2020-08-12] MEDS: metFORMIN HCL 500 MG TABLET (FP) PO SCH ×2 (07:13→17:46)
[2020-08-12] MEDS: REPAGLINIDE 0.5 MG TABLET (FP) PO SCH ×3 (07:14→17:46)
[2020-08-12] MEDS ORDERED: METHADONE HCL 5 MG TABLET (FOR DETOX USE ONLY) ONE (09:01)
[2020-08-12] MEDS ORDERED: METHADONE HCL 10 MG TABLET (FOR DETOX USE ONLY) ONE (09:02)
[2020-08-12] MEDS ORDERED: METHADONE (DETOX) 10 MG, METHADONE (DETOX) 5 MG PO ONE (10:00)
[2020-08-12] MEDS: SPIRONOLACTONE 25 MG TABLET PO SCH ×2 (10:29→22:27)
[2020-08-12] MEDS: SERTRALINE HCL 50 MG TABLET (FP) PO SCH (10:30)
[2020-08-12] MEDS: ALBUTEROL SO4 HFA INHALER IH PRN (10:31)
[2020-08-12] MEDS: BUDESONIDE/FORMETEROL FUMARATE 160/4.5 mcg INHALER IH SCH ×2 (10:31→22:28)
[2020-08-12] MEDS: METHYL SALICYLATE/MENTHOL OINT 30 GM TUBE TP SCH ×2 (10:31→22:27)
[2020-08-12] MEDS: METHOCARBAMOL 500 MG TABLET PO PRN ×2 (10:31→22:30)
[2020-08-12] MEDS: PRENATAL VITAMINS W/ FOLIC ACID TABLET (FP) PO SCH (10:31)
[2020-08-12] MEDS: IBUPROFEN 400 MG TABLET (FP) PO PRN (10:32)
[2020-08-12] MEDS ORDERED: DICYCLOMINE HCL 20 MG TABLET PO ONE (13:00)
[2020-08-12] MEDS: FAMOTIDINE 20 MG TABLET PO SCH ×2 (13:54→22:29)
[2020-08-12] MEDS: SIMETHICONE 80 MG TAB.CHEW (FP) PO SCH ×3 (14:54→22:27)
[2020-08-12 16:49] LABS: URINE APPEARANCE CLEAR; URINE BILIRUBIN NEGATIVE (NEGATIVE); URINE COLOR YELLOW; URINE GLUCOSE (UA) NEGATIVE (NEGATIVE); URINE KETONE 1+ (NEGATIVE); URINE LEUK ESTERASE NEGATIVE (NEGATIVE); URINE NITRITE NEGATIVE (NEGATIVE); URINE PROTEIN NEGATIVE (NEGATIVE); URINE UROBILINOGEN 0.2 mg/dL (0.2-1.0)
[2020-08-12] MEDS: MONTELUKAST NA 10 MG TABLET PO SCH (22:28)
[2020-08-12] MEDS: MICONAZOLE NITRATE 100 MG SUPP SUPP.VAG PV SCH (22:28)
[2020-08-12] MEDS: THIAMINE HCL 100 MG TABLET (FP) PO SCH (22:29)
[2020-08-12] MEDS: hydrOXYzine PAMOATE 50 MG CAPSULE (FP) PO PRN (22:30)
[2020-08-13] MEDS: PANTOPRAZOLE 20 MG TABLET PO SCH (06:53)
[2020-08-13] MEDS: metFORMIN HCL 500 MG TABLET (FP) PO SCH ×2 (06:55→17:36)
[2020-08-13] MEDS: REPAGLINIDE 0.5 MG TABLET (FP) PO SCH ×3 (06:56→18:10)
[2020-08-13] MEDS ORDERED: METHADONE HCL 10 MG TABLET (FOR DETOX USE ONLY) PO ONE (10:00)
[2020-08-13] MEDS: METHYL SALICYLATE/MENTHOL OINT 30 GM TUBE TP SCH ×2 (10:58→22:12)
[2020-08-13] MEDS: SPIRONOLACTONE 25 MG TABLET PO SCH ×2 (10:58→22:11)
[2020-08-13] MEDS: SIMETHICONE 80 MG TAB.CHEW (FP) PO SCH (11:01)
[2020-08-13] MEDS: FAMOTIDINE 20 MG TABLET PO SCH ×2 (11:01→22:12)
[2020-08-13] MEDS: PRENATAL VITAMINS W/ FOLIC ACID TABLET (FP) PO SCH (11:02)
[2020-08-13] MEDS: SERTRALINE HCL 50 MG TABLET (FP) PO SCH (11:02)
[2020-08-13] MEDS: BUDESONIDE/FORMETEROL FUMARATE 160/4.5 mcg INHALER IH SCH ×2 (11:02→22:12)
[2020-08-13] MEDS: ACETAMINOPHEN 325 MG TABLET (FP) PO PRN (18:52)
[2020-08-13] MEDS: THIAMINE HCL 100 MG TABLET (FP) PO SCH (22:11)
[2020-08-13] MEDS: MONTELUKAST NA 10 MG TABLET PO SCH (22:11)
[2020-08-13] MEDS: MICONAZOLE NITRATE 100 MG SUPP SUPP.VAG PV SCH (22:12)
[2020-08-13] MEDS ORDERED: MELATONIN 5 MG TABLETS PO ONE (22:35)
[2020-08-13] MEDS: hydrOXYzine PAMOATE 50 MG CAPSULE (FP) PO PRN (22:37)
[2020-08-14] MEDS ORDERED: METHADONE HCL 5 MG TABLET (FOR DETOX USE ONLY) PO ONE (06:00)
[2020-08-14] MEDS: metFORMIN HCL 500 MG TABLET (FP) PO SCH (06:51)
[2020-08-14] MEDS: PANTOPRAZOLE 20 MG TABLET PO SCH (06:52)
[2020-08-14] MEDS: REPAGLINIDE 0.5 MG TABLET (FP) PO SCH (06:54)
[2020-08-14 07:21] VITALS: BP 114/63; PULSE 73; TEMP 96.6
== END 2020-08-14 08:45 | disposition home or self-care (01) | DRG 773 ==
LOC: YASAS 08:17 → Y6N 08:56
PROVIDERS: ADMIT Allergy & Immunology; ATTEND Allergy & Immunology
PROC: HZ2ZZZZ Detoxification Services for Substance Abuse Treatment (ICD-10-PCS; principal; 2020-08-09)
DX: F11.23 Opioid dependence with withdrawal (principal); F10.230 Alcohol dependence with withdrawal, uncomplicated; F14.20 Cocaine dependence, uncomplicated; F19.282 Other psychoactive substance dependence with psychoactive substance-induced sleep disorder; F19.24 Other psychoactive substance dependence with psychoactive substance-induced mood disorder; F32.9 Major depressive disorder, single episode, unspecified; F41.9 Anxiety disorder, unspecified; G47.00 Insomnia, unspecified; J45.909 Unspecified asthma, uncomplicated; K21.9 Gastro-esophageal reflux disease without esophagitis; E11.9 Type 2 diabetes mellitus without complications; Z79.84 Long term (current) use of oral hypoglycemic drugs; M17.0 Bilateral primary osteoarthritis of knee; B37.3 Candidiasis of vulva and vagina; E66.9 Obesity, unspecified; Z68.39 Body mass index [BMI] 39.0-39.9, adult; Z62.810 Personal history of physical and sexual abuse in childhood; Z91.410 Personal history of adult physical and sexual abuse; Z87.81 Personal history of (healed) traumatic fracture; Z90.49 Acquired absence of other specified parts of digestive tract; Z88.2 Allergy status to sulfonamides
CPT/HCPCS: 36415; 80053; 81003; 81025; 82962; 85027; 86780; 93005; 93010; C9803; G0008; J0735; Q0162; Q2036; U0003

== ENCOUNTER 2020-11-24 09:02 | Inpatient (IN) | payer OTHER ==
[2020-11-24 11:05] VITALS: BMI 38.0
[2020-11-24] MEDS ORDERED: NICOTINE POLACRILEX 2 MG GUM BUC PRN (13:13)
[2020-11-24] MEDS ORDERED: MAGNESIUM CITRATE 300 ML BOTTLE PO PRN (13:13)
[2020-11-24] MEDS ORDERED: MAG HYDROX/AL HYDROX/SIMETH 30 ML UNIT-DOSE CUP PO PRN (13:13)
[2020-11-24] MEDS ORDERED: ONDANSETRON *ODT* 4 MG TABLET SL PRN (13:13)
[2020-11-24] MEDS ORDERED: BISMUTH SUBSALICYLATE 524 MG/30 ML UD PO PRN (13:13)
[2020-11-24] MEDS ORDERED: MAGNESIUM HYDROX 2400MG/30ML ORAL SUSPENSION 30 ML CUP PO PRN (13:13)
[2020-11-24] MEDS ORDERED: MENTHOL/PHENOL 1 EACH UD MM PRN (13:13)
[2020-11-24] MEDS ORDERED: ACETAMINOPHEN 325 MG TABLET (FP) PO PRN ×2 (13:13)
[2020-11-24] MEDS ORDERED: IBUPROFEN 400 MG TABLET (FP) PO PRN (13:13)
[2020-11-24] MEDS ORDERED: cloNIDine HCL 0.1 MG TABLET PO PRN (13:13)
[2020-11-24] MEDS ORDERED: METHADONE HCL 10 MG TABLET (FOR DETOX USE ONLY) PO ONE (13:13)
[2020-11-24] MEDS ORDERED: ALBUTEROL SO4 HFA INHALER IH PRN (13:15)
[2020-11-24] MEDS ORDERED: COLLOIDAL OATMEAL 1 BAR EACH TP PRN (13:17)
[2020-11-24] MEDS: METHOCARBAMOL 500 MG TABLET PO PRN ×2 (14:18→22:57)
[2020-11-24] MEDS: METHYL SALICYLATE/MENTHOL OINT 30 GM TUBE TP SCH ×2 (14:19→22:43)
[2020-11-24] MEDS: FLUTICASONE PROP 0.05% 16 GM NASAL SPRAY NS SCH ×2 (14:23→22:43)
[2020-11-24] MEDS: SODIUM CHLORIDE NASAL SPRAY 44 ML BOTTLE NS SCH ×2 (16:43→22:43)
[2020-11-24] MEDS: INSULIN SLIDING SCALE (NOVOLOG) 1 VIAL SQ SCH (17:52)
[2020-11-24] MEDS ORDERED: QUEtiapine FUMARATE 50 MG TABLET PO ONE (22:00)
[2020-11-24] MEDS: metFORMIN HCL 500 MG TABLET (FP) PO SCH (22:41)
[2020-11-24] MEDS: MELATONIN 5 MG TABLETS PO SCH (22:43)
[2020-11-24] MEDS: FAMOTIDINE 20 MG TABLET PO SCH (22:43)
[2020-11-24] MEDS: BUDESONIDE/FORMETEROL FUMARATE 160/4.5 mcg INHALER IH SCH (22:44)
[2020-11-24] MEDS: MONTELUKAST NA 10 MG TABLET PO SCH (22:44)
[2020-11-24] MEDS: THIAMINE HCL 100 MG TABLET (FP) PO SCH (22:44)
[2020-11-25] MEDS: SODIUM CHLORIDE NASAL SPRAY 44 ML BOTTLE NS SCH ×3 (05:45→22:34)
[2020-11-25] MEDS: METHOCARBAMOL 500 MG TABLET PO PRN ×2 (07:15→22:33)
[2020-11-25] MEDS ORDERED: METHADONE HCL 5 MG TABLET (FOR DETOX USE ONLY) ONE (08:43)
[2020-11-25] MEDS ORDERED: METHADONE HCL 10 MG TABLET (FOR DETOX USE ONLY) ONE (08:44)
[2020-11-25] MEDS ORDERED: METHADONE (DETOX) 20 MG, METHADONE (DETOX) 5 MG PO ONE (10:00)
[2020-11-25] MEDS: METHYL SALICYLATE/MENTHOL OINT 30 GM TUBE TP SCH ×2 (10:21→22:31)
[2020-11-25] MEDS: PRENATAL VITAMINS W/ FOLIC ACID TABLET (FP) PO SCH (10:21)
[2020-11-25] MEDS: FAMOTIDINE 20 MG TABLET PO SCH ×2 (10:22→22:29)
[2020-11-25] MEDS: metFORMIN HCL 500 MG TABLET (FP) PO SCH ×2 (10:23→22:28)
[2020-11-25] MEDS: FLUTICASONE PROP 0.05% 16 GM NASAL SPRAY NS SCH ×2 (10:24→22:31)
[2020-11-25] MEDS: BUDESONIDE/FORMETEROL FUMARATE 160/4.5 mcg INHALER IH SCH ×2 (10:26→22:34)
[2020-11-25] MEDS: CHOLECALCIFEROL (VIT D3) 1,000 UNIT (25 MCG) TABLET PO SCH (11:41)
[2020-11-25] MEDS: SERTRALINE HCL 50 MG TABLET (FP) PO SCH (11:46)
[2020-11-25 12:37] LABS: HEMATOCRIT 34.3 % (32.4-45.2); HEMOGLOBIN 10.8 GM/dL (10.7-15.3); MCHC 31.4 g/dl (32.0-36.0); MEAN CELL VOLUME 82.8 fl (80-96); MEAN PLT VOLUME 9.4 fl (7.5-11.1); PLATELET COUNT 300 K/MM3 (134-434); RBC 4.14 M/mm3 (3.60-5.2); RDW 14.8 % (11.6-15.6); WHITE BLOOD COUNT 12.1 K/mm3 (4.0-10.0)
[2020-11-25 12:41] LABS: ALBUMIN 3.6 g/dl (3.4-5.0); CALCIUM 8.7 mg/dL (8.5-10.1)
[2020-11-25 12:46] LABS: BILIRUBIN,TOTAL 0.5 mg/dL (0.2-1); TOT PROT 7.4 g/dl (6.4-8.2)
[2020-11-25 12:53] LABS: CREATININE 0.7 mg/dL (0.55-1.3)
[2020-11-25] MEDS: guaiFENesin 600 MG TABLET.ER (FP) PO SCH ×2 (13:49→22:29)
[2020-11-25] MEDS: BUMETANIDE 0.5 MG TABLET PO SCH (15:41)
[2020-11-25] MEDS ORDERED: SUVOREXANT 10 MG TABLET PO PRN (22:00)
[2020-11-25] MEDS: THIAMINE HCL 100 MG TABLET (FP) PO SCH (22:29)
[2020-11-25] MEDS: MELATONIN 5 MG TABLETS PO SCH (22:32)
[2020-11-25] MEDS: MONTELUKAST NA 10 MG TABLET PO SCH (22:34)
[2020-11-26] MEDS ORDERED: hydrOXYzine PAMOATE 25 MG CAPSULE (FP) PO ONE (03:36)
[2020-11-26] MEDS: FAMOTIDINE 20 MG TABLET PO SCH ×2 (06:59→22:10)
[2020-11-26] MEDS: SODIUM CHLORIDE NASAL SPRAY 44 ML BOTTLE NS SCH ×3 (07:06→22:13)
[2020-11-26] MEDS: INSULIN SLIDING SCALE (NOVOLOG) 1 VIAL SQ SCH ×3 (07:09→18:07)
[2020-11-26] MEDS ORDERED: METHADONE HCL 10 MG TABLET (FOR DETOX USE ONLY) PO ONE (10:00)
[2020-11-26] MEDS: BUMETANIDE 0.5 MG TABLET PO SCH (10:48)
[2020-11-26] MEDS: METHYL SALICYLATE/MENTHOL OINT 30 GM TUBE TP SCH ×2 (10:48→22:11)
[2020-11-26] MEDS: FLUTICASONE PROP 0.05% 16 GM NASAL SPRAY NS SCH ×2 (10:49→22:11)
[2020-11-26] MEDS: guaiFENesin 600 MG TABLET.ER (FP) PO SCH ×2 (10:49→22:10)
[2020-11-26] MEDS: CHOLECALCIFEROL (VIT D3) 1,000 UNIT (25 MCG) TABLET PO SCH (10:50)
[2020-11-26] MEDS: PRENATAL VITAMINS W/ FOLIC ACID TABLET (FP) PO SCH (10:50)
[2020-11-26] MEDS: BUDESONIDE/FORMETEROL FUMARATE 160/4.5 mcg INHALER IH SCH ×2 (10:53→22:13)
[2020-11-26] MEDS: SERTRALINE HCL 50 MG TABLET (FP) PO SCH (10:53)
[2020-11-26] MEDS: metFORMIN HCL 500 MG TABLET (FP) PO SCH ×2 (10:54→22:10)
[2020-11-26] MEDS ORDERED: SUCRALFATE 1 GM TABLET (FP) PO ONE (14:00)
[2020-11-26] MEDS ORDERED: DICYCLOMINE HCL 10 MG CAPSULE PO ONE (14:00)
[2020-11-26] MEDS: GABAPENTIN 100 MG CAPSULE PO SCH ×2 (14:06→22:10)
[2020-11-26] MEDS: METHOCARBAMOL 500 MG TABLET PO PRN (20:23)
[2020-11-26] MEDS: THIAMINE HCL 100 MG TABLET (FP) PO SCH (22:09)
[2020-11-26] MEDS: MONTELUKAST NA 10 MG TABLET PO SCH (22:13)
[2020-11-26] MEDS: MELATONIN 5 MG TABLETS PO SCH (23:21)
[2020-11-27] MEDS ORDERED: MELATONIN 5 MG TABLETS PO PRN (02:31)
[2020-11-27 06:07] LABS: SARS-CoV-2 NAA Not Detected (Not Detected)
[2020-11-27] MEDS: FAMOTIDINE 20 MG TABLET PO SCH (06:55)
[2020-11-27] MEDS: GABAPENTIN 100 MG CAPSULE PO SCH (06:55)
[2020-11-27] MEDS: SODIUM CHLORIDE NASAL SPRAY 44 ML BOTTLE NS SCH ×2 (07:40→14:10)
[2020-11-27] MEDS: INSULIN SLIDING SCALE (NOVOLOG) 1 VIAL SQ SCH ×2 (07:40→18:11)
[2020-11-27] MEDS ORDERED: METHADONE HCL 5 MG TABLET (FOR DETOX USE ONLY) ONE (08:50)
[2020-11-27] MEDS ORDERED: METHADONE HCL 10 MG TABLET (FOR DETOX USE ONLY) ONE (08:51)
[2020-11-27] MEDS ORDERED: DICYCLOMINE HCL 10 MG CAPSULE PO ONE (10:00)
[2020-11-27] MEDS ORDERED: METHADONE (DETOX) 10 MG, METHADONE (DETOX) 5 MG PO ONE (10:00)
[2020-11-27] MEDS: METHYL SALICYLATE/MENTHOL OINT 30 GM TUBE TP SCH (10:13)
[2020-11-27] MEDS: guaiFENesin 600 MG TABLET.ER (FP) PO SCH (10:13)
[2020-11-27] MEDS: SIMETHICONE 80 MG TAB.CHEW (FP) PO SCH ×2 (10:13→14:08)
[2020-11-27] MEDS: SERTRALINE HCL 50 MG TABLET (FP) PO SCH (10:13)
[2020-11-27] MEDS: CHOLECALCIFEROL (VIT D3) 1,000 UNIT (25 MCG) TABLET PO SCH (10:13)
[2020-11-27] MEDS: metFORMIN HCL 500 MG TABLET (FP) PO SCH (10:13)
[2020-11-27] MEDS: BUMETANIDE 0.5 MG TABLET PO SCH (10:14)
[2020-11-27] MEDS: PRENATAL VITAMINS W/ FOLIC ACID TABLET (FP) PO SCH (10:14)
[2020-11-27] MEDS: BUDESONIDE/FORMETEROL FUMARATE 160/4.5 mcg INHALER IH SCH (10:14)
[2020-11-27] MEDS: FLUTICASONE PROP 0.05% 16 GM NASAL SPRAY NS SCH (10:14)
[2020-11-27] MEDS ORDERED: GABAPENTIN 100 MG CAPSULE PO SCH (14:00)
[2020-11-27 17:10] VITALS: BP 147/98; PULSE 82; TEMP 97.8
[2020-11-28] MEDS ORDERED: METHADONE HCL 10 MG TABLET (FOR DETOX USE ONLY) PO ONE (10:00)
[2020-11-29] MEDS ORDERED: METHADONE HCL 5 MG TABLET (FOR DETOX USE ONLY) PO ONE (06:00)
== END 2020-11-27 20:18 | disposition left against medical advice (07) | DRG 770 ==
LOC: YASAS 09:02 → Y6N 13:31
PROVIDERS: ADMIT Allergy & Immunology; ATTEND Allergy & Immunology
PROC: HZ2ZZZZ Detoxification Services for Substance Abuse Treatment (ICD-10-PCS; principal; 2020-11-24)
DX: F11.23 Opioid dependence with withdrawal (principal); F10.230 Alcohol dependence with withdrawal, uncomplicated; F14.20 Cocaine dependence, uncomplicated; F19.280 Other psychoactive substance dependence with psychoactive substance-induced anxiety disorder; F19.282 Other psychoactive substance dependence with psychoactive substance-induced sleep disorder; F19.24 Other psychoactive substance dependence with psychoactive substance-induced mood disorder; F51.05 Insomnia due to other mental disorder; F41.9 Anxiety disorder, unspecified; F32.9 Major depressive disorder, single episode, unspecified; E11.9 Type 2 diabetes mellitus without complications; Z79.84 Long term (current) use of oral hypoglycemic drugs; I10 Essential (primary) hypertension; K21.9 Gastro-esophageal reflux disease without esophagitis; J45.40 Moderate persistent asthma, uncomplicated; B37.3 Candidiasis of vulva and vagina; M17.0 Bilateral primary osteoarthritis of knee; M19.271 Secondary osteoarthritis, right ankle and foot; M19.272 Secondary osteoarthritis, left ankle and foot; Z62.810 Personal history of physical and sexual abuse in childhood; E66.9 Obesity, unspecified; Z68.38 Body mass index [BMI] 38.0-38.9, adult; Z91.410 Personal history of adult physical and sexual abuse; Z88.2 Allergy status to sulfonamides; Z88.8 Allergy status to other drugs, medicaments and biological substances
CPT/HCPCS: 36415; 80053; 82962; 85027; 86780; C9803; J0735; U0003; U0005

== ENCOUNTER 2021-01-27 08:20 | Inpatient (IN) | payer OTHER ==
[2021-01-27 09:18] VITALS: BMI 36.0
[2021-01-27] MEDS ORDERED: DOCUSATE SODIUM 100 MG CAPSULE (FP) PO PRN (09:30)
[2021-01-27] MEDS ORDERED: ONDANSETRON *ODT* 4 MG TABLET SL PRN (09:32)
[2021-01-27] MEDS ORDERED: MAG HYDROX/AL HYDROX/SIMETH 30 ML UNIT-DOSE CUP PO PRN (09:32)
[2021-01-27] MEDS ORDERED: BISMUTH SUBSALICYLATE 524 MG/30 ML PO PRN (09:32)
[2021-01-27] MEDS ORDERED: MAGNESIUM CITRATE 300 ML BOTTLE PO PRN (09:32)
[2021-01-27] MEDS ORDERED: MAGNESIUM HYDROX 2400MG/30ML ORAL SUSPENSION 30 ML CUP PO PRN (09:32)
[2021-01-27] MEDS ORDERED: IBUPROFEN 400 MG TABLET (FP) PO PRN (09:32)
[2021-01-27] MEDS ORDERED: hydrOXYzine PAMOATE 25 MG CAPSULE (FP) PO PRN (09:32)
[2021-01-27] MEDS ORDERED: ACETAMINOPHEN 325 MG TABLET (FP) PO PRN ×2 (09:32)
[2021-01-27] MEDS ORDERED: MENTHOL/PHENOL 1 EACH UD MM PRN (09:32)
[2021-01-27] MEDS ORDERED: methaDONE HCL 10 MG TABLET (FOR DETOX USE ONLY) PO ONE (09:45)
[2021-01-27] MEDS ORDERED: metFORMIN HCL 500 MG TABLET (FP) PO SCH ×2 (10:00)
[2021-01-27] MEDS ORDERED: PANTOPRAZOLE 20 MG TABLET PO SCH (10:00)
[2021-01-27] MEDS ORDERED: methaDONE HCL 10 MG TABLET (FOR DETOX USE ONLY) ONE (10:55)
[2021-01-27] MEDS: CHOLECALCIFEROL (VIT D3) 1,000 UNIT (25 MCG) TABLET PO SCH (12:03)
[2021-01-27] MEDS: METHOCARBAMOL 500 MG TABLET PO PRN (12:03)
[2021-01-27] MEDS: diazePAM 5 MG TABLET PO PRN ×2 (12:03→17:39)
[2021-01-27] MEDS: BUDESONIDE/FORMETEROL FUMARATE 160/4.5 mcg INHALER IH SCH ×2 (12:04→22:32)
[2021-01-27] MEDS: PRENATAL VITAMINS W/ FOLIC ACID TABLET (FP) PO SCH (12:04)
[2021-01-27] MEDS: cloNIDine HCL 0.1 MG TABLET PO PRN ×2 (17:39→22:33)
[2021-01-27] MEDS: metFORMIN HCL 500 MG TABLET (FP) PO SCH (17:40)
[2021-01-27] MEDS: MONTELUKAST NA 10 MG TABLET PO SCH (22:31)
[2021-01-27] MEDS: MELATONIN 5 MG TABLETS PO SCH (22:32)
[2021-01-27] MEDS: THIAMINE HCL 100 MG TABLET (FP) PO SCH (22:32)
[2021-01-27] MEDS: QUEtiapine FUMARATE 50 MG TABLET PO SCH (22:32)
[2021-01-27] MEDS: COLLOIDAL OATMEAL 1 BAR EACH TP PRN (22:36)
[2021-01-27] MEDS: ALBUTEROL SO4 HFA INHALER IH PRN (22:37)
[2021-01-28] MEDS ORDERED: PANTOPRAZOLE 20 MG TABLET PO ONE (08:08)
[2021-01-28] MEDS: metFORMIN HCL 500 MG TABLET (FP) PO SCH ×2 (08:24→17:33)
[2021-01-28] MEDS: diazePAM 5 MG TABLET PO PRN ×2 (08:32→14:05)
[2021-01-28] MEDS ORDERED: methaDONE HCL 10 MG TABLET (FOR DETOX USE ONLY) ONE (09:28)
[2021-01-28] MEDS: PRENATAL VITAMINS W/ FOLIC ACID TABLET (FP) PO SCH (10:16)
[2021-01-28] MEDS: METHOCARBAMOL 500 MG TABLET PO PRN ×2 (10:16→17:35)
[2021-01-28] MEDS: BUDESONIDE/FORMETEROL FUMARATE 160/4.5 mcg INHALER IH SCH ×2 (10:16→22:07)
[2021-01-28] MEDS: SERTRALINE HCL 50 MG TABLET (FP) PO SCH (10:16)
[2021-01-28 10:19] LABS: HEMATOCRIT 36.4 % (32.4-45.2); HEMOGLOBIN 11.2 GM/dL (10.7-15.3); MCH 24.9 pg (25.7-33.7); MCHC 30.9 g/dl (32.0-36.0); MEAN CELL VOLUME 80.7 fl (80-96); MEAN PLT VOLUME 9.1 fl (7.5-11.1); PLATELET COUNT 270 10^3/uL (134-434); RBC 4.51 M/mm3 (3.60-5.2); RDW 15.4 % (11.6-15.6); WHITE BLOOD COUNT 11.1 K/mm3 (4.0-10.0)
[2021-01-28 10:28] LABS: CALCIUM 8.7 mg/dL (8.5-10.1)
[2021-01-28 10:29] LABS: ALBUMIN 3.4 g/dl (3.4-5.0)
[2021-01-28 10:32] LABS: CREATININE 0.8 mg/dL (0.55-1.3)
[2021-01-28 10:34] LABS: BILIRUBIN,TOTAL 0.6 mg/dL (0.2-1); TOT PROT 7.2 g/dl (6.4-8.2)
[2021-01-28] MEDS ORDERED: PNEUMOC 13-VAL CONJ-DIP CRM/PF 0.5 ML DISP.SYRIN IM ONE (10:43)
[2021-01-28] MEDS: CHOLECALCIFEROL (VIT D3) 1,000 UNIT (25 MCG) TABLET PO SCH (11:19)
[2021-01-28] MEDS: THIAMINE HCL 100 MG TABLET (FP) PO SCH (22:06)
[2021-01-28] MEDS: QUEtiapine FUMARATE 50 MG TABLET PO SCH (22:06)
[2021-01-28] MEDS: MONTELUKAST NA 10 MG TABLET PO SCH (22:06)
[2021-01-28] MEDS: MELATONIN 5 MG TABLETS PO SCH (22:07)
[2021-01-29] MEDS: PANTOPRAZOLE 20 MG TABLET PO SCH (06:00)
[2021-01-29] MEDS: metFORMIN HCL 500 MG TABLET (FP) PO SCH ×2 (06:00→16:50)
[2021-01-29] MEDS: ALBUTEROL SO4 HFA INHALER IH PRN (06:30)
[2021-01-29] MEDS ORDERED: methaDONE HCL 10 MG TABLET (FOR DETOX USE ONLY) PO ONE (10:00)
[2021-01-29] MEDS: CHOLECALCIFEROL (VIT D3) 1,000 UNIT (25 MCG) TABLET PO SCH (10:31)
[2021-01-29] MEDS: PRENATAL VITAMINS W/ FOLIC ACID TABLET (FP) PO SCH (10:31)
[2021-01-29] MEDS: SERTRALINE HCL 50 MG TABLET (FP) PO SCH (10:32)
[2021-01-29] MEDS: METHOCARBAMOL 500 MG TABLET PO PRN (10:33)
[2021-01-29] MEDS: BUDESONIDE/FORMETEROL FUMARATE 160/4.5 mcg INHALER IH SCH ×2 (10:35→22:13)
[2021-01-29] MEDS: diazePAM 5 MG TABLET PO PRN ×2 (11:00→22:15)
[2021-01-29] MEDS: cloNIDine HCL 0.1 MG TABLET PO PRN (14:48)
[2021-01-29] MEDS: SODIUM CHLORIDE NASAL SPRAY 44 ML BOTTLE NS SCH ×2 (14:48→22:13)
[2021-01-29] MEDS: MONTELUKAST NA 10 MG TABLET PO SCH (22:12)
[2021-01-29] MEDS: QUEtiapine FUMARATE 50 MG TABLET PO SCH (22:12)
[2021-01-29] MEDS: MELATONIN 5 MG TABLETS PO SCH (22:12)
[2021-01-29] MEDS: THIAMINE HCL 100 MG TABLET (FP) PO SCH (22:13)
[2021-01-30] MEDS: METHOCARBAMOL 500 MG TABLET PO PRN ×2 (06:03→12:01)
[2021-01-30] MEDS: metFORMIN HCL 500 MG TABLET (FP) PO SCH ×2 (06:03→17:39)
[2021-01-30] MEDS: SODIUM CHLORIDE NASAL SPRAY 44 ML BOTTLE NS SCH ×3 (06:03→22:37)
[2021-01-30] MEDS: PANTOPRAZOLE 20 MG TABLET PO SCH (06:03)
[2021-01-30] MEDS ORDERED: methaDONE HCL 10 MG TABLET (FOR DETOX USE ONLY) ONE (09:33)
[2021-01-30] MEDS: PRENATAL VITAMINS W/ FOLIC ACID TABLET (FP) PO SCH (10:09)
[2021-01-30] MEDS: CHOLECALCIFEROL (VIT D3) 1,000 UNIT (25 MCG) TABLET PO SCH (10:10)
[2021-01-30] MEDS: BUDESONIDE/FORMETEROL FUMARATE 160/4.5 mcg INHALER IH SCH ×2 (10:10→22:37)
[2021-01-30] MEDS: SERTRALINE HCL 50 MG TABLET (FP) PO SCH (10:10)
[2021-01-30] MEDS: LISINOPRIL 5 MG TABLET PO SCH (12:01)
[2021-01-30] MEDS: MONTELUKAST NA 10 MG TABLET PO SCH (22:36)
[2021-01-30] MEDS: THIAMINE HCL 100 MG TABLET (FP) PO SCH (22:36)
[2021-01-30] MEDS: QUEtiapine FUMARATE 50 MG TABLET PO SCH (22:36)
[2021-01-30] MEDS: MELATONIN 5 MG TABLETS PO SCH (22:37)
[2021-01-31] MEDS: PANTOPRAZOLE 20 MG TABLET PO SCH (06:35)
[2021-01-31] MEDS: METHOCARBAMOL 500 MG TABLET PO PRN (06:35)
[2021-01-31] MEDS: metFORMIN HCL 500 MG TABLET (FP) PO SCH ×2 (07:05→17:48)
[2021-01-31] MEDS: SODIUM CHLORIDE NASAL SPRAY 44 ML BOTTLE NS SCH ×3 (07:05→22:15)
[2021-01-31] MEDS ORDERED: methaDONE HCL 10 MG TABLET (FOR DETOX USE ONLY) PO ONE (10:00)
[2021-01-31] MEDS: PRENATAL VITAMINS W/ FOLIC ACID TABLET (FP) PO SCH (10:14)
[2021-01-31] MEDS: CHOLECALCIFEROL (VIT D3) 1,000 UNIT (25 MCG) TABLET PO SCH (10:14)
[2021-01-31] MEDS: LISINOPRIL 5 MG TABLET PO SCH (10:15)
[2021-01-31] MEDS: BUDESONIDE/FORMETEROL FUMARATE 160/4.5 mcg INHALER IH SCH ×2 (10:15→22:15)
[2021-01-31] MEDS: SERTRALINE HCL 50 MG TABLET (FP) PO SCH (10:15)
[2021-01-31] MEDS ORDERED: DIPHENOXYLATE 2.5/ATROPINE.025 1 COMBO TABLET PO ONE (11:05)
[2021-01-31] MEDS ORDERED: DICYCLOMINE HCL 10 MG CAPSULE PO ONE (11:19)
[2021-01-31] MEDS: COLLOIDAL OATMEAL 1 BAR EACH TP PRN (13:42)
[2021-01-31] MEDS: MONTELUKAST NA 10 MG TABLET PO SCH (22:15)
[2021-01-31] MEDS: QUEtiapine FUMARATE 50 MG TABLET PO SCH (22:15)
[2021-01-31] MEDS: THIAMINE HCL 100 MG TABLET (FP) PO SCH (22:16)
[2021-01-31] MEDS: MELATONIN 5 MG TABLETS PO SCH (22:16)
[2021-02-01] MEDS: PANTOPRAZOLE 20 MG TABLET PO SCH (05:20)
[2021-02-01] MEDS: SODIUM CHLORIDE NASAL SPRAY 44 ML BOTTLE NS SCH (05:21)
[2021-02-01 09:21] VITALS: BP 130/70; PULSE 79; TEMP 98.6
== END 2021-02-01 08:44 | disposition home or self-care (01) | DRG 773 ==
LOC: YASAS 08:20 → Y6N 11:12
PROVIDERS: ADMIT Allergy & Immunology; ATTEND Allergy & Immunology
PROC: HZ2ZZZZ Detoxification Services for Substance Abuse Treatment (ICD-10-PCS; principal; 2021-01-27)
DX: F11.23 Opioid dependence with withdrawal (principal); F10.20 Alcohol dependence, uncomplicated; F14.20 Cocaine dependence, uncomplicated; F19.282 Other psychoactive substance dependence with psychoactive substance-induced sleep disorder; F19.24 Other psychoactive substance dependence with psychoactive substance-induced mood disorder; F32.9 Major depressive disorder, single episode, unspecified; E11.9 Type 2 diabetes mellitus without complications; Z79.84 Long term (current) use of oral hypoglycemic drugs; I10 Essential (primary) hypertension; K21.9 Gastro-esophageal reflux disease without esophagitis; J30.9 Allergic rhinitis, unspecified; J32.9 Chronic sinusitis, unspecified; Z90.49 Acquired absence of other specified parts of digestive tract; Z99.89 Dependence on other enabling machines and devices; Z88.2 Allergy status to sulfonamides; Z62.810 Personal history of physical and sexual abuse in childhood; Z91.410 Personal history of adult physical and sexual abuse
CPT/HCPCS: 36415; 80053; 81025; 82962; 85027; 86780; C9803; J0735; Q0162; U0003; U0005

== ENCOUNTER 2021-08-05 10:29 | Inpatient (IN) | payer OTHER ==
[2021-08-05] MEDS ORDERED: MAGNESIUM CITRATE 300 ML BOTTLE PO PRN (11:45)
[2021-08-05] MEDS ORDERED: ACETAMINOPHEN 325 MG TABLET (FP) PO PRN ×2 (11:45)
[2021-08-05] MEDS ORDERED: MAGNESIUM HYDROX 2400MG/30ML ORAL SUSPENSION 30 ML CUP PO PRN (11:45)
[2021-08-05] MEDS ORDERED: MAG HYDROX/AL HYDROX/SIMETH 30 ML UNIT-DOSE CUP PO PRN (11:45)
[2021-08-05] MEDS ORDERED: BISMUTH SUBSALICYLATE 262 MG/15 ML BTL PO PRN (11:45)
[2021-08-05] MEDS ORDERED: MENTHOL/PHENOL 1 EACH UD MM PRN (11:45)
[2021-08-05] MEDS ORDERED: methaDONE HCL 10 MG TABLET (FOR DETOX USE ONLY) PO ONE (11:45)
[2021-08-05] MEDS ORDERED: ONDANSETRON *ODT* 4 MG TABLET SL PRN (11:45)
[2021-08-05 12:07] VITALS: BMI 40.6
[2021-08-05] MEDS: PRENATAL VITAMINS W/ FOLIC ACID TABLET (FP) PO SCH (13:44)
[2021-08-05] MEDS: hydrOXYzine PAMOATE 25 MG CAPSULE (FP) PO SCH ×3 (13:44→22:36)
[2021-08-05] MEDS: cloNIDine HCL 0.1 MG TABLET PO PRN ×3 (13:44→22:36)
[2021-08-05] MEDS ORDERED: PATIENT'S OWN MEDICATION (NON-FORMULARY) (Albuterol Sulfate [Proair Respiclick] 90 MCG Aer IH SCH (14:00)
[2021-08-05] MEDS: SERTRALINE HCL 50 MG TABLET (FP) PO SCH (15:23)
[2021-08-05] MEDS: ALBUTEROL SO4 HFA INHALER IH PRN ×2 (15:23→22:37)
[2021-08-05 16:13] LABS: CALCIUM 8.9 mg/dL (8.5-10.1)
[2021-08-05 16:14] LABS: ALBUMIN 3.6 g/dl (3.4-5.0); BLOOD UREA NITROGEN 8.7 mg/dL (7-18)
[2021-08-05 16:17] LABS: CREATININE 0.7 mg/dL (0.55-1.3)
[2021-08-05 16:18] LABS: BILIRUBIN,TOTAL 0.3 mg/dL (0.2-1); TOT PROT 7.2 g/dl (6.4-8.2)
[2021-08-05 16:24] LABS: HEMATOCRIT 35.5 % (32.4-45.2); MCH 26.1 pg (25.7-33.7); MEAN CELL VOLUME 84.1 fl (80-96); MEAN PLT VOLUME 9.1 fl (7.5-11.1); PLATELET COUNT 253 10^3/uL (134-434); RBC 4.22 M/mm3 (3.60-5.2); RDW 15.1 % (11.6-15.6)
[2021-08-05] MEDS: IBUPROFEN 400 MG TABLET (FP) PO PRN (17:59)
[2021-08-05] MEDS: metFORMIN HCL 500 MG TABLET (FP) PO SCH (18:00)
[2021-08-05] MEDS: METHOCARBAMOL 500 MG TABLET PO PRN ×2 (18:00→22:36)
[2021-08-05] MEDS ORDERED: FAMOTIDINE 20 MG TABLET PO SCH (22:00)
[2021-08-05] MEDS ORDERED: MELATONIN 5 MG TABLETS PO SCH (22:00)
[2021-08-05] MEDS: THIAMINE HCL 100 MG TABLET (FP) PO SCH (22:36)
[2021-08-05] MEDS: MONTELUKAST NA 10 MG TABLET PO SCH (22:36)
[2021-08-06] MEDS: METHOCARBAMOL 500 MG TABLET PO PRN (06:02)
[2021-08-06] MEDS: hydrOXYzine PAMOATE 25 MG CAPSULE (FP) PO SCH ×5 (06:03→22:31)
[2021-08-06] MEDS: metFORMIN HCL 500 MG TABLET (FP) PO SCH ×2 (06:03→17:31)
[2021-08-06] MEDS ORDERED: methaDONE HCL 10 MG TABLET (FOR DETOX USE ONLY) ONE (08:58)
[2021-08-06] MEDS ORDERED: COLLOIDAL OATMEAL 1 BAR EACH TP PRN (09:40)
[2021-08-06] MEDS ORDERED: LISINOPRIL 5 MG TABLET PO SCH (10:00)
[2021-08-06] MEDS: PRENATAL VITAMINS W/ FOLIC ACID TABLET (FP) PO SCH (10:11)
[2021-08-06] MEDS: SERTRALINE HCL 50 MG TABLET (FP) PO SCH (10:12)
[2021-08-06] MEDS: FAMOTIDINE 20 MG TABLET PO SCH ×2 (10:12→22:30)
[2021-08-06] MEDS: SODIUM CHLORIDE NASAL SPRAY 44 ML BOTTLE NS SCH ×2 (10:51→22:30)
[2021-08-06] MEDS: CHOLECALCIFEROL (VIT D3) 1,000 UNIT (25 MCG) TABLET PO SCH (12:03)
[2021-08-06] MEDS: amLODIPine BESYLATE 10 MG TABLET (FP) PO SCH (15:52)
[2021-08-06] MEDS ORDERED: P-EPHED 60MG/TRIPROLIDI 2.5MG TABLET PO PRN (16:57)
[2021-08-06] MEDS: SUVOREXANT 20 MG TABLET PO PRN (22:30)
[2021-08-06] MEDS: BUDESONIDE/FORMETEROL FUMARATE 80/4.5 mcg INHALER IH SCH (22:31)
[2021-08-06] MEDS: MONTELUKAST NA 10 MG TABLET PO SCH (22:31)
[2021-08-06] MEDS: THIAMINE HCL 100 MG TABLET (FP) PO SCH (22:31)
[2021-08-07] MEDS: FAMOTIDINE 20 MG TABLET PO SCH ×2 (05:45→18:00)
[2021-08-07] MEDS: hydrOXYzine PAMOATE 25 MG CAPSULE (FP) PO SCH ×5 (05:45→22:46)
[2021-08-07] MEDS: METHOCARBAMOL 500 MG TABLET PO PRN ×3 (05:47→18:01)
[2021-08-07] MEDS: metFORMIN HCL 500 MG TABLET (FP) PO SCH ×2 (06:20→18:00)
[2021-08-07] MEDS ORDERED: methaDONE HCL 10 MG TABLET (FOR DETOX USE ONLY) PO ONE (10:00)
[2021-08-07] MEDS: BUDESONIDE/FORMETEROL FUMARATE 80/4.5 mcg INHALER IH SCH ×2 (10:40→22:44)
[2021-08-07] MEDS: PRENATAL VITAMINS W/ FOLIC ACID TABLET (FP) PO SCH (10:41)
[2021-08-07] MEDS: amLODIPine BESYLATE 10 MG TABLET (FP) PO SCH (10:41)
[2021-08-07] MEDS: CHOLECALCIFEROL (VIT D3) 1,000 UNIT (25 MCG) TABLET PO SCH (10:41)
[2021-08-07] MEDS: SODIUM CHLORIDE NASAL SPRAY 44 ML BOTTLE NS SCH ×2 (10:41→22:47)
[2021-08-07] MEDS: LISINOPRIL 10 MG TABLET PO SCH (10:42)
[2021-08-07] MEDS: SERTRALINE HCL 50 MG TABLET (FP) PO SCH (10:42)
[2021-08-07] MEDS: cloNIDine HCL 0.1 MG TABLET PO PRN ×2 (18:02→22:48)
[2021-08-07] MEDS: BENZOCAINE 28 GM HEMORRHOIDAL OINTMENT RC SCH (22:43)
[2021-08-07] MEDS: LORATADINE 10 MG TABLET PO SCH (22:46)
[2021-08-07] MEDS: SUVOREXANT 20 MG TABLET PO PRN (22:46)
[2021-08-07] MEDS: MONTELUKAST NA 10 MG TABLET PO SCH (22:46)
[2021-08-07] MEDS: THIAMINE HCL 100 MG TABLET (FP) PO SCH (22:47)
[2021-08-08] MEDS: FAMOTIDINE 20 MG TABLET PO SCH ×2 (05:41→17:58)
[2021-08-08] MEDS: hydrOXYzine PAMOATE 25 MG CAPSULE (FP) PO SCH ×5 (05:41→22:40)
[2021-08-08] MEDS: metFORMIN HCL 500 MG TABLET (FP) PO SCH ×2 (06:06→17:58)
[2021-08-08] MEDS ORDERED: methaDONE HCL 10 MG TABLET (FOR DETOX USE ONLY) ONE (09:27)
[2021-08-08] MEDS: PRENATAL VITAMINS W/ FOLIC ACID TABLET (FP) PO SCH (10:28)
[2021-08-08] MEDS: METHOCARBAMOL 500 MG TABLET PO PRN ×3 (10:28→22:30)
[2021-08-08] MEDS: LISINOPRIL 10 MG TABLET PO SCH (10:28)
[2021-08-08] MEDS: amLODIPine BESYLATE 10 MG TABLET (FP) PO SCH (10:28)
[2021-08-08] MEDS: SERTRALINE HCL 50 MG TABLET (FP) PO SCH (10:28)
[2021-08-08] MEDS: BUDESONIDE/FORMETEROL FUMARATE 80/4.5 mcg INHALER IH SCH ×2 (10:29→22:39)
[2021-08-08] MEDS: SODIUM CHLORIDE NASAL SPRAY 44 ML BOTTLE NS SCH ×2 (10:29→22:38)
[2021-08-08] MEDS: CHOLECALCIFEROL (VIT D3) 1,000 UNIT (25 MCG) TABLET PO SCH (10:31)
[2021-08-08] MEDS: BENZOCAINE 28 GM HEMORRHOIDAL OINTMENT RC SCH ×2 (10:32→22:39)
[2021-08-08] MEDS: IBUPROFEN 400 MG TABLET (FP) PO PRN ×2 (10:36→17:56)
[2021-08-08] MEDS ORDERED: SUVOREXANT 20 MG TABLET PO PRN (11:55)
[2021-08-08] MEDS: GABAPENTIN 300 MG CAPSULE PO SCH ×2 (13:02→22:30)
[2021-08-08] MEDS: MONTELUKAST NA 10 MG TABLET PO SCH (22:30)
[2021-08-08] MEDS: LORATADINE 10 MG TABLET PO SCH (22:30)
[2021-08-08] MEDS: THIAMINE HCL 100 MG TABLET (FP) PO SCH (22:30)
[2021-08-09] MEDS: hydrOXYzine PAMOATE 25 MG CAPSULE (FP) PO SCH ×2 (05:50→10:55)
[2021-08-09] MEDS: FAMOTIDINE 20 MG TABLET PO SCH (05:50)
[2021-08-09] MEDS: GABAPENTIN 300 MG CAPSULE PO SCH (05:50)
[2021-08-09] MEDS: metFORMIN HCL 500 MG TABLET (FP) PO SCH (06:32)
[2021-08-09 09:59] VITALS: BP 139/79; PULSE 92; TEMP 97.5
[2021-08-09] MEDS ORDERED: methaDONE HCL 10 MG TABLET (FOR DETOX USE ONLY) PO ONE (10:00)
[2021-08-09] MEDS: amLODIPine BESYLATE 10 MG TABLET (FP) PO SCH (10:55)
[2021-08-09] MEDS: PRENATAL VITAMINS W/ FOLIC ACID TABLET (FP) PO SCH (10:55)
[2021-08-09] MEDS: SERTRALINE HCL 50 MG TABLET (FP) PO SCH (10:55)
[2021-08-09] MEDS: LISINOPRIL 10 MG TABLET PO SCH (10:55)
[2021-08-09] MEDS: METHOCARBAMOL 500 MG TABLET PO PRN (10:55)
[2021-08-09] MEDS: CHOLECALCIFEROL (VIT D3) 1,000 UNIT (25 MCG) TABLET PO SCH (10:56)
[2021-08-09] MEDS: BUDESONIDE/FORMETEROL FUMARATE 80/4.5 mcg INHALER IH SCH (10:57)
[2021-08-09] MEDS: SODIUM CHLORIDE NASAL SPRAY 44 ML BOTTLE NS SCH (10:57)
[2021-08-09] MEDS: BENZOCAINE 28 GM HEMORRHOIDAL OINTMENT RC SCH (10:58)
== END 2021-08-09 13:07 | disposition home or self-care (01) | DRG 773 ==
LOC: YASAS 10:29 → Y6N 12:28
PROVIDERS: ADMIT Allergy & Immunology; ATTEND Allergy & Immunology
PROC: HZ2ZZZZ Detoxification Services for Substance Abuse Treatment (ICD-10-PCS; principal; 2021-08-05)
DX: F11.23 Opioid dependence with withdrawal (principal); F10.20 Alcohol dependence, uncomplicated; F14.20 Cocaine dependence, uncomplicated; F19.282 Other psychoactive substance dependence with psychoactive substance-induced sleep disorder; F19.280 Other psychoactive substance dependence with psychoactive substance-induced anxiety disorder; F32.9 Major depressive disorder, single episode, unspecified; I10 Essential (primary) hypertension; J45.20 Mild intermittent asthma, uncomplicated; K21.9 Gastro-esophageal reflux disease without esophagitis; K64.9 Unspecified hemorrhoids; E11.9 Type 2 diabetes mellitus without complications; Z79.84 Long term (current) use of oral hypoglycemic drugs; M17.0 Bilateral primary osteoarthritis of knee; M19.071 Primary osteoarthritis, right ankle and foot; M19.072 Primary osteoarthritis, left ankle and foot; E66.01 Morbid (severe) obesity due to excess calories; Z68.41 Body mass index [BMI] 40.0-44.9, adult; Z62.810 Personal history of physical and sexual abuse in childhood; Z91.410 Personal history of adult physical and sexual abuse; Z91.51 Personal history of suicidal behavior; Z88.2 Allergy status to sulfonamides; Z90.49 Acquired absence of other specified parts of digestive tract
CPT/HCPCS: 36415; 80053; 82962; 85027; 86780; 93005; 93010; C9803; J0735; U0003; U0005

== ENCOUNTER 2022-02-16 10:38 | Inpatient (IN) | payer OTHER ==
[2022-02-16 12:19] VITALS: BMI 36.0
[2022-02-16] MEDS ORDERED: ACETAMINOPHEN 325 MG TABLET (FP) PO PRN ×2 (14:13)
[2022-02-16] MEDS ORDERED: DICYCLOMINE HCL 10 MG CAPSULE PO PRN (14:13)
[2022-02-16] MEDS ORDERED: methaDONE HCL 10 MG TABLET (FOR DETOX USE ONLY) PO ONE (14:13)
[2022-02-16] MEDS ORDERED: BISMUTH SUBSALICYLATE 524 MG/30 ML PO PRN (14:13)
[2022-02-16] MEDS ORDERED: NALOXONE HCL 0.4 MG/ML VIAL IM PRN (14:13)
[2022-02-16] MEDS ORDERED: MAGNESIUM CITRATE 300 ML BOTTLE PO PRN (14:13)
[2022-02-16] MEDS ORDERED: LOPERAMIDE HCL 2 MG CAPSULE PO PRN (14:13)
[2022-02-16] MEDS ORDERED: IBUPROFEN 400 MG TABLET (FP) PO PRN (14:13)
[2022-02-16] MEDS ORDERED: BENZOCAINE/MENTHOL (CHLORASEPTIC ) LOZENGE MM PRN (14:13)
[2022-02-16] MEDS ORDERED: chlordiazePOXIDE HCL 25 MG CAPSULE PO PRN (14:13)
[2022-02-16] MEDS ORDERED: MAGNESIUM HYDROX 2400MG/30ML ORAL SUSPENSION 30 ML CUP PO PRN (14:13)
[2022-02-16] MEDS: chlordiazePOXIDE HCL 25 MG CAPSULE PO SCH ×2 (16:59→22:10)
[2022-02-16] MEDS ORDERED: ALBUTEROL SO4 HFA INHALER IH PRN (17:31)
[2022-02-16] MEDS ORDERED: GABAPENTIN 400 MG CAPSULE PO ONE (17:34)
[2022-02-16] MEDS: cloNIDine HCL 0.1 MG TABLET PO PRN ×2 (18:05→22:12)
[2022-02-16] MEDS: IBUPROFEN 600 MG TABLET (FP) PO PRN (18:05)
[2022-02-16] MEDS: COLLOIDAL OATMEAL 1 BAR EACH TP PRN (21:36)
[2022-02-16] MEDS: METHOCARBAMOL 500 MG TABLET PO PRN (22:10)
[2022-02-16] MEDS: MELATONIN 5 MG TABLETS PO SCH (22:10)
[2022-02-16] MEDS: THIAMINE HCL 100 MG TABLET (FP) PO SCH (22:10)
[2022-02-17] MEDS: IBUPROFEN 600 MG TABLET (FP) PO PRN ×2 (03:14→17:18)
[2022-02-17] MEDS: cloNIDine HCL 0.1 MG TABLET PO PRN ×2 (03:14→14:57)
[2022-02-17] MEDS: chlordiazePOXIDE HCL 25 MG CAPSULE PO SCH ×4 (06:37→22:11)
[2022-02-17] MEDS ORDERED: GABAPENTIN 400 MG CAPSULE PO SCH (10:00)
[2022-02-17 10:25] LABS: HEMOGLOBIN 10.3 GM/dL (10.7-15.3); MCH 26.1 pg (25.7-33.7); MCHC 31.3 g/dl (32.0-36.0); MEAN CELL VOLUME 83.2 fl (80-96); MEAN PLT VOLUME 9.1 fl (7.5-11.1); PLATELET COUNT 307 10^3/uL (134-434); RBC 3.97 M/mm3 (3.60-5.2); RDW 14.4 % (11.6-15.6); WHITE BLOOD COUNT 8.7 K/mm3 (4.0-10.0)
[2022-02-17 10:35] LABS: ALBUMIN 3.1 g/dl (3.4-5.0); BLOOD UREA NITROGEN 8.1 mg/dL (7-18)
[2022-02-17 10:38] LABS: CREATININE 0.8 mg/dL (0.55-1.3)
[2022-02-17 10:39] LABS: TOT PROT 6.8 g/dl (6.4-8.2)
[2022-02-17] MEDS: PRENATAL VITAMINS W/ FOLIC ACID TABLET (FP) PO SCH (10:48)
[2022-02-17 10:54] LABS: BILIRUBIN,TOTAL 0.7 mg/dL (0.2-1)
[2022-02-17] MEDS: INSULIN SLIDING SCALE (NOVOLOG) 1 VIAL SQ SCH ×2 (12:16→17:20)
[2022-02-17] MEDS: LOSARTAN POTASSIUM 50 MG TABLET PO SCH (13:08)
[2022-02-17] MEDS: METHOCARBAMOL 500 MG TABLET PO PRN (13:09)
[2022-02-17] MEDS: HYDROCHLOROTHIAZIDE 12.5 MG CAPSULE (FP) PO SCH (13:09)
[2022-02-17] MEDS ORDERED: cloNIDine HCL 0.1 MG TABLET PO ONE (15:15)
[2022-02-17] MEDS: metFORMIN HCL 500 MG TABLET (FP) PO SCH (17:14)
[2022-02-17] MEDS ORDERED: QUEtiapine FUMARATE 50 MG TABLET PO SCH (22:00)
[2022-02-17] MEDS: GABAPENTIN 400 MG CAPSULE PO SCH (22:10)
[2022-02-17] MEDS: MONTELUKAST NA 10 MG TABLET PO SCH (22:10)
[2022-02-17] MEDS: THIAMINE HCL 100 MG TABLET (FP) PO SCH (22:10)
[2022-02-17] MEDS: MELATONIN 5 MG TABLETS PO SCH (22:12)
[2022-02-17] MEDS: BUDESONIDE/FORMETEROL FUMARATE 160/4.5 mcg INHALER IH SCH (22:13)
[2022-02-18] MEDS: GABAPENTIN 400 MG CAPSULE PO SCH ×3 (06:07→22:43)
[2022-02-18] MEDS: metFORMIN HCL 500 MG TABLET (FP) PO SCH ×2 (06:07→17:00)
[2022-02-18] MEDS: chlordiazePOXIDE HCL 25 MG CAPSULE PO SCH ×4 (06:08→22:43)
[2022-02-18] MEDS: INSULIN SLIDING SCALE (NOVOLOG) 1 VIAL SQ SCH ×4 (06:16→18:33)
[2022-02-18] MEDS ORDERED: METOPROLOL TARTRATE 50 MG TABLET (FP) PO ONE (08:15)
[2022-02-18] MEDS ORDERED: methaDONE HCL 10 MG TABLET (FOR DETOX USE ONLY) PO ONE (10:00)
[2022-02-18] MEDS ORDERED: SERTRALINE HCL 50 MG TABLET (FP) PO SCH (10:00)
[2022-02-18] MEDS: METHOCARBAMOL 500 MG TABLET PO PRN ×2 (10:15→18:32)
[2022-02-18] MEDS: PRENATAL VITAMINS W/ FOLIC ACID TABLET (FP) PO SCH (10:15)
[2022-02-18] MEDS: HYDROCHLOROTHIAZIDE 12.5 MG CAPSULE (FP) PO SCH (10:16)
[2022-02-18] MEDS: BUDESONIDE/FORMETEROL FUMARATE 160/4.5 mcg INHALER IH SCH ×2 (10:16→22:43)
[2022-02-18] MEDS: LOSARTAN POTASSIUM 50 MG TABLET PO SCH (10:16)
[2022-02-18] MEDS: AMOX TR/POT CLAV 875MG/125MG TABLETS (FP) PO SCH ×2 (11:43→18:32)
[2022-02-18] MEDS: NYSTATIN 100,000 UNIT/GM TOPICAL CREAM 15 GM TUBE TP SCH ×2 (13:06→22:43)
[2022-02-18] MEDS: THIAMINE HCL 100 MG TABLET (FP) PO SCH (22:42)
[2022-02-18] MEDS: MELATONIN 5 MG TABLETS PO SCH (22:42)
[2022-02-18] MEDS: MONTELUKAST NA 10 MG TABLET PO SCH (22:42)
[2022-02-18] MEDS: cloNIDine HCL 0.1 MG TABLET PO PRN (22:45)
[2022-02-19] MEDS ORDERED: chlordiazePOXIDE HCL 10 MG CAPSULE PO PRN
[2022-02-19] MEDS: chlordiazePOXIDE HCL 10 MG CAPSULE PO SCH ×4 (05:45→22:51)
[2022-02-19] MEDS: GABAPENTIN 400 MG CAPSULE PO SCH ×3 (05:45→22:49)
[2022-02-19] MEDS: metFORMIN HCL 500 MG TABLET (FP) PO SCH ×2 (06:59→17:55)
[2022-02-19] MEDS: INSULIN SLIDING SCALE (NOVOLOG) 1 VIAL SQ SCH ×3 (06:59→17:55)
[2022-02-19] MEDS: AMOX TR/POT CLAV 875MG/125MG TABLETS (FP) PO SCH ×2 (07:01→17:54)
[2022-02-19] MEDS: MAG HYDROX/AL HYDROX/SIMETH 30 ML UNIT-DOSE CUP PO PRN (08:40)
[2022-02-19] MEDS ORDERED: PANTOPRAZOLE 20 MG TABLET PO ONE (09:53)
[2022-02-19] MEDS ORDERED: PANTOPRAZOLE 20 MG TABLET PO SCH (10:00)
[2022-02-19] MEDS: BUDESONIDE/FORMETEROL FUMARATE 160/4.5 mcg INHALER IH SCH ×2 (10:18→22:49)
[2022-02-19] MEDS: PRENATAL VITAMINS W/ FOLIC ACID TABLET (FP) PO SCH (10:19)
[2022-02-19] MEDS: HYDROCHLOROTHIAZIDE 12.5 MG CAPSULE (FP) PO SCH (10:19)
[2022-02-19] MEDS: SERTRALINE HCL 50 MG TABLET (FP) PO SCH (10:19)
[2022-02-19] MEDS: LOSARTAN POTASSIUM 50 MG TABLET PO SCH (10:19)
[2022-02-19] MEDS: NYSTATIN 100,000 UNIT/GM TOPICAL CREAM 15 GM TUBE TP SCH ×2 (10:24→22:50)
[2022-02-19] MEDS: METHOCARBAMOL 500 MG TABLET PO PRN (10:26)
[2022-02-19 17:30] VITALS: RESP 18
[2022-02-19] MEDS: MELATONIN 5 MG TABLETS PO SCH (22:49)
[2022-02-19] MEDS: MONTELUKAST NA 10 MG TABLET PO SCH (22:50)
[2022-02-19] MEDS: THIAMINE HCL 100 MG TABLET (FP) PO SCH (22:50)
[2022-02-19] MEDS: SUVOREXANT 10 MG TABLET PO PRN (22:52)
[2022-02-20] MEDS: GABAPENTIN 400 MG CAPSULE PO SCH ×3 (05:49→22:40)
[2022-02-20] MEDS: chlordiazePOXIDE HCL 10 MG CAPSULE PO SCH ×2 (05:51→17:43)
[2022-02-20] MEDS: PANTOPRAZOLE 20 MG TABLET PO SCH (06:02)
[2022-02-20] MEDS: metFORMIN HCL 500 MG TABLET (FP) PO SCH ×2 (06:02→17:39)
[2022-02-20] MEDS: AMOX TR/POT CLAV 875MG/125MG TABLETS (FP) PO SCH ×2 (07:45→17:38)
[2022-02-20] MEDS: INSULIN SLIDING SCALE (NOVOLOG) 1 VIAL SQ SCH ×3 (07:46→17:47)
[2022-02-20] MEDS: MAG HYDROX/AL HYDROX/SIMETH 30 ML UNIT-DOSE CUP PO PRN (07:51)
[2022-02-20] MEDS ORDERED: methaDONE HCL 10 MG TABLET (FOR DETOX USE ONLY) PO ONE (10:00)
[2022-02-20] MEDS: HYDROCHLOROTHIAZIDE 12.5 MG CAPSULE (FP) PO SCH (10:25)
[2022-02-20] MEDS: LOSARTAN POTASSIUM 50 MG TABLET PO SCH (10:25)
[2022-02-20] MEDS: PRENATAL VITAMINS W/ FOLIC ACID TABLET (FP) PO SCH (10:25)
[2022-02-20] MEDS: NYSTATIN 100,000 UNIT/GM TOPICAL CREAM 15 GM TUBE TP SCH ×2 (10:27→22:44)
[2022-02-20] MEDS: BUDESONIDE/FORMETEROL FUMARATE 160/4.5 mcg INHALER IH SCH ×2 (11:20→22:42)
[2022-02-20] MEDS: SERTRALINE HCL 50 MG TABLET (FP) PO SCH (11:21)
[2022-02-20] MEDS: IBUPROFEN 600 MG TABLET (FP) PO PRN (19:13)
[2022-02-20] MEDS: METHOCARBAMOL 500 MG TABLET PO PRN (19:13)
[2022-02-20] MEDS: MELATONIN 5 MG TABLETS PO SCH (22:41)
[2022-02-20] MEDS: THIAMINE HCL 100 MG TABLET (FP) PO SCH (22:41)
[2022-02-20] MEDS: MONTELUKAST NA 10 MG TABLET PO SCH (22:42)
[2022-02-20] MEDS: SUVOREXANT 10 MG TABLET PO PRN (22:43)
[2022-02-21] MEDS ORDERED: chlordiazePOXIDE HCL 10 MG CAPSULE PO ONE (05:00)
[2022-02-21] MEDS: GABAPENTIN 400 MG CAPSULE PO SCH (06:52)
[2022-02-21] MEDS: metFORMIN HCL 500 MG TABLET (FP) PO SCH (06:53)
[2022-02-21] MEDS: PANTOPRAZOLE 20 MG TABLET PO SCH (06:53)
[2022-02-21] MEDS: COLLOIDAL OATMEAL 1 BAR EACH TP PRN (07:22)
[2022-02-21 07:23] VITALS: BP 102/44; PULSE 84; TEMP 97.8
[2022-02-21] MEDS: INSULIN SLIDING SCALE (NOVOLOG) 1 VIAL SQ SCH (07:55)
== END 2022-02-21 09:13 | disposition home or self-care (01) | DRG 773 ==
LOC: YASAS 10:38 → Y3N 13:42
PROVIDERS: ADMIT Allergy & Immunology; ATTEND Surgery
PROC: HZ2ZZZZ Detoxification Services for Substance Abuse Treatment (ICD-10-PCS; principal; 2022-02-16)
DX: F11.23 Opioid dependence with withdrawal (principal); F10.230 Alcohol dependence with withdrawal, uncomplicated; F13.20 Sedative, hypnotic or anxiolytic dependence, uncomplicated; F19.24 Other psychoactive substance dependence with psychoactive substance-induced mood disorder; F32.A Depression, unspecified; F41.8 Other specified anxiety disorders; I10 Essential (primary) hypertension; J45.909 Unspecified asthma, uncomplicated; K21.9 Gastro-esophageal reflux disease without esophagitis; J20.9 Acute bronchitis, unspecified; E11.65 Type 2 diabetes mellitus with hyperglycemia; Z79.84 Long term (current) use of oral hypoglycemic drugs; M17.0 Bilateral primary osteoarthritis of knee; M54.50 Low back pain, unspecified; G89.29 Other chronic pain; Z62.810 Personal history of physical and sexual abuse in childhood; S09.90XA Unspecified injury of head, initial encounter; W19.XXXA Unspecified fall, initial encounter; Y92.239 Unspecified place in hospital as the place of occurrence of the external cause; E66.9 Obesity, unspecified; Z68.36 Body mass index [BMI] 36.0-36.9, adult; Z91.410 Personal history of adult physical and sexual abuse; Z88.2 Allergy status to sulfonamides
CPT/HCPCS: 36415; 80053; 81025; 82962; 85027; 86780; 87811; C9803-CS; J0735; U0003; U0005

== ENCOUNTER 2022-05-25 10:21 | Inpatient (IN) | payer OTHER ==
[2022-05-25 12:44] VITALS: BMI 34.3
[2022-05-25] MEDS ORDERED: IBUPROFEN 400 MG TABLET (FP) PO PRN (14:21)
[2022-05-25] MEDS ORDERED: DICYCLOMINE HCL 10 MG CAPSULE PO PRN (14:21)
[2022-05-25] MEDS ORDERED: MAG HYDROX/AL HYDROX/SIMETH 30 ML UNIT-DOSE CUP PO PRN (14:21)
[2022-05-25] MEDS ORDERED: MAGNESIUM HYDROX 2400MG/30ML ORAL SUSPENSION 30 ML CUP PO PRN (14:21)
[2022-05-25] MEDS ORDERED: NALOXONE HCL (KLOXXADO) 8 MG SPRAY NS PRN (14:21)
[2022-05-25] MEDS ORDERED: methaDONE HCL 10 MG TABLET (FOR DETOX USE ONLY) PO ONE (14:21)
[2022-05-25] MEDS ORDERED: ACETAMINOPHEN 325 MG TABLET (FP) PO PRN ×2 (14:21)
[2022-05-25] MEDS ORDERED: BISMUTH SUBSALICYLATE 524 MG/30 ML PO PRN (14:21)
[2022-05-25] MEDS ORDERED: BENZOCAINE/MENTHOL (CHLORASEPTIC ) LOZENGE MM PRN (14:21)
[2022-05-25] MEDS ORDERED: chlordiazePOXIDE HCL 25 MG CAPSULE PO PRN (14:21)
[2022-05-25] MEDS: METHOCARBAMOL 500 MG TABLET PO PRN (16:53)
[2022-05-25] MEDS: cloNIDine HCL 0.1 MG TABLET PO PRN ×2 (16:53→22:19)
[2022-05-25] MEDS: ALBUTEROL SO4 HFA INHALER IH SCH ×4 (16:53→22:18)
[2022-05-25] MEDS: chlordiazePOXIDE HCL 25 MG CAPSULE PO SCH ×2 (16:57→22:19)
[2022-05-25] MEDS: metFORMIN HCL 500 MG TABLET (FP) PO SCH (17:27)
[2022-05-25] MEDS: INSULIN SLIDING SCALE (NOVOLOG) 1 VIAL SQ SCH (17:28)
[2022-05-25] MEDS: IBUPROFEN 600 MG TABLET (FP) PO PRN (19:05)
[2022-05-25] MEDS: THIAMINE HCL 100 MG TABLET (FP) PO SCH (22:19)
[2022-05-25] MEDS: COLLOIDAL OATMEAL 1 BAR EACH TP PRN (22:19)
[2022-05-25] MEDS: MELATONIN 5 MG TABLETS PO SCH (22:19)
[2022-05-26] MEDS: ALBUTEROL SO4 HFA INHALER IH SCH ×3 (02:45→10:31)
[2022-05-26] MEDS: cloNIDine HCL 0.1 MG TABLET PO PRN ×2 (05:22→13:23)
[2022-05-26] MEDS: LOPERAMIDE HCL 2 MG CAPSULE PO PRN ×3 (05:22→22:22)
[2022-05-26] MEDS: METHOCARBAMOL 500 MG TABLET PO PRN ×3 (05:22→22:21)
[2022-05-26] MEDS: chlordiazePOXIDE HCL 25 MG CAPSULE PO SCH ×4 (05:23→22:20)
[2022-05-26] MEDS: metFORMIN HCL 500 MG TABLET (FP) PO SCH ×2 (06:14→17:20)
[2022-05-26] MEDS: INSULIN SLIDING SCALE (NOVOLOG) 1 VIAL SQ SCH ×3 (06:14→17:11)
[2022-05-26] MEDS ORDERED: INSULIN SLIDING SCALE (NOVOLOG) 1 VIAL SQ ONE (06:43)
[2022-05-26] MEDS: PRENATAL VITAMINS W/ FOLIC ACID TABLET (FP) PO SCH (10:31)
[2022-05-26 12:42] LABS: HEMOGLOBIN 11.4 GM/dL (10.7-15.3); MCH 26.1 pg (25.7-33.7); MCHC 31.7 g/dl (32.0-36.0); MEAN CELL VOLUME 82.4 fl (80-96); MEAN PLT VOLUME 9.1 fl (7.5-11.1); PLATELET COUNT 318 10^3/uL (134-434); RBC 4.37 M/mm3 (3.60-5.2); RDW 14.3 % (11.6-15.6); WHITE BLOOD COUNT 11.7 K/mm3 (4.0-10.0)
[2022-05-26 13:10] LABS: CALCIUM 9.2 mg/dL (8.5-10.1)
[2022-05-26 13:11] LABS: ALBUMIN 3.7 g/dl (3.4-5.0); BLOOD UREA NITROGEN 7.8 mg/dL (7-18)
[2022-05-26 13:14] LABS: CREATININE 0.7 mg/dL (0.55-1.3)
[2022-05-26 13:15] LABS: BILIRUBIN,TOTAL 0.7 mg/dL (0.2-1)
[2022-05-26 13:16] LABS: TOT PROT 7.4 g/dl (6.4-8.2)
[2022-05-26] MEDS: GABAPENTIN 300 MG CAPSULE PO SCH ×2 (13:21→22:20)
[2022-05-26] MEDS ORDERED: ALBUTEROL SO4 HFA INHALER IH PRN (13:28)
[2022-05-26] MEDS: QUEtiapine FUMARATE 50 MG TABLET PO SCH (22:19)
[2022-05-26] MEDS: MELATONIN 5 MG TABLETS PO SCH (22:20)
[2022-05-26] MEDS: THIAMINE HCL 100 MG TABLET (FP) PO SCH (22:20)
[2022-05-27] MEDS: chlordiazePOXIDE HCL 25 MG CAPSULE PO SCH ×4 (05:58→22:10)
[2022-05-27] MEDS: IBUPROFEN 600 MG TABLET (FP) PO PRN (05:59)
[2022-05-27] MEDS: GABAPENTIN 300 MG CAPSULE PO SCH ×3 (05:59→22:10)
[2022-05-27] MEDS: metFORMIN HCL 500 MG TABLET (FP) PO SCH ×2 (06:00→17:47)
[2022-05-27 06:01] VITALS: RESP 18
[2022-05-27] MEDS: INSULIN SLIDING SCALE (NOVOLOG) 1 VIAL SQ SCH ×3 (06:46→17:47)
[2022-05-27] MEDS ORDERED: methaDONE HCL 10 MG TABLET (FOR DETOX USE ONLY) PO ONE (10:00)
[2022-05-27] MEDS: PRENATAL VITAMINS W/ FOLIC ACID TABLET (FP) PO SCH (10:09)
[2022-05-27 10:41] LABS: BASO % 0.7 % (0-2.0); HEMATOCRIT 37.1 % (32.4-45.2); HEMOGLOBIN 11.6 GM/dL (10.7-15.3); LYMPH % 32.1 % (8-40); MCH 25.7 pg (25.7-33.7); MCHC 31.3 g/dl (32.0-36.0); MEAN CELL VOLUME 81.9 fl (80-96); MEAN PLT VOLUME 9.1 fl (7.5-11.1); MONO % 3.6 % (3.8-10.2); NEUT % 58.6 % (42.8-82.8); PLATELET COUNT 363 10^3/uL (134-434); RBC 4.53 M/mm3 (3.60-5.2); RDW 14.5 % (11.6-15.6); WHITE BLOOD COUNT 11.7 K/mm3 (4.0-10.0)
[2022-05-27] MEDS: cloNIDine HCL 0.1 MG TABLET PO PRN ×2 (13:09→19:49)
[2022-05-27] MEDS: AMOX TR/POT CLAV 875MG/125MG TABLETS (FP) PO SCH (17:46)
[2022-05-27 19:47] LABS: PH,URINE 5.5 (5.0-8.0); URINE APPEARANCE CLOUDY; URINE BILIRUBIN NEGATIVE (NEGATIVE); URINE COLOR YELLOW; URINE GLUCOSE (UA) NEGATIVE (NEGATIVE); URINE KETONE TRACE (NEGATIVE); URINE LEUK ESTERASE NEGATIVE (NEGATIVE); URINE NITRITE NEGATIVE (NEGATIVE); URINE PROTEIN TRACE (NEGATIVE); URINE UROBILINOGEN 0.2 mg/dL (0.2-1.0)
[2022-05-27] MEDS: METHOCARBAMOL 500 MG TABLET PO PRN (19:50)
[2022-05-27] MEDS: MELATONIN 5 MG TABLETS PO SCH (22:09)
[2022-05-27] MEDS: THIAMINE HCL 100 MG TABLET (FP) PO SCH (22:10)
[2022-05-27] MEDS: QUEtiapine FUMARATE 50 MG TABLET PO SCH (22:10)
[2022-05-28] MEDS ORDERED: chlordiazePOXIDE HCL 10 MG CAPSULE PO PRN
[2022-05-28] MEDS: chlordiazePOXIDE HCL 10 MG CAPSULE PO SCH ×4 (06:57→22:10)
[2022-05-28] MEDS: GABAPENTIN 300 MG CAPSULE PO SCH (06:57)
[2022-05-28] MEDS: metFORMIN HCL 500 MG TABLET (FP) PO SCH ×2 (06:58→17:29)
[2022-05-28] MEDS: AMOX TR/POT CLAV 875MG/125MG TABLETS (FP) PO SCH ×2 (07:04→17:29)
[2022-05-28] MEDS: INSULIN SLIDING SCALE (NOVOLOG) 1 VIAL SQ SCH ×3 (07:07→16:59)
[2022-05-28] MEDS: PRENATAL VITAMINS W/ FOLIC ACID TABLET (FP) PO SCH (10:15)
[2022-05-28] MEDS ORDERED: INSULIN SLIDING SCALE (NOVOLOG) 1 VIAL SQ ONE (12:17)
[2022-05-28] MEDS: PANTOPRAZOLE 20 MG TABLET PO SCH (17:30)
[2022-05-28] MEDS: GABAPENTIN 400 MG CAPSULE PO SCH (22:09)
[2022-05-28] MEDS: QUEtiapine FUMARATE 50 MG TABLET PO SCH (22:09)
[2022-05-28] MEDS: MELATONIN 5 MG TABLETS PO SCH (22:09)
[2022-05-28] MEDS: THIAMINE HCL 100 MG TABLET (FP) PO SCH (22:10)
[2022-05-28] MEDS: METHOCARBAMOL 500 MG TABLET PO PRN (22:59)
[2022-05-29] MEDS: INSULIN SLIDING SCALE (NOVOLOG) 1 VIAL SQ SCH ×3 (06:52→17:18)
[2022-05-29] MEDS: chlordiazePOXIDE HCL 10 MG CAPSULE PO SCH ×2 (06:53→16:05)
[2022-05-29] MEDS: metFORMIN HCL 500 MG TABLET (FP) PO SCH ×2 (06:53→17:38)
[2022-05-29] MEDS: PANTOPRAZOLE 20 MG TABLET PO SCH ×2 (06:56→17:38)
[2022-05-29] MEDS ORDERED: INSULIN SLIDING SCALE (NOVOLOG) 1 VIAL SQ ONE (07:06)
[2022-05-29] MEDS: AMOX TR/POT CLAV 875MG/125MG TABLETS (FP) PO SCH ×2 (07:16→17:38)
[2022-05-29] MEDS ORDERED: methaDONE HCL 10 MG TABLET (FOR DETOX USE ONLY) PO ONE (10:00)
[2022-05-29] MEDS: GABAPENTIN 400 MG CAPSULE PO SCH ×2 (10:40→22:07)
[2022-05-29] MEDS: PRENATAL VITAMINS W/ FOLIC ACID TABLET (FP) PO SCH (10:40)
[2022-05-29] MEDS: METHOCARBAMOL 500 MG TABLET PO PRN (10:42)
[2022-05-29] MEDS: cloNIDine HCL 0.1 MG TABLET PO PRN ×2 (16:05→22:08)
[2022-05-29] MEDS: QUEtiapine FUMARATE 50 MG TABLET PO SCH (22:07)
[2022-05-29] MEDS: THIAMINE HCL 100 MG TABLET (FP) PO SCH (22:07)
[2022-05-29] MEDS: MELATONIN 5 MG TABLETS PO SCH (22:07)
[2022-05-30] MEDS ORDERED: chlordiazePOXIDE HCL 10 MG CAPSULE PO ONE (05:00)
[2022-05-30] MEDS: metFORMIN HCL 500 MG TABLET (FP) PO SCH (06:43)
[2022-05-30] MEDS: PANTOPRAZOLE 20 MG TABLET PO SCH (06:44)
[2022-05-30] MEDS: INSULIN SLIDING SCALE (NOVOLOG) 1 VIAL SQ SCH (06:56)
[2022-05-30 07:01] VITALS: BP 120/66; PULSE 72; TEMP 96.9
[2022-05-30] MEDS: AMOX TR/POT CLAV 875MG/125MG TABLETS (FP) PO SCH (07:03)
[2022-05-30] MEDS: COLLOIDAL OATMEAL 1 BAR EACH TP PRN (07:08)
[2022-05-30] MEDS: LOPERAMIDE HCL 2 MG CAPSULE PO PRN (08:55)
== END 2022-05-30 09:11 | disposition home or self-care (01) | DRG 773 ==
LOC: YASAS 10:21 → Y3N 12:58
PROVIDERS: ADMIT Allergy & Immunology; ATTEND Surgery
PROC: HZ2ZZZZ Detoxification Services for Substance Abuse Treatment (ICD-10-PCS; principal; 2022-05-25)
DX: F11.23 Opioid dependence with withdrawal (principal); F10.230 Alcohol dependence with withdrawal, uncomplicated; F14.20 Cocaine dependence, uncomplicated; F19.24 Other psychoactive substance dependence with psychoactive substance-induced mood disorder; F41.9 Anxiety disorder, unspecified; F32.A Depression, unspecified; E11.9 Type 2 diabetes mellitus without complications; Z79.84 Long term (current) use of oral hypoglycemic drugs; I10 Essential (primary) hypertension; J32.1 Chronic frontal sinusitis; K21.9 Gastro-esophageal reflux disease without esophagitis; M54.50 Low back pain, unspecified; G89.29 Other chronic pain; N39.0 Urinary tract infection, site not specified; Z88.2 Allergy status to sulfonamides; E66.9 Obesity, unspecified; Z68.34 Body mass index [BMI] 34.0-34.9, adult; Z62.810 Personal history of physical and sexual abuse in childhood; Z91.410 Personal history of adult physical and sexual abuse; S09.90XA Unspecified injury of head, initial encounter; W19.XXXA Unspecified fall, initial encounter; Y92.231 Patient bathroom in hospital as the place of occurrence of the external cause; Z99.89 Dependence on other enabling machines and devices
CPT/HCPCS: 36415; 80053; 81003; 82962; 85025; 85027; 86780; C9803-CS; U0003; U0005

== ENCOUNTER 2022-06-29 09:17 | Inpatient (IN) | payer OTHER ==
[2022-06-29 10:13] VITALS: BMI 39.1
[2022-06-29] MEDS ORDERED: NALOXONE HCL (KLOXXADO) 8 MG SPRAY NS PRN (11:17)
[2022-06-29] MEDS ORDERED: POLYETHYLENE GLYCOL (HEALTHYLAX) 3350 17 GM PACKET PO PRN (11:17)
[2022-06-29] MEDS ORDERED: chlordiazePOXIDE HCL 25 MG CAPSULE PO PRN (11:17)
[2022-06-29] MEDS ORDERED: MAGNESIUM HYDROX 2400MG/30ML ORAL SUSPENSION 30 ML CUP PO PRN (11:17)
[2022-06-29] MEDS ORDERED: DICYCLOMINE HCL 10 MG CAPSULE PO PRN (11:17)
[2022-06-29] MEDS ORDERED: IBUPROFEN 400 MG TABLET (FP) PO PRN (11:17)
[2022-06-29] MEDS ORDERED: BISMUTH SUBSALICYLATE 524 MG/30 ML PO PRN (11:17)
[2022-06-29] MEDS ORDERED: ACETAMINOPHEN 325 MG TABLET (FP) PO PRN ×2 (11:17)
[2022-06-29] MEDS ORDERED: MAG HYDROX/AL HYDROX/SIMETH 30 ML UNIT-DOSE CUP PO PRN (11:17)
[2022-06-29] MEDS ORDERED: IBUPROFEN 600 MG TABLET (FP) PO PRN (11:17)
[2022-06-29] MEDS ORDERED: ONDANSETRON *ODT* 4 MG TABLET SL PRN (11:17)
[2022-06-29] MEDS ORDERED: methaDONE HCL 10 MG TABLET (FOR DETOX USE ONLY) PO ONE (11:17)
[2022-06-29] MEDS ORDERED: methaDONE HCL 10 MG TABLET (FOR DETOX USE ONLY) ONE (12:11)
[2022-06-29] MEDS ORDERED: chlordiazePOXIDE HCL 25 MG CAPSULE ONE (12:13)
[2022-06-29] MEDS: chlordiazePOXIDE HCL 25 MG CAPSULE PO SCH ×3 (12:16→22:21)
[2022-06-29] MEDS: PANTOPRAZOLE 40 MG TABLET PO SCH (12:52)
[2022-06-29] MEDS: cloNIDine HCL 0.1 MG TABLET PO PRN ×3 (12:52→22:22)
[2022-06-29] MEDS: hydrOXYzine PAMOATE 25 MG CAPSULE (FP) PO PRN ×2 (12:52→23:43)
[2022-06-29] MEDS: ALBUTEROL SO4 HFA INHALER IH PRN ×2 (19:31→23:43)
[2022-06-29] MEDS: MELATONIN 5 MG TABLETS PO SCH (22:20)
[2022-06-29] MEDS: QUEtiapine FUMARATE 50 MG TABLET PO SCH (22:21)
[2022-06-29] MEDS: THIAMINE HCL 100 MG TABLET (FP) PO SCH (22:21)
[2022-06-29] MEDS: METHOCARBAMOL 500 MG TABLET PO PRN (22:22)
[2022-06-30] MEDS: chlordiazePOXIDE HCL 25 MG CAPSULE PO SCH ×4 (06:09→22:22)
[2022-06-30] MEDS: cloNIDine HCL 0.1 MG TABLET PO PRN ×2 (06:10→11:37)
[2022-06-30] MEDS: metFORMIN HCL 500 MG TABLET (FP) PO SCH (06:15)
[2022-06-30] MEDS: SERTRALINE HCL 50 MG TABLET (FP) PO SCH (10:29)
[2022-06-30] MEDS: PRENATAL VITAMINS W/ FOLIC ACID TABLET (FP) PO SCH (10:29)
[2022-06-30] MEDS: PANTOPRAZOLE 40 MG TABLET PO SCH (10:29)
[2022-06-30] MEDS: LOPERAMIDE HCL 2 MG CAPSULE PO PRN (11:37)
[2022-06-30] MEDS: ALBUTEROL SO4 HFA INHALER IH PRN ×2 (11:38→22:23)
[2022-06-30 12:43] LABS: HEMATOCRIT 35.1 % (32.4-45.2); HEMOGLOBIN 10.9 GM/dL (10.7-15.3); MCH 25.1 pg (25.7-33.7); MEAN CELL VOLUME 81.1 fl (80-96); MEAN PLT VOLUME 9.5 fl (7.5-11.1); PLATELET COUNT 370 10^3/uL (134-434); RBC 4.33 M/mm3 (3.60-5.2); RDW 14.8 % (11.6-15.6)
[2022-06-30 12:48] LABS: ALBUMIN 3.4 g/dl (3.4-5.0); BLOOD UREA NITROGEN 6.2 mg/dL (7-18); CALCIUM 8.8 mg/dL (8.5-10.1)
[2022-06-30 12:51] LABS: CREATININE 0.7 mg/dL (0.55-1.3)
[2022-06-30 12:52] LABS: TOT PROT 7.2 g/dl (6.4-8.2)
[2022-06-30 12:53] LABS: BILIRUBIN,TOTAL 0.8 mg/dL (0.2-1)
[2022-06-30] MEDS: METHOCARBAMOL 500 MG TABLET PO PRN (18:10)
[2022-06-30] MEDS: MELATONIN 5 MG TABLETS PO SCH (22:20)
[2022-06-30] MEDS: QUEtiapine FUMARATE 50 MG TABLET PO SCH (22:20)
[2022-06-30] MEDS: THIAMINE HCL 100 MG TABLET (FP) PO SCH (22:20)
[2022-06-30] MEDS: GABAPENTIN 300 MG CAPSULE PO SCH (22:20)
[2022-07-01] MEDS: COLLOIDAL OATMEAL 1 BAR EACH TP PRN (02:33)
[2022-07-01] MEDS: GABAPENTIN 300 MG CAPSULE PO SCH ×3 (05:53→22:13)
[2022-07-01] MEDS: chlordiazePOXIDE HCL 25 MG CAPSULE PO SCH ×4 (05:54→22:13)
[2022-07-01] MEDS: metFORMIN HCL 500 MG TABLET (FP) PO SCH (06:16)
[2022-07-01] MEDS: ALBUTEROL SO4 HFA INHALER IH PRN ×2 (09:26→20:01)
[2022-07-01 09:40] LABS: HEMATOCRIT 35.5 % (32.4-45.2); HEMOGLOBIN 11.3 GM/dL (10.7-15.3); MCH 25.9 pg (25.7-33.7); MCHC 31.9 g/dl (32.0-36.0); MEAN CELL VOLUME 81.4 fl (80-96); MEAN PLT VOLUME 8.6 fl (7.5-11.1); PLATELET COUNT 371 10^3/uL (134-434); RBC 4.36 M/mm3 (3.60-5.2); RDW 14.7 % (11.6-15.6); WHITE BLOOD COUNT 11.7 K/mm3 (4.0-10.0)
[2022-07-01] MEDS ORDERED: methaDONE HCL 10 MG TABLET (FOR DETOX USE ONLY) PO ONE (10:00)
[2022-07-01] MEDS: PRENATAL VITAMINS W/ FOLIC ACID TABLET (FP) PO SCH (10:34)
[2022-07-01] MEDS: hydrOXYzine PAMOATE 25 MG CAPSULE (FP) PO PRN ×2 (10:34→22:13)
[2022-07-01] MEDS: PANTOPRAZOLE 40 MG TABLET PO SCH (10:34)
[2022-07-01] MEDS: METHOCARBAMOL 500 MG TABLET PO PRN ×2 (10:34→17:09)
[2022-07-01] MEDS: SERTRALINE HCL 50 MG TABLET (FP) PO SCH (10:34)
[2022-07-01] MEDS: NITROFURANTOIN MACROCRYSTAL 50 MG CAPSULE (FP) PO SCH ×2 (11:25→17:07)
[2022-07-01] MEDS: QUEtiapine FUMARATE 50 MG TABLET PO SCH (22:13)
[2022-07-01] MEDS: THIAMINE HCL 100 MG TABLET (FP) PO SCH (22:13)
[2022-07-01] MEDS: MELATONIN 5 MG TABLETS PO SCH (22:13)
[2022-07-02] MEDS ORDERED: chlordiazePOXIDE HCL 10 MG CAPSULE PO PRN
[2022-07-02 03:45] LABS: URINE APPEARANCE CLOUDY; URINE BILIRUBIN NEGATIVE (NEGATIVE); URINE COLOR YELLOW; URINE GLUCOSE (UA) NEGATIVE (NEGATIVE); URINE KETONE TRACE (NEGATIVE); URINE LEUK ESTERASE NEGATIVE (NEGATIVE); URINE NITRITE NEGATIVE (NEGATIVE); URINE PROTEIN NEGATIVE (NEGATIVE); URINE UROBILINOGEN 0.2 mg/dL (0.2-1.0)
[2022-07-02] MEDS: ALBUTEROL SO4 HFA INHALER IH PRN ×2 (05:18→22:03)
[2022-07-02] MEDS: chlordiazePOXIDE HCL 10 MG CAPSULE PO SCH ×4 (05:18→22:00)
[2022-07-02] MEDS: GABAPENTIN 300 MG CAPSULE PO SCH ×3 (05:19→22:00)
[2022-07-02] MEDS: NITROFURANTOIN MACROCRYSTAL 50 MG CAPSULE (FP) PO SCH ×5 (05:19→23:53)
[2022-07-02] MEDS: metFORMIN HCL 500 MG TABLET (FP) PO SCH (06:16)
[2022-07-02] MEDS: INSULIN SLIDING SCALE (NOVOLOG) 1 VIAL SQ SCH ×2 (07:04→17:06)
[2022-07-02] MEDS: guaiFENesin 200 MG/10 ML 10 ML UNIT-DOSE CUPS PO PRN ×2 (10:23→21:59)
[2022-07-02] MEDS: PANTOPRAZOLE 40 MG TABLET PO SCH (10:23)
[2022-07-02] MEDS: LOPERAMIDE HCL 2 MG CAPSULE PO PRN (10:23)
[2022-07-02] MEDS: SERTRALINE HCL 50 MG TABLET (FP) PO SCH (10:23)
[2022-07-02] MEDS: PRENATAL VITAMINS W/ FOLIC ACID TABLET (FP) PO SCH (10:24)
[2022-07-02] MEDS: METHOCARBAMOL 500 MG TABLET PO PRN ×2 (12:17→18:26)
[2022-07-02] MEDS: hydrOXYzine PAMOATE 25 MG CAPSULE (FP) PO PRN (15:18)
[2022-07-02] MEDS ORDERED: INSULIN (NOVOLOG) ASPART 100 UNITS/ML 10ML VIAL ONE (17:02)
[2022-07-02] MEDS: THIAMINE HCL 100 MG TABLET (FP) PO SCH (22:00)
[2022-07-02] MEDS: MELATONIN 5 MG TABLETS PO SCH (22:00)
[2022-07-02] MEDS: QUEtiapine FUMARATE 50 MG TABLET PO SCH (22:00)
[2022-07-02] MEDS: BENZOCAINE/MENTHOL (CHLORASEPTIC ) LOZENGE MM PRN (23:56)
[2022-07-03] MEDS: chlordiazePOXIDE HCL 10 MG CAPSULE PO SCH ×2 (05:33→17:52)
[2022-07-03] MEDS: METHOCARBAMOL 500 MG TABLET PO PRN ×2 (05:38→15:20)
[2022-07-03] MEDS: NITROFURANTOIN MACROCRYSTAL 50 MG CAPSULE (FP) PO SCH ×3 (06:03→17:52)
[2022-07-03] MEDS: metFORMIN HCL 500 MG TABLET (FP) PO SCH (06:04)
[2022-07-03] MEDS: GABAPENTIN 300 MG CAPSULE PO SCH ×3 (06:04→22:39)
[2022-07-03] MEDS: ALBUTEROL SO4 HFA INHALER IH PRN (06:24)
[2022-07-03] MEDS: guaiFENesin 200 MG/10 ML 10 ML UNIT-DOSE CUPS PO PRN (06:25)
[2022-07-03] MEDS: INSULIN SLIDING SCALE (NOVOLOG) 1 VIAL SQ SCH ×2 (06:28→17:54)
[2022-07-03] MEDS ORDERED: methaDONE HCL 10 MG TABLET (FOR DETOX USE ONLY) PO ONE (10:00)
[2022-07-03] MEDS: BUDESONIDE/FORMETEROL FUMARATE 160/4.5 mcg INHALER IH SCH ×2 (10:10→22:41)
[2022-07-03] MEDS: PRENATAL VITAMINS W/ FOLIC ACID TABLET (FP) PO SCH (10:12)
[2022-07-03] MEDS: PANTOPRAZOLE 40 MG TABLET PO SCH (10:12)
[2022-07-03] MEDS: SERTRALINE HCL 50 MG TABLET (FP) PO SCH (10:12)
[2022-07-03] MEDS: BENZOCAINE/MENTHOL (CHLORASEPTIC ) LOZENGE MM PRN ×2 (10:13→23:04)
[2022-07-03] MEDS: hydrOXYzine PAMOATE 25 MG CAPSULE (FP) PO PRN ×2 (11:39→22:39)
[2022-07-03] MEDS: COLLOIDAL OATMEAL 1 BAR EACH TP PRN (18:55)
[2022-07-03] MEDS ORDERED: MELATONIN 5 MG TABLETS PO SCH (22:00)
[2022-07-03] MEDS: THIAMINE HCL 100 MG TABLET (FP) PO SCH (22:39)
[2022-07-03] MEDS: QUEtiapine FUMARATE 50 MG TABLET PO SCH (22:39)
[2022-07-04] MEDS: ALBUTEROL SO4 HFA INHALER IH PRN ×2 (01:30→05:57)
[2022-07-04] MEDS ORDERED: chlordiazePOXIDE HCL 10 MG CAPSULE PO ONE (05:00)
[2022-07-04] MEDS: GABAPENTIN 300 MG CAPSULE PO SCH (06:01)
[2022-07-04] MEDS: metFORMIN HCL 500 MG TABLET (FP) PO SCH (06:01)
[2022-07-04] MEDS: NITROFURANTOIN MACROCRYSTAL 50 MG CAPSULE (FP) PO SCH ×2 (06:03)
[2022-07-04 07:13] VITALS: BP 129/71; PULSE 99; RESP 18; TEMP 97.5
[2022-07-04] MEDS ORDERED: INSULIN (NOVOLOG) ASPART 100 UNITS/ML 10ML VIAL ONE (07:23)
[2022-07-04] MEDS: INSULIN SLIDING SCALE (NOVOLOG) 1 VIAL SQ SCH (07:27)
[2022-07-04] MEDS: PRENATAL VITAMINS W/ FOLIC ACID TABLET (FP) PO SCH (09:40)
[2022-07-04] MEDS: BUDESONIDE/FORMETEROL FUMARATE 160/4.5 mcg INHALER IH SCH (09:40)
[2022-07-04] MEDS: PANTOPRAZOLE 40 MG TABLET PO SCH (09:40)
[2022-07-04] MEDS: SERTRALINE HCL 50 MG TABLET (FP) PO SCH (09:41)
== END 2022-07-04 09:02 | disposition home or self-care (01) | DRG 773 ==
LOC: YASAS 09:17 → SUATTDRO 09:17 → Y3N 10:58 → Y6N 06-30 10:47
PROVIDERS: ADMIT Allergy & Immunology; ATTEND Surgery
PROC: HZ2ZZZZ Detoxification Services for Substance Abuse Treatment (ICD-10-PCS; principal; 2022-06-29)
DX: F11.23 Opioid dependence with withdrawal (principal); F10.230 Alcohol dependence with withdrawal, uncomplicated; F19.282 Other psychoactive substance dependence with psychoactive substance-induced sleep disorder; F41.9 Anxiety disorder, unspecified; D72.829 Elevated white blood cell count, unspecified; J45.20 Mild intermittent asthma, uncomplicated; E11.9 Type 2 diabetes mellitus without complications; Z79.84 Long term (current) use of oral hypoglycemic drugs; E66.9 Obesity, unspecified; Z68.39 Body mass index [BMI] 39.0-39.9, adult; M17.0 Bilateral primary osteoarthritis of knee; M54.50 Low back pain, unspecified; G89.29 Other chronic pain; Z62.810 Personal history of physical and sexual abuse in childhood; Z91.410 Personal history of adult physical and sexual abuse; Z88.2 Allergy status to sulfonamides
CPT/HCPCS: 36415; 80053; 81003; 81025; 82962; 85027; 86780; 87086; 87491; 87591; 87661; 87811; C9803-CS; U0003; U0005

== ENCOUNTER 2022-09-24 13:08 | Inpatient (IN) | payer OTHER ==
[2022-09-24 14:05] VITALS: BMI 32.5
[2022-09-24] MEDS ORDERED: NALOXONE HCL (KLOXXADO) 8 MG SPRAY NS PRN (14:29)
[2022-09-24] MEDS ORDERED: methaDONE HCL 10 MG TABLET (FOR DETOX USE ONLY) PO ONE (14:29)
[2022-09-24] MEDS ORDERED: DICYCLOMINE HCL 10 MG CAPSULE PO PRN (14:29)
[2022-09-24] MEDS ORDERED: ONDANSETRON *ODT* 4 MG TABLET SL PRN (14:29)
[2022-09-24] MEDS ORDERED: MAG HYDROX/AL HYDROX/SIMETH 30 ML UNIT-DOSE CUP PO PRN (14:29)
[2022-09-24] MEDS ORDERED: guaiFENesin 600 MG TABLET.ER (FP) PO PRN (14:29)
[2022-09-24] MEDS ORDERED: MAGNESIUM HYDROX 2400MG/30ML ORAL SUSPENSION 30 ML CUP PO PRN (14:29)
[2022-09-24] MEDS ORDERED: POLYETHYLENE GLYCOL (HEALTHYLAX) 3350 17 GM PACKET PO PRN (14:29)
[2022-09-24] MEDS ORDERED: BENZONATATE 200 MG CAPSULE PO PRN (14:29)
[2022-09-24] MEDS ORDERED: IBUPROFEN 400 MG TABLET (FP) PO PRN (14:29)
[2022-09-24] MEDS ORDERED: NALOXONE HCL 0.4 MG/ML VIAL IM PRN (14:29)
[2022-09-24] MEDS ORDERED: BENZOCAINE/MENTHOL (CHLORASEPTIC ) LOZENGE MM PRN (14:29)
[2022-09-24] MEDS ORDERED: LOPERAMIDE HCL 2 MG CAPSULE PO PRN (14:29)
[2022-09-24] MEDS ORDERED: BISMUTH SUBSALICYLATE 524 MG/30 ML PO PRN (14:29)
[2022-09-24] MEDS ORDERED: COLLOIDAL OATMEAL 1 BAR EACH TP PRN (14:38)
[2022-09-24] MEDS ORDERED: methaDONE HCL 10 MG TABLET (FOR DETOX USE ONLY) ONE (16:30)
[2022-09-24] MEDS: diazePAM 5 MG TABLET PO PRN (18:22)
[2022-09-24] MEDS: METHOCARBAMOL 500 MG TABLET PO PRN (18:25)
[2022-09-24] MEDS: MELATONIN 5 MG TABLETS PO SCH (22:34)
[2022-09-24] MEDS: BUDESONIDE/FORMETEROL FUMARATE 80/4.5 mcg INHALER IH SCH (22:34)
[2022-09-24] MEDS: THIAMINE HCL 100 MG TABLET (FP) PO SCH (22:35)
[2022-09-24] MEDS: IBUPROFEN 600 MG TABLET (FP) PO PRN (22:35)
[2022-09-24] MEDS: MONTELUKAST NA 10 MG TABLET PO SCH (22:36)
[2022-09-24] MEDS: BACITRACIN 0.9 GM PACKET TP SCH (22:37)
[2022-09-25] MEDS: FAMOTIDINE 20 MG TABLET PO SCH (05:23)
[2022-09-25] MEDS: METHOCARBAMOL 500 MG TABLET PO PRN ×2 (05:25→12:58)
[2022-09-25] MEDS: IBUPROFEN 600 MG TABLET (FP) PO PRN (05:25)
[2022-09-25] MEDS: diazePAM 5 MG TABLET PO PRN ×3 (05:27→21:31)
[2022-09-25] MEDS: metFORMIN HCL 500 MG TABLET (FP) PO SCH (06:21)
[2022-09-25] MEDS: INSULIN SLIDING SCALE (NOVOLOG) 1 VIAL SQ SCH (06:22)
[2022-09-25] MEDS: BUDESONIDE/FORMETEROL FUMARATE 80/4.5 mcg INHALER IH SCH ×2 (09:47→21:51)
[2022-09-25] MEDS: ALBUTEROL SO4 HFA INHALER IH PRN (09:47)
[2022-09-25] MEDS: PRENATAL VITAMINS W/ FOLIC ACID TABLET (FP) PO SCH (09:48)
[2022-09-25] MEDS: BACITRACIN 0.9 GM PACKET TP SCH ×2 (09:48→21:51)
[2022-09-25 10:37] LABS: HEMATOCRIT 35.3 % (32.4-45.2); HEMOGLOBIN 10.9 GM/dL (10.7-15.3); MCH 24.9 pg (25.7-33.7); MCHC 30.9 g/dl (32.0-36.0); MEAN CELL VOLUME 80.6 fl (80-96); MEAN PLT VOLUME 9.2 fl (7.5-11.1); PLATELET COUNT 274 10^3/uL (134-434); RBC 4.38 M/mm3 (3.60-5.2); WHITE BLOOD COUNT 9.9 K/mm3 (4.0-10.0)
[2022-09-25 10:58] LABS: ALBUMIN 3.2 g/dl (3.4-5.0); BLOOD UREA NITROGEN 12.2 mg/dL (7-18)
[2022-09-25 11:01] LABS: CREATININE 0.7 mg/dL (0.55-1.3)
[2022-09-25 11:03] LABS: TOT PROT 7.1 g/dl (6.4-8.2)
[2022-09-25] MEDS ORDERED: SERTRALINE HCL 50 MG TABLET (FP) PO ONE (11:23)
[2022-09-25] MEDS ORDERED: FLU VACC QS2022-23(6MOS UP)/PF 60 MCG/0.5 ML SYRINGE IM ONE (12:00)
[2022-09-25] MEDS: cloNIDine HCL 0.1 MG TABLET PO PRN ×2 (12:58→17:28)
[2022-09-25] MEDS: GABAPENTIN 300 MG CAPSULE PO SCH ×2 (13:32→21:51)
[2022-09-25] MEDS: MONTELUKAST NA 10 MG TABLET PO SCH (21:51)
[2022-09-25] MEDS: THIAMINE HCL 100 MG TABLET (FP) PO SCH (21:51)
[2022-09-25] MEDS: QUEtiapine FUMARATE 50 MG TABLET PO SCH (21:51)
[2022-09-25] MEDS: MELATONIN 5 MG TABLETS PO SCH (21:53)
[2022-09-26] MEDS: diazePAM 5 MG TABLET PO PRN ×2 (05:30→16:46)
[2022-09-26] MEDS: METHOCARBAMOL 500 MG TABLET PO PRN ×2 (05:30→22:23)
[2022-09-26] MEDS: FAMOTIDINE 20 MG TABLET PO SCH (05:30)
[2022-09-26] MEDS: IBUPROFEN 600 MG TABLET (FP) PO PRN (05:33)
[2022-09-26] MEDS: INSULIN SLIDING SCALE (NOVOLOG) 1 VIAL SQ SCH (06:54)
[2022-09-26] MEDS: metFORMIN HCL 500 MG TABLET (FP) PO SCH (08:00)
[2022-09-26] MEDS: GABAPENTIN 300 MG CAPSULE PO SCH ×2 (09:39→22:23)
[2022-09-26] MEDS: SERTRALINE HCL 50 MG TABLET (FP) PO SCH (09:39)
[2022-09-26] MEDS: BACITRACIN 0.9 GM PACKET TP SCH ×2 (09:40→22:22)
[2022-09-26] MEDS: LOSARTAN POTASSIUM 50 MG TABLET PO SCH (09:40)
[2022-09-26] MEDS: PRENATAL VITAMINS W/ FOLIC ACID TABLET (FP) PO SCH (09:40)
[2022-09-26] MEDS: BUDESONIDE/FORMETEROL FUMARATE 80/4.5 mcg INHALER IH SCH ×2 (09:42→22:23)
[2022-09-26] MEDS: ALBUTEROL SO4 HFA INHALER IH PRN (09:42)
[2022-09-26] MEDS ORDERED: methaDONE HCL 10 MG TABLET (FOR DETOX USE ONLY) PO ONE (10:00)
[2022-09-26] MEDS: cloNIDine HCL 0.1 MG TABLET PO PRN ×2 (11:15→16:46)
[2022-09-26] MEDS: ACETAMINOPHEN 325 MG TABLET (FP) PO PRN (11:16)
[2022-09-26] MEDS: MELATONIN 5 MG TABLETS PO SCH (22:22)
[2022-09-26] MEDS: THIAMINE HCL 100 MG TABLET (FP) PO SCH (22:22)
[2022-09-26] MEDS: MONTELUKAST NA 10 MG TABLET PO SCH (22:23)
[2022-09-26] MEDS: QUEtiapine FUMARATE 50 MG TABLET PO SCH (22:23)
[2022-09-27] MEDS: IBUPROFEN 600 MG TABLET (FP) PO PRN ×2 (05:45→18:15)
[2022-09-27] MEDS: METHOCARBAMOL 500 MG TABLET PO PRN ×2 (05:45→18:13)
[2022-09-27] MEDS: FAMOTIDINE 20 MG TABLET PO SCH (05:47)
[2022-09-27] MEDS: INSULIN SLIDING SCALE (NOVOLOG) 1 VIAL SQ SCH (07:23)
[2022-09-27] MEDS: metFORMIN HCL 500 MG TABLET (FP) PO SCH (07:23)
[2022-09-27] MEDS: BACITRACIN 0.9 GM PACKET TP SCH ×2 (10:02→22:12)
[2022-09-27] MEDS: GABAPENTIN 300 MG CAPSULE PO SCH ×2 (10:03→22:13)
[2022-09-27] MEDS: PRENATAL VITAMINS W/ FOLIC ACID TABLET (FP) PO SCH (10:03)
[2022-09-27] MEDS: SERTRALINE HCL 50 MG TABLET (FP) PO SCH (10:03)
[2022-09-27] MEDS: LOSARTAN POTASSIUM 50 MG TABLET PO SCH (10:03)
[2022-09-27] MEDS: BUDESONIDE/FORMETEROL FUMARATE 80/4.5 mcg INHALER IH SCH ×2 (10:05→22:14)
[2022-09-27] MEDS: diazePAM 5 MG TABLET PO PRN ×3 (10:38→22:14)
[2022-09-27] MEDS: MELATONIN 5 MG TABLETS PO SCH (22:12)
[2022-09-27] MEDS: QUEtiapine FUMARATE 50 MG TABLET PO SCH (22:13)
[2022-09-27] MEDS: MONTELUKAST NA 10 MG TABLET PO SCH (22:13)
[2022-09-27] MEDS: THIAMINE HCL 100 MG TABLET (FP) PO SCH (22:13)
[2022-09-28] MEDS: FAMOTIDINE 20 MG TABLET PO SCH (06:20)
[2022-09-28] MEDS: metFORMIN HCL 500 MG TABLET (FP) PO SCH (06:21)
[2022-09-28] MEDS: IBUPROFEN 600 MG TABLET (FP) PO PRN (06:21)
[2022-09-28] MEDS: diazePAM 5 MG TABLET PO PRN (06:23)
[2022-09-28] MEDS: INSULIN SLIDING SCALE (NOVOLOG) 1 VIAL SQ SCH (06:59)
[2022-09-28] MEDS ORDERED: methaDONE HCL 10 MG TABLET (FOR DETOX USE ONLY) PO ONE (10:00)
[2022-09-28] MEDS: BUDESONIDE/FORMETEROL FUMARATE 80/4.5 mcg INHALER IH SCH ×2 (10:15→22:17)
[2022-09-28] MEDS: BACITRACIN 0.9 GM PACKET TP SCH ×2 (10:17→22:15)
[2022-09-28] MEDS: METHOCARBAMOL 500 MG TABLET PO PRN ×3 (10:17→22:16)
[2022-09-28] MEDS: SERTRALINE HCL 50 MG TABLET (FP) PO SCH (10:18)
[2022-09-28] MEDS: GABAPENTIN 300 MG CAPSULE PO SCH ×2 (10:18→22:16)
[2022-09-28] MEDS: PRENATAL VITAMINS W/ FOLIC ACID TABLET (FP) PO SCH (10:18)
[2022-09-28] MEDS: LOSARTAN POTASSIUM 50 MG TABLET PO SCH (10:21)
[2022-09-28] MEDS ORDERED: hydrOXYzine PAMOATE 25 MG CAPSULE (FP) PO ONE (10:45)
[2022-09-28] MEDS: ACETAMINOPHEN 325 MG TABLET (FP) PO PRN (16:08)
[2022-09-28] MEDS: THIAMINE HCL 100 MG TABLET (FP) PO SCH (22:15)
[2022-09-28] MEDS: MELATONIN 5 MG TABLETS PO SCH (22:15)
[2022-09-28] MEDS: QUEtiapine FUMARATE 50 MG TABLET PO SCH (22:15)
[2022-09-28] MEDS: MONTELUKAST NA 10 MG TABLET PO SCH (22:16)
[2022-09-29] MEDS: FAMOTIDINE 20 MG TABLET PO SCH (05:29)
[2022-09-29] MEDS: METHOCARBAMOL 500 MG TABLET PO PRN (05:31)
[2022-09-29 06:46] VITALS: BP 125/64; PULSE 81; RESP 17; TEMP 97.5
[2022-09-29] MEDS: metFORMIN HCL 500 MG TABLET (FP) PO SCH (08:15)
[2022-09-29] MEDS: INSULIN SLIDING SCALE (NOVOLOG) 1 VIAL SQ SCH (08:15)
[2022-09-29] MEDS: LOSARTAN POTASSIUM 50 MG TABLET PO SCH (10:56)
[2022-09-29] MEDS: BACITRACIN 0.9 GM PACKET TP SCH (10:56)
[2022-09-29] MEDS: BUDESONIDE/FORMETEROL FUMARATE 80/4.5 mcg INHALER IH SCH (10:56)
[2022-09-29] MEDS: SERTRALINE HCL 50 MG TABLET (FP) PO SCH (10:56)
[2022-09-29] MEDS: GABAPENTIN 300 MG CAPSULE PO SCH (10:56)
[2022-09-29] MEDS: PRENATAL VITAMINS W/ FOLIC ACID TABLET (FP) PO SCH (10:56)
== END 2022-09-29 08:50 | disposition home or self-care (01) | DRG 773 ==
LOC: YASAS 13:08 → Y6N 15:13 → Y3N 15:22
PROVIDERS: ADMIT Allergy & Immunology; ATTEND Surgery
PROC: HZ2ZZZZ Detoxification Services for Substance Abuse Treatment (ICD-10-PCS; principal; 2022-09-24)
DX: F11.23 Opioid dependence with withdrawal (principal); F10.230 Alcohol dependence with withdrawal, uncomplicated; F19.282 Other psychoactive substance dependence with psychoactive substance-induced sleep disorder; F19.24 Other psychoactive substance dependence with psychoactive substance-induced mood disorder; F25.1 Schizoaffective disorder, depressive type; I10 Essential (primary) hypertension; J45.20 Mild intermittent asthma, uncomplicated; K21.9 Gastro-esophageal reflux disease without esophagitis; E11.9 Type 2 diabetes mellitus without complications; M54.50 Low back pain, unspecified; E66.9 Obesity, unspecified; Z68.32 Body mass index [BMI] 32.0-32.9, adult; S82.891E Other fracture of right lower leg, subsequent encounter for open fracture type I or II with routine healing; X58.XXXD Exposure to other specified factors, subsequent encounter; Z99.89 Dependence on other enabling machines and devices; Z88.2 Allergy status to sulfonamides
CPT/HCPCS: 36415; 80053; 82962; 85027; 86780; 87811; C9803-CS; G0008; Q0162; Q2036; U0003; U0005

== ENCOUNTER 2023-03-06 10:03 | Inpatient (IN) | payer OTHER ==
[2023-03-06 10:55] VITALS: BMI 34.3
[2023-03-06] MEDS ORDERED: DICYCLOMINE HCL 10 MG CAPSULE PO PRN (11:42)
[2023-03-06] MEDS ORDERED: NALOXONE HCL (KLOXXADO) 8 MG SPRAY NS PRN (11:42)
[2023-03-06] MEDS ORDERED: ONDANSETRON *ODT* 4 MG TABLET SL PRN (11:42)
[2023-03-06] MEDS ORDERED: MAGNESIUM HYDROX 2400MG/30ML ORAL SUSPENSION 30 ML CUP PO PRN (11:42)
[2023-03-06] MEDS ORDERED: BENZONATATE 200 MG CAPSULE PO PRN (11:42)
[2023-03-06] MEDS ORDERED: BISMUTH SUBSALICYLATE 524 MG/30 ML PO PRN (11:42)
[2023-03-06] MEDS ORDERED: BENZOCAINE/MENTHOL (CHLORASEPTIC ) LOZENGE MM PRN (11:42)
[2023-03-06] MEDS ORDERED: guaiFENesin 600 MG TABLET.ER (FP) PO PRN (11:42)
[2023-03-06] MEDS ORDERED: IBUPROFEN 400 MG TABLET (FP) PO PRN (11:42)
[2023-03-06] MEDS ORDERED: POLYETHYLENE GLYCOL (HEALTHYLAX) 3350 17 GM PACKET PO PRN (11:42)
[2023-03-06] MEDS ORDERED: ACETAMINOPHEN 325 MG TABLET (FP) PO PRN (11:42)
[2023-03-06] MEDS ORDERED: LORazepam 1 MG TABLET PO PRN (11:42)
[2023-03-06] MEDS ORDERED: LOPERAMIDE HCL 2 MG CAPSULE PO PRN (11:42)
[2023-03-06] MEDS ORDERED: NALOXONE HCL 0.4 MG/ML VIAL IM PRN (11:42)
[2023-03-06] MEDS ORDERED: methaDONE HCL 10 MG TABLET (FOR DETOX USE ONLY) PO ONE (13:45)
[2023-03-06] MEDS: METHOCARBAMOL 500 MG TABLET PO PRN (14:20)
[2023-03-06] MEDS: PRENATAL VITAMINS W/ FOLIC ACID TABLET (FP) PO SCH (14:23)
[2023-03-06] MEDS ORDERED: methaDONE HCL 10 MG TABLET (FOR DETOX USE ONLY) ONE (14:25)
[2023-03-06] MEDS ORDERED: METHOCARBAMOL 500 MG TABLET ONE (14:26)
[2023-03-06] MEDS ORDERED: PRENATAL VITAMINS W/ FOLIC ACID TABLET (FP) PO ONE (14:26)
[2023-03-06 14:38] LABS: HEMATOCRIT 38.8 % (32.4-45.2); HEMOGLOBIN 11.7 GM/dL (10.7-15.3); MCH 24.7 pg (25.7-33.7); MCHC 30.1 g/dl (32.0-36.0); MEAN PLT VOLUME 9.7 fl (7.5-11.1); PLATELET COUNT 268 10^3/uL (134-434); RBC 4.74 M/mm3 (3.60-5.2); RDW 14.7 % (11.6-15.6); WHITE BLOOD COUNT 12.7 K/mm3 (4.0-10.0)
[2023-03-06 14:41] LABS: POTASSIUM 4.2 mmol/L (3.5-5.1)
[2023-03-06 14:48] LABS: CALCIUM 8.9 mg/dL (8.5-10.1)
[2023-03-06 14:49] LABS: ALBUMIN 3.8 g/dl (3.4-5.0); BLOOD UREA NITROGEN 13.4 mg/dL (7-18)
[2023-03-06 14:52] LABS: CREATININE 0.7 mg/dL (0.55-1.3)
[2023-03-06 14:53] LABS: BILIRUBIN,TOTAL 0.6 mg/dL (0.2-1); TOT PROT 7.3 g/dl (6.4-8.2)
[2023-03-06] MEDS: cloNIDine HCL 0.1 MG TABLET PO PRN ×2 (15:42→22:15)
[2023-03-06] MEDS: LORazepam 2 MG TABLET PO SCH ×2 (17:35→22:15)
[2023-03-06] MEDS: IBUPROFEN 600 MG TABLET (FP) PO PRN (17:36)
[2023-03-06] MEDS: ALBUTEROL SO4 HFA INHALER IH PRN (20:28)
[2023-03-06] MEDS: THIAMINE HCL 100 MG TABLET (FP) PO SCH (22:14)
[2023-03-06] MEDS: QUEtiapine FUMARATE 100 MG TABLET (FP) PO SCH (22:14)
[2023-03-06] MEDS: MELATONIN 5 MG TABLETS PO SCH (22:14)
[2023-03-07] MEDS: LORazepam 2 MG TABLET PO SCH ×4 (05:20→22:11)
[2023-03-07] MEDS: MAG HYDROX/AL HYDROX/SIMETH 30 ML UNIT-DOSE CUP PO PRN (05:40)
[2023-03-07] MEDS: metFORMIN HCL 500 MG TABLET (FP) PO SCH (06:21)
[2023-03-07] MEDS: LOSARTAN POTASSIUM 50 MG TABLET PO SCH (10:15)
[2023-03-07] MEDS: PRENATAL VITAMINS W/ FOLIC ACID TABLET (FP) PO SCH (10:16)
[2023-03-07] MEDS: SERTRALINE HCL 50 MG TABLET (FP) PO SCH (10:16)
[2023-03-07] MEDS: METHOCARBAMOL 500 MG TABLET PO PRN ×2 (10:18→17:45)
[2023-03-07] MEDS: ALBUTEROL SO4 HFA INHALER IH PRN ×2 (17:43→22:11)
[2023-03-07] MEDS: IBUPROFEN 600 MG TABLET (FP) PO PRN (17:45)
[2023-03-07] MEDS: MELATONIN 5 MG TABLETS PO SCH (22:11)
[2023-03-07] MEDS: QUEtiapine FUMARATE 100 MG TABLET (FP) PO SCH (22:11)
[2023-03-07] MEDS: THIAMINE HCL 100 MG TABLET (FP) PO SCH (22:11)
[2023-03-08] MEDS: MAG HYDROX/AL HYDROX/SIMETH 30 ML UNIT-DOSE CUP PO PRN (00:49)
[2023-03-08] MEDS: cloNIDine HCL 0.1 MG TABLET PO PRN ×3 (02:18→22:43)
[2023-03-08] MEDS: LORazepam 1 MG TABLET PO SCH ×4 (05:27→22:42)
[2023-03-08] MEDS: METHOCARBAMOL 500 MG TABLET PO PRN ×2 (05:29→17:49)
[2023-03-08] MEDS: metFORMIN HCL 500 MG TABLET (FP) PO SCH (08:00)
[2023-03-08] MEDS ORDERED: COLLOIDAL OATMEAL 1 BAR EACH TP PRN (09:58)
[2023-03-08] MEDS ORDERED: methaDONE HCL 10 MG TABLET (FOR DETOX USE ONLY) PO ONE (10:00)
[2023-03-08] MEDS: LOSARTAN POTASSIUM 50 MG TABLET PO SCH (10:18)
[2023-03-08] MEDS: SERTRALINE HCL 50 MG TABLET (FP) PO SCH (10:19)
[2023-03-08] MEDS: PRENATAL VITAMINS W/ FOLIC ACID TABLET (FP) PO SCH (10:19)
[2023-03-08] MEDS: hydrOXYzine PAMOATE 25 MG CAPSULE (FP) PO PRN (10:20)
[2023-03-08] MEDS: ALBUTEROL SO4 HFA INHALER IH PRN (17:47)
[2023-03-08] MEDS: IBUPROFEN 600 MG TABLET (FP) PO PRN (17:49)
[2023-03-08] MEDS: MELATONIN 5 MG TABLETS PO SCH (22:41)
[2023-03-08] MEDS: THIAMINE HCL 100 MG TABLET (FP) PO SCH (22:42)
[2023-03-08] MEDS: QUEtiapine FUMARATE 50 MG TABLET PO SCH (22:42)
[2023-03-09] MEDS ORDERED: LORazepam 0.5 MG TABLET PO PRN
[2023-03-09] MEDS: METHOCARBAMOL 500 MG TABLET PO PRN ×3 (00:46→18:55)
[2023-03-09] MEDS: IBUPROFEN 600 MG TABLET (FP) PO PRN ×2 (00:46→10:00)
[2023-03-09] MEDS: LORazepam 0.5 MG TABLET PO SCH ×4 (05:27→22:12)
[2023-03-09] MEDS: metFORMIN HCL 500 MG TABLET (FP) PO SCH (07:14)
[2023-03-09] MEDS: ALBUTEROL SO4 HFA INHALER IH PRN (09:46)
[2023-03-09] MEDS: PRENATAL VITAMINS W/ FOLIC ACID TABLET (FP) PO SCH (09:55)
[2023-03-09] MEDS: LOSARTAN POTASSIUM 50 MG TABLET PO SCH (09:55)
[2023-03-09] MEDS: MAG HYDROX/AL HYDROX/SIMETH 30 ML UNIT-DOSE CUP PO PRN (09:55)
[2023-03-09] MEDS: SERTRALINE HCL 50 MG TABLET (FP) PO SCH (09:59)
[2023-03-09] MEDS ORDERED: GABAPENTIN 400 MG CAPSULE PO SCH (11:00)
[2023-03-09] MEDS: GABAPENTIN 300 MG CAPSULE PO SCH ×3 (11:23→22:12)
[2023-03-09 16:22] LABS: PH,URINE 5.5 (5.0-8.0); URINE APPEARANCE CLEAR; URINE BILIRUBIN NEGATIVE (NEGATIVE); URINE COLOR DK YELLOW; URINE GLUCOSE (UA) NEGATIVE (NEGATIVE); URINE KETONE TRACE (NEGATIVE); URINE LEUK ESTERASE NEGATIVE (NEGATIVE); URINE NITRITE NEGATIVE (NEGATIVE); URINE PROTEIN TRACE (NEGATIVE); URINE UROBILINOGEN 0.2 mg/dL (0.2-1.0)
[2023-03-09] MEDS: hydrOXYzine PAMOATE 25 MG CAPSULE (FP) PO PRN (18:55)
[2023-03-09] MEDS: QUEtiapine FUMARATE 50 MG TABLET PO SCH (22:12)
[2023-03-09] MEDS: MELATONIN 5 MG TABLETS PO SCH (22:12)
[2023-03-09] MEDS: THIAMINE HCL 100 MG TABLET (FP) PO SCH (22:12)
[2023-03-10] MEDS ORDERED: LORazepam 0.5 MG TABLET PO ONE (05:00)
[2023-03-10] MEDS: GABAPENTIN 300 MG CAPSULE PO SCH (05:21)
[2023-03-10] MEDS: metFORMIN HCL 500 MG TABLET (FP) PO SCH (06:26)
[2023-03-10] MEDS ORDERED: methaDONE HCL 10 MG TABLET (FOR DETOX USE ONLY) PO ONE (10:00)
[2023-03-10] MEDS: ALBUTEROL SO4 HFA INHALER IH PRN ×3 (10:19→22:29)
[2023-03-10] MEDS: GABAPENTIN 400 MG CAPSULE PO SCH ×3 (10:20→22:30)
[2023-03-10] MEDS: SERTRALINE HCL 50 MG TABLET (FP) PO SCH (10:20)
[2023-03-10] MEDS: PRENATAL VITAMINS W/ FOLIC ACID TABLET (FP) PO SCH (10:20)
[2023-03-10] MEDS: LOSARTAN POTASSIUM 50 MG TABLET PO SCH (10:20)
[2023-03-10] MEDS: METHOCARBAMOL 500 MG TABLET PO PRN ×2 (10:23→22:30)
[2023-03-10] MEDS: hydrOXYzine PAMOATE 25 MG CAPSULE (FP) PO PRN (12:39)
[2023-03-10] MEDS ORDERED: cloNIDine HCL 0.1 MG TABLET PO ONE (13:00)
[2023-03-10] MEDS: THIAMINE HCL 100 MG TABLET (FP) PO SCH (22:30)
[2023-03-10] MEDS: MELATONIN 5 MG TABLETS PO SCH (22:30)
[2023-03-10] MEDS: QUEtiapine FUMARATE 50 MG TABLET PO SCH (22:31)
[2023-03-11] MEDS: METHOCARBAMOL 500 MG TABLET PO PRN (04:25)
[2023-03-11] MEDS: hydrOXYzine PAMOATE 25 MG CAPSULE (FP) PO PRN (04:26)
[2023-03-11] MEDS: GABAPENTIN 400 MG CAPSULE PO SCH (05:24)
[2023-03-11] MEDS: ALBUTEROL SO4 HFA INHALER IH PRN (05:42)
[2023-03-11] MEDS: metFORMIN HCL 500 MG TABLET (FP) PO SCH (06:15)
[2023-03-11 06:19] VITALS: BP 104/65; PULSE 71; RESP 17; TEMP 98.7
[2023-03-11] MEDS: LOSARTAN POTASSIUM 50 MG TABLET PO SCH (09:01)
[2023-03-11] MEDS: PRENATAL VITAMINS W/ FOLIC ACID TABLET (FP) PO SCH (09:01)
[2023-03-11] MEDS: SERTRALINE HCL 50 MG TABLET (FP) PO SCH (09:01)
== END 2023-03-11 08:49 | disposition home or self-care (01) | DRG 773 ==
LOC: YASAS 10:03 → Y3N 13:18
PROVIDERS: ADMIT Allergy & Immunology; ATTEND Allergy & Immunology
PROC: HZ2ZZZZ Detoxification Services for Substance Abuse Treatment (ICD-10-PCS; principal; 2023-03-06)
DX: F11.23 Opioid dependence with withdrawal (principal); F10.230 Alcohol dependence with withdrawal, uncomplicated; F25.1 Schizoaffective disorder, depressive type; F19.24 Other psychoactive substance dependence with psychoactive substance-induced mood disorder; G47.00 Insomnia, unspecified; I10 Essential (primary) hypertension; J45.909 Unspecified asthma, uncomplicated; E11.9 Type 2 diabetes mellitus without complications; Z79.84 Long term (current) use of oral hypoglycemic drugs
CPT/HCPCS: 36415; 80053; 81003; 82962; 85027; 86780; 87635